=== PATIENT | male | born 1955 | race Caucasian/White ===

== ENCOUNTER → 2017-02-03 | Outpatient (CLI) | payer OTHER | END | disposition home or self-care (01) | LOC: C.LABBFT 10:06 | PROVIDERS: ATTEND Urology | DX: Z00.00 Encounter for general adult medical examination without abnormal findings (principal); N40.0 Benign prostatic hyperplasia without lower urinary tract symptoms; R97.20 Elevated prostate specific antigen [PSA] ==

== ENCOUNTER 2017-04-06 18:57 | Emergency (ER) | payer OTHER ==
[~2017-04-06] VITALS: Ht 175.3 cm; Wt 71.6 kg
[2017-04-06 19:05] VITALS: TEMP 36.6; Ht 175.3 cm; Wt 71.6 kg
--- NOTE | 2017-04-06 19:24 | EMERGENCY ROOM VISIT NOTE ---
History Report prepared by Lucho: Eddie Quan Under the Supervision of: Dr. Nessa Moss D.O. First contact with patient: 19:10 Chief Complaint: MENTAL HEALTH EVALUATION Stated Complaint: MENTAL HEALTH EVAL History of Present Illness The patient is a 61 year old male who presents to the Emergency Room with worsening mental health issues today. Per police, the patient pulled a gun to his own head, but decided not to pull the trigger. The patient then proceeded to go to work, as he is a dance coach at [employer]. The patient went to a bank to get money, and the police were then called by the bank, and the patient was then brought here. Per police, the patient has no known mental health diagnoses, but has seen a psychiatrist in the past. The patient states that he has no thoughts of hurting himself anymore, and denies any current homicidal ideations, but he admits that sometimes he has thoughts to hurt other people. He says that he is not on any medications, and does not use any recreational drugs. He adds that he does not smoke cigarettes or drink alcohol. He denies any pain, and notes no recent illnesses, injuries, or falls. The patient notes that he has had ringing in his ears for a while, and sometimes thinks that someone is coming to get him, but denies any thoughts like that currently. Source of History: patient, police Onset: Today Position: other (global - mental health issues) Quality: other (pulled gun to his head but did not pull trigger) Timing: worsening Note: Associated symptoms: Denies any pain, recent illnesses, falls. Notes ringing in ears for a while. Denies current suicidal ideations, homicidal ideation. Review of Systems See HPI for pertinent positives & negatives. A total of 10 systems reviewed and were otherwise negative. Past Medical & Surgical Medical Problems: (1) No chronic diseases present Surgical Problems: (1) Hernia Family History No pertinent family history Social History Smoking Status: Never Smoker Alcohol Use: none Drug Use: none Marital Status: single Occupation Status: employed Current/Historical Medications No Active Prescriptions or Reported Meds Allergies Uncoded Allergies: PEN (Allergy, Mild, RASH, 09/10/12) Physical Exam Vital Signs Date Time Temp Pulse Resp B/P (MAP) Pulse Ox O2 Delivery O2 Flow Rate FiO2 04/07/17 01:03 74 20 126/81 97 Room Air 04/06/17 21:07 66 18 115/76 98 Room Air 04/06/17 19:05 36.6 73 18 138/78 98 Room Air Physical Exam GENERAL: alert, well appearing, well nourished, no distress, non-toxic EYE EXAM: normal conjunctiva, PERRL and EOM's grossly intact OROPHARYNX: no exudate, no erythema, lips, buccal mucosa, and tongue normal and mucous membranes are moist NECK: supple, no nuchal rigidity, no adenopathy, non-tender LUNGS: Clear to auscultation. Normal chest wall mechanics HEART: no murmurs, S1 normal and S2 normal ABDOMEN: abdomen soft, non-tender, normo-active bowel sounds, no masses, no rebound or guarding. BACK: Back is symmetrical on inspection and there is no deformity, no midline tenderness, no CVA tenderness. SKIN: no rashes and no bruising UPPER EXTREMITIES: upper extremities are grossly normal. LOWER EXTREMITIES: No pitting edema. NEURO EXAM: Normal sensorium, cranial nerves II-XII grossly intact, normal speech, no gross weakness of arms, no gross weakness of legs. Medical Decision & Procedures Laboratory Results 04/06/17 19:32 Red Blood Count 4.62, Mean Corpuscular Volume 95.2, Mean Corpuscular Hemoglobin 33.8, Mean Corpuscular Hemoglobin Concent 35.5, Mean Platelet Volume 10.4, Neutrophils (%) (Auto) 65.5, Lymphocytes (%) (Auto) 25.1, Monocytes (%) (Auto) 8.1, Eosinophils (%) (Auto) 0.8, Basophils (%) (Auto) 0.3, Neutrophils # (Auto) 4.23, Lymphocytes # (Auto) 1.62, Monocytes # (Auto) 0.52, Eosinophils # (Auto) 0.05, Basophils # (Auto) 0.02 04/06/17 19:32 Test 04/06/17 19:15 04/06/17 19:32 Urine Color YELLOW Urine Appearance CLOUDY (CLEAR) Urine pH 5.0 (4.5-7.5) Urine Specific [place] 1.026 (1.000-1.030) Urine Protein NEG (NEG) Urine Glucose (UA) NEG (NEG) Urine Ketones NEG (NEG) Urine Occult Blood NEG (NEG) Urine Nitrite NEG (NEG) Urine Bilirubin NEG (NEG) Urine Urobilinogen NEG (NEG) Urine Leukocyte Esterase SMALL (NEG) Urine WBC (Auto) 1-5 /hpf (0-5) Urine RBC (Auto) 0-4 /hpf (0-4) Urine Hyaline Casts (Auto) 1-5 /lpf (0-5) Urine Epithelial Cells (Auto) 5-10 /lpf (0-5) Urine Bacteria (Auto) 1+ (NEG) Urine Crystals CALCIUM OXALATE (NONE Urine Opiates Screen NEG (NEG) Urine Methadone, Qualitative NEG (NEG) Urine Barbiturates NEG (NEG) Urine Phencyclidine (PCP) Level NEG (NEG) Ur Amphetamine/Methamphetamine NEG (NEG) MDMA (Ecstasy) Screen NEG (NEG) Urine Benzodiazepines Screen NEG (NEG) Urine Cocaine Metabolite NEG (NEG) Urine Marijuana (THC) NEG (NEG) White Blood Count 6.45 K/uL (4.8-10.8) Red Blood Count 4.62 M/uL (4.7-6.1) Hemoglobin 15.6 g/dL (14.0-18.0) Hematocrit 44.0 % (42-52) Mean Corpuscular Volume 95.2 fL (80-100) Mean Corpuscular Hemoglobin 33.8 pg (25-34) Mean Corpuscular Hemoglobin Concent 35.5 g/dl (32-36) Platelet Count 180 K/uL (130-400) Mean Platelet Volume 10.4 fL (7.4-10.4) Neutrophils (%) (Auto) 65.5 % Lymphocytes (%) (Auto) 25.1 % Monocytes (%) (Auto) 8.1 % Eosinophils (%) (Auto) 0.8 % Basophils (%) (Auto) 0.3 % Neutrophils # (Auto) 4.23 K/uL (1.4-6.5) Lymphocytes # (Auto) 1.62 K/uL (1.2-3.4) Monocytes # (Auto) 0.52 K/uL (0.11-0.59) Eosinophils # (Auto) 0.05 K/uL (0-0.5) Basophils # (Auto) 0.02 K/uL (0-0.2) RDW Standard Deviation 43.4 fL (36.4-46.3) RDW Coefficient of Variation 12.6 % (11.5-14.5) Immature Granulocyte % (Auto) 0.2 % Immature Granulocyte # (Auto) 0.01 K/uL (0.00-0.02) Anion Gap 8.0 mmol/L (3-11) Est Creatinine Clear Calc Drug Dose 97.0 ml/min Estimated GFR () 112.0 Estimated GFR (Non- 96.6 BUN/Creatinine Ratio 28.0 (10-20) Calcium Level 8.3 mg/dl (8.5-10.1) Total Bilirubin 0.4 mg/dl (0.2-1) Direct Bilirubin < 0.1 mg/dl (0-0.2) Aspartate Amino Transf (AST/SGOT) 22 U/L (15-37) Alanine Aminotransferase (ALT/SGPT) 32 U/L (12-78) Alkaline Phosphatase 84 U/L (45-117) Total Protein 7.1 gm/dl (6.4-8.2) Albumin 3.9 gm/dl (3.4-5.0) Thyroid Stimulating Hormone (TSH) 2.270 uIu/ml (0.300-4.500) Ethyl Alcohol mg/dL < 3.0 mg/dl (0-3) Laboratory results per my review. ED Course 1910: The patient was evaluated in room A7. A complete history and physical exam was performed. 2050: The psych case manger is going to see the patient. 2113: pt now refusing to sign voluntary as he had originally been agreeable to. Will start 302 process. 2142: Delegate here now to proceed with 302 process. Patient signed out to Dr. Sesay to follow-up patient's final placement and disposition. Medical Decision Differential diagnosis: Etiologies such as mood disorder, infection, hypoglycemia, electrolyte abnormalities, cardiac sources, intracerebral event, toxicologic, neurologic, as well as others were entertained. Patient with suicidal ideation and plan today. Now denying suicidal intent. Patient seems have a difficult time understanding the serious nature of the events of today. Originally was willing to sign a voluntary, however then refused. 302 process started. I feel patient is unsafe to be discharged at this time and if he is not willing to sign a voluntary, that a 302 should be pursued. Medication Reconcilliation Current Medication List: was personally reviewed by me Blood Pressure Screening Patient's blood pressure: Elevated blood pressure Blood pressure disposition: Elevated BP felt to be situational Impression Primary Impression: Suicidal ideation Additional Impressions: Paranoia Hallucination Depressed Scribe Attestation The scribe's documentation has been prepared under my direction and personally reviewed by me in its entirety. I confirm that the note above accurately reflects all work, treatment, procedures, and medical decision making performed by me. Departure Information Prescriptions No Active Prescriptions or Reported Meds Referrals Preston Wilcox M.D. (PCP) Patient Instructions My [facility] Problem Qualifiers Additional Impressions: Depressed Depression Type: unspecified Qualified Codes: F32.9 - Major depressive disorder, single episode, unspecified
[2017-04-06 19:42] LABS: URINE APPEARANCE CLOUDY (CLEAR); URINE BILIRUBIN NEG (NEG); URINE COLOR YELLOW; URINE NITRITE NEG (NEG); URINE SPECIFIC GRAVITY 1.026 (1.000-1.030); UROBILINOGEN NEG (NEG)
[2017-04-06 19:43] LABS: BASO % 0.3 %; BASO ABS # 0.02 K/uL (0-0.2); COMPLETE YES; EOS % 0.8 %; IG% 0.2 %; LYMPH % 25.1 %; LYMPH ABS # 1.62 K/uL (1.2-3.4); MEAN CELL VOLUME 95.2 fL (80-100); MEAN CORPUSCULAR HEMOGLOBIN 33.8 pg (25-34); MEAN CORPUSCULAR HGB CONC 35.5 g/dl (32-36); MEAN PLATELET VOLUME 10.4 fL (7.4-10.4); MONO % 8.1 %; NEUT % 65.5 %; PLATELET COUNT 180 K/uL (130-400); RED BLOOD COUNT 4.62 M/uL (4.7-6.1); WHITE BLOOD COUNT 6.45 K/uL (4.8-10.8)
[2017-04-06 19:44] LABS: MANUAL MICROSCOPIC REQUIRED? NO; REVIEW REQ? YES
[2017-04-06 20:01] LABS: ALT/SGPT 32 U/L (12-78); AST/SGOT 22 U/L (15-37); BLOOD UREA NITROGEN 23 mg/dl (7-18); CALCIUM 8.3 mg/dl (8.5-10.1); CARBON DIOXIDE 23 mmol/L (21-32); CHLORIDE 108 mmol/L (98-107); CREATININE 0.81 mg/dl (0.60-1.40); GLUCOSE 107 mg/dl (70-99); POTASSIUM 3.8 mmol/L (3.5-5.1); SODIUM 139 mmol/L (136-145)
[2017-04-06 20:03] LABS: BENZODIAZEPINE, URINE NEG (NEG); COCAINE,URINE NEG (NEG); PHENCYCLIDINE, URINE NEG (NEG)
[2017-04-06 20:12] LABS: ALKALINE PHOSPHATASE 84 U/L (45-117)
[2017-04-06] MEDS ORDERED: LORAZEPAM 1 MG TAB SL STA (21:32)
--- NOTE | 2017-04-06 23:36 | EMERGENCY ROOM VISIT NOTE ---
ED Visit Note First contact with patient: 19:09 Received patient in signout. History and physical verified by me. I interviewed this patient at time of sign out and he does not seem to be able to grasp the concept of what he did today. When asked if he threatened to shoot himself with a gun the patient only responds that it is all hearsay. However when I entered the room he told me that his life was not worth living. Based on the fact that he cannot have them his statements and based on what he said earlier I felt that the 302 should be upheld. I did also discuss the case with can help as well as case management who also independently evaluated the patient and who also agree with this assessment. Patient was accepted at [facility]. Problem List Medical Problems: (1) No chronic diseases present Status: Chronic Surgical Problems: (1) Hernia Status: Resolved Current/Historical Medications No Active Prescriptions or Reported Meds Allergies Uncoded Allergies: PEN (Allergy, Mild, RASH, 09/10/12) Vital Signs Date Time Temp Pulse Resp B/P (MAP) Pulse Ox O2 Delivery O2 Flow Rate FiO2 04/06/17 21:07 66 18 115/76 98 Room Air 04/06/17 19:05 36.6 73 18 138/78 98 Room Air Laboratory Results 04/06/17 19:32 Red Blood Count 4.62, Mean Corpuscular Volume 95.2, Mean Corpuscular Hemoglobin 33.8, Mean Corpuscular Hemoglobin Concent 35.5, Mean Platelet Volume 10.4, Neutrophils (%) (Auto) 65.5, Lymphocytes (%) (Auto) 25.1, Monocytes (%) (Auto) 8.1, Eosinophils (%) (Auto) 0.8, Basophils (%) (Auto) 0.3, Neutrophils # (Auto) 4.23, Lymphocytes # (Auto) 1.62, Monocytes # (Auto) 0.52, Eosinophils # (Auto) 0.05, Basophils # (Auto) 0.02 04/06/17 19:32 Test 04/06/17 19:15 04/06/17 19:32 Urine Color YELLOW Urine Appearance CLOUDY (CLEAR) Urine pH 5.0 (4.5-7.5) Urine Specific [place] 1.026 (1.000-1.030) Urine Protein NEG (NEG) Urine Glucose (UA) NEG (NEG) Urine Ketones NEG (NEG) Urine Occult Blood NEG (NEG) Urine Nitrite NEG (NEG) Urine Bilirubin NEG (NEG) Urine Urobilinogen NEG (NEG) Urine Leukocyte Esterase SMALL (NEG) Urine WBC (Auto) 1-5 /hpf (0-5) Urine RBC (Auto) 0-4 /hpf (0-4) Urine Hyaline Casts (Auto) 1-5 /lpf (0-5) Urine Epithelial Cells (Auto) 5-10 /lpf (0-5) Urine Bacteria (Auto) 1+ (NEG) Urine Crystals CALCIUM OXALATE (NONE Urine Opiates Screen NEG (NEG) Urine Methadone, Qualitative NEG (NEG) Urine Barbiturates NEG (NEG) Urine Phencyclidine (PCP) Level NEG (NEG) Ur Amphetamine/Methamphetamine NEG (NEG) MDMA (Ecstasy) Screen NEG (NEG) Urine Benzodiazepines Screen NEG (NEG) Urine Cocaine Metabolite NEG (NEG) Urine Marijuana (THC) NEG (NEG) White Blood Count 6.45 K/uL (4.8-10.8) Red Blood Count 4.62 M/uL (4.7-6.1) Hemoglobin 15.6 g/dL (14.0-18.0) Hematocrit 44.0 % (42-52) Mean Corpuscular Volume 95.2 fL (80-100) Mean Corpuscular Hemoglobin 33.8 pg (25-34) Mean Corpuscular Hemoglobin Concent 35.5 g/dl (32-36) Platelet Count 180 K/uL (130-400) Mean Platelet Volume 10.4 fL (7.4-10.4) Neutrophils (%) (Auto) 65.5 % Lymphocytes (%) (Auto) 25.1 % Monocytes (%) (Auto) 8.1 % Eosinophils (%) (Auto) 0.8 % Basophils (%) (Auto) 0.3 % Neutrophils # (Auto) 4.23 K/uL (1.4-6.5) Lymphocytes # (Auto) 1.62 K/uL (1.2-3.4) Monocytes # (Auto) 0.52 K/uL (0.11-0.59) Eosinophils # (Auto) 0.05 K/uL (0-0.5) Basophils # (Auto) 0.02 K/uL (0-0.2) RDW Standard Deviation 43.4 fL (36.4-46.3) RDW Coefficient of Variation 12.6 % (11.5-14.5) Immature Granulocyte % (Auto) 0.2 % Immature Granulocyte # (Auto) 0.01 K/uL (0.00-0.02) Anion Gap 8.0 mmol/L (3-11) Est Creatinine Clear Calc Drug Dose 97.0 ml/min Estimated GFR () 112.0 Estimated GFR (Non- 96.6 BUN/Creatinine Ratio 28.0 (10-20) Calcium Level 8.3 mg/dl (8.5-10.1) Total Bilirubin 0.4 mg/dl (0.2-1) Direct Bilirubin < 0.1 mg/dl (0-0.2) Aspartate Amino Transf (AST/SGOT) 22 U/L (15-37) Alanine Aminotransferase (ALT/SGPT) 32 U/L (12-78) Alkaline Phosphatase 84 U/L (45-117) Total Protein 7.1 gm/dl (6.4-8.2) Albumin 3.9 gm/dl (3.4-5.0) Thyroid Stimulating Hormone (TSH) 2.270 uIu/ml (0.300-4.500) Ethyl Alcohol mg/dL < 3.0 mg/dl (0-3) Departure Information Impression Primary Impression: Suicidal ideation Additional Impressions: Depressed Hallucination Paranoia Prescriptions No Active Prescriptions or Reported Meds Referrals Preston Wilcox M.D. (PCP) Patient Instructions My [facility] Problem Qualifiers Additional Impressions: Depressed Depression Type: unspecified Qualified Codes: F32.9 - Major depressive disorder, single episode, unspecified
[2017-04-07 01:03] VITALS: BP 126/81; PULSE 74; O2SAT 97
== END 2017-04-07 01:45 ==
LOC: C.EDB 18:58 → C.EDA 04-07 01:45
DX: R45.851 Suicidal ideations (principal); F32.9 Major depressive disorder, single episode, unspecified; R44.3 Hallucinations, unspecified; F22 Delusional disorders

== ENCOUNTER 2017-09-02 18:36 | Emergency (ER) | payer OTHER ==
[~2017-09-02] VITALS: Ht 175.3 cm; Wt 66.7 kg
[2017-09-02 18:37] VITALS: TEMP 37.2; Ht 175.3 cm; Wt 66.7 kg
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
[2017-09-02 19:29] LABS: BASO % 0.1 %; BASO ABS # 0.02 K/uL (0-0.2); EOS % 0.1 %; EOS ABS # 0.02 K/uL (0-0.5); HEMATOCRIT 44.2 % (42-52); HEMOGLOBIN 15.6 g/dL (14.0-18.0); IG# 0.03 K/uL (0.00-0.02); LYMPH % 9.6 %; LYMPH ABS # 1.32 K/uL (1.2-3.4); MEAN CELL VOLUME 94.2 fL (80-100); MEAN CORPUSCULAR HEMOGLOBIN 33.3 pg (25-34); MEAN CORPUSCULAR HGB CONC 35.3 g/dl (32-36); MEAN PLATELET VOLUME 10.3 fL (7.4-10.4); MONO % 6.4 %; MONO ABS # 0.88 K/uL (0.11-0.59); NEUT % 83.6 %; NEUT ABS # 11.51 K/uL (1.4-6.5); PLATELET COUNT 221 K/uL (130-400); RED CELL DISTRIBUTION WIDTH CV 12.8 % (11.5-14.5); RED CELL DISTRIBUTION WIDTH SD 44.2 fL (36.4-46.3); WHITE BLOOD COUNT 13.78 K/uL (4.8-10.8)
--- NOTE | 2017-09-02 19:43 | DIAGNOSTIC IMAGING REPORT ---
CHEST ONE VIEW PORTABLE HISTORY: Mood Disorder COMPARISON: None. FINDINGS: The lungs are clear. Cardiac silhouette is normal in size. No pleural effusions. No pneumothorax. IMPRESSION: No acute process. Electronically signed by: Eduardo Rao M.D. 09/02/2017 7:41 PM Dictated Date/Time: 09/02/2017 7:40 PM
[2017-09-02 19:52] LABS: ALBUMIN 3.7 gm/dl (3.4-5.0); ALT/SGPT 32 U/L (12-78); AST/SGOT 18 U/L (15-37); BLOOD UREA NITROGEN 29 mg/dl (7-18); CALCIUM 8.5 mg/dl (8.5-10.1); CARBON DIOXIDE 26 mmol/L (21-32); CREATININE 1.07 mg/dl (0.60-1.40); GLUCOSE 121 mg/dl (70-99); POTASSIUM 3.5 mmol/L (3.5-5.1); SODIUM 138 mmol/L (136-145)
[2017-09-02 20:03] LABS: ALKALINE PHOSPHATASE 69 U/L (45-117)
--- NOTE | 2017-09-02 21:01 | DIAGNOSTIC IMAGING REPORT ---
HEAD CT NONCONTRAST CT DOSE: 712.55 mGy.cm HISTORY: Mood disorder. EVALUATE FOR PSYCH CLEARANCE TECHNIQUE: Multiaxial CT images of the head were performed without the use of intravenous contrast. Automated exposure control was utilized for this study. A dose lowering technique was utilized adhering to the principles of ALARA. Comparison: Temporal bone CT 03/16/2015. Findings: The paranasal sinuses and mastoid air cells are clear. The calvarium and skull base are intact. The ventricles and sulci are within normal limits. There is no mass, hematoma, midline shift, or acute infarct. Impression: No acute intracranial abnormality. Electronically signed by: Eduardo Rao M.D. 09/02/2017 8:59 PM Dictated Date/Time: 09/02/2017 8:55 PM
[2017-09-02 22:36] VITALS: BP 105/70; PULSE 80; O2SAT 95
== END 2017-09-02 22:58 | disposition home or self-care (01) ==
LOC: EDBD 18:36 → C.EDA 18:36
DX: R41.82 Altered mental status, unspecified (principal)

== ENCOUNTER 2017-09-07 00:02 | Inpatient (IN) | payer OTHER ==
[2017-09-07] VITALS (10 sets, daily range): BP systolic 92–125; BP diastolic 55–68; PULSE 70–93; TEMP 36.5–37.4; O2SAT 93–98; Ht 154.9 cm; Wt 63.7 kg
[~2017-09-07] VITALS: Ht 154.9 cm; Wt 63.7 kg
[2017-09-07 01:04] LABS: HEMATOCRIT 40.6 % (42-52); HEMOGLOBIN 14.5 g/dL (14.0-18.0); MEAN CELL VOLUME 93.5 fL (80-100); MEAN CORPUSCULAR HEMOGLOBIN 33.4 pg (25-34); MEAN CORPUSCULAR HGB CONC 35.7 g/dl (32-36); MEAN PLATELET VOLUME 10.3 fL (7.4-10.4); PLATELET COUNT 203 K/uL (130-400); RED CELL DISTRIBUTION WIDTH CV 12.6 % (11.5-14.5); RED CELL DISTRIBUTION WIDTH SD 43.7 fL (36.4-46.3); WHITE BLOOD COUNT 8.37 K/uL (4.8-10.8)
[2017-09-07 01:21] LABS: BLOOD UREA NITROGEN 26 mg/dl (7-18); CALCIUM 8.1 mg/dl (8.5-10.1); CARBON DIOXIDE 24 mmol/L (21-32); CREATININE 0.95 mg/dl (0.60-1.40); GLUCOSE 166 mg/dl (70-99)
[2017-09-07 01:25] LABS: POTASSIUM 3.8 mmol/L (3.5-5.1); SODIUM 138 mmol/L (136-145)
[2017-09-07] MEDS ORDERED: HYDROmorphone INJ 0.5 MG/0.5 ML SYR IV STA (02:10)
--- NOTE | 2017-09-07 02:19 | EMERGENCY ROOM VISIT NOTE ---
History Report prepared by Lucho: Rowena Sun Under the Supervision of: Dr. Nataly Coornado D.O. First contact with patient: 00:03 Chief Complaint: FALL Stated Complaint: FALL DOWN STAIRS History of Present Illness The patient is a 62 year old male who presents to the Emergency Room with complaints of an episode of a fall occurring prior to arrival. The patient states that he was walking out of the bathroom and down the [place] when he fell down the stairs. He reports that he slipped. He states that it was dark and he mistook the staircase for the bedroom door. He reports that he was able to crawl back up the steps to call an ambulance. The patient complains of left hip pain. The patient denies loss of consciousness, losing his balance, neck pain, drinking alcohol, taking blood thinners, and taking sleeping pills. He notes that he gets a shot once a month that he thinks is for his depression. Source of History: patient Onset: prior to arrival Position: other (global) Quality: other (fall) Timing: other (episode) Associated Symptoms: No LOC, No neck pain Note: The patient complains of left hip pain. The patient denies losing his balance. Review of Systems See HPI for pertinent positives & negatives. A total of 10 systems reviewed and were otherwise negative. Past Medical & Surgical Medical Problems: (1) Depression (2) No chronic diseases present Surgical Problems: (1) Hernia Family History No pertinent family history Social History Smoking Status: Never Smoker Alcohol Use: none Drug Use: none Marital Status: single Housing Status: lives alone Occupation Status: employed Current/Historical Medications No Active Prescriptions or Reported Meds Allergies Coded Allergies: Penicillins (Unverified Adverse Reaction, Intermediate, RASH, 09/02/17) Physical Exam Vital Signs Date Time Temp Pulse Resp B/P (MAP) Pulse Ox O2 Delivery O2 Flow Rate FiO2 09/07/17 02:18 74 18 104/59 94 Room Air 09/07/17 01:09 62 16 95/48 96 Room Air 09/07/17 00:06 36.7 77 18 109/64 92 Room Air Physical Exam HEENT: Head - normocephalic and atraumatic. Pupils are equal, round, and reactive to light. Extraocular eye muscles are intact and sclera are anicteric. Nose - moist nasal mucosa without evidence of trauma or discharge. Mouth - moist buccal mucosa with no trauma to the teeth or signs of malocclusion. Neck: The cervical collar was removed while in-line stabilization was maintained. The neck is supple and there is no pain to palpation over the posterior cervical spine and no obvious step-offs or deformities. There is no JVD or tracheal deviation. Chest: There are no signs of deformities, contusions or abrasions to the chest wall. There is no obvious crepitus or paradoxical chest rise. Heart: Regular, rate, and rhythm. There is a normal S1 and S2 with no murmurs, clicks, or gallops appreciated. Lungs: Clear to auscultation bilaterally with no wheezes, rales, or rhonchi. Abdomen: Soft, completely nontender, nondistended, with good bowel sounds. There is no sign of trauma such as contusions, abrasions or penetrations. There are no palpable pulsatile masses or hepatosplenomegaly. There is no guarding, rigidity, or rebound noted. Pelvis: Stable to rock and compression. Pain with palpation over the left lateral hip. Extremities: No obvious trauma, deformities, contusions, or edema. There are easily palpable peripheral pulses. Neuro: The patient is awake and alert and easily able to follow commands. Muscle strength is 5 out of 5 in all 4 extremities. Otherwise, neuro exam is unremarkable. Back: The entire thoracic, lumbar, and sacral spine were palpated. There are no obvious step-offs or deformities noted. There are no obvious signs of trauma such as contusions abrasions penetrations noted to the back. Medical Decision & Procedures ER Provider Diagnostic Interpretation: HIP X-RAY: The results were interpreted by me. Intertrochanteric hip fracture on the left. CHEST X-RAY: The results were interpreted by me. No acute pulmonary findings. No cardiomegaly. Laboratory Results 09/07/17 00:20 09/07/17 00:20 Test 09/07/17 00:20 Red Blood Count 4.34 M/uL (4.7-6.1) Mean Corpuscular Volume 93.5 fL (80-100) Mean Corpuscular Hemoglobin 33.4 pg (25-34) Mean Corpuscular Hemoglobin Concent 35.7 g/dl (32-36) RDW Standard Deviation 43.7 fL (36.4-46.3) RDW Coefficient of Variation 12.6 % (11.5-14.5) Mean Platelet Volume 10.3 fL (7.4-10.4) Prothrombin Time 10.1 SECONDS (9.0-12.0) Prothromb Time International Ratio 1.0 (0.9-1.1) Activated Partial Thromboplast Time 25.3 SECONDS (21.0-31.0) Partial Thromboplastin Ratio 1.0 Anion Gap 6.0 mmol/L (3-11) Estimated GFR () 99.7 Estimated GFR (Non- 86.1 BUN/Creatinine Ratio 26.8 (10-20) Calcium Level 8.1 mg/dl (8.5-10.1) Laboratory results per my review. Medications Administered Medications (Trade) Dose Ordered Sig/Madelyn Route Start Time Stop Time Status Last Admin Dose Admin Hydromorphone HCl (Dilaudid Inj) 0.5 mg NOW STAT IV 09/07/17 02:10 09/07/17 02:12 DC 09/07/17 02:16 0.5 MG Procedure IV Dilaudid ED Course 0009: Past medical records reviewed. The patient was evaluated in room A2. A complete history and physical exam was performed. The patient cervical collar was removed and his neck was cleared. He went for plain films of his left hip and pelvis as described above. 0107: I reevaluated the patient and informed him that his hip is broken. I informed him of his treatment plan and he verbalized agreement of the treatment plan. An IV lock was initiated and labs were drawn as above. 0210: Ordered Dilaudid Inj 0.5 mg IV. 0212: Discussed the patient's case with Dr. Souza - Orthopedics. The patient will be evaluated for further management. Medical Decision The patient is a 62 year old male who presents to the Emergency Room with complaints of an episode of a fall occurring prior to arrival. Differential diagnoses include left hip fracture, left hip contusion, head injury, c-spine injury. LABS: Stable H&H Normal white count BUN 26 Creatinine 0.9 This is a 62-year-old male patient who unfortunately suffered a fall down stairs at home this morning. He complained of left hip pain. X-ray reveals evidence of a left hip fracture. The patient denies injuring any other part of his body. He has no outward signs of trauma. I discussed the case with orthopedics and they will evaluate for further management. Medication Reconcilliation Current Medication List: was personally reviewed by me Blood Pressure Screening Patient's blood pressure: Normal blood pressure Will be further monitored by the surgeon. Consults Time Called: [phone] Consulting Physician: Dr. Harley Piedra [facility] Returned Call: [phone] Discussed the patient's case with Dr. Harley Machuca. The patient will be evaluated for further management. Impression Primary Impression: Hip fracture, left Additional Impression: Fall Scribe Attestation The scribe's documentation has been prepared under my direction and personally reviewed by me in its entirety. I confirm that the note above accurately reflects all work, treatment, procedures, and medical decision making performed by me. Departure Information Dispostion Being Evaluated By Surgeon Prescriptions No Active Prescriptions or Reported Meds Referrals Preston Wilcox M.D. (PCP) Patient Instructions My [facility] Problem Qualifiers Primary Impression: Hip fracture, left Encounter type: initial encounter Fracture type: closed Qualified Codes: S72.002A - Fracture of unspecified part of neck of left femur, initial encounter for closed fracture Additional Impression: Fall Encounter type: initial encounter Qualified Codes: W19.XXXA - Unspecified fall, initial encounter
[2017-09-07] MEDS ORDERED: NURSING VERBAL MED ORDER ONE (02:30)
[2017-09-07] MEDS ORDERED: ONDANSETRON INJ 2 MG/ML 2 ML VIAL IV PRN (03:15)
[2017-09-07 03:16] LABS: PTT PATIENT 25.3 SECONDS (21.0-31.0)
[2017-09-07] MEDS: SODIUM CHLORIDE 0.9% 1000ML 1,000 ML IV SCH ×2 (03:38→13:15)
[2017-09-07] MEDS: MoRPHine SULFATE 4 MG/ML 1 ML CARP\\VIAL IV PRN ×2 (03:38→07:44)
[2017-09-07] MEDS ORDERED: CEFAZOLIN SOD 2000MG/15 ML IV PUSH IV SCH (06:00)
--- NOTE | 2017-09-07 07:09 | DIAGNOSTIC IMAGING REPORT ---
PELVIS ONE VIEW, LEFT HIP 2 VIEWS HISTORY: fall - left hip pain COMPARISON: None. FINDINGS: There is a left femoral neck fracture demonstrating mild superior displacement. No dislocation. The visualized pelvic bones are intact. Soft tissues are unremarkable. No radiopaque foreign bodies. IMPRESSION: Mildly displaced left femoral neck fracture. Electronically signed by: Eduardo Rao M.D. 09/07/2017 7:08 AM Dictated Date/Time: 09/07/2017 7:07 AM
--- NOTE | 2017-09-07 07:28 | DIAGNOSTIC IMAGING REPORT ---
CHEST 1 VW FRONT-NOT PORTABLE HISTORY: Left hip fracture. COMPARISON: Chest 09/02/2017. FINDINGS: The lungs are clear. Cardiac silhouette is normal in size. No pleural effusions. No pneumothorax. Old, healed right-sided rib fractures. IMPRESSION: No acute process. Electronically signed by: Eduardo Rao M.D. 09/07/2017 7:27 AM Dictated Date/Time: 09/07/2017 7:26 AM
[2017-09-07] MEDS: DOCUSATE SODIUM 100 MG CAP PO SCH ×2 (09:00→20:35)
[2017-09-07] MEDS: MULTIVITAMIN TAB PO SCH (09:00)
--- NOTE | 2017-09-07 09:19 | Medical Consult ---
Consultation Date of Consultation: Sep 07, 2017. Attending Physician: Gamaliel Souza D.O. Reason for Consultation: Medical management, pre-op clearance History of Present Illness This is a 62 yo M with PMHx of GERD, BPH, diverticulosis with recent hx of diverticulitis treated with cipro/flagyl in May 2017 as outpatient, and HLD who presents s/p fall and subsequent fracture of the L femoral neck. Pt is being evaluated for medical management/preop clearance. Chart was reviewed and pt was stable for surgery this morning. The patient was examined in the PACU s/p L total hip arthroplasty. He is awake and able to answer all my questions. He reports having minimal to no pain at this time, and that his legs are still slightly numb. He is not able to wiggle his toes or move ankles. He reports that his fall was secondary to falling down the stairs in the dark, around 11 pm last evening. He denies hitting his head or LOC. When questioned about history of mood disorders, pt willingly expresses that he follows with Regina, provider at [facility] in [place]. He notes he was recently started on a new medication, not a tablet but injectable. As I list names of medications, he agrees that he is on Abilify JAFFE, however is not aware of the dosing. He thinks he started this 1 or 2 months ago. Pt seems to think he was on a tablet, however cannot fully tell me if he's currently on an oral medication. Pt reports trial of antidepressants in the past, but is unable to recall the medications. He feels his mood is better since starting the injection, and last received a dose about 1 week ago in outpt office. He denies that the medication has cause lightheadedness or dizziness, confusion or altered mental status or other adverse effects. He denies suicidal or homicidal ideations. Past Medical/Surgical History Medical Problems: (1) BPH (benign prostatic hyperplasia) (2) Depression (3) Diverticulosis (4) GERD (gastroesophageal reflux disease) (5) HLD (hyperlipidemia) Surgical Problems: (1) Hernia Family History Diabetes mellitus FH: cancer FH: heart disease FH: hypercholesterolemia FH: obesity Social History Smoking Status: Never Smoker Smokeless Tobacco Use: No Alcohol Use: socially Drug Use: none Marital Status: single Housing Status: lives alone Occupation Status: employed Allergies Coded Allergies: Penicillins (Unverified Adverse Reaction, Intermediate, RASH, 09/07/17) Current Inpatient Medications Current Inpatient Medications Medications (Trade) Dose Ordered Sig/Madelyn Route Start Time Stop Time Status Last Admin Dose Admin Sodium Chloride 1,000 ml @ 100 mls/hr Q10H IV 09/07/17 03:15 10/07/17 03:14 09/07/17 03:38 100 MLS/HR Morphine Sulfate (MoRPHine SULFATE INJ) 3 mg Q4H PRN IV 09/07/17 03:15 09/21/17 03:14 09/07/17 07:44 3 MG Ondansetron HCl (Zofran Inj) 4 mg Q6H PRN IV 09/07/17 03:15 10/07/17 03:14 Docusate Sodium (coLACE CAP) 100 mg BID PO 09/07/17 09:00 10/07/17 08:59 Multivitamins (Multivitamin Tab) 1 tab QAM PO 09/07/17 09:00 10/07/17 08:59 Cefazolin Sodium (Ancef 2000mg Iv Push) 2,000 mg PREOP IV 09/07/17 06:00 09/07/17 18:00 Review of Systems Constitutional: No fever, No chills, No sweats, No fatigue Eyes: No discharge, No diplopia ENT: No sore throat, No trouble swallowing Respiratory: No cough, No wheezing, No shortness of breath Cardiovascular: No chest pain, No edema, No palpitations Abdomen: No pain, No nausea, No vomiting, No diarrhea, No constipation Musculoskeletal: No joint pain, No muscle pain, No swelling Neurologic: + numbness/tingling, No weakness, No balance problems Psychiatric: + depression symptoms, + problem reported (hx of mood disorder), No anxiety Endocrine: No fatigue Integumentary: No rash, No itch Physical Exam Date Time Temp Pulse Resp B/P (MAP) Pulse Ox O2 Delivery O2 Flow Rate FiO2 09/07/17 07:39 37.2 71 16 125/56 (79) 94 Room Air 09/07/17 07:13 Room Air 09/07/17 03:50 Room Air 09/07/17 03:05 37.2 73 18 113/68 94 Room Air 09/07/17 02:43 74 18 104/59 94 09/07/17 02:18 74 18 104/59 94 Room Air 09/07/17 01:09 62 16 95/48 96 Room Air 09/07/17 00:06 36.7 77 18 109/64 92 Room Air General Appearance: WD/WN, no apparent distress, + pertinent finding (slightly flat affect) Head: normocephalic, atraumatic Eyes: PERRL, EOMI ENT: hearing grossly normal, pharynx normal Neck: supple, no JVD Respiratory/Chest: lungs clear, no respiratory distress, no accessory muscle use Cardiovascular: regular rate, rhythm, no murmur, normal peripheral pulses Abdomen/GI: normal bowel sounds, non tender, soft Genitourinary - Male: + pertinent finding (ca catheter in place draining clear yellow urine) Back: normal inspection Extremities/Musculoskelatal: no calf tenderness, + pertinent finding (L hip dressing c/d/i, hemovac drain in place, leg immobilizing wedge in place, + decreased sensation to light touch, unable to move ankles/wiggle toes at present.) Neurologic/Psych: no motor/sensory deficits, normal reflexes, oriented x 3 Skin: normal color, warm/dry Laboratory Results Last 24 Hours Test 09/07/17 00:00 09/07/17 00:20 09/07/17 09:03 Urine Color YELLOW Urine Appearance CLEAR Urine pH 5.0 Urine Specific [place] 1.023 Urine Protein NEG Urine Glucose (UA) NEG Urine Ketones NEG Urine Occult Blood NEG Urine Nitrite NEG Urine Bilirubin NEG Urine Urobilinogen NEG Urine Leukocyte Esterase SMALL Urine WBC (Auto) 10-30 /hpf Urine RBC (Auto) 0-4 /hpf Urine Hyaline Casts (Auto) 0 /lpf Urine Epithelial Cells (Auto) 10-20 /lpf Urine Bacteria (Auto) 1+ Urine Crystals CALCIUM OXALATE Urine Mucus PRESENT Urine Sperm (Auto) PRESENT White Blood Count 8.37 K/uL Red Blood Count 4.34 M/uL Hemoglobin 14.5 g/dL Hematocrit 40.6 % Mean Corpuscular Volume 93.5 fL Mean Corpuscular Hemoglobin 33.4 pg Mean Corpuscular Hemoglobin Concent 35.7 g/dl RDW Standard Deviation 43.7 fL RDW Coefficient of Variation 12.6 % Platelet Count 203 K/uL Mean Platelet Volume 10.3 fL Prothrombin Time 10.1 SECONDS Prothromb Time International Ratio 1.0 Activated Partial Thromboplast Time 25.3 SECONDS Partial Thromboplastin Ratio 1.0 Sodium Level 138 mmol/L Potassium Level 3.8 mmol/L Chloride Level 108 mmol/L Carbon Dioxide Level 24 mmol/L Anion Gap 6.0 mmol/L Blood Urea Nitrogen 26 mg/dl Creatinine 0.95 mg/dl Estimated GFR () 99.7 Estimated GFR (Non- 86.1 BUN/Creatinine Ratio 26.8 Random Glucose 166 mg/dl Calcium Level 8.1 mg/dl Assessment & Plan 62 yo M L femoral neck fracture - CXR clear, EKG reviewed and is NSR without signs of acute ST wave abnormalities or ischemic changes. - BP is stable, VSS. - Check cbc to assess for any acute blood loss this morning, was stable last evening - hgb = 13.9, follow cbc - Pain management per primary team. - PT/OT after surgical procedure Major Depressive Disorder - Pt recently started on Abilify JAFFE once monthly injection, likely the 400 mg dosing as this is the typical dosage with new initiation. Pt may or may not be on oral abilify (10 or 20 mg) if this was just started as there should be a 2 week overlap of therapy. Most recent injection administered last week. Pt follows with geneva Tapia at [facility]: will request release of information be signed for psych to fax most recent progress note/med list/ treatment plan by HIM - Pt reports hx of trial of antidepressants - unable to recall names at this time - Would encourage to participate in counseling as an outpt for coping mechanisms /support system BPH - Follows with Dr. Mg as an outpt - stable, currently not on any medications Hx diverticulosis - diverticulitis resolved at this time. GERD - Not on PPI as outpatient, start for GI ppx . DVT ppx: Teds, scds CODE STATUS: Full code PA Physician Supervision Note: I interviewed and examined the patient. Discussed with Kami MERIDA and agree with findings and plan as documented in the note. Any exceptions or clarifications are listed here: None this pt was late to return from OR is recovering well has some mild left hip pain no shortness of breath or nausea vitals are stable, car is regular lungs are clear recovering from repair of left hip fracture, pt is looking for rehab at discharge Documented By: Fazal Jaramillo Disposition: From home, dc per primary team
[2017-09-07 09:40] LABS: HEMATOCRIT 39.2 % (42-52); HEMOGLOBIN 13.8 g/dL (14.0-18.0); MEAN CELL VOLUME 93.6 fL (80-100); MEAN CORPUSCULAR HEMOGLOBIN 32.9 pg (25-34); MEAN CORPUSCULAR HGB CONC 35.2 g/dl (32-36); MEAN PLATELET VOLUME 9.6 fL (7.4-10.4); PLATELET COUNT 176 K/uL (130-400); RED CELL DISTRIBUTION WIDTH CV 12.9 % (11.5-14.5); RED CELL DISTRIBUTION WIDTH SD 44.3 fL (36.4-46.3); WHITE BLOOD COUNT 9.13 K/uL (4.8-10.8)
[2017-09-07] MEDS ORDERED: MIDAZOLAM HCL 1 MG/ML 2ML VIAL ONE (10:10)
[2017-09-07] MEDS ORDERED: FENTANYL CITRATE INJ 50 MCG/1 ML 2 ML VIAL ONE (10:10)
--- NOTE | 2017-09-07 10:35 | HISTORY & PHYSICAL EXAMINATION ---
DATE OF ADMISSION: 09/07/2017 REASON FOR ADMISSION: Left hip fracture. HISTORY OF PRESENT ILLNESS: The patient is a 62-year-old white male who states that he was coming down his stairs and lost his balance and fell onto his left side. He had immediate pain in the left hip and groin and was unable to ambulate well. He denies any shortness of breath, chest pain, or lightheadedness prior to or after the fall. He did not lose consciousness. He was brought to the Emergency Room and was seen by the staff. X-rays were taken, and it was found that he had a left femoral neck fracture. Dr. Souza was consulted and had the patient admitted for further orthopedic care. PAST MEDICAL HISTORY: The patient has a history of depression but is not currently on any medications for this. He denies diabetes mellitus, tuberculosis, hepatitis, COPD, rheumatic fever, hypertension. PAST SURGICAL HISTORY: None. FAMILY HISTORY: Noncontributory. SOCIAL HISTORY: The patient is nonsmoker, does not use alcohol, is single, and lives alone. MEDICATIONS: None. ALLERGIES: PENICILLIN. REVIEW OF SYSTEMS: The patient states that he does wear corrective lenses but has not had any major changes with his vision. No major changes with hearing loss, frequent ear infections. No history of frequent sinus infections. Denies any recent fevers, chills, night sweats, unexplained weight loss or weight gain. No flu or cold like symptoms. No increased cough or sputum production. No shortness of breath at rest or on exertion. No chest pain, chest pressure, irregular heartbeat. No abdominal pain. No unusual nausea, vomiting, diarrhea. No history of hematemesis, melena, hematochezia. No history of GERD. No history of hematuria, pyuria, dysuria, or renal calculi. Positive history of depression with no pharmacological treatment noted at this time. No history of seizures, epilepsy, CVA, or TIA. No history of migraine headache. PHYSICAL EXAMINATION: GENERAL: The patient is a well-developed and well-nourished white male, alert and oriented to person and place. VITAL SIGNS: Stable. He is afebrile. SKIN: Warm and dry. Turgor is good. HEENT: Head is normocephalic and atraumatic. There is no scleral icterus or injection seen at this time. Pupils are equal and reactive to light and accommodation. Nasal airway is patent. Oral mucosa is pink and moist. NECK: Supple. CARDIOVASCULAR: Heart has regular rate and rhythm, without murmurs. RESPIRATORY: Lungs are clear to auscultation. GASTROINTESTINAL: Abdomen is soft, round, and nontender. Bowel sounds are present x4. GENITALIA AND RECTAL: Not performed at this time. EXTREMITIES: On examination of the patient's left lower extremity, his left lower extremity is shortened and externally rotated compared to the right. He is in 5 pounds of Bray's traction which is left on during exam. He is nontender at the knee and at the ankle and has good range of motion of his left ankle and toes at this time without discomfort. No attempts were made to move the left knee due to left hip fracture. Sensation is intact. Right lower extremity is within normal limits and is nontender at the hip, knee, and ankle and has good range of motion at this time. Distal pulses of the lower extremities are 2/4 bilaterally. On examination of his upper extremities, he is nontender at the shoulders, elbows, and wrists and has good range of motion of both upper extremities. Strengths are equal bilaterally, and pulses are 2/4 bilaterally. MUSCULOSKELETAL: Neck is nontender on palpation posteriorly, and he has good range of motion at this time without pain. He denies any thoracic or low back pain at this time. There are no gross motor or sensory deficits seen at this time other than due to fracture at the left hip for decreased range of motion. ASSESSMENT: Left hip fracture. PLAN: In speaking to Dr. Boyd, he is thinking more along the lines of a total hip arthroplasty due to the displaced nature of the fracture and due to the patient's age, but he would not fare well down the road with a bipolar hemiarthroplasty. This will be discussed with the patient in detail, and plans will be for likely left total hip arthroplasty today by Dr. Boyd.
--- NOTE | 2017-09-07 11:08 | History & Physical Bridge Note ---
H&P Re-Evaluation Bridge Note: I have examined the patient, reviewed the History & Physical and in the interval since the performance of the History & Physical I have noted the following changes of clinical significance: No changes noted
[2017-09-07] MEDS ORDERED: BUPIVACAINE 0.5 % 5 MG/1 ML PF 10ML VIAL ONE ×2 (11:29→11:43)
[2017-09-07] MEDS ORDERED: LIDOCAINE HCL 2% 2 ML VIAL (20MG/ML) ONE (11:31)
[2017-09-07] MEDS ORDERED: PROPOFOL IV EMULSION 10 MG/ML 20 ML VIAL IV ONE (11:31)
[2017-09-07] MEDS ORDERED: KETAMINE HCL INJ 50 MG/ML 10 ML VIAL ONE (11:34)
[2017-09-07] MEDS ORDERED: POVIDONE-IODINE OP SOLN 30 ML BTL ONE (11:39)
[2017-09-07] MEDS ORDERED: BACITRACIN 50000 UNIT VIAL ONE (11:39)
[2017-09-07] MEDS ORDERED: ROPIVACAINE 5MG/ML 30 ML 150 MG, BUPIVACAINE 0.5% MPF INJ 30 ML, EpINEphrine HCL INJ 0.... INFIL STA ×8 (11:50)
[2017-09-07] MEDS ORDERED: SODIUM CHLORIDE 0.9% INJ 10 ML VIAL ONE (12:32)
[2017-09-07] MEDS ORDERED: EpHEDrine SULFATE INJ 50 MG/ML AMP ONE (12:32)
[2017-09-07] MEDS ORDERED: ONDANSETRON INJ 2 MG/ML 2 ML VIAL ONE (12:32)
[2017-09-07] MEDS ORDERED: PHENYLEPHRINE HCL INJ 10 MG/ML VIAL ONE (12:32)
--- NOTE | 2017-09-07 13:00 | [facility] Post Operative Brief Note ---
Immediate Operative Summary Operative Date Sep 07, 2017. Pre-Operative Diagnosis LEFT HIP FRACTURE Post-Operative Diagnosis same Procedure(s) Performed left charles Surgeon DR. Santhosh SCHMITT Rivet Machine Operator Surgeon(s) Petros FOREMAN PAC Estimated Blood Loss 100cc Findings Consistent with Post-Op Diagnosis Specimens femoral head Anesthesia Type MAC Spinal Regional Complication(s) none Disposition Accompanied Pt To Recover: no Disposition: Recovery Room / PACU
[2017-09-07] MEDS ORDERED: ATROPINE SULFATE 0.1 MG/ML 5ML SYR IV PRN (14:00)
[2017-09-07] MEDS ORDERED: EpHEDrine SULFATE INJ 50 MG/ML AMP IV PRN (14:00)
--- NOTE | 2017-09-07 14:08 | DIAGNOSTIC IMAGING REPORT ---
L PELVIS/UNILATERAL HIP 1 VIEW CLINICAL HISTORY: post-op DERRICK hip arthroplasty COMPARISON: None. DISCUSSION: Total left hip arthroplasty. Good contact between prosthetic and underlying bone. Expected soft tissue postoperative change IMPRESSION: Anatomic alignment post left hip total arthroplasty. The above report was generated using voice recognition software. It may contain grammatical, syntax or spelling errors. Electronically signed by: Lito Mendieta M.D. 09/07/2017 2:07 PM Dictated Date/Time: 09/07/2017 2:06 PM
--- NOTE | 2017-09-07 14:24 | OPERATIVE REPORT ---
DATE OF OPERATION: 09/07/2017 PREOPERATIVE DIAGNOSIS: Osteoarthritis, left hip. POSTOPERATIVE DIAGNOSIS: Osteoarthritis, left hip. PROCEDURE: Left total hip arthroplasty. SURGEON: Cornelio Boyd M.D. YOUTH MINISTRY DIRECTOR: Eliazar Garcia PA-C. ANESTHESIA: Spinal. COMPLICATIONS: None. IMPLANTS USED: Acetabular type of the reamer used 54, acetabular shell 54, femoral head 36, femoral stem 6. OPERATION AND FINDINGS: PROCEDURE: Following induction of adequate spinal anesthesia, the patient was placed in right lateral decubitus position and left Radha-Langenbeck incision was made. Subcutaneous tissue was sharply dissected. Electrocautery used for hemostasis. The fascia was incised throughout the length of the wound and a ac scissor placed beneath the short external rotators. The pyriformis was tagged with #1 Vicryl. The short external rotators were divided from the posterior aspect of the femur using electrocautery. These were swept posteriorly. A T-capsulotomy incision was made and the hip was dislocated using a combination of flexion, adduction, and internal rotation. Exposure of the femoral neck with old-style Hohmann and a blunt Hohmann was carried out and a femoral rasp was utilized as a guide for making the appropriate level femoral neck cut. This bone fragment was removed and reserved on the back table. Next, attention was turned to the acetabulum where bone hook was used to retract the femur while the offset retractors were placed anterior and posteriorly. A double-angled Hohmann was placed in superior and anterior position exposing the acetabulum nicely. Acetabular labrum as well as posterior capsule elements were removed using a long knife and a long pickup. Fovea centralis was cleared of all soft tissue. Sequential reamings were carried up to a size 54 and decision was made to proceed with impaction of a size 54 trabecular metal cup. This was impacted and held using a single 35 mm bone screw. The acetabular liner was placed with 15 of elevated posterior wall in the superior and posterior position. Next, attention was turned to the femoral portion of the case where a Bovie and pickup was used to further clear short external rotators from their insertion on the femur. Box osteotome was used to gain access to the femoral canal and the T-handled rasp and a rattail rasp were used to further open and lateral the canal. Sequentially raspings were carried up to a size 6 which gave good fit and fill of the proximal femur. A trial reduction was carried out and a 132 degree femoral neck component was chosen as the size to be used. A 36 mm femoral head was impacted into position, +0 head was utilized. The trial reduction was stable in all degrees of rotation with no [id number] impingement. The hip was dislocated. The trial components were removed and the final femoral stem, neck, and femoral head combination were assembled on the back table and impacted into position. Hip was relocated. Range of motion checked once again successful and the wound was irrigated. The pyriformis repaired to the greater trochanter using #1 Vicryl [id number] suture. A Hemovac drain was placed and the fascia was closed using #1 Vicryl, subcutaneous tissue was closed using 0 Dexon, and skin was closed with marcell. Sterile dressing of Adaptic, 4 x 4's, ABDs, and foam tape was applied. The patient tolerated the procedure well. Due to the complex nature of the procedure, the entire surgery was performed with the operational assistance of Eliazar Garcia PA-C. The call center assistant, under direct supervision, was involved in the actual performance of all aspects of the surgical procedure including hemostasis, tissue retraction and incision, instrument management, patient positioning, and wound closure. DISPOSITION: Recovery room, stable. I attest to the content of the Intraoperative Record and any orders documented therein. Any exception s are noted below.
--- NOTE | 2017-09-07 14:38 | Anesthesiology Progress Note ---
Anesthesia Post Op Note Date & Time Sep 07, 2017 at 14:38 Vital Signs Pain Intensity: 0 Vital Signs Past 12 Hours Date Time Temp Pulse Resp B/P (MAP) Pulse Ox O2 Delivery O2 Flow Rate FiO2 09/07/17 14:20 75 12 106/70 97 Nasal Cannula 2 09/07/17 14:10 77 16 108/67 97 Nasal Cannula 2 09/07/17 14:00 74 20 111/67 100 Oxymask 10 09/07/17 13:50 78 17 109/63 100 Oxymask 10 09/07/17 13:40 73 17 108/68 100 Oxymask 10 09/07/17 13:32 36.9 68 16 110/65 100 Oxymask 10 09/07/17 07:39 37.2 71 16 125/56 (79) 94 Room Air 09/07/17 07:13 Room Air 09/07/17 03:50 Room Air 09/07/17 03:05 37.2 73 18 113/68 94 Room Air 09/07/17 02:43 74 18 104/59 94 Notes Mental Status: alert / awake / arousable, participated in evaluation Pt Amnestic to Procedure: Yes Nausea / Vomiting: adequately controlled Pain: adequately controlled Airway Patency, RR, SpO2: stable & adequate BP & HR: stable & adequate Hydration State: stable & adequate Neuraxial Anesthesia: was administered, sensory block is resolving Anesthetic Complications: no major complications apparent
[2017-09-07] MEDS: CEFAZOLIN IV 1,000 MG in SYRINGE 0 ML IV SCH (17:40)
[2017-09-07] MEDS: ASPIRIN 81 MG ECTAB PO SCH (20:35)
[2017-09-08] VITALS (7 sets, daily range): BP systolic 92–138; BP diastolic 60–74; PULSE 72–110; TEMP 37.3–37.9; O2SAT 91–95
[2017-09-08] MEDS: SODIUM CHLORIDE 0.9% 1000ML 1,000 ML IV SCH ×3 (00:35→19:02)
[2017-09-08] MEDS: CEFAZOLIN IV 1,000 MG in SYRINGE 0 ML IV SCH (02:20)
[2017-09-08] MEDS ORDERED: COUGH DROP (SUGAR FREE) LOZ 24 LOZ/1 BOX LOZ ONE (02:35)
[2017-09-08] MEDS ORDERED: COUGH DROP (SUGAR FREE) LOZ 24 LOZ/1 BOX LOZ PRN (03:00)
[2017-09-08] MEDS: OXYCODONE HCL IR 5 MG TAB (IMMEDIATE RELEASE) PO PRN ×3 (03:15→19:12)
[2017-09-08 07:33] LABS: HEMATOCRIT 33.9 % (42-52); HEMOGLOBIN 11.7 g/dL (14.0-18.0); MEAN CORPUSCULAR HEMOGLOBIN 32.8 pg (25-34); MEAN CORPUSCULAR HGB CONC 34.5 g/dl (32-36); MEAN PLATELET VOLUME 9.5 fL (7.4-10.4); PLATELET COUNT 144 K/uL (130-400); RED CELL DISTRIBUTION WIDTH CV 12.9 % (11.5-14.5); RED CELL DISTRIBUTION WIDTH SD 45.2 fL (36.4-46.3); WHITE BLOOD COUNT 11.55 K/uL (4.8-10.8)
--- NOTE | 2017-09-08 07:56 | Orthopedic Progress Note ---
Orthopedic Progress Note Date of Service Sep 08, 2017. Subjective Post OP Day: 1 Reports: feeling well Objective calves soft nontender, N/V intact, dressing C/D/I (Hemovac d/c'd), toes mobile Date Time Temp Pulse Resp B/P (MAP) Pulse Ox O2 Delivery O2 Flow Rate FiO2 09/08/17 04:15 37.6 72 18 99/61 (74) 95 Room Air 09/07/17 23:17 Room Air 09/07/17 23:08 36.6 70 16 99/60 (73) 94 Room Air 09/07/17 21:30 36.8 78 16 92/55 (67) 93 Room Air 09/07/17 18:34 37.4 93 18 108/67 (81) 97 Nasal Cannula 2.5 09/07/17 17:32 36.6 84 18 105/65 (78) 97 Nasal Cannula 2.5 09/07/17 16:32 36.5 71 18 101/62 (75) 97 Nasal Cannula 2.5 09/07/17 16:15 98 Nasal Cannula 2.0 09/07/17 16:09 36.5 86 18 97/57 (70) 98 Nasal Cannula 2.5 09/07/17 15:37 98 Nasal Cannula 2.0 09/07/17 15:30 36.6 79 18 125/56 (79) 96 Nasal Cannula 2.0 09/07/17 15:15 82 20 98/59 96 Nasal Cannula 2 09/07/17 15:00 73 17 99/57 98 Nasal Cannula 2 09/07/17 14:40 74 20 100/59 96 Nasal Cannula 2 09/07/17 14:30 36.3 82 20 100/58 96 Nasal Cannula 2 09/07/17 14:20 75 12 106/70 97 Nasal Cannula 2 09/07/17 14:10 77 16 108/67 97 Nasal Cannula 2 09/07/17 14:00 74 20 111/67 100 Oxymask 10 09/07/17 13:50 78 17 109/63 100 Oxymask 10 09/07/17 13:40 73 17 108/68 100 Oxymask 10 09/07/17 13:32 36.9 68 16 110/65 100 Oxymask 10 Laboratory Results 24 Hours: Test 09/07/17 09:25 09/08/17 07:23 Hematocrit 39.2 % 33.9 % Hemoglobin 13.8 g/dL 11.7 g/dL Assessment & Plan Assessment: 62 yo male stable POD #1 s/p left DERRICK secondary to fracture Plan: 1. Med management 2. DVT prophylaxis- ASA, SCDs 3. PT/OT 4. D/C planning- pt interested in [facility]
[2017-09-08 08:03] LABS: CALCIUM 7.7 mg/dl (8.5-10.1); CREATININE 0.95 mg/dl (0.60-1.40); POTASSIUM 3.9 mmol/L (3.5-5.1)
--- NOTE | 2017-09-08 08:12 | Anesthesiology Progress Note ---
Anesthesia Post Op Note Date & Time Sep 08, 2017 at 08:12 Vital Signs Pain Intensity: 1.0 Vital Signs Past 12 Hours Date Time Temp Pulse Resp B/P (MAP) Pulse Ox O2 Delivery O2 Flow Rate FiO2 09/08/17 07:20 37.3 89 16 122/69 (86) 91 Room Air 09/08/17 07:10 Room Air 09/08/17 04:15 37.6 72 18 99/61 (74) 95 Room Air 09/07/17 23:17 Room Air 09/07/17 23:08 36.6 70 16 99/60 (73) 94 Room Air 09/07/17 21:30 36.8 78 16 92/55 (67) 93 Room Air Notes Mental Status: alert / awake / arousable, participated in evaluation Pt Amnestic to Procedure: Yes Nausea / Vomiting: adequately controlled Pain: adequately controlled Airway Patency, RR, SpO2: stable & adequate BP & HR: stable & adequate Hydration State: stable & adequate Anesthetic Complications: no major complications apparent
--- NOTE | 2017-09-08 09:08 | Progress Note ---
Subjective Date of Service: Sep 08, 2017. Subjective pt has no complaints or problems, did have some mild hematuria while having ca in place, did have low grade temp also, but currently no dysuria Problem List Medical Problems: (1) Alteration consciousness Status: Acute (2) Depressed Status: Acute (3) Fall Status: Acute (4) Hallucination Status: Acute (5) Hip fracture, left Status: Acute (6) Paranoia Status: Acute (7) Suicidal ideation Status: Acute Review of Systems Constitutional: No fever, No chills Respiratory: No shortness of breath, No dyspnea on exertion Cardiac: No chest pain, No edema Musculoskeletal: + joint pain, + muscle pain Objective Vital Signs Date Time Temp Pulse Resp B/P (MAP) Pulse Ox O2 Delivery O2 Flow Rate FiO2 09/08/17 07:20 37.3 89 16 122/69 (86) 91 Room Air 09/08/17 07:10 Room Air 09/08/17 04:15 37.6 72 18 99/61 (74) 95 Room Air 09/07/17 23:17 Room Air 09/07/17 23:08 36.6 70 16 99/60 (73) 94 Room Air 09/07/17 21:30 36.8 78 16 92/55 (67) 93 Room Air 09/07/17 18:34 37.4 93 18 108/67 (81) 97 Nasal Cannula 2.5 09/07/17 17:32 36.6 84 18 105/65 (78) 97 Nasal Cannula 2.5 09/07/17 16:32 36.5 71 18 101/62 (75) 97 Nasal Cannula 2.5 09/07/17 16:15 98 Nasal Cannula 2.0 09/07/17 16:09 36.5 86 18 97/57 (70) 98 Nasal Cannula 2.5 09/07/17 15:37 98 Nasal Cannula 2.0 09/07/17 15:30 36.6 79 18 125/56 (79) 96 Nasal Cannula 2.0 09/07/17 15:15 82 20 98/59 96 Nasal Cannula 2 09/07/17 15:00 73 17 99/57 98 Nasal Cannula 2 09/07/17 14:40 74 20 100/59 96 Nasal Cannula 2 09/07/17 14:30 36.3 82 20 100/58 96 Nasal Cannula 2 09/07/17 14:20 75 12 106/70 97 Nasal Cannula 2 09/07/17 14:10 77 16 108/67 97 Nasal Cannula 2 09/07/17 14:00 74 20 111/67 100 Oxymask 10 09/07/17 13:50 78 17 109/63 100 Oxymask 10 09/07/17 13:40 73 17 108/68 100 Oxymask 10 09/07/17 13:32 36.9 68 16 110/65 100 Oxymask 10 Physical Exam General Appearance: WD/WN, + mild distress Respiratory/Chest: chest non-tender, lungs clear, normal breath sounds Cardiovascular: regular rate, rhythm, no murmur Abdomen: normal bowel sounds, non tender, soft Extremities: no pedal edema, no calf tenderness Neurologic/Psychiatric: alert, oriented x 3 Laboratory Results Last 24 Hours Test 09/07/17 09:25 09/08/17 07:23 White Blood Count 9.13 K/uL 11.55 K/uL Red Blood Count 4.19 M/uL 3.57 M/uL Hemoglobin 13.8 g/dL 11.7 g/dL Hematocrit 39.2 % 33.9 % Mean Corpuscular Volume 93.6 fL 95.0 fL Mean Corpuscular Hemoglobin 32.9 pg 32.8 pg Mean Corpuscular Hemoglobin Concent 35.2 g/dl 34.5 g/dl RDW Standard Deviation 44.3 fL 45.2 fL RDW Coefficient of Variation 12.9 % 12.9 % Platelet Count 176 K/uL 144 K/uL Mean Platelet Volume 9.6 fL 9.5 fL Sodium Level 137 mmol/L Potassium Level 3.9 mmol/L Chloride Level 104 mmol/L Carbon Dioxide Level 25 mmol/L Anion Gap 7.0 mmol/L Blood Urea Nitrogen 18 mg/dl Creatinine 0.95 mg/dl Est Creatinine Clear Calc Drug Dose 65.6 ml/min Estimated GFR () 99.7 Estimated GFR (Non- 86.1 BUN/Creatinine Ratio 18.7 Random Glucose 125 mg/dl Calcium Level 7.7 mg/dl Assessment and Plan 62 yo M L femoral neck fracture - has acute blood loss anemia after procedure - Pain management per primary team. - PT/OT after surgical procedure Major Depressive Disorder on Abilify JAFFE once monthly injection, likely the 400 mg dosing Most recent injection administered last week. Pt follows with Regina provider at [facility]: BPH stable, currently not on any medications, did have some traumatic hematuria with ca, will send urine culture due to low grade temp DVT ppx: agnes Mackenzie CODE STATUS: Full code
[2017-09-08] MEDS: ASPIRIN 81 MG ECTAB PO SCH ×2 (09:40→20:50)
[2017-09-08] MEDS: DOCUSATE SODIUM 100 MG CAP PO SCH ×2 (09:41→20:50)
[2017-09-08] MEDS: MULTIVITAMIN TAB PO SCH (09:41)
[2017-09-09] MEDS: SODIUM CHLORIDE 0.9% 1000ML 1,000 ML IV SCH (04:34)
[2017-09-09 07:46] VITALS: BP 118/70; PULSE 81; TEMP 37.6; O2SAT 92
[2017-09-09] MEDS: DOCUSATE SODIUM 100 MG CAP PO SCH ×2 (09:00→20:05)
[2017-09-09] MEDS: MULTIVITAMIN TAB PO SCH (09:21)
[2017-09-09] MEDS: ASPIRIN 81 MG ECTAB PO SCH ×2 (09:22→20:48)
[2017-09-09] MEDS: ACETAMINOPHEN 500 MG TAB PO PRN (09:24)
--- NOTE | 2017-09-09 09:33 | Orthopedic Progress Note ---
Orthopedic Progress Note Date of Service Sep 09, 2017. Subjective Post OP Day: 2 Reports: feeling well, Denies: complaints Objective calves soft nontender, N/V intact, hip located, dressing C/D/I, A&O x3, toes mobile Date Time Temp Pulse Resp B/P (MAP) Pulse Ox O2 Delivery O2 Flow Rate FiO2 09/09/17 07:46 37.6 81 16 118/70 (86) 92 Room Air 09/09/17 07:35 Room Air 09/08/17 23:15 Room Air 09/08/17 23:09 37.7 87 16 99/62 (74) 91 Room Air 09/08/17 19:11 100 09/08/17 19:00 Room Air 09/08/17 15:10 Room Air 09/08/17 14:45 37.3 110 18 138/70 (92) 92 Room Air 09/08/17 11:53 37.9 99 16 133/74 (93) 93 Room Air Assessment & Plan Assessment: 62 yo male stable POD #2 s/p left DERRICK secondary to fracture Plan: 1. Med management 2. DVT prophylaxis- ASA, SCDs 3. PT/OT 4. D/C planning- trying to get authorizations for [facility] vs SNF at this time. Inhouse Planning Pain Management: Morphine, PO Tylenol, Oxy IR DVT Prophylaxis: TEDs, SCDs, ASA
[2017-09-09] MEDS ORDERED: NURSING VERBAL MED ORDER ONE (12:45)
[2017-09-09 15:17] VITALS: BP 96/53; PULSE 85; TEMP 36.8; O2SAT 93
[2017-09-09] MEDS: OXYCODONE HCL IR 5 MG TAB (IMMEDIATE RELEASE) PO PRN (20:07)
[2017-09-09 23:08] VITALS: BP 105/63; PULSE 80; TEMP 37.5; O2SAT 90
[2017-09-10 06:59] VITALS: BP 127/71; PULSE 84; TEMP 36.9; O2SAT 91
[2017-09-10] MEDS: DOCUSATE SODIUM 100 MG CAP PO SCH ×2 (08:05→20:47)
[2017-09-10] MEDS: ACETAMINOPHEN 500 MG TAB PO PRN (08:05)
[2017-09-10] MEDS ORDERED: NURSING VERBAL MED ORDER ONE ×2 (08:15)
[2017-09-10] MEDS ORDERED: SODIUM CHLORIDE 0.9% 1000ML 1,000 ML IV SCH (08:15)
--- NOTE | 2017-09-10 08:52 | Orthopedic Progress Note ---
Orthopedic Progress Note Date of Service Sep 10, 2017. Subjective Post OP Day: 3 Reports: feeling well, Denies: complaints Objective calves soft nontender, N/V intact, incision C/D/I, toes mobile Date Time Temp Pulse Resp B/P (MAP) Pulse Ox O2 Delivery O2 Flow Rate FiO2 09/10/17 08:00 Room Air 09/10/17 06:59 36.9 84 18 127/71 (89) 91 Room Air 09/10/17 00:00 Room Air 09/09/17 23:08 37.5 80 17 105/63 (77) 90 Room Air 09/09/17 15:28 Room Air 09/09/17 15:17 36.8 85 18 96/53 (67) 93 Room Air Assessment & Plan Assessment: 62 yo male stable POD #3 s/p left DERRICK secondary to fracture Plan: 1. Med management 2. DVT prophylaxis- ASA, SCDs 3. PT/OT 4. D/C planning- trying to get authorizations for [facility] vs SNF at this time. Inhouse Planning Pain Management: Morphine, PO Tylenol, Oxy IR DVT Prophylaxis: TEDs, SCDs, ASA Discharge Planning Discharge Planning: uncertain
[2017-09-10] MEDS: ASPIRIN 81 MG ECTAB PO SCH ×2 (08:53→20:47)
[2017-09-10] MEDS: MULTIVITAMIN TAB PO SCH (08:54)
[2017-09-10] MEDS: OXYCODONE HCL IR 5 MG TAB (IMMEDIATE RELEASE) PO PRN (13:21)
[2017-09-10 14:47] VITALS: BP 114/68; PULSE 88; TEMP 37.1; O2SAT 94
[2017-09-10 22:51] VITALS: BP 110/70; PULSE 75; TEMP 36.9; O2SAT 94
[2017-09-11 08:20] VITALS: BP 112/66; PULSE 74; TEMP 36.7; O2SAT 94
[2017-09-11] MEDS: MULTIVITAMIN TAB PO SCH (08:30)
[2017-09-11] MEDS: DOCUSATE SODIUM 100 MG CAP PO SCH ×2 (08:30→21:25)
[2017-09-11] MEDS: ASPIRIN 81 MG ECTAB PO SCH ×2 (08:30→21:25)
--- NOTE | 2017-09-11 12:35 | Orthopedic Progress Note ---
Orthopedic Progress Note Date of Service Sep 11, 2017. Subjective Post OP Day: 4 Reports: feeling well, Denies: complaints Additional Notes: Pt sitting up in bed eating lunch. No new complaints. Objective calves soft nontender, N/V intact, hip located, incision C/D/I, toes mobile Date Time Temp Pulse Resp B/P (MAP) Pulse Ox O2 Delivery O2 Flow Rate FiO2 09/11/17 08:20 36.7 74 18 112/66 (81) 94 Room Air 09/11/17 07:22 Room Air 09/10/17 23:30 Room Air 09/10/17 22:51 36.9 75 16 110/70 (83) 94 Room Air 09/10/17 20:00 Room Air 09/10/17 15:20 Room Air 09/10/17 14:47 37.1 88 16 114/68 (83) 94 Room Air Assessment & Plan Assessment: 62 yo male stable POD #4 s/p left DERRICK secondary to fracture Plan: 1. Med management 2. DVT prophylaxis- ASA, SCDs 3. PT/OT 4. D/C planning- trying to get authorizations for [facility] vs SNF at this time. OT ordered / needed for authorization. Hopefully he will be able to go today or tomorrow. Inhouse Planning Pain Management: Morphine, PO Tylenol, Oxy IR DVT Prophylaxis: TEDs, SCDs, ASA Discharge Planning Discharge Planning: uncertain
[2017-09-11 14:53] VITALS: BP 108/63; PULSE 84; TEMP 36.5; O2SAT 95
[2017-09-11 22:55] VITALS: BP 112/66; PULSE 73; TEMP 36.8; O2SAT 92
[2017-09-12] MEDS: OXYCODONE HCL IR 5 MG TAB (IMMEDIATE RELEASE) PO PRN (00:21)
[2017-09-12 08:16] VITALS: BP 104/66; PULSE 70; TEMP 36.7; O2SAT 93
[2017-09-12] MEDS: MULTIVITAMIN TAB PO SCH (08:38)
[2017-09-12] MEDS: DOCUSATE SODIUM 100 MG CAP PO SCH ×2 (08:38→20:26)
[2017-09-12] MEDS: ASPIRIN 81 MG ECTAB PO SCH ×2 (08:39→20:26)
--- NOTE | 2017-09-12 11:31 | Orthopedic Progress Note ---
Orthopedic Progress Note Date of Service Sep 12, 2017. Subjective Reports: feeling well, Denies: chest pain, SOB, nausea / vomiting, light headedness, calf pain Objective calves soft nontender, N/V intact, hip located, dressing C/D/I, A&O x3, toes mobile Date Time Temp Pulse Resp B/P (MAP) Pulse Ox O2 Delivery O2 Flow Rate FiO2 09/12/17 08:16 36.7 70 16 104/66 (79) 93 Room Air 09/12/17 07:30 Room Air 09/12/17 00:15 Room Air 09/11/17 22:55 36.8 73 16 112/66 (81) 92 Room Air 09/11/17 15:23 Room Air 09/11/17 14:53 36.5 84 20 108/63 (78) 95 Room Air Assessment & Plan Assessment: 62 yo male stable POD #5 s/p left DERRICK secondary to fracture Plan: 1. Med management 2. DVT prophylaxis- ASA, SCDs 3. PT/OT 4. D/C planning- trying to get authorizations for [facility] vs SNF at this time. OT ordered / needed for authorization. Hopefully he will be able to go today or tomorrow. Inhouse Planning Pain Management: Morphine, PO Tylenol, Oxy IR DVT Prophylaxis: TEDs, SCDs, ASA Discharge Planning Discharge Planning: uncertain
[2017-09-12 12:00] VITALS: BP 100/64; PULSE 73; TEMP 36.6; O2SAT 92
[2017-09-12 15:00] VITALS: BP 115/67; PULSE 79; TEMP 36.5; O2SAT 94
[2017-09-12 22:46] VITALS: BP 106/64; PULSE 71; TEMP 36.7; O2SAT 92
[2017-09-12 22:47] VITALS: BP 106/70; PULSE 63; TEMP 36.6; O2SAT 97
[2017-09-13 08:06] VITALS: BP 98/68; PULSE 75; TEMP 37.1; O2SAT 92
--- NOTE | 2017-09-13 08:28 | Orthopedic Progress Note ---
Orthopedic Progress Note Date of Service Sep 13, 2017. Subjective Post OP Day: 6 Reports: feeling well, Denies: complaints Objective calves soft nontender, N/V intact, incision C/D/I, toes mobile Date Time Temp Pulse Resp B/P (MAP) Pulse Ox O2 Delivery O2 Flow Rate FiO2 09/13/17 08:06 37.1 75 18 98/68 (78) 92 Room Air 09/12/17 23:10 Room Air 09/12/17 22:46 36.7 71 16 106/64 (78) 92 Room Air 09/12/17 16:00 Room Air 09/12/17 15:00 36.5 79 18 115/67 (83) 94 Room Air 09/12/17 12:00 36.6 73 22 100/64 (76) 92 Room Air Assessment & Plan Assessment: 62 yo male stable POD #5 s/p left DERRICK secondary to fracture Urine Culture drawn showing low counts of 2 organisms Plan: 1. Med management - discussed urine cx with Dr Ornelas. He will see pt today to decide course of treatment 2. DVT prophylaxis- ASA, SCDs 3. PT/OT 4. D/C planning- trying to get authorizations for [facility] vs SNF at this time. [facility] Will await decision on [facility]. Inhouse Planning Pain Management: Morphine, PO Tylenol, Oxy IR DVT Prophylaxis: TEDs, SCDs, ASA Discharge Planning Discharge Planning: uncertain
[2017-09-13] MEDS ORDERED: CLC100 PO (08:33)
[2017-09-13] MEDS ORDERED: MULT-890 PO (08:33)
[2017-09-13] MEDS ORDERED: ASPI-320 PO (08:33)
[2017-09-13] MEDS ORDERED: ACET-24 PO (08:33)
[2017-09-13] MEDS ORDERED: RXC5 PO (08:33)
[2017-09-13] MEDS: MULTIVITAMIN TAB PO SCH (08:43)
[2017-09-13] MEDS: DOCUSATE SODIUM 100 MG CAP PO SCH ×2 (08:43→20:52)
[2017-09-13] MEDS: ASPIRIN 81 MG ECTAB PO SCH ×2 (08:43→20:50)
--- NOTE | 2017-09-13 08:45 | Discharge Instructions ---
Discharge Instructions Date of Service Sep 13, 2017. Admission Reason for Admission: Left Hip Fx Discharge Discharge Diagnosis / Problem: Left Displaced Femoral Neck Fx Discharge Goals Goal(s): Decrease discomfort, Improve function, Increase independence Activity Recommendations Activity Level: Assistance Required Therapies: Physical Therapy (DERRICK Protocol/Precautions), Occupational Therapy ( ADL's and transfers) Weightbearing Status: Left weightbearing (as tolerated) . Additional Information Patient informed of condition: Yes Advance Directives: No DNR: No Level of Care: Skilled Communicable Disease: No Prognosis: Stable Peng Catheter: No Instructions / Follow-Up Instructions / Follow-Up ACTIVITY RECOMMENDATIONS: SELF CARE INSTRUCTIONS AFTER TOTAL HIP REPLACEMENT Until the incision and soft tissues around your hip have healed, there is a possibility that the hip prosthesis could dislocate. A. Observe the following precautions to prevent dislocation: 1. Don't bend your hip greater than 90 degrees. 2. Avoid crossing your legs or ankles while standing or lying. 3. Sit with your feet placed 6 inches apart. 4. When sitting, keep your knees below your hips. Sit on a firm surface, avoid deep, soft chairs and couches. Use an elevated toilet seat in the bathroom. 5. Don't bend over at the waist. Use a long handled shoehorn and a sock aid to help you put on your shoes and socks. A data communications technician can help you picker tender objects that are too high or too low to reach. 6. Keep car riding to a minimum for at least one month after surgery. B. Your balance may be shaky for a while. Use crutches or a walker until directed by your doctor. C. Use hand rails when walking on stairs. D. Wear low heeled shoes with non-slip soles. E. Be sure that your floors are free of things that could trip you - throw rugs , electrical cords, small objects. Avoid wet and waxed floors, especially with crutches and canes. F. Try to walk several times a day with rest periods between. G. Continue with all the exercises taught to you in the hospital. Again, make walking a part of your daily routine. SPECIAL CARE INSTRUCTIONS: VERY IMPORTANT TO READ AND REVIEW A. You may still be at risk for phlebitis and blood clots. 1. Wear surgical stockings (LENY hose) for 2 weeks after surgery to improve circulation and reduce swelling. 2. Take Aspirin 81mg twice daily for 4 weeks or as directed by your doctor. This is your blood thinner. 3. High risk patients may be prescribed a stronger blood thinner if necessary. 4. If you are on Coumadin normally, your family doctor/coal shoveler should monitor your blood work. Expect a phone call the day of or the day after bloodwork is drawn to adjust your dosage. B. You must take antibiotics before having dental work, bladder, bowel and other surgery. Your doctor will provide you with a permanent card to carry describing precautions. C. Call [facility] if you have a fever, redness or swelling around the incision, cloudy drainage from incision, or sudden increase in pain in your hip, not relieved by your regular pain medication. D. Please call the office at if you have any concerns or questions about your operation or recovery. * YOU MAY SHOWER, NO TUB BATHS UNTIL CLEARED BY YOUR DOCTOR. * WEAR LENY HOSE 20 HOURS PER DAY FOR 2 WEEKS. * YOU SHOULD USE A WALKER OR CRUTCHES FOR 2-4 WEEKS. THIS WILL HELP PREVENT STRAIN ON YOUR HIP MUSCLE AND ALLOW IT TO HEAL PROPERLY. YOU MAY WEAN TO A CANE TOLERATED. * MOST PATIENTS WILL HAVE HOME NURSING FOR THERAPY. IF YOU DECIDE TO DO OUTPATIENT PHYSICAL THERAPY, PLEASE SCHEDULE THIS 3 TIMES PER WEEK. * You have a Zipline Closure System. As noted below, this keeps your incision closed. Change the dressing daily. Keep the wound covered with a dressing as it has the potential to snag on your clothing. The Zipline will remain on for a total of 2 weeks. Do not remove it! You may shower with this on. Do not soak it; no tub baths. You will be given instructions by nursing staff at the time of discharge to care for your Zip Closure System. This devices uses plastic straps to keep your incision closed and protected throughout your recovery. If you have any questions please refer to these instructions first. [phone]. FOLLOW UP VISIT: If appointment is not already scheduled: Please call [facility] to make a follow-up appointment for 2 weeks after your surgery at . Current Hospital Diet Patient's current hospital diet: Regular Diet Discharge Diet Recommended Diet: Regular Diet Procedures Procedures Performed: left derrick Pending Studies Studies pending at discharge: yes List of pending studies: Final urine cx pending Physician Orders On Transfer Dressing Changes: Daily or qod if dry. See zipline instructions above. Zipline must stay on for 2 weeks Vital Signs: routine Medical Emergencies . Who to Call and When: Medical Emergencies: If at any time you feel your situation is an emergency, please call 911 immediately. . Non-Emergent Contact Non-Emergency issues call your: Surgeon Call Non-Emergent contact if: temperature is above 101.5, your pain is not controlled, your pain is worsening, wound has increased drainage, wound has increased redness . . "Provider Documentation" section prepared by Joel Cotto. . Core Measure Problem Core Measures: None [place] Drug Monitoring Program Search Results: patient reviewed within database, no issues identified
[2017-09-13] MEDS ORDERED: CPR500 PO (11:21)
--- NOTE | 2017-09-13 11:29 | Progress Note ---
Subjective Date of Service: Sep 13, 2017. Subjective Pt evaluation today including: conversation w/ patient 62 yo male who does not complain of any symptoms today. Patient denies any dysuria, nausea, vomiting, diarrhea. Problem List Medical Problems: (1) Alteration consciousness Status: Acute (2) Depressed Status: Acute (3) Fall Status: Acute (4) Hallucination Status: Acute (5) Hip fracture, left Status: Acute (6) Paranoia Status: Acute (7) Suicidal ideation Status: Acute Review of Systems Eyes: No worsening of vision Respiratory: No cough Abdomen: No pain Musculoskeletal: + joint pain Neurologic: No memory loss Psychiatric: No depression symptoms Skin: No itch All Other Systems: Reviewed and Negative Medications Current Inpatient Medications Medications (Trade) Dose Ordered Sig/Madelyn Route Start Time Stop Time Status Last Admin Dose Admin Morphine Sulfate (MoRPHine SULFATE INJ) 3 mg Q4H PRN IV 09/07/17 03:15 09/21/17 03:14 09/07/17 07:44 3 MG Ondansetron HCl (Zofran Inj) 4 mg Q6H PRN IV 09/07/17 03:15 10/07/17 03:14 Docusate Sodium (coLACE CAP) 100 mg BID PO 09/07/17 09:00 10/07/17 08:59 09/13/17 08:43 100 MG Multivitamins (Multivitamin Tab) 1 tab QAM PO 09/07/17 09:00 10/07/17 08:59 09/13/17 08:43 1 TAB Oxycodone HCl (Roxicodone Immediate Rel Tab) `1-2 tabs for pain 1 tab ... Q4HWA PRN PO 09/07/17 13:45 09/21/17 13:44 09/12/17 00:21 5 MG Acetaminophen (Tylenol Tab) 1,000 mg Q8 PRN PO 09/07/17 13:45 10/07/17 13:44 09/10/17 08:05 1,000 MG Aspirin (Ecotrin Tab) 81 mg BID PO 09/07/17 21:00 10/07/17 20:59 09/13/17 08:43 81 MG Menthol (Nice Armida) 1 armida PRN PRN ARMIDA 09/08/17 03:00 10/08/17 02:59 Ciprofloxacin (Cipro Tab) 500 mg BID PO 09/13/17 21:00 09/23/17 20:59 UNV Ciprofloxacin (Cipro Tab) 500 mg 1117 ONCE PO 09/13/17 11:17 09/13/17 11:18 UNV Lactobacillus Acidophilus (Floranex Tab) 4 tab QIDM PO 09/13/17 12:30 10/13/17 12:29 UNV Objective Vital Signs Date Time Temp Pulse Resp B/P (MAP) Pulse Ox O2 Delivery O2 Flow Rate FiO2 09/13/17 08:06 37.1 75 18 98/68 (78) 92 Room Air 09/13/17 08:00 Room Air 09/12/17 23:10 Room Air 09/12/17 22:46 36.7 71 16 106/64 (78) 92 Room Air 09/12/17 16:00 Room Air 09/12/17 15:00 36.5 79 18 115/67 (83) 94 Room Air 09/12/17 12:00 36.6 73 22 100/64 (76) 92 Room Air Physical Exam General Appearance: WD/WN Eyes: normal inspection Neck: supple Respiratory/Chest: chest non-tender, lungs clear Cardiovascular: regular rate, rhythm, no edema Abdomen: normal bowel sounds, non tender, soft Extremities: normal range of motion Neurologic/Psychiatric: alert, oriented x 3 Skin: normal color Lymphatic: no adenopathy Assessment and Plan 62 yo M Asymptomatic bacteruria in the setting of tramtic hematuria. will place patient on oral cipro for 5 days BID. Mainly due to better prostae coverage given the traumtic ca. At this time though, do not belive patient requires retirement antibiotics for possible prostatitis given the lack of symptoms. Will also give him lactobacillus to prevent c. diff L femoral neck fracture -Patient is planning to be discharged soon. - Pain management per primary team. - PT/OT after surgical procedure Major Depressive Disorder on Abilify JAFFE once monthly injection, likely the 400 mg dosing Most recent injection administered last week. Pt follows with Regina provider at [facility]: BPH stable, currently not on any medications, did have some traumatic hematuria with ca, will place patient on cipro as noted above DVT ppx: Teds, scds CODE STATUS: Full code will sign off case. Spent 35 minutes on this case, reviewing labs discussing with patient.
[2017-09-13] MEDS ORDERED: CIPROFLOXACIN 500 MG TAB PO ONE (11:45)
[2017-09-13 11:49] VITALS: BP 102/62; PULSE 76; TEMP 37.1; O2SAT 95
[2017-09-13] MEDS: LACTOBACILLUS ACIDOPHILUS (FLORANEX) TAB PO SCH ×3 (13:03→20:01)
[2017-09-13 15:17] VITALS: BP 101/62; PULSE 79; TEMP 37.5; O2SAT 98
[2017-09-13] MEDS: CIPROFLOXACIN 500 MG TAB PO SCH (20:50)
[2017-09-13 22:47] VITALS: BP 106/70; PULSE 63; TEMP 36.6; O2SAT 97
[2017-09-14 07:59] VITALS: BP 108/62; PULSE 80; TEMP 36.8; O2SAT 93
--- NOTE | 2017-09-14 08:09 | Orthopedic Progress Note ---
Orthopedic Progress Note Date of Service Sep 14, 2017. Subjective Post OP Day: 7 Reports: feeling well, Denies: complaints Objective calves soft nontender, N/V intact, hip located, incision C/D/I, toes mobile Date Time Temp Pulse Resp B/P (MAP) Pulse Ox O2 Delivery O2 Flow Rate FiO2 09/14/17 07:59 36.8 80 20 108/62 (77) 93 Room Air 09/13/17 23:05 Room Air 09/13/17 22:47 36.6 63 16 106/70 (82) 97 Room Air 09/13/17 16:00 Room Air 09/13/17 15:17 37.5 79 18 101/62 (75) 98 Room Air 09/13/17 11:49 37.1 76 18 102/62 (75) 95 Room Air Assessment & Plan Assessment: 62 yo male stable POD #7 s/p left DERRICK secondary to fracture Urine Culture drawn showing low counts of 2 organisms Plan: 1. Med management - discussed urine cx with Dr Ornelas. Started on Cipro for 5 days. 2. DVT prophylaxis- ASA, SCDs 3. PT/OT 4. D/C planning- planning for [facility] today Inhouse Planning Pain Management: Morphine, PO Tylenol, Oxy IR DVT Prophylaxis: TEDs, SCDs, ASA Discharge Planning Discharge Planning: uncertain
[2017-09-14] MEDS ORDERED: LCTX PO (08:10)
[2017-09-14] MEDS: DOCUSATE SODIUM 100 MG CAP PO SCH (08:13)
[2017-09-14] MEDS: LACTOBACILLUS ACIDOPHILUS (FLORANEX) TAB PO SCH (08:56)
[2017-09-14] MEDS: MULTIVITAMIN TAB PO SCH (08:56)
[2017-09-14] MEDS: ASPIRIN 81 MG ECTAB PO SCH (08:56)
[2017-09-14] MEDS: CIPROFLOXACIN 500 MG TAB PO SCH (08:57)
[2017-09-14 10:20] VITALS: BP 108/62; PULSE 80; TEMP 36.8; O2SAT 93
== END 2017-09-14 12:45 | DRG 470 ==
LOC: EDBD 00:02 → C.EDA 00:03 → C.MSN 02:29 → ENRESERV 02:36
PROVIDERS: ADMIT Orthopaedic Surgery Sports Medicine; ATTEND Orthopaedic Surgery Sports Medicine
PROC: 0SRB03A Replacement of Left Hip Joint with Ceramic Synthetic Substitute, Uncemented, Open Approach (ICD-10-PCS; principal; 2017-09-07 12:00)
DX: S72.002A Fracture of unspecified part of neck of left femur, initial encounter for closed fracture (principal); D62 Acute posthemorrhagic anemia; R31.9 Hematuria, unspecified; R82.71 Bacteriuria; F32.9 Major depressive disorder, single episode, unspecified; K21.9 Gastro-esophageal reflux disease without esophagitis; N40.0 Benign prostatic hyperplasia without lower urinary tract symptoms; E78.5 Hyperlipidemia, unspecified; W10.9XXA Fall (on) (from) unspecified stairs and steps, initial encounter; Y92.009 Unspecified place in unspecified non-institutional (private) residence as the place of occurrence of the external cause; Z88.0 Allergy status to penicillin; Y84.6 Urinary catheterization as the cause of abnormal reaction of the patient, or of later complication, without mention of misadventure at the time of the procedure

== ENCOUNTER 2019-06-22 18:04 | Observation (INO) ==
[2019-06-22] MEDS ORDERED: SODIUM CHLORIDE 0.9% 1000ML 1,000 ML IV ONE ×2 (18:37→19:38)
--- NOTE | 2019-06-22 19:10 | XRay Report ---
SINGLE VIEW CHEST CLINICAL HISTORY: Sepsis. FINDINGS: An AP, portable, upright chest radiograph is compared to study dated 03/18/2019. The examin ation is degraded by portable technique and patient rotation. The heart is enlarged. There is mild p ulmonary vascular congestion. Increasing airspace opacities are present at both lung bases. No large pleural effusion or pneumothorax is seen. The skeletal structures are osteopenic. There are healed ri ght-sided rib fractures. IMPRESSION: 1. Mild cardiac enlargement with pulmonary vascular congestion. 2. There are increasing bibasilar airspace opacities. This could represent atelectasis versus an infe ctious/inflammatory pneumonitis. Clinical correlation will be required. ACT 112: Negative or not required by law. Electronically signed by: Victoriano Sims M.D. 06/22/2019 7:09 PM
[2019-06-22 19:12] LABS: Hematocrit (blood only) 45.1 % (42-52); Immature Granulocytes # (auto) 0.05 K/uL (0.00-0.02); Immature Granulocytes % (auto) 0.3 %; Lymphocytes # (auto) 0.61 K/uL (1.2-3.4); Lymphocytes % (auto) 3.3 %; Mean Corpuscular Hgb Conc 35.5 g/dL (32-36); Mean Corpuscular Volume 95.8 fL (80-100); Monocytes # (auto) 0.53 K/uL (0.11-0.59); Monocytes % (auto) 2.8 %; Neutrophils # (auto) 17.51 K/uL (1.4-6.5); Neutrophils % (auto) 93.6 %; Platelet Count 159 K/uL (130-400); RDW Coefficient of Variation 12.9 % (11.5-14.5); RDW Standard Deviation 44.7 fL (36.4-46.3); Red Blood Count 4.71 M/uL (4.7-6.1)
[2019-06-22 19:22] LABS: INR 1.1 (0.9-1.1); Partial Thromboplastin Time 27.9 Seconds (21.0-31.0); Prothrombin Time 11.2 Seconds (9.0-12.0)
[2019-06-22 19:30] LABS: Alanine Aminotransferase 48 U/L (12-78); Albumin Level 3.8 gm/dl (3.4-5.0); Aspartate Aminotransferase 36 U/L (15-37); BUN Creatinine Ratio 20.5 (10-20); Blood Urea Nitrogen 22 mg/dl (7-18); Calcium 8.9 mg/dl (8.5-10.1); Carbon Dioxide 28 mmol/L (21-32); Chloride 110 mmol/L (98-107); Est GFR (African American) 84.2; Est GFR (Non-African American) 72.7; Glucose 148 mg/dl (70-99); Magnesium 1.9 mg/dl (1.8-2.4); Potassium 3.8 mmol/L (3.5-5.1); Sodium 143 mmol/L (136-145)
[2019-06-22 19:35] LABS: Albumin Globulin Ratio 1.2 (0.9-2); Alkaline Phosphatase 102 U/L (45-117); Bilirubin,Total 0.8 mg/dl (0.2-1); Globulin 3.3 gm/dl (2.5-4.0); Total Protein 7.1 gm/dl (6.4-8.2); Troponin I < 0.015 ng/ml (0-0.045)
[2019-06-22 19:37] LABS: Appearance Urine Cloudy (Clear); Bacteria Urine Automated 4+ (Negative); Bilirubin Urine Negative (Negative); Blood Urine 2+ (Negative); Color Urine Yellow; Epithelial Cell Urine Auto 0-5 /lpf (0-5); Glucose Urine UA Negative (Negative); Ketones Urine 1+ (Negative); Leukocyte Esterase Urine 3+ (Negative); Nitrite Urine Positive (Negative); Specific Gravity Urine 1.019 (1.000-1.030); Urobilinogen Urine Negative (Negative); WBC Urine Automated >30 /hpf (0-5); pH Urine 8.5 (4.5-7.5)
[2019-06-22] MEDS ORDERED: VANCOMYCIN HCL 1,500 MG in SODIUM CHLORIDE 0.9% 500 ML IV ONE (19:38)
[2019-06-22] MEDS ORDERED: AZTREONAM 1,000 MG in DEXTROSE 5% 100 ML IV STA (19:38)
[2019-06-22] MEDS ORDERED: VANCOMYCIN CONSULT ACTIVE PRN (19:38)
[2019-06-22 19:46] LABS: Protein Urine Negative (Negative); Sulfosalicylic Acid Urine Negative (Negative)
[2019-06-22] MEDS ORDERED: ACETAMINOPHEN 500 MG TAB PO STA (22:08)
--- NOTE | 2019-06-22 22:14 | History & Physical Report ---
Date of Service June 22, 2019 Assessment & Plan (1) UTI (urinary tract infection): Admit tele Given IV Vanco and IV Aztreonam I will continue with IV Rocephin IVF Await urine cult results. Uses Toviaz for overactive bladder, which is continued. (2) Pneumonia, organism unspecified: May just be atelectasis on CXR Will add azithromycin to Rocephin to cover atypicals. DUO nebs Q6 hr WA (3) Bipolar disorder: Continue aripiprazole and buspirone (4) Hypercholesterolemia: Continue atorvastatin. (5) GERD (gastroesophageal reflux disease): Continue pantoprazole (6) Atypical Parkinsonism: Continue Sinemet (7) Intellectual disability: History of Present Illness 64 y/o male presented [place] the [place] [facility] [place] staff reports of patient having increased lethargy, confusion, and urinary frequency. The patient has intellectual disability and is not able to give medical history. Patient had fever to 38.5 in ED. [facility]: [facility] Allergies Allergy/AdvReac Type Severity Reaction Status Date / Time Penicillins AdvReac Intermediate RASH Verified 06/22/19 19:16 Home Medications Home Medications Medication Instructions Recorded Confirmed Type Toviaz 8 mg PO DAILY 10/11/18 06/22/19 History atorvastatin 10 mg PO HS 10/11/18 06/22/19 History celecoxib 200 mg PO BID 10/11/18 06/22/19 History loperamide [Anti-Diarrheal 2 mg PO QID PRN 10/11/18 06/22/19 History (loperamide)] magnesium hydroxide [Milk of 30 ml PO DAILY PRN 10/11/18 06/22/19 History Magnesia] aripiprazole 10 mg tablet 10 mg PO QPM tab 11/01/18 06/22/19 History aspirin 81 mg tablet,delayed 81 mg PO DAILY tab 11/01/18 06/22/19 History release buspirone 10 mg tablet 10 mg PO BID 11/01/18 06/22/19 History pantoprazole 40 mg tablet,delayed 40 mg PO DAILY tab 11/01/18 06/22/19 History release acetaminophen 325 mg tablet 650 mg PO Q6H PRN tab 02/27/19 06/22/19 History cholecalciferol (vitamin D3) 50 2,000 units PO DAILY #30 cap 03/08/19 06/22/19 Rx mcg (2,000 unit) capsule colestipol 1 gram tablet 1 gm PO BID #60 tab 04/04/19 06/22/19 Rx carbidopa 25 mg-levodopa 100 mg 1 tab PO BID #60 tab 05/09/19 06/22/19 Rx tablet Past Med/Surg History Medical History Alteration consciousness (Resolved) Aspiration precautions Benign prostatic hyperplasia with urinary obstruction (Chronic) Bipolar disorder BPH (benign prostatic hyperplasia) Chronic shoulder pain Closed left hip fracture (Resolved) Cognitive disorder Conductive hearing loss of both ears (Chronic) Diarrhea (Chronic) Diverticular disease Diverticulitis (Resolved) Dysphagia (Chronic) Gait apraxia Generalized muscle weakness Generalized weakness (Resolved) GERD (gastroesophageal reflux disease) Hypercholesterolemia (Chronic) Hyperlipemia Incontinence Incontinence of bowel (Chronic) Leukopenia (Chronic) Major depressive disorder Tinnitus of both ears Unsteady gait Surgical History H/O inguinal hernia repair H/O wisdom tooth extraction History of left hip replacement Hx of tonsillectomy S/P hip replacement Status post left hip replacement (Resolved) Family History Unknown Obesity Hypercholesterolemia Father Diabetes Ischemic heart disease Sister Cancer Other Family history unknown Social History Preferred Language: French Communication Ability: Effective Bridge Painter Required: No Beliefs That Will Affect Care: [facility] Beliefs: Jainism Current Living Situation: Personal Care Facility Current Living Situation Comment: Lives at [facility] Feels Safe at Home: Yes Smoking Status: Never smoker Hx Alcohol Use: No Hx Substance Use: No Review of Systems Review of Systems: Unobtainable due to cognitive status Physical Exam Physical Exam: General- adult male NAD. Head- atraumatic Eyes- PERRL, EOMI, anicteric ENT- oropharynx clear Neck- supple, no JVD, no adenopathy, no thyromegaly. Lungs- CTA b/l no R/R/W. Heart- regular rhythm; no murmur, no gallop, no rub appreciated Abdomen- normal bowel sounds, soft, nontender. Extremities- no pretibial edema, no calf tenderness; peripheral pulses intact Neuro- awake and alert but rarely answers questions. , PERRL, EOMI; non destructive testing technician II-XII grossly intact, non-focal. Skin- warm & dry Results & Data Vital Signs (Past 12 Hours) Vital Signs Temp Pulse Resp BP Pulse Ox 06/22/19 22:06 38.5 C H 06/22/19 21:30 110 H 26 H 134/73 92 06/22/19 21:00 113 H 26 H 128/70 92 06/22/19 20:30 111 H 24 119/70 92 06/22/19 20:00 105 H 28 H 111/68 96 06/22/19 19:30 113 H 24 147/86 H 99 06/22/19 18:04 37.1 C 112 H 21 132/77 96 Laboratory Results Laboratory Results WBC 18.70 K/uL (4.8-10.8) H 06/22/19 18:58 RBC 4.71 M/uL (4.7-6.1) 06/22/19 18:58 Hgb 16.0 g/dL (14.0-18.0) 06/22/19 18:58 Hct 45.1 % (42-52) 06/22/19 18:58 MCV 95.8 fL (80-100) 06/22/19 18:58 MCH 34.0 pg (25-34) 06/22/19 18:58 MCHC 35.5 g/dL (32-36) 06/22/19 18:58 RDW Std Deviation 44.7 fL (36.4-46.3) 06/22/19 18:58 RDW Coeff of Osbaldo 12.9 % (11.5-14.5) 06/22/19 18:58 Plt Count 159 K/uL (130-400) 06/22/19 18:58 MPV 11.0 fL (7.4-10.4) H 06/22/19 18:58 Immature Gran % (Auto) 0.3 % 06/22/19 18:58 Neut % (Auto) 93.6 % 06/22/19 18:58 Lymph % (Auto) 3.3 % 06/22/19 18:58 Dundy % (Auto) 2.8 % 02/01/20 18:58 Eos % (Auto) 0.0 % 06/22/19 18:58 Baso % (Auto) 0.0 % 06/22/19 18:58 Immature Gran # (Auto) 0.05 K/uL (0.00-0.02) H 06/22/19 18:58 Neut # (Auto) 17.51 K/uL (1.4-6.5) H 06/22/19 18:58 Lymph # (Auto) 0.61 K/uL (1.2-3.4) L 06/22/19 18:58 Dundy # (Auto) 0.53 K/uL (0.11-0.59) 06/22/19 18:58 Eos # (Auto) 0.00 K/uL (0-0.5) 06/22/19 18:58 Baso # (Auto) 0.00 K/uL (0-0.2) 06/22/19 18:58 PT 11.2 Seconds (9.0-12.0) 06/22/19 18:58 INR 1.1 (0.9-1.1) 06/22/19 18:58 APTT 27.9 Seconds (21.0-31.0) 06/22/19 18:58 PTT Ratio 1.0 06/22/19 18:58 Sodium 143 mmol/L (136-145) 06/22/19 18:58 Potassium 3.8 mmol/L (3.5-5.1) 06/22/19 18:58 Chloride 110 mmol/L (98-107) H 06/22/19 18:58 Carbon Dioxide 28 mmol/L (21-32) 06/22/19 18:58 Anion Gap 5.0 (3-11) 06/22/19 18:58 BUN 22 mg/dl (7-18) H 06/22/19 18:58 Creatinine 1.08 mg/dl (0.6-1.4) 06/22/19 18:58 Est Cr Clr Drug Dosing Not Reportable 06/22/19 18:58 Est GFR ( Amer) 84.2 06/22/19 18:58 Est GFR (Non-Af Amer) 72.7 06/22/19 18:58 BUN/Creatinine Ratio 20.5 (10-20) H 06/22/19 18:58 Glucose 148 mg/dl (70-99) H 06/22/19 18:58 Lactate 2.0 mmol/L (0.4-2.0) 06/22/19 18:58 Calcium 8.9 mg/dl (8.5-10.1) 06/22/19 18:58 Magnesium 1.9 mg/dl (1.8-2.4) 06/22/19 18:58 Total Bilirubin 0.8 mg/dl (0.2-1) 06/22/19 18:58 AST 36 U/L (15-37) 06/22/19 18:58 ALT 48 U/L (12-78) 06/22/19 18:58 Alkaline Phosphatase 102 U/L (45-117) 06/22/19 18:58 Troponin I < 0.015 ng/ml (0-0.045) 06/22/19 18:58 Total Protein 7.1 gm/dl (6.4-8.2) 06/22/19 18:58 Albumin 3.8 gm/dl (3.4-5.0) 06/22/19 18:58 Globulin 3.3 gm/dl (2.5-4.0) 06/22/19 18:58 Albumin/Globulin Ratio 1.2 (0.9-2) 06/22/19 18:58 Urine Color Yellow 06/22/19 19:25 Urine Appearance Cloudy (Clear) A 06/22/19 19:25 Urine pH 8.5 (4.5-7.5) H 06/22/19 19:25 Ur Specific [place] 1.019 (1.000-1.030) 06/22/19 19:25 Urine Protein Negative (Negative) 06/22/19 19:25 Urine Glucose (UA) Negative (Negative) 06/22/19 19:25 Urine Ketones 1+ (Negative) H 06/22/19 19:25 Urine Blood 2+ (Negative) H 06/22/19 19:25 Urine Nitrite Positive (Negative) A 06/22/19 19:25 Urine Bilirubin Negative (Negative) 06/22/19 19:25 Urine Urobilinogen Negative (Negative) 06/22/19 19:25 Ur Leukocyte Esterase 3+ (Negative) H 06/22/19 19:25 Urine WBC (Auto) >30 /hpf (0-5) H 06/22/19 19:25 Urine RBC (Auto) 10-30 /hpf (0-4) H 06/22/19 19:25 U Hyaline Cast (Auto) 1-5 /lpf (0-5) 06/22/19 19:25 U Epithel Cells (Auto) 0-5 /lpf (0-5) 06/22/19 19:25 Urine Bacteria (Auto) 4+ (Negative) H 06/22/19 19:25 Diagnostic Findings [place], [place] [phone] XRay Report Patient: ENRIQUE GARZA AAdmit Date: 06/22/19 MR#: [id number] Acct ID:[id number]: Date: 6City Zip: [place] [address] Age: 64Location: ED Sex: M Room/Bed: Att Phy:Diagnosis: MENTAL STATUS CHANGE, DIARRHEA, UNSTEADY GAIT Xiomara Phy: Yunior Watkins,Personal Care,IncService Date: 06/22/19 Fam Phy: Preston Wilcox MDInterpreting Phy: Victoriano Sims MD Admit Phy: Ordering Phy: Estevan Brand MD cc: ~ SINGLE VIEW CHEST CLINICAL HISTORY: Sepsis. FINDINGS: An AP, portable, upright chest radiograph is compared to study dated 03/18/2019. The examination is degraded by portable technique and patient rotation. The heart is enlarged. There is mild pulmonary vascular congestion. Increasing airspace opacities are present at both lung bases. No large pleural effusion or pneumothorax is seen. The skeletal structures are osteopenic. There are healed right-sided rib fractures. IMPRESSION: 1. Mild cardiac enlargement with pulmonary vascular congestion. 2. There are increasing bibasilar airspace opacities. This could represent atelectasis versus an infectious/inflammatory pneumonitis. Clinical correlation will be required. ACT 112: Negative or not required by law. Electronically signed by: Victoriano Sims M.D. 06/22/2019 7:09 PM Dictated: 06/22/191906 Transcribed: 06/22/191906 Code Status & VTE Plan VTE Prophylaxis Plan VTE Prophylaxis will be ordered: Yes PG Care Time/CCT Total # of Minutes Spent Total Time Spent: 55 Total Time Spent with Patient: Total time spent is greater than 50% in coordination of care (as documented) at patient's floor/unit and/or counseling patient: Coding Level of Care Code 20071 Initial Inpt Care Lvl 3 Diagnoses UTI (urinary tract infection) N39.0 Hematuria presence: without hematuria Urinary tract infection type: site unspecified Pneumonia, organism unspecified J18.9 Bipolar disorder F31.9 Hypercholesterolemia E78.00 GERD (gastroesophageal reflux disease) K21.9 Atypical Parkinsonism G20 Intellectual disability F79 (1) UTI (urinary tract infection) Hematuria presence: without hematuria Urinary tract infection type: site unspecified Qualified Code(s): N39.0 - Urinary tract infection, site not specified
[2019-06-22] MEDS ORDERED: ALBUTEROL 0.083% NEBU SOLN 3 ML VIAL NEB PRN (23:30)
[2019-06-22] MEDS ORDERED: ONDANSETRON INJ 2 MG/ML 2 ML VIAL IV PRN (23:30)
[2019-06-22] MEDS ORDERED: ACETAMINOPHEN 325 MG TAB PO PRN (23:30)
[2019-06-23] MEDS: LACTATED RINGER'S 1,000 ML IV SCH ×3 (00:19→17:28)
--- NOTE | 2019-06-23 00:26 | Emergency Department Note ---
Entered by bS Aquino acting as a scribe for Estevan Brand MD ED Provider Note CHIEF COMPLAINT: urinary symptoms HISTORY OF PRESENT ILLNESS: The patient is a 64 year old M who presents to the Emergency Room with complaints of worsening urinary symptoms that started this morning. The majority of the HPI was provided by the ED nurse. She states that the patient was sent into the ED from personal home care. She adds that the patient has a history of being mentally challenged. She notes that the patient is currently experiencing urinary frequency, foul-smelling urine, diarrhea and a fever. The patient states that he is not experiencing any pain. A review of the patients old records show that the patient has a history of Parkinsons disease and diverticulitis. The HPI is limited due to the patients current condition. Pt denies LOC, headache, chills, diaphoresis, visual changes, neck pain, sore throat, chest pain, leg pain, arm pain, breathing difficulties, nausea, vomiting, abdominal pain, back pain, melena, hematochezia, numbness, weakness, lymphadenopathy, rash, or other complaints. REVIEW OF SYSTEMS: See HPI for pertinent positives and negatives. A total of ten systems were reviewed and were otherwise negative. PMHx/PSHx: BPH, GERD, HLD, Parkinsons Disease, diverticulitis, mentally challenged SOCIAL HISTORY: Patient lives at home. Patient is not a smoker. PHYSICAL EXAM: GENERAL: Awake, alert, tired-appearing HENT: Normocephalic, atraumatic. Oropharynx unremarkable. EYES: PERRL. Normal conjunctiva. Sclera non-icteric. NECK: Inspection normal. Non-tender. Supple. No nuchal rigidity. FROM. No masses. RESPIRATORY: Clear to auscultation. No wheezes. No rales. Normal respiratory effort. CARDIAC: Tachycardic rate. Normal rhythm. No murmurs. No rubs. Extremities warm and well perfused. Pulses equal. No JVD. GI: Soft, non-distended. No tenderness to palpation. No rebound or guarding. No masses. RECTAL: Deferred. MUSCULOSKELETAL: Atraumatic. Chest examination reveals no tenderness. The back is symmetrical on inspection without obvious abnormality. There is no CVA tenderness to palpation. No joint edema. LOWER EXTREMITIES: Calves are equal size bilaterally and non-tender. No edema. No discoloration. NEURO: Altered sensorium. No sensory or motor deficits noted. SKIN: No rash or jaundice noted. EMERGENCY DEPARTMENT COURSE: 1821: The patient was evaluated in room B7, and a complete history and physical examination were performed. 2106: I re-checked the patient and updated her on her test results. 2129: I reviewed the patient's case with Dr. May, [facility] Hospitalist. He will evaluate the patient for further management. MEDICAL DECISION MAKING: Nursing notes reviewed and agree them. The patient's history was concerning for altered mental status. Differential diagnosis: Etiologies such as infection, hypoglycemia, electrolyte abnormalities, cardiac sources, intracerebral event, toxicologic, neurologic, as well as others were entertained. Physical examination: As above. ER treatment provided: IV Lock Normal saline hydration Oral Tylenol IV vancomycin IV aztreonam On reassessment the patient felt better. Diagnostics interpretation by me: ECG: No ischemia The labs revealed a moderate leukocytosis on CBC. Chemistry panel was unremarkable. Blood and urine cultures pending. Urinalysis concerning for infection. Imaging studies: X-ray imaging concerning for pneumonia. Consultation: A consultation was placed with the hospitalist. The case was discussed and diagnostics were reviewed. The patient was evaluated in the ER for further treatment. IMPRESSION: Sepsis, UTI, PNA PLAN: Admitted and inpatient. The scribe's documentation has been prepared under my direction and personally reviewed by me in its entirety. I confirm that the note above accurately reflects all work, treatment, procedures, and medical decision making performed by me. Impression & Plan Sepsis, UTI (urinary tract infection), Pneumonia, organism unspecified Past Med/Surg History Medical History (Updated 06/22/19 @ 22:30 by Efraín May DO) Alteration consciousness (Resolved) Aspiration precautions Benign prostatic hyperplasia with urinary obstruction (Chronic) Bipolar disorder BPH (benign prostatic hyperplasia) Chronic shoulder pain Closed left hip fracture (Resolved) Cognitive disorder Conductive hearing loss of both ears (Chronic) Diarrhea (Chronic) Diverticular disease Diverticulitis (Resolved) Dysphagia (Chronic) Gait apraxia Generalized muscle weakness Generalized weakness (Resolved) GERD (gastroesophageal reflux disease) Hypercholesterolemia (Chronic) Hyperlipemia Incontinence Incontinence of bowel (Chronic) Intellectual disability Leukopenia (Chronic) Major depressive disorder Tinnitus of both ears Unsteady gait Surgical History H/O inguinal hernia repair H/O wisdom tooth extraction History of left hip replacement Hx of tonsillectomy S/P hip replacement Status post left hip replacement (Resolved) Family History Unknown Obesity Hypercholesterolemia Father Diabetes Ischemic heart disease Sister Cancer Other Family history unknown Social History Preferred Language: Yemeni Communication Ability: Effective Expanded Duty Dental Assistant Required: No Beliefs That Will Affect Care: Judaism Judaism Beliefs: Gnosticist Current Living Situation: Personal Care Facility Current Living Situation Comment: Lives at [facility] Feels Safe at Home: Yes Smoking Status: Unknown if ever smoked Hx Alcohol Use: No Hx Substance Use: No Results & Data Vital Signs Vital Signs - 24 hr 06/22/19 18:04 06/22/19 19:03 06/22/19 19:30 Temperature 37.1 C Temperature Source Oral Pulse Rate 112 H 113 H Pulse Rate from SpO2 Sensor 113 H Respiratory Rate 21 24 Respiratory Effort / Characteristics Non-Labored Respiratory Depth Normal Blood Pressure 132/77 147/86 H Blood Pressure Mean 95 117 Pulse Oximetry 96 99 Oxygen Delivery Method Room Air Room Air Sepsis Recent Fever Within 48 Hours No Sepsis Action Taken by Nursing No Action Required 06/22/19 20:00 06/22/19 20:30 06/22/19 21:00 Temperature Temperature Source Pulse Rate 105 H 111 H 113 H Pulse Rate from SpO2 Sensor 106 H 111 H 113 H Respiratory Rate 28 H 24 26 H Respiratory Effort / Characteristics Respiratory Depth Blood Pressure 111/68 119/70 128/70 Blood Pressure Mean 75 79 92 Pulse Oximetry 96 92 92 Oxygen Delivery Method Sepsis Recent Fever Within 48 Hours Sepsis Action Taken by Nursing 06/22/19 21:30 06/22/19 22:05 06/22/19 22:06 Temperature 38.5 C H Temperature Source Rectal Pulse Rate 110 H 107 H Pulse Rate from SpO2 Sensor 110 H 108 H Respiratory Rate 26 H 26 H Respiratory Effort / Characteristics Respiratory Depth Blood Pressure 134/73 126/67 Blood Pressure Mean 89 80 Pulse Oximetry 92 91 Oxygen Delivery Method Sepsis Recent Fever Within 48 Hours Sepsis Action Taken by Jail Medications Current Medication List: was personally reviewed by me Laboratory Data Attestation: I reviewed the patient's lab results. Result diagrams: 06/22/19 18:58 06/22/19 18:58 Lab Results 06/22/19 06/22/19 06/22/19 Range/Units 18:58 18:58 18:58 WBC 18.70 H (4.8-10.8) K/uL RBC 4.71 (4.7-6.1) M/uL Hgb 16.0 (14.0-18.0) g/dL Hct 45.1 (42-52) % MCV 95.8 (80-100) fL MCH 34.0 (25-34) pg MCHC 35.5 (32-36) g/dL RDW Std Deviation 44.7 (36.4-46.3) fL RDW Coeff of Osbaldo 12.9 (11.5-14.5) % Plt Count 159 (130-400) K/uL MPV 11.0 H (7.4-10.4) fL Immature Gran % (Auto) 0.3 % Neut % (Auto) 93.6 % Lymph % (Auto) 3.3 % [place] % (Auto) 2.8 % Eos % (Auto) 0.0 % Baso % (Auto) 0.0 % Immature Gran # (Auto) 0.05 H (0.00-0.02) K/uL Neut # (Auto) 17.51 H (1.4-6.5) K/uL Lymph # (Auto) 0.61 L (1.2-3.4) K/uL [place] # (Auto) 0.53 (0.11-0.59) K/uL Eos # (Auto) 0.00 (0-0.5) K/uL Baso # (Auto) 0.00 (0-0.2) K/uL PT 11.2 (9.0-12.0) Seconds INR 1.1 (0.9-1.1) APTT 27.9 (21.0-31.0) Seconds PTT Ratio 1.0 Sodium 143 (136-145) mmol/L Potassium 3.8 (3.5-5.1) mmol/L Chloride 110 H (98-107) mmol/L Carbon Dioxide 28 (21-32) mmol/L Anion Gap 5.0 (3-11) BUN 22 H (7-18) mg/dl Creatinine 1.08 (0.6-1.4) mg/dl Est Cr Clr Drug Dosing Not Reportable Est GFR ( Amer) 84.2 Est GFR (Non-Af Amer) 72.7 BUN/Creatinine Ratio 20.5 H (10-20) Glucose 148 H (70-99) mg/dl Lactate (0.4-2.0) mmol/L Calcium 8.9 (8.5-10.1) mg/dl Magnesium 1.9 (1.8-2.4) mg/dl Total Bilirubin 0.8 (0.2-1) mg/dl AST 36 (15-37) U/L ALT 48 (12-78) U/L Alkaline Phosphatase 102 (45-117) U/L Troponin I < 0.015 (0-0.045) ng/ml Total Protein 7.1 (6.4-8.2) gm/dl Albumin 3.8 (3.4-5.0) gm/dl Globulin 3.3 (2.5-4.0) gm/dl Albumin/Globulin Ratio 1.2 (0.9-2) Urine Color Urine Appearance (Clear) Urine pH (4.5-7.5) Ur Specific [place] (1.000-1.030) Urine Protein (Negative) Urine Glucose (UA) (Negative) Urine Ketones (Negative) Urine Blood (Negative) Urine Nitrite (Negative) Urine Bilirubin (Negative) Urine Urobilinogen (Negative) Ur Leukocyte Esterase (Negative) Urine WBC (Auto) (0-5) /hpf Urine RBC (Auto) (0-4) /hpf U Hyaline Cast (Auto) (0-5) /lpf U Epithel Cells (Auto) (0-5) /lpf Urine Bacteria (Auto) (Negative) 06/22/19 06/22/19 Range/Units 18:58 19:25 WBC (4.8-10.8) K/uL RBC (4.7-6.1) M/uL Hgb (14.0-18.0) g/dL Hct (42-52) % MCV (80-100) fL MCH (25-34) pg MCHC (32-36) g/dL RDW Std Deviation (36.4-46.3) fL RDW Coeff of Osbaldo (11.5-14.5) % Plt Count (130-400) K/uL MPV (7.4-10.4) fL Immature Gran % (Auto) % Neut % (Auto) % Lymph % (Auto) % [place] % (Auto) % Eos % (Auto) % Baso % (Auto) % Immature Gran # (Auto) (0.00-0.02) K/uL Neut # (Auto) (1.4-6.5) K/uL Lymph # (Auto) (1.2-3.4) K/uL [place] # (Auto) (0.11-0.59) K/uL Eos # (Auto) (0-0.5) K/uL Baso # (Auto) (0-0.2) K/uL PT (9.0-12.0) Seconds INR (0.9-1.1) APTT (21.0-31.0) Seconds PTT Ratio Sodium (136-145) mmol/L Potassium (3.5-5.1) mmol/L Chloride (98-107) mmol/L Carbon Dioxide (21-32) mmol/L Anion Gap (3-11) BUN (7-18) mg/dl Creatinine (0.6-1.4) mg/dl Est Cr Clr Drug Dosing Est GFR ( Amer) Est GFR (Non-Af Amer) BUN/Creatinine Ratio (10-20) Glucose (70-99) mg/dl Lactate 2.0 (0.4-2.0) mmol/L Calcium (8.5-10.1) mg/dl Magnesium (1.8-2.4) mg/dl Total Bilirubin (0.2-1) mg/dl AST (15-37) U/L ALT (12-78) U/L Alkaline Phosphatase (45-117) U/L Troponin I (0-0.045) ng/ml Total Protein (6.4-8.2) gm/dl Albumin (3.4-5.0) gm/dl Globulin (2.5-4.0) gm/dl Albumin/Globulin Ratio (0.9-2) Urine Color Yellow Urine Appearance Cloudy A (Clear) Urine pH 8.5 H (4.5-7.5) Ur Specific [place] 1.019 (1.000-1.030) Urine Protein Negative (Negative) Urine Glucose (UA) Negative (Negative) Urine Ketones 1+ H (Negative) Urine Blood 2+ H (Negative) Urine Nitrite Positive A (Negative) Urine Bilirubin Negative (Negative) Urine Urobilinogen Negative (Negative) Ur Leukocyte Esterase 3+ H (Negative) Urine WBC (Auto) >30 H (0-5) /hpf Urine RBC (Auto) 10-30 H (0-4) /hpf U Hyaline Cast (Auto) 1-5 (0-5) /lpf U Epithel Cells (Auto) 0-5 (0-5) /lpf Urine Bacteria (Auto) 4+ H (Negative) Administered Medications Lactated Ringer's (Lr) 1,000 mls @ 125 mls/hr IV .Q8H LLOYD Stop: 07/22/19 23:29 Last Admin: 06/23/19 00:19 Dose: 125 mls/hr Documented by: [id number] Discontinued Medications Acetaminophen (Tylenol) 1,000 mg PO NOW STA Stop: 06/22/19 22:09 Last Admin: 06/22/19 22:19 Dose: 1,000 mg Documented by: [id number] Sodium Chloride (Nss 1000ml) 1,000 mls @ 999 mls/hr IV .Q1H1M ONE Stop: 06/22/19 19:37 Last Infusion: 06/22/19 20:09 Dose: 0 mls/hr Documented by: [id number] Admin: 06/22/19 19:07 Dose: 999 mls/hr Documented by: [id number] Sodium Chloride (Nss 1000ml) 1,000 mls @ 999 mls/hr IV .Q1H1M ONE Stop: 06/22/19 20:38 Last Infusion: 06/22/19 21:18 Dose: 0 mls/hr Documented by: [id number] Admin: 06/22/19 20:08 Dose: 999 mls/hr Documented by: [id number] Vancomycin HCl 1,500 mg/ (Sodium Chloride) 530 mls @ 200 mls/hr IV NOW ONE Stop: 06/22/19 22:16 Last Infusion: 06/22/19 22:57 Dose: 0 mls/hr Documented by: [id number] Admin: 06/22/19 20:08 Dose: 200 mls/hr Documented by: [id number] Aztreonam 1,000 mg/ Dextrose 110 mls @ 100 mls/hr IV NOW STA; Protocol Stop: 06/22/19 20:43 Last Infusion: 06/22/19 21:18 Dose: 0 mls/hr Documented by: [id number] Admin: 06/22/19 20:08 Dose: 100 mls/hr Documented by: [id number] Imaging Data Radiologist's Impression: Radiology results as stated below per my review and the radiologist's interpretation: SINGLE VIEW CHEST CLINICAL HISTORY: Sepsis. FINDINGS: An AP, portable, upright chest radiograph is compared to study dated 03/18/2019. The examination is degraded by portable technique and patient rotation. The heart is enlarged. There is mild pulmonary vascular congestion. Increasing airspace opacities are present at both lung bases. No large pleural effusion or pneumothorax is seen. The skeletal structures are osteopenic. There are healed right-sided rib fractures. IMPRESSION: 1. Mild cardiac enlargement with pulmonary vascular congestion. 2. There are increasing bibasilar airspace opacities. This could represent atelectasis versus an infectious/inflammatory pneumonitis. Clinical correlation will be required. ACT 112: Negative or not required by law. Electronically signed by: Victoriano Sims M.D. 06/22/2019 7:09 PM ECG Data Attestation: I personally reviewed and interpreted this ECG as follows: Indication: + altered mental status Rate (beats per minute): 109 Rhythm: sinus tachycardia ECG Intervals/blocks: + Normal QRS ECG [place]: + Normal ECG ST segments: no ST depression and no ST elevation ECG Findings: no PACs and no PVCs Blood Pressure Blood Pressure Findings: Elevated blood pressure Blood Pressure Disposition: elevated BP felt to be situational Discharge Plan Visit Data *Final* Discharge Date/Time: 06/22/19 23:02 Chief Complaint: Urinary Symptoms Stated Complaint: MENTAL STATUS CHANGE, DIARRHEA, UNSTEADY GAIT ED Provider: Estevan Brand Discharge Problem: Sepsis, UTI (urinary tract infection), Pneumonia, organism unspecified Patient Disposition: Admitted As Inpatient Discharge Instructions Interventions: ED Discharge Assessment Last Done: 06/22/19 23:02 Discharge Problem: Sepsis Qualifiers: Sepsis type: sepsis due to unspecified organism Sepsis acute organ dysfunction status: unspecified Qualified Code(s): A41.9 - Sepsis, unspecified organism UTI (urinary tract infection) Qualifiers: Urinary tract infection type: site unspecified Hematuria presence: without hematuria Qualified Code(s): N39.0 - Urinary tract infection, site not specified The scribe's documentation has been prepared under my direction and personally reviewed by me in its entirety. I confirm that the note above accurately reflects all work, treatment, procedures, and medical decision making performed by me.
[2019-06-23] MEDS: ALBUT/IPRATROP 3MG/0.5MG NEB 3 ML VIAL NEB SCH ×4 (00:38→19:21)
[2019-06-23] MEDS: AZITHROMYCIN 500 MG in DEXTROSE 5% 250 ML IV SCH (00:44)
[2019-06-23] MEDS: cefTRIAXone SODIUM 1,000 MG in DEXTROSE 5% 50 ML IV SCH (05:05)
[2019-06-23 06:52] LABS: Hemoglobin 13.9 g/dL (14.0-18.0); Mean Corpuscular Hemoglobin 32.8 pg (25-34); Mean Corpuscular Hgb Conc 34.8 g/dL (32-36); Mean Corpuscular Volume 94.3 fL (80-100); Platelet Count 131 K/uL (130-400); RDW Coefficient of Variation 13.1 % (11.5-14.5); RDW Standard Deviation 45.4 fL (36.4-46.3); Red Blood Count 4.24 M/uL (4.7-6.1)
[2019-06-23 07:19] LABS: BUN Creatinine Ratio 20.1 (10-20); Calcium 8.3 mg/dl (8.5-10.1); Creatinine Clr Calc Pharmacy 72.9 ml/min; Est GFR (African American) 95.9; Est GFR (Non-African American) 82.7; Potassium 3.7 mmol/L (3.5-5.1)
[2019-06-23] MEDS: ENOXAPARIN INJ 40 MG/0.4 ML SYR SQ SCH (09:13)
[2019-06-23] MEDS: CHOLECALCIFEROL 1,000 UNITS 25 MCG TAB PO SCH (12:39)
[2019-06-23] MEDS: PANTOprazole 40 MG TAB PO SCH (12:39)
[2019-06-23] MEDS: ASPIRIN 81 MG ECTAB PO SCH (12:39)
[2019-06-23] MEDS: CARBIDOPA/LEVODOPA 25/100MG TAB PO SCH ×2 (12:40→20:56)
[2019-06-23] MEDS: CeleBREX 200 MG CAP PO SCH ×2 (12:40→20:56)
--- NOTE | 2019-06-23 14:25 | Hospitalist Progress Note ---
Date of Service June 23, 2019 Assessment & Plan (1) UTI (urinary tract infection): 64-year-old male with a history of intellectual disability, bipolar, atypical Parkinson's, GERD, HLD presents from [facility] personal home with reports from staff of lethargy, confusion and urinary frequency. On arrival to the hospital, the patient was tachycardic, tachypneic and had a fever of 38.5. He also had a WBC of 19.2, but his lactate was within normal limits. Patient denies symptoms, but his urine was positive for infection and his chest x-ray showed bibasilar opacities. UTI/pneumoniainitially presenting with sepsis per SIRS No meaningful history or review of system from patient Treating empirically with Rocephin/azithromycin for UTI/pneumonia Pneumonia, community-acquired Continue Rocephin/azithromycin Noted by nurse to be choking on his food this morning Chest x-ray and clinical picture not concerning for aspiration pneumonia, but consider adding anaerobic coverage if patient is not improving. Obtain speech eval DuoNeb every 6 hours, Ventolin every 2 hours as needed Bipolar Continue Abilify, BuSpar HLD Continue atorvastatin GERD Continue pantoprazole Atypical parkinsonism Continue Sinemet CODE STATUSfull Nany.p.o. for the time being, follow speech recommendations DVT prophylaxiscontinue Lovenox Dispositioncontinue on med telemetry (2) Intellectual disability: (3) GERD (gastroesophageal reflux disease): (4) Pneumonia, organism unspecified: (5) Atypical Parkinsonism: (6) Bipolar disorder: Supervising Physician Co-Signing Physician Notes Patient seen and examined with PGY-3 Dr. Kyler Robledo. Agree with history, exam findings, assessment and plan of care as outlined with the following updates: In brief, Mr. Ewing is a 64 year old male with history of ID, atypical Parkinson's, BPH, GERD, oropharyngeal dysphagia, depression and bipolar disorder admitted with confusion, lethargy and foul smelling urine found to have a urinary tract infection and pneumonia. He lives in a personal retirement ([facility]). He has no complaints, although is not able to give much history. VSS and labs reviewed. Lungs with diminished breath sounds. Abdomen is soft, nontender. 1. Sepsis secondary to urinary tract infection and pneumonia. Received vanc and azetreonam in the ED--switched to ceftriaxone and azithromycin on the floor. Continue with ctx and azithro. Blood cultures pending. Urine culture growing E. Coli. Await sensitivities. If not starting to improve clinically, may consider broadening antibiotics for better anaerobic coverage for possible aspiration (see below). 2. Dysphagia. Slippery diet, thickened liquids. Aspiration precautions. Other chronic issues are stable. Home medications continued. Dispo: Pending clinical improvement. Subjective Patient is alert, but is unable to give a meaningful history secondary to baseline mental status. Review of Systems Review of Systems: Unobtainable due to cognitive status Physical Exam Constitutional: WD/WN, vitals as above Eyes: PERRL, conjunctivae normal, anicteric sclerae ENMT: external ear and nose normal, oropharynx normal Neck: trachea midline, no thyromegaly Respiratory: normal respiratory effort, lungs clear to auscultation Upper airway sounds transmitted throughout Cardiovascular: RRR, no murmur, no edema Gastrointestinal (Abdomen): normal bowel sounds, soft, nontender, no hepatosplenomegaly Musculoskeletal: no cyanosis or clubbing, extremities motor strength 5/5 Skin: no rashes, warm and dry Results & Data ([facility]) Vital Signs (Past 12 Hours) Vital Signs Temp Pulse Pulse Resp BP Pulse Ox Pulse Ox 06/23/19 13:33 82 100 06/23/19 10:56 36.9 C 86 18 99/57 L 90 06/23/19 07:57 36.8 C 79 18 100/59 L 96 06/23/19 07:54 97 06/23/19 07:33 80 06/23/19 07:04 80 17 96 06/23/19 04:18 37.2 C 74 20 94/58 L 94 Resident Activity Tracking Resident Involvement: Resident Care Provided Care Provided: Adult Hospital Medicine (1) UTI (urinary tract infection) Hematuria presence: without hematuria Urinary tract infection type: site unspecified Qualified Code(s): N39.0 - Urinary tract infection, site not specified
[2019-06-23] MEDS: ARIPiprazole 10 MG TAB PO SCH (20:55)
[2019-06-23] MEDS: ATORVASTATIN 10 MG TAB PO SCH (20:57)
--- NOTE | 2019-06-23 21:50 | Electrocardiogram Report ---
Test Reason : Blood Pressure : / mmHG Vent. Rate : 109 BPM Atrial Rate : 109 BPM P-R Int : 174 ms QRS Dur : 096 ms QT Int : 320 ms P-R-T Axes : 029 -04 074 degrees QTc Int : 430 ms Poor data quality, interpretation may be adversely affected Sinus tachycardia Otherwise normal ECG When compared with ECG of 18-MAR-2019 01:59, Vent. rate has increased BY 43 BPM Confirmed by Nabeel Linton ([id number]) on 06/23/2019 9:49:56 PM Referred By: Ilana Mojica Snyder Confirmed By:Nabeel Linton
[2019-06-24] MEDS: AZITHROMYCIN 500 MG in DEXTROSE 5% 250 ML IV SCH ×2 (00:27→22:39)
[2019-06-24] MEDS: LACTATED RINGER'S 1,000 ML IV SCH (00:30)
[2019-06-24] MEDS ORDERED: PIPERACILL/TAZOBAC CONSULT ACTIVE PRN (02:17)
[2019-06-24] MEDS ORDERED: PIPERACILLIN/TAZOBACTAM 3.375 GM in DEXTROSE 5% 100 ML IV SCH (02:30)
[2019-06-24] MEDS ORDERED: ACETAMINOPHEN 1,000 MG/100 ML VIAL IV STA (02:33)
--- NOTE | 2019-06-24 02:39 | Communication Note ---
Date of Service: June 24, 2019 Notified of increasing oxygen requirement from RA with pulse ox at 87%, and was concerned possibly this was because he wasn't getting anaerobic coverage as noted concern for aspiration. Repeat CXR didn't show any worsening status, then cancelled his anaerobic coverage and reordered his Azithromycin and Rocephin to continue. Will discontinue fluids since getting 125ml/hr since admission in setting of fluid from other IV medications; also noted pulmonary congestion on prior CXR. Will defer to day team to restart IVF if needed. IV Tylenol ordere d, patient diaphoretic and only takes PO when crushed up.
[2019-06-24] MEDS ORDERED: AZITHROMYCIN 500 MG in DEXTROSE 5% 250 ML IV SCH (02:45)
[2019-06-24] MEDS ORDERED: cefTRIAXone SODIUM 1,000 MG in DEXTROSE 5% 50 ML IV SCH (04:00)
[2019-06-24] MEDS: cefTRIAXone SODIUM 1,000 MG in DEXTROSE 5% 50 ML IV SCH (04:04)
--- NOTE | 2019-06-24 07:10 | XRay Report ---
SINGLE VIEW CHEST CLINICAL HISTORY: Hypoxia. FINDINGS: An AP, portable, upright chest radiograph is compared to study dated 06/22/2019. The examinat ion is degraded by portable technique and patient rotation. The heart is enlarged. Mild pulmonary va scular congestion persists. Bibasilar airspace opacities are again noted. No large pleural effusion o r pneumothorax is seen. The skeletal structures are osteopenic. There are healed right-sided rib frac tures. IMPRESSION: 1. Mild cardiac enlargement with pulmonary vascular congestion. 2. Bibasilar airspace opacities are unchanged. ACT 112: Negative or not required by law. Electronically signed by: Victoriano Sims M.D. 06/24/2019 7:09 AM
[2019-06-24] MEDS: ALBUT/IPRATROP 3MG/0.5MG NEB 3 ML VIAL NEB SCH ×3 (07:22→19:10)
[2019-06-24 07:25] LABS: Hematocrit (blood only) 37.2 % (42-52); Hemoglobin 12.7 g/dL (14.0-18.0); Mean Corpuscular Hemoglobin 32.6 pg (25-34); Mean Corpuscular Hgb Conc 34.1 g/dL (32-36); Mean Corpuscular Volume 95.6 fL (80-100); Mean Platelet Volume 10.6 fL (7.4-10.4); Platelet Count 106 K/uL (130-400); RDW Coefficient of Variation 13.3 % (11.5-14.5); RDW Standard Deviation 46.1 fL (36.4-46.3); Red Blood Count 3.89 M/uL (4.7-6.1); White Blood Count 11.57 K/uL (4.8-10.8)
[2019-06-24 07:59] LABS: BUN Creatinine Ratio 26.4 (10-20); Calcium 8.4 mg/dl (8.5-10.1); Creatinine Clr Calc Pharmacy 73.6 ml/min; Est GFR (African American) 97.1; Est GFR (Non-African American) 83.8; Potassium 3.5 mmol/L (3.5-5.1)
[2019-06-24] MEDS: CARBIDOPA/LEVODOPA 25/100MG TAB PO SCH ×2 (08:16→21:15)
[2019-06-24] MEDS: PANTOprazole 40 MG TAB PO SCH (08:16)
[2019-06-24] MEDS: CeleBREX 200 MG CAP PO SCH ×2 (08:16→21:15)
[2019-06-24] MEDS: ASPIRIN 81 MG ECTAB PO SCH (08:17)
[2019-06-24] MEDS: ENOXAPARIN INJ 40 MG/0.4 ML SYR SQ SCH (08:17)
[2019-06-24] MEDS: CHOLECALCIFEROL 1,000 UNITS 25 MCG TAB PO SCH (08:17)
--- NOTE | 2019-06-24 14:30 | Hospitalist Progress Note ---
Date of Service June 24, 2019 Assessment & Plan (1) UTI (urinary tract infection): 64-year-old male with a history of intellectual disability, bipolar, atypical Parkinson's, GERD, HLD presents from [facility] with reports from staff of lethargy, confusion and urinary frequency. On arrival to the hospital, the patient was tachycardic, tachypneic and had a fever of 38.5. He also had a WBC of 19.2, but his lactate was within normal limits. Patient denies symptoms, but his urine was positive for infection and his chest x-ray showed bibasilar opacities. UTI/pneumoniainitially presenting with sepsis per SIRS History limited by baseline intellectual disability Treating empirically with Rocephin/azithromycin for UTI/pneumonia Acute hypoxic respiratory failure 2/2 pneumonia, community-acquired Continues to have an increased oxygen requirement, currently on 2 L. Wean to SPO2 greater than 90%. Continue Rocephin/azithromycin Seen by BUILDING SUPERINTENDENT, recommend slippery diet. Some concern from nursing staff on previous days for aspiration events. Chest x-ray and clinical picture consistent with aspiration pneumonia, may add anaerobic coverage if suspicion arises DuoNeb every 6 hours, Ventolin every 2 hours as needed CXR shows mild cardiac enlargement with pulmonary vascular congestion. There are increasing bibasilar airspace opacities, atelectasis versus vs infectious/inflammatory pneumonitis. Pt cumulatively +6 L, no history of heart failure. Low suspicion for fluid overload contributing to oxygen requirement but will continue to follow. Bipolar Continue aripiprazole 10 mg every afternoon Continue buspirone 10 mg p.o. twice daily HLD Continue atorvastatin milligrams p.o. nightly GERD Continue pantoprazole 40 mg daily Atypical parkinsonism Continue Sinemet twice daily CODE STATUSfull FENslippery diet per speech DVT prophylaxiscontinue Lovenox Dispositioncontinue on med telemetry Supervising Physician Co-Signing Physician Notes I personally examined the patient and verified all riley points of history and exam, discussed case, and agree with decision making with Dr Hill. Patient notes that he is feeling okay. Very limited historian, but denies any chest pain, shortness of breath generally feels okay. Vitals noted, in general he is awake laying in bed fairly slow to respond but appears in no distress. HEENT normocephalic atraumatic mucous membranes moist. Lungs are clear to auscultation bilaterally no rales rhonchi or wheeze with good effort. Cardio is regular. Skin shows no rashes, no pallor, no icterus. Sepsisfrom UTI versus pneumonia versus bothimproving. Continue current care. DispositionPT/OT eval and treat, hopefully he will be able to return to his personal retirement. Bubba Urena is seen at the bedside this morning. History is limited by baseline intellectual disability. He denies pain. Denies shortness of breath, chest pain. Denies fever, chills, sweats. Denies cough, denies pain with urination. Reports that he would like to walk around. No other questions or concerns. Review of Systems Review of Systems: Unobtainable due to mental health condition and Unobtainable due to cognitive status Limited by cognitive status. Grossly denies fever, chills, sweats, pain, nausea, vomiting, cough, shortness of br eath, lightheadedness, dizziness. Physical Exam Physical Exam: General: A&Ox3. NAD. Cooperative. HEENT: Atraumatic, normocephalic. Pulm: Trace bilateral dependent crackles. Symmetrical chest rise. No increase work of breathing. No respiratory distress. Cardiac: RRR, -mrg. Radial pulses intact and symmetrical. Abdominal: Nontender, nondistended, soft. BS present. Results & Data ([facility]) Vital Signs (Past 12 Hours) Vital Signs Temp Pulse Resp BP Pulse Ox Pulse Ox 06/24/19 13:24 63 16 94 06/24/19 11:15 36.5 C 65 18 97/61 L 93 06/24/19 10:47 93 06/24/19 07:46 36.9 C 72 18 96/60 L 95 06/24/19 07:25 66 20 95 06/24/19 03:25 36.8 C 67 22 93/56 L 95 06/24/19 02:31 37.6 C H 95 Resident Activity Tracking Resident Involvement: Resident Care Provided Care Provided: Adult Hospital Medicine (1) UTI (urinary tract infection) Hematuria presence: without hematuria Urinary tract infection type: site unspecified Qualified Code(s): N39.0 - Urinary tract infection, site not specified
--- NOTE | 2019-06-24 17:05 | Billing Data ---
Date of Service June 24, 2019 Coding Level of Care Code 18268 Subseq Hosp Care Lvl 2
[2019-06-24] MEDS: ARIPiprazole 10 MG TAB PO SCH (21:15)
[2019-06-24] MEDS: ATORVASTATIN 10 MG TAB PO SCH (21:15)
[2019-06-25] MEDS: cefTRIAXone SODIUM 1,000 MG in DEXTROSE 5% 50 ML IV SCH (04:36)
[2019-06-25 06:42] LABS: Basophils # (auto) 0.01 K/uL (0-0.2); Basophils % (auto) 0.2 %; Eosinophils # (auto) 0.17 K/uL (0-0.5); Eosinophils % (auto) 2.7 %; Hematocrit (blood only) 39.7 % (42-52); Hemoglobin 13.6 g/dL (14.0-18.0); Immature Granulocytes # (auto) 0.02 K/uL (0.00-0.02); Immature Granulocytes % (auto) 0.3 %; Lymphocytes # (auto) 0.95 K/uL (1.2-3.4); Lymphocytes % (auto) 15.1 %; Mean Corpuscular Hgb Conc 34.3 g/dL (32-36); Mean Corpuscular Volume 96.4 fL (80-100); Mean Platelet Volume 11.5 fL (7.4-10.4); Monocytes # (auto) 0.45 K/uL (0.11-0.59); Monocytes % (auto) 7.1 %; Neutrophils # (auto) 4.71 K/uL (1.4-6.5); Neutrophils % (auto) 74.6 %; Platelet Count 124 K/uL (130-400); RDW Coefficient of Variation 13.2 % (11.5-14.5); Red Blood Count 4.12 M/uL (4.7-6.1); White Blood Count 6.31 K/uL (4.8-10.8)
[2019-06-25] MEDS: ALBUT/IPRATROP 3MG/0.5MG NEB 3 ML VIAL NEB SCH ×2 (07:02→13:11)
[2019-06-25 07:05] LABS: BUN Creatinine Ratio 23.7 (10-20); Calcium 8.3 mg/dl (8.5-10.1); Creatinine Clr Calc Pharmacy 88.8 ml/min; Est GFR (Non-African American) 92.3; Potassium 3.5 mmol/L (3.5-5.1)
[2019-06-25] MEDS: CeleBREX 200 MG CAP PO SCH (08:13)
[2019-06-25] MEDS: ASPIRIN 81 MG ECTAB PO SCH (08:14)
[2019-06-25] MEDS: PANTOprazole 40 MG TAB PO SCH (08:14)
[2019-06-25] MEDS: CARBIDOPA/LEVODOPA 25/100MG TAB PO SCH (08:14)
[2019-06-25] MEDS: CHOLECALCIFEROL 1,000 UNITS 25 MCG TAB PO SCH (08:15)
[2019-06-25] MEDS: ENOXAPARIN INJ 40 MG/0.4 ML SYR SQ SCH (08:21)
--- NOTE | 2019-06-25 17:07 | Billing Data ---
Date of Service June 25, 2019 Coding Level of Care Code D/C Day Management <30 mins
--- NOTE | 2019-06-25 17:34 | Discharge Summary ---
Date of Service June 25, 2019 Admission Exam Per Admitting Provider General- adult male NAD. Head- atraumatic Eyes- PERRL, EOMI, anicteric ENT- oropharynx clear Neck- supple, no JVD, no adenopathy, no thyromegaly. Lungs- CTA b/l no R/R/W. Heart- regular rhythm; no murmur, no gallop, no rub appreciated Abdomen- normal bowel sounds, soft, nontender. Extremities- no pretibial edema, no calf tenderness; peripheral pulses intact Neuro- awake and alert but rarely answers questions. , PERRL, EOMI; awnings mechanic II-XII grossly intact, non-focal. Skin- warm & dry Principal Diagnosis UTI Discharge Exam General: A&Ox3. NAD. Cooperative. HEENT: Atraumatic, normocephalic. Pulm: CTAB. Symmetrical chest rise. No increase work of breathing. No respiratory distress. Cardiac: RRR, -mrg. Radial pulses intact and symmetrical. Abdominal: Nontender, nondistended, soft. BS present. Discharge Data Allergies Allergy/AdvReac Type Severity Reaction Status Date / Time Penicillins AdvReac Intermediate RASH Verified 06/22/19 19:16 Consultations 06/22/19 21:01 ED Decision to Admit Stat Hospital Course (1) UTI (urinary tract infection): 64-year-old male with a history of intellectual disability, bipolar, atypical Parkinson's, GERD, HLD presented from [facility] personal home with reports from staff of lethargy, confusion and urinary frequency. UTI/pneumoniainitially presenting with sepsis per SIRS On arrival to the hospital, the patient was tachycardic, tachypneic and had a fever of 38.5. He also had a WBC of 19.2, but his lactate was within normal limits. Patient denied symptoms, but his urine was positive for infection and his chest x-ray showed bibasilar opacities. History was limited by baseline intellectual disability was treated empirically with Rocephin and azithromycin for UTI versus pneumonia. He clinically improved and not have any urinary symptoms following admission. He was discharged to complete a 10-day course of cefdinir with follow-up to [facility]. Acute hypoxic respiratory failure 2/2 pneumonia, community-acquired Romel presented tachypneic, tachycardic, and febrile as above. His chest x-ray showed bibasilar opacities. He had a new increased oxygen requirement of 2 L of nasal cannula. He was continued on Rocephin and azithromycin, and clinically improved. Some concern was expressed regarding his risk of aspiration. He was seen by PHLEBOTOMY SERVICES REPRESENTATIVE who recommended a slippery diet. Chest x-ray and clinical course was not consistent with anaerobic pneumonia. He was weaned off of oxygen, and did clinically well with no shortness of breath. His antibiotics were converted to Ceftin ear and he was discharged to complete 10 total days of antibiotics. He is ambulating well independently without shortness of breath or hypoxia at time of discharge. Bipolar Patient has a history of bipolar disorder, he was continued on his prior to admission doses of aripiprazole and buspirone without acute exacerbation. HLD He was continued on his prior to admission atorvastatin 10 mg. GERD He was continued on pantoprazole 40 mg daily. Atypical parkinsonism He was continued on Sinemet twice daily without exacerbation of parkinsonian symptoms. DVT prophylaxis He received Lovenox DVT prophylaxis during admission without signs of DVT. Total Time Total Time Spent Total Time Spent (In Minutes): <30 Discharge Plan Discharge Items Patient Disposition: Personal [facility] Reason For Visit: UTI, PNEUMONIA Discharge Diagnosis: UTI Activity: Resume your previous activity Non-emergency contact: Primary Care Provider Call non-emergency contact if: you have any medication questions, your symptoms worsen, your pain is not controlled, your pain is worsening, your pain is unusual for you, your pain is concerning for you and you have a fever [facility] - Diet: Regular Addtl Attending Provider Instructions: Romel was seen in the hospital for lethargy, confusion, and urinary frequency. He was found to have a E. coli urinary tract infection requiring antibiotic treatment. He developed an increased oxygen requirement with signs of pneumonia during admission, for which she was also treated. He will need additional antibiotics as noted below. Romel has been prescribed an antibiotic,cefdinir. Please take cefdinir 300mg twice daily for 8 days to complete a total 10 day course of antibiotics including those received in the hospital. He will have a follow-up appointment with the [facility] physician. He should be seen within 1 week of discharge. If he develops any worsening fever, chills, sweats, difficulty breathing, shortness of breath, passing out or nearly passing out, confusion, lethargy, inability to tolerate food/drink, pain with urination, or other new or concerning symptoms please having seen by the [facility] physician, or contact 911 for transportation for reevaluation in the emergency department. Pending Studies at Discharge: No Stand-Alone Forms: My [employer], Smoking Cessation Skilled Items Patient informed of condition?: Yes DNR: No Discharge Level of Care: Other Communicable Disease: No Discharge Prognosis: Stable Lines: None Urinary Catheter: No Medications and DC Order Prescriptions: New cefdinir 300 mg Capsule 300 mg PO BID 8 Days Qty: 16 RF: 0 Continued cholecalciferol (vitamin D3) 2,000 unit capsule 2,000 units PO DAILY Qty: 30 RF: 5 colestipol 1 gram tablet 1 gm PO BID Qty: 60 RF: 2 buspirone 10 mg tablet 10 mg PO BID RF: 0 carbidopa-levodopa [Sinemet] 25-100 mg tablet 1 tab PO BID Qty: 60 RF: 5 celecoxib 200 mg Capsule 200 mg PO BID RF: 0 loperamide [Anti-Diarrheal (loperamide)] 2 mg Capsule 2 mg PO QID PRN (Reason: Diarrhea) RF: 0 atorvastatin 10 mg Tablet 10 mg PO HS RF: 0 magnesium hydroxide [Milk of Magnesia] 400 mg/5 mL Suspension 30 ml PO DAILY PRN (Reason: Constipation) RF: 0 Toviaz 8 mg Tablet Extended Release 24 Hr 8 mg PO DAILY RF: 0 aripiprazole 10 mg tablet 10 mg PO QPM RF: 0 aspirin 81 mg tablet,delayed release (DR/EC) 81 mg PO DAILY RF: 0 pantoprazole 40 mg tablet,delayed release (DR/EC) 40 mg PO DAILY RF: 0 acetaminophen 325 mg tablet 650 mg PO Q6H PRN (Reason: pain/fever) RF: 0 Discharge Orders: Discharge Order (Routine); Ordered 06/25/19 Ordered By: Thony Figueroa Admission Data Admit Date/Time: 06/22/19 22:11 Attending Provider: Raymon Chávez Admit Provider: Efraín May Primary Care Provider: Yunior Watkins,[place], [employer] Other Providers: Efraín May ; Yanely Baca Other Interventions: Discharge Summary Assessment (RN) Last Done: 06/25/19 16:08 DC Date/Time DO NOT enter until pt leaves facility: 06/25/19 16:15 Supervising Physician Co-Signing Physician Notes I personally examined the patient and verified all riley points of history and exam, discussed case, and agree with decision making with Dr Hill. Feels okay and would like to leave hospital. Very limited historian, but denies any chest pain, shortness of breath generally feels okay. Vitals noted, in general he is awake laying in bed fairly slow to respond but appears in no distress. HEENT normocephalic atraumatic mucous membranes moist. Breathing unlabored no accessory muscle use good effort.. Skin shows no rashes, no pallor, no icterus. Sepsisfrom UTI versus pneumonia versus bothimproving. Finish out course of antibiotics with cefdinir to cover for both urine and pneumonia (could do something as simple as cephalexin for urine, but given the possibility of something like H. influenzae, as well as the fact that he improved on ceftriaxone, will send home on an oral surgeon cephalosporin. Disposition: return to his personal alf. Resident Activity Tracking Resident Involvement: Resident Care Provided Care Provided: Adult Hospital Medicine
[2019-06-25] MEDS ORDERED: CEFDINIR 300 MG CAP PO SCH (21:00)
== END 2019-06-25 16:15 | disposition home or self-care (01) | DRG 871 ==
LOC: ED 18:04 → INTOOBSV 22:11 → 2N 22:11 → SUATTDRO 22:11 → 2N 23:02

== ENCOUNTER 2020-08-15 04:10 | Observation (INO) ==
[2020-08-15 04:39] LABS: Basophils # (auto) 0.01 K/uL (0-0.2); Basophils % (auto) 0.1 %; Eosinophils # (auto) 0.02 K/uL (0-0.5); Eosinophils % (auto) 0.2 %; Hematocrit (blood only) 46.6 % (42-52); Hemoglobin 16.5 g/dL (14.0-18.0); Immature Granulocytes # (auto) 0.03 K/uL (0.00-0.02); Immature Granulocytes % (auto) 0.3 %; Lymphocytes # (auto) 0.56 K/uL (1.2-3.4); Lymphocytes % (auto) 4.9 %; Mean Corpuscular Hemoglobin 33.2 pg (25-34); Mean Corpuscular Hgb Conc 35.4 g/dL (32-36); Mean Corpuscular Volume 93.8 fL (80-100); Mean Platelet Volume 10.6 fL (7.4-10.4); Monocytes # (auto) 0.59 K/uL (0.11-0.59); Monocytes % (auto) 5.1 %; Neutrophils # (auto) 10.28 K/uL (1.4-6.5); Neutrophils % (auto) 89.4 %; Platelet Count 196 K/uL (130-400); RDW Coefficient of Variation 12.8 % (11.5-14.5); RDW Standard Deviation 43.6 fL (36.4-46.3); Red Blood Count 4.97 M/uL (4.7-6.1); White Blood Count 11.49 K/uL (4.8-10.8)
[2020-08-15 04:52] LABS: Partial Thromboplastin Ratio 0.9; Partial Thromboplastin Time 24.4 Seconds (21.0-31.0); Prothrombin Time 10.5 Seconds (9.0-12.0)
--- NOTE | 2020-08-15 04:57 | Emergency Department Note ---
Impression & Plan Bilateral pneumonia, Hypoxia ED Provider Note NAME: ENRIQUE GARZA AGE: 65 SEX: M ARRIVES VIA: Ambulance INFORMANT: Patient ED PROVIDER(S): Nataly Coronado DO CHIEF COMPLAINT: Shortness of breath PLAN: [facility] [place] Condition: Stable MEDICAL DECISION MAKING: This is a 65-year-old male patient with Parkinson's disease from [facility] who presents to the emergency department with respiratory distress and hypoxia. The patient was placed on BiPAP to maintain O2 saturations. Chest x-ray showed questionable evidence of left lower lobe infiltrate. D-dimer was elevated and there was concern for PE. CT was negative for pulmonary emboli but showed bilateral lower lobe infiltrates. Patient was treated with IV Levaquin and he was able to be weaned from the BiPAP to nasal cannula and maintain his O2 saturations. I discussed the case with the [facility] hospitalist and he will be evaluated for further care. Triage Nursing notes reviewed and agree them. Additional history obtained from EMS Prior medical records reviewed and I have seen this patient in the past Vital Signs: reviewed and remarkable for hypoxia and tachypnea Differential diagnosis: PE, CHF, COVID-19, pneumonia, hypoxic respiratory failure ER treatment provided: BiPAP respiratory support, IV fluids, IV Levaquin Diagnostics interpreted by me: ECG: Normal sinus rhythm at a rate of 84 with poor baseline secondary to artifact. There is some ST segment depression and T wave inversion in leads I and aVL which seems more pronounced compared to an EKG from June 2019. Otherwise there is no significant signs of ischemia. Cardiac Monitoring: Sinus tachycardia at 102 Laboratory studies: See below Imaging studies: As per stat rad CT chest with contrast: Bilateral lower lobe infiltrates mixed with areas of subsegmental atelectasis. No evidence of pulmonary emboli. Portable chest x-ray: As interpreted by me Questionable left lower lobe infiltrate HPI: 65/M arrives for evaluation of hypoxia. The patient was found to be in respiratory distress tonight by staff at [facility]. The patient has no history of respiratory issues or cardiac issues according to EMS. He does have a history of Parkinson's. The patient had COVID-19 in March and was vaccinated in May. According to prehospital report, the patient was doing well throughout the day today but was found in respiratory distress by staff at the home. O2 saturations were in the 80s on room air for EMS on their arrival. ROS: Review of systems cannot be completed with the patient as he is nonverbal. PAST MEDICAL HISTORY:See Below PAST SURGICAL HISTORY:See Below FAMILY HISTORY:See Below SOCIAL HISTORY:See Below HOME MEDICATIONS:See list ALLERGIES:See list VITALS:See Below PHYSICAL EXAMINATION: HEENT: Head - normocephalic and atraumatic Pupils are equal, round, and reactive to light. Extraocular eye muscles are intact, and sclera are anicteric. Nose -dry nasal mucosa without discharge. Mouth -dry buccal mucosa. Oropharynx is nonerythematous and there is no tonsillar exudate or edema noted. Neck: Supple; no JVD, nuchal rigidity, cervical lymphadenopathy, or auscultated bruits. Heart: Tachycardic rate and rhythm. There is a normal S1 and S2 with no murmurs, clicks, or gallops appreciated. Lungs: Diminished breath sounds at both lung bases. There is no wheezing or rales appreciated Abdomen: Soft, slightly distended but nontender with good bowel sounds. There are no palpable pulsatile masses or hepatosplenomegaly. There is no guarding, rigidity, or rebound noted. Extremities: No evidence of cyanosis, clubbing, or edema. There are easily palpable peripheral pulses. Skin: warm and dry with good turgor and no rashes. ED COURSE: Times/Reassessments: 0420: The patient was evaluated in room C10. A complete history and physical was performed. An order was placed for continuous cardiac monitoring. The patient was in a sinus tachycardia at 102. Patient was significantly tachypneic and hypoxic without oxygen. He was placed on BiPAP. Initially, the patient was not tolerating the BiPAP very well and having difficulty accepting it. Nursing staff and myself coached him through the breathing process and was more easily able to tolerate it. A twelve-lead EKG was obtained. A septic protocol was performed. The patient was bolused with IV normal saline solution. A portable chest x-ray was performed. O2 saturations seem to more normalize. Respiratory was able to wean the patient off BiPAP onto a nasal cannula and saturations remained stable. The patient was certainly resting more comfortably at this time and respiratory rate had come down. D-dimer came back elevated and patient went for CT scan of the chest which revealed bilateral lower lobe infiltrates. Patient was started on IV Levaquin. Covid testing was performed in preparation for admission to the hospital. I have personally spent greater than 30 minutes of critical care time in the direct management of this patient. This includes bedside care, interpretation of diagnostic studies, and testing, discussion with consultants, patient, and family members, and other required patient management activities. This 30 minutes is in excess of all separately billable procedures. Nataly Coronado, Past Med/Surg History Medical History (Updated 08/15/20 @ 10:09 by Joselin Hubbard MD) Alteration consciousness Aspiration precautions Benign prostatic hyperplasia with urinary obstruction Bipolar disorder BPH (benign prostatic hyperplasia) Chronic shoulder pain Closed left hip fracture Cognitive disorder Conductive hearing loss of both ears Diarrhea Diverticular disease Diverticulitis Dysphagia Gait apraxia Generalized muscle weakness Generalized weakness GERD (gastroesophageal reflux disease) Hypercholesterolemia Hyperlipemia Incontinence Incontinence of bowel Intellectual disability Leukopenia Major depressive disorder Tinnitus of both ears Unsteady gait Surgical History H/O inguinal hernia repair H/O wisdom tooth extraction History of left hip replacement Hx of tonsillectomy S/P hip replacement Status post left hip replacement Family History Unknown Obesity Hypercholesterolemia Father Diabetes Ischemic heart disease Sister Cancer Other Family history unknown Social History (Updated 08/15/20 @ 09:48 by Joselin Hubbard MD) Smoking Status: Unknown if ever smoked Second Hand Exposure: No; Do You Dip or Chew Tobacco: No; Tobacco Cessation Education Requested by Patient: No Hx Alcohol Use: No Hx Substance Use: No Preferred Language: Estonian Communication Ability: Impaired Communication Ability Comment: able to make needs known with short answer questions Food As[employer] Kitchen Required: No Beliefs That Will Affect Care: None Current Living Situation: Care Home Current Living Situation Comment: Lives at [facility] Other Information That Helps Us Care for You: No Feels Safe at Home: Yes Safety Concerns: Feels Safe At This Time Assistive Devices: Walker Allergies Allergies Allergy/AdvReac Type Severity Reaction Status Date / Time Penicillins AdvReac Intermediate RASH Verified 08/15/20 05:12 Home Meds Home Medications Medication Instructions Recorded Confirmed atorvastatin 10 mg PO HS 10/11/18 08/15/20 loperamide [Anti-Diarrheal 2 mg PO Q6 PRN 10/11/18 08/15/20 (loperamide)] aripiprazole 10 mg tablet 10 mg PO QPM tab 11/01/18 08/15/20 aspirin 81 mg tablet,delayed 81 mg PO DAILY tab 11/01/18 08/15/20 release pantoprazole 40 mg tablet,delayed 40 mg PO DAILY tab 11/01/18 08/15/20 release acetaminophen 325 mg tablet 650 mg PO Q6H PRN tab MDD 3g 02/27/19 08/15/20 meloxicam 15 mg tablet 15 mg PO DAILY 06/09/20 08/15/20 oxybutynin chloride 10 mg 10 mg PO DAILY 06/09/20 08/15/20 tablet,extended release 24 hr buspirone 10 mg PO Q12 08/15/20 08/15/20 colestipol 1 gm PO Q12 08/15/20 08/15/20 Previous Rx's Medication Instructions Recorded cholecalciferol (vitamin D3) 50 2,000 units PO DAILY #30 cap 03/08/19 mcg (2,000 unit) capsule ketoconazole 2 % shampoo 1 appln TOP .COMPLEX #120 ml 09/10/19 melatonin 5 mg tablet 5 mg PO HS #90 tab 09/18/19 carbidopa 25 mg-levodopa 100 mg 1 tab PO TID #90 tab 11/07/19 tablet Results & Data (ED) Vital Signs Vital Signs - 24 hr 08/15/20 04:17 08/15/20 04:19 08/15/20 04:27 Temperature Temperature Source Pulse Rate 101 H 83 Pulse Rate from SpO2 Sensor Pulse Rhythm Respiratory Rate 20 36 H Respiratory Effort / Characteristics Non-Labored Spontaneous Respiratory Depth Normal Respiratory Pattern Regular Blood Pressure 181/83 H Blood Pressure Mean 115 Pulse Oximetry 93 96 Oxygen Delivery Method CPAP Oxygen Flow Rate Fraction of Inspired Oxygen 40 Sepsis Recent Fever Within 48 Hours No Sepsis New/Unexplained Change in Mental Status N/A Sepsis Action Taken by Nursing No Action Required 08/15/20 04:43 08/15/20 05:01 08/15/20 05:08 Temperature Temperature Source Pulse Rate 94 H 96 H Pulse Rate from SpO2 Sensor Pulse Rhythm Regular Respiratory Rate 28 H Respiratory Effort / Characteristics Respiratory Depth Respiratory Pattern Blood Pressure 185/94 H Blood Pressure Mean 124 Pulse Oximetry 94 93 Oxygen Delivery Method CPAP BiPAP Oxygen Flow Rate Fraction of Inspired Oxygen Sepsis Recent Fever Within 48 Hours Sepsis New/Unexplained Change in Mental Status Sepsis Action Taken by Nursing 08/15/20 06:00 08/15/20 06:14 08/15/20 06:30 Temperature 36.8 C Temperature Source Oral Pulse Rate 70 64 Pulse Rate from SpO2 Sensor 71 64 Pulse Rhythm Respiratory Rate 23 18 Respiratory Effort / Characteristics Respiratory Depth Respiratory Pattern Blood Pressure 119/71 99/61 L Blood Pressure Mean 87 73 Pulse Oximetry 96 95 Oxygen Delivery Method Oxygen Flow Rate Fraction of Inspired Oxygen Sepsis Recent Fever Within 48 Hours Sepsis New/Unexplained Change in Mental Status Sepsis Action Taken by Nursing 08/15/20 07:00 08/15/20 07:30 08/15/20 07:34 Temperature Temperature Source Pulse Rate 59 L 57 L Pulse Rate from SpO2 Sensor 60 57 L Pulse Rhythm Respiratory Rate 24 22 Respiratory Effort / Characteristics Non-Labored Spontaneous Respiratory Depth Respiratory Pattern Blood Pressure 103/60 98/61 L Blood Pressure Mean 74 73 Pulse Oximetry 94 97 100 Oxygen Delivery Method Nasal Cannula Oxygen Flow Rate 4 Fraction of Inspired Oxygen Sepsis Recent Fever Within 48 Hours Sepsis New/Unexplained Change in Mental Status Sepsis Action Taken by Nursing 08/15/20 08:00 08/15/20 08:30 Temperature Temperature Source Pulse Rate 64 59 L Pulse Rate from SpO2 Sensor 64 59 L Pulse Rhythm Respiratory Rate 16 15 Respiratory Effort / Characteristics Non-Labored Spontaneous Respiratory Depth Respiratory Pattern Blood Pressure 113/66 114/74 Blood Pressure Mean 81 87 Pulse Oximetry 100 100 Oxygen Delivery Method Nasal Cannula Oxygen Flow Rate 4 Fraction of Inspired Oxygen Sepsis Recent Fever Within 48 Hours Sepsis New/Unexplained Change in Mental Status Sepsis Action Taken by Nursing Laboratory Data Result diagrams: 08/15/20 04:21 08/15/20 04:21 Lab Results 08/15/20 08/15/20 08/15/20 Range/Units 04:21 04:21 04:21 WBC 11.49 H (4.8-10.8) K/uL RBC 4.97 (4.7-6.1) M/uL Hgb 16.5 (14.0-18.0) g/dL Hct 46.6 (42-52) % MCV 93.8 (80-100) fL MCH 33.2 (25-34) pg MCHC 35.4 (32-36) g/dL RDW Std Deviation 43.6 (36.4-46.3) fL RDW Coeff of Osbaldo 12.8 (11.5-14.5) % Plt Count 196 (130-400) K/uL MPV 10.6 H (7.4-10.4) fL Immature Gran % (Auto) 0.3 % Neut % (Auto) 89.4 % Lymph % (Auto) 4.9 % [place] % (Auto) 5.1 % Eos % (Auto) 0.2 % Baso % (Auto) 0.1 % Neut # (Auto) 10.28 H (1.4-6.5) K/uL Lymph # (Auto) 0.56 L (1.2-3.4) K/uL [place] # (Auto) 0.59 (0.11-0.59) K/uL Eos # (Auto) 0.02 (0-0.5) K/uL Baso # (Auto) 0.01 (0-0.2) K/uL Immature Gran # (Auto) 0.03 H (0.00-0.02) K/uL PT 10.5 (9.0-12.0) Seconds INR 1.0 (0.9-1.1) APTT 24.4 (21.0-31.0) Seconds PTT Ratio 0.9 D-Dimer 700 H* (0-500) ug/L FEU Sodium 144 (136-145) mmol/L Potassium 3.7 (3.5-5.1) mmol/L Chloride 112 H (98-107) mmol/L Carbon Dioxide 26 (21-32) mmol/L Anion Gap 6.0 (3-11) BUN 28 H (7-18) mg/dl Creatinine 1.11 (0.6-1.4) mg/dl Est Cr Clr Drug Dosing Not Reportable Est GFR ( Amer) 80.9 Est GFR (Non-Af Amer) 69.8 BUN/Creatinine Ratio 24.8 H (10-20) Glucose 183 H (70-99) mg/dl Lactate (0.4-2.0) mmol/L Calcium 8.5 (8.5-10.1) mg/dl Total Bilirubin 0.6 (0.2-1) mg/dl AST 9 L (15-37) U/L ALT 13 (12-78) U/L Alkaline Phosphatase 97 (45-117) U/L Troponin I < 0.015 (0-0.045) ng/ml NT-Pro-B Natriuret Pep (0-900) pg/ml Total Protein 7.6 (6.4-8.2) gm/dl Albumin 4.2 (3.4-5.0) gm/dl Globulin 3.4 (2.5-4.0) gm/dl Albumin/Globulin Ratio 1.2 (0.9-2) Procalcitonin (0-0.5) ng/ml COVID-19 Eval Order SARS-CoV-2 (PCR) (Negative) Hepatitis C Ab Screen (Neg) Influenza Type A (PCR) (Neg) Influenza Type B (PCR) (Neg) RSV (RT-PCR) (Neg) 08/15/20 08/15/20 08/15/20 Range/Units 04:21 04:21 04:21 WBC (4.8-10.8) K/uL RBC (4.7-6.1) M/uL Hgb (14.0-18.0) g/dL Hct (42-52) % MCV (80-100) fL MCH (25-34) pg MCHC (32-36) g/dL RDW Std Deviation (36.4-46.3) fL RDW Coeff of Osbaldo (11.5-14.5) % Plt Count (130-400) K/uL MPV (7.4-10.4) fL Immature Gran % (Auto) % Neut % (Auto) % Lymph % (Auto) % [place] % (Auto) % Eos % (Auto) % Baso % (Auto) % Neut # (Auto) (1.4-6.5) K/uL Lymph # (Auto) (1.2-3.4) K/uL [place] # (Auto) (0.11-0.59) K/uL Eos # (Auto) (0-0.5) K/uL Baso # (Auto) (0-0.2) K/uL Immature Gran # (Auto) (0.00-0.02) K/uL PT (9.0-12.0) Seconds INR (0.9-1.1) APTT (21.0-31.0) Seconds PTT Ratio D-Dimer (0-500) ug/L FEU Sodium (136-145) mmol/L Potassium (3.5-5.1) mmol/L Chloride (98-107) mmol/L Carbon Dioxide (21-32) mmol/L Anion Gap (3-11) BUN (7-18) mg/dl Creatinine (0.6-1.4) mg/dl Est Cr Clr Drug Dosing Est GFR ( Amer) Est GFR (Non-Af Amer) BUN/Creatinine Ratio (10-20) Glucose (70-99) mg/dl Lactate (0.4-2.0) mmol/L Calcium (8.5-10.1) mg/dl Total Bilirubin (0.2-1) mg/dl AST (15-37) U/L ALT (12-78) U/L Alkaline Phosphatase (45-117) U/L Troponin I (0-0.045) ng/ml NT-Pro-B Natriuret Pep 321 (0-900) pg/ml Total Protein (6.4-8.2) gm/dl Albumin (3.4-5.0) gm/dl Globulin (2.5-4.0) gm/dl Albumin/Globulin Ratio (0.9-2) Procalcitonin 0.06 (0-0.5) ng/ml COVID-19 Eval Order SARS-CoV-2 (PCR) (Negative) Hepatitis C Ab Screen Neg (Neg) Influenza Type A (PCR) (Neg) Influenza Type B (PCR) (Neg) RSV (RT-PCR) (Neg) 08/15/20 08/15/20 08/15/20 Range/Units 06:21 06:30 06:30 WBC (4.8-10.8) K/uL RBC (4.7-6.1) M/uL Hgb (14.0-18.0) g/dL Hct (42-52) % MCV (80-100) fL MCH (25-34) pg MCHC (32-36) g/dL RDW Std Deviation (36.4-46.3) fL RDW Coeff of [place]badlo (11.5-14.5) % Plt Count (130-400) K/uL MPV (7.4-10.4) fL Immature Gran % (Auto) % Neut % (Auto) % Lymph % (Auto) % [place] % (Auto) % Eos % (Auto) % Baso % (Auto) % Neut # (Auto) (1.4-6.5) K/uL Lymph # (Auto) (1.2-3.4) K/uL [place] # (Auto) (0.11-0.59) K/uL Eos # (Auto) (0-0.5) K/uL Baso # (Auto) (0-0.2) K/uL Immature Gran # (Auto) (0.00-0.02) K/uL PT (9.0-12.0) Seconds INR (0.9-1.1) APTT (21.0-31.0) Seconds PTT Ratio D-Dimer (0-500) ug/L FEU Sodium (136-145) mmol/L Potassium (3.5-5.1) mmol/L Chloride (98-107) mmol/L Carbon Dioxide (21-32) mmol/L Anion Gap (3-11) BUN (7-18) mg/dl Creatinine (0.6-1.4) mg/dl Est Cr Clr Drug Dosing Est GFR ( Amer) Est GFR (Non-Af Amer) BUN/Creatinine Ratio (10-20) Glucose (70-99) mg/dl Lactate 1.2 (0.4-2.0) mmol/L Calcium (8.5-10.1) mg/dl Total Bilirubin (0.2-1) mg/dl AST (15-37) U/L ALT (12-78) U/L Alkaline Phosphatase (45-117) U/L Troponin I (0-0.045) ng/ml NT-Pro-B Natriuret Pep (0-900) pg/ml Total Protein (6.4-8.2) gm/dl Albumin (3.4-5.0) gm/dl Globulin (2.5-4.0) gm/dl Albumin/Globulin Ratio (0.9-2) Procalcitonin (0-0.5) ng/ml COVID-19 Eval Order [facility]Rsv at [facility] SARS-CoV-2 (PCR) NEGATIVE (Negative) Hepatitis C Ab Screen (Neg) Influenza Type A (PCR) Negative (Neg) Influenza Type B (PCR) Negative (Neg) RSV (RT-PCR) Negative (Neg) Administered Medications Aripiprazole (Aripiprazole 10 Mg Tab) 10 mg PO QPM [facility] Stop: 09/14/20 20:59 Last Admin: 08/15/20 20:39 Dose: 10 mg Documented by: [id number] Aspirin (Aspirin 81 Mg Ectab) 81 mg PO DAILY [facility] Stop: 09/14/20 10:44 Last Admin: 08/15/20 12:02 Dose: 81 mg Documented by: [id number] Atorvastatin Calcium (Atorvastatin 10 Mg Tab) 10 mg PO [facility] Stop: 09/14/20 20:59 Last Admin: 08/15/20 20:39 Dose: 10 mg Documented by: [id number] Buspirone HCl (Buspirone 5 Mg Tab) 10 mg PO Q12 [facility] Stop: 09/14/20 20:59 Last Admin: 08/15/20 20:39 Dose: 10 mg Documented by: [id number] Carbidopa/Levodopa (Carbidopa/Levodopa 25/100mg Tab) 1 tab PO TID [facility] Stop: 09/14/20 13:59 Last Admin: 08/15/20 20:39 Dose: 1 tab Documented by: [id number] Admin: 08/15/20 13:39 Dose: 1 tab Documented by: [id number] Colestipol HCl (Colestipol Hcl 1 Gm Tab) 1 gm PO Q12H [facility] Stop: 09/14/20 21:59 Last Admin: 08/15/20 20:40 Dose: 1 gm Documented by: [id number] Enoxaparin Sodium (Enoxaparin Inj 40 Mg/0.4 Ml Syr) 40 mg SQ QAM [facility] Stop: 09/14/20 10:44 Last Admin: 08/15/20 12:03 Dose: 40 mg Documented by: [id number] Lactated Ringer's (Lr) 1,000 mls @ 80 mls/hr IV .[id number] [facility] Stop: 09/14/20 09:44 Last Admin: 08/15/20 11:28 Dose: 80 mls/hr Documented by: [id number] Melatonin (Melatonin 3 Mg Tab) 3 mg PO HS [facility]; Protocol Stop: 09/14/20 20:59 Last Admin: 08/15/20 20:39 Dose: 3 mg Documented by: [id number] Meloxicam (Meloxicam 7.5 Mg Tab) 15 mg PO DAILY [facility] Stop: 09/14/20 10:44 Last Admin: 08/15/20 12:02 Dose: 15 mg Documented by: [id number] Miscellaneous (Ketoconazole Shampoo: Order Awaiting Action) 1 ea N/A QS [facility] Stop: 09/14/20 15:59 Last Admin: 08/15/20 15:10 Dose: Not Given Documented by: [id number] Pantoprazole Sodium (Pantoprazole 40 Mg Tab) 40 mg PO DAILY [facility] Stop: 09/14/20 10:44 Last Admin: 08/15/20 12:02 Dose: 40 mg Documented by: [id number] Vitamin D (Cholecalciferol 1,000 Units 25 Mcg Tab) 2,000 units PO DAILY [facility] Stop: 09/14/20 10:44 Last Admin: 08/15/20 12:02 Dose: 2,000 units Documented by: [id number] Discontinued Medications Sodium Chloride (Nss) 500 mls @ 999 mls/hr IV .Q31M [facility] Stop: 08/15/20 05:40 Last Infusion: 08/15/20 05:56 Dose: 0 mls/hr Documented by: [id number] Admin: 08/15/20 05:23 Dose: 999 mls/hr Documented by: [id number] Levofloxacin/Dextrose (Levaquin/D5w) 750 mg in 150 mls @ 100 mls/hr IV NOW STA Stop: 08/15/20 07:33 Last Infusion: 08/15/20 11:23 Dose: 0 mls/hr Documented by: [id number] Admin: 08/15/20 06:45 Dose: 100 mls/hr Documented by: [id number] Piperacillin Sod/Tazobactam (Sod 3.375 gm/ Dextrose) 115 mls @ 28.75 mls/hr IV Q8H [facility]; Protocol Stop: 08/22/20 09:44 Last Admin: 08/15/20 11:23 Dose: Not Given Documented by: [id number] Ioversol (Optiray 320 125ml) 120 ml IV ONCE [facility] Stop: 08/15/20 05:27 Last Admin: 08/15/20 05:27 Dose: 120 ml Documented by: [id number] Discharge Plan Visit Data Chief Complaint: Shortness of Breath/Dyspnea Stated Complaint: Sudden onset SOB ED Provider: Nataly Coronado Discharge Problem: Bilateral pneumonia, Hypoxia Patient Disposition: Admitted As Inpatient Discharge Instructions Interventions: ED Discharge Assessment Last Done: 08/15/20 09:56 Discharge Problem: Bilateral pneumonia Qualifiers: Pneumonia type: due to unspecified organism Lung location: lower lobe of lung Qualified Code(s): J18.9 - Pneumonia, unspecified organism
[2020-08-15 04:59] LABS: D Dimer 700 ug/L FEU (0-500)
[2020-08-15 05:02] LABS: Alanine Aminotransferase 13 U/L (12-78); Albumin Level 4.2 gm/dl (3.4-5.0); Aspartate Aminotransferase 9 U/L (15-37); BUN Creatinine Ratio 24.8 (10-20); Blood Urea Nitrogen 28 mg/dl (7-18); Calcium 8.5 mg/dl (8.5-10.1); Carbon Dioxide 26 mmol/L (21-32); Chloride 112 mmol/L (98-107); Est GFR (African American) 80.9; Est GFR (Non-African American) 69.8; Glucose 183 mg/dl (70-99); Potassium 3.7 mmol/L (3.5-5.1); Sodium 144 mmol/L (136-145)
[2020-08-15 05:06] LABS: Albumin Globulin Ratio 1.2 (0.9-2); Alkaline Phosphatase 97 U/L (45-117); Bilirubin,Total 0.6 mg/dl (0.2-1); Globulin 3.4 gm/dl (2.5-4.0); Total Protein 7.6 gm/dl (6.4-8.2); Troponin I < 0.015 ng/ml (0-0.045)
[2020-08-15] MEDS ORDERED: SODIUM CHLORIDE 0.9% 500 ML IV ONE (05:10)
[2020-08-15] MEDS ORDERED: OPTIRAY 320 125ml IV ONE (05:26)
[2020-08-15] MEDS ORDERED: levoFLOXacin/D5W 750 MG/150 ML BAG IV STA (06:04)
[2020-08-15 07:27] LABS: Influenza A virus by PCR Negative (Neg); Influenza B virus by PCR Negative (Neg); RSV by PCR Negative (Neg); SARS CoV2 RNA(COVID-19) InHosp NEGATIVE (Negative)
--- NOTE | 2020-08-15 07:47 | CT Scan Report ---
CHEST CTA for PULMONARY ARTERIES CT DOSE: 295.69 mGy.cm HISTORY: Shortness of breath. Cough. TECHNIQUE: Multiaxial CT images of the chest were performed following the intravenous administration of contrast to evaluate the pulmonary arteries. Maximal intensity projection images were also obtaine d. A dose lowering technique was utilized adhering to the principles of ALARA. COMPARISON STUDY: None. FINDINGS: Limited views of the upper abdomen demonstrate a normal liver, spleen, and adrenal glands. Normal esophagus. No mediastinal or hilar lymphadenopathy. The heart is normal in size. No pleural or pericardial effusions. The ascending thoracic aorta measures up to 4 cm in diameter. No evidence for an aortic dissection. No filling defects within the pulmonary arteries to suggest pulmonary embolus. No suspicious lytic or blastic osseous lesions. No pneumothorax. Small amount of mucoid material wit hin the right mainstem bronchus. A 5 mm subpleural nodule along the right minor fissure on image 116. A 3 mm nodule within the right middle lobe on image 73. Patchy and linear densities within the bilat eral lower lobes. IMPRESSION: 1. No evidence for pulmonary embolus. 2. Patchy and linear bilateral lower lobe densities. This may represent atelectasis or a pneumonia. 3. Small amount of mucoid material within the right mainstem bronchus. 4. Mild aneurysmal dilatation of the ascending thoracic aorta measuring up to 4 cm in diameter. 5. There are 2 subcentimeter indeterminate pulmonary nodules within the right lung with the largest m easuring 5 mm. Please refer to the chart below for recommended follow-up. Please refer to below summary of Fleischner criteria recommendations for follow-up of incidental CT n odules ([place], Guidelines for management of small pulmonary nodules detected on CT scans: A sta tement from the Fleischner Society, Radiology 237: [phone].) SOLID NODULES Solitary nodule size: <6 mm * Low risk patients: no follow-up needed * high risk patients: optional CT at 12 months Solitary nodule size: 6-8 mm * Low risk patients: follow-up at 6-12 months, then consider further follow-up at 18-24 months * high risk patients: initial follow-up CT at 6-12 months and then at 18-24 months if no change Solitary nodule size: >8 mm * either low or high risk patients - consider follow-up CT at 3 months, and/or CT-PET, and/or biopsy Multiple nodules size: <6 mm * Low risk patients: no routine follow-up * high risk patients: optional CT at 12 months Multiple nodules size: 6-8 mm * Low risk patients: follow-up at 3-6 months, then consider further follow-up at 18-24 months * high risk patients: follow-up at 3-6 months, then at 18-24 months if no change Multiple nodules size: >8 mm * Low risk patients: follow-up at 3-6 months, then consider further follow-up at 18-24 months * high risk patients: follow-up at 3-6 months, then at 18-24 months if no change Note: newly detected indeterminate nodule in persons 35 years of age or older. * Low risk patients: minimal or absent history of smoking and/or other known risk factors * high risk patients: history of smoking or of other known risk factors (e.g. first degree relative with lung cancer, or exposure to asbestos, radon, uranium) * if a nodule up to 8 mm is partly solid or is ground glass further follow-up is required after 24 m onths to exclude possible slow growing adenocarcinoma (MYRA) SUBSOLID NODULES Solitary pure ground-glass nodule * nodule size <6 mm - no CT follow-up required * nodule size >=6 mm - follow-up CT at 6-12 months, then every 2 years until 5 years Solitary part-solid nodule * nodule size <6 mm - no CT follow-up required * nodule size >=6 mm - follow-up CT at 3-6 months. If unchanged, and solid component remains <6 mm, then annual follow-up for 5 years Multiple subsolid nodules * nodule size <6 mm - follow-up CT at 3-6 months, consider further follow-up at 2 and 4 years if sta ble * nodule size >=6 mm - follow-up CT at 3-6 months, subsequent management based on the most suspiciou s nodule(s) ACT 112: Positive. There are findings on this exam that require communication between the performing entity and the patient following Patient Test Result Information Act ([place] Act 112) guidelines. Electronically signed by: Eduardo Rao M.D. 08/15/2020 7:46 AM
--- NOTE | 2020-08-15 08:15 | XRay Report ---
XR chest 1V portable HISTORY: Dyspnea COMPARISON: None. FINDINGS: No pneumothorax. No pleural effusions. The heart is normal in size. There is a mildly tortu ous thoracic aorta, unchanged. Left basilar linear densities. Otherwise, lungs are clear. IMPRESSION: Left basilar linear densities. This favors atelectasis. A pneumonia could also have a similar appeara nce. ACT 112: Negative or not required by law. Electronically signed by: Eduardo Rao M.D. 08/15/2020 8:14 AM
--- NOTE | 2020-08-15 09:06 | History & Physical Report ---
Date of Service August 15, 2020 Assessment & Plan (1) Bilateral pneumonia: With bi basilar pneumonia, mucoid material in the right mainstem bronchus seen on CT angiogram chest With a history of dysphagia, Parkinson's disease, and aspiration-likely aspiration pneumonia Requiring BiPAP with significant hypoxia prior to arrival, now weaned down to 4 L nasal cannula With mild leukocytosis, tachycardia, tachypnea, but afebrile, lactate negative. Procalcitonin ordered and pending -Bring in for treatment of pneumonia and sepsis and hypoxia -Admit to PCU -Continue Levaquin -Had video swallow last year which only showed 1 episode of aspiration with thin liquids-no straws recommended at that time-we will reconsult speech therapy -Aspiration precautions -Continue supplemental O2 to keep pulse ox greater than 90% -Continue IV fluids at 80 mL an hour of LR -Follow CBC, BMP in the morning (2) Sepsis: As above Follow blood cultures, treating with antibiotics as above (3) Hypoxia: As above, pulse ox was 76% at the shelter required BiPAP prior to arrival with EMS Wean off oxygen as tolerated (4) Intellectual disability: Supportive care, resides is a long-term resident of shelter (5) GERD (gastroesophageal reflux disease): Continue pantoprazole (6) Atypical Parkinsonism: Continue Sinemet (7) Prediabetes: Hemoglobin A1c 6.2% recently Follow a.m. venous glucose and institute NovoLog if hyperglycemia (8) Bipolar disorder: Continue home buspirone, Abilify (9) Benign prostatic hyperplasia with urinary obstruction: Monitor for urinary retention (10) Conductive hearing loss of both ears: Noted (11) Dysphagia: With likely aspiration pneumonia as above Consult speech therapy Continue thin liquids, no straws for now Aspiration precautions (12) Hypercholesterolemia: Continue atorvastatin (13) Depression: Continue Abilify, buspirone as above (14) DVT prophylaxis: Lovenox SQ Disposition-admit to PCU DNR/DNI PT/OT consults will be ordered History of Present Illness Chief Complaint: Respiratory distress, hypoxia Primary Care Provider: [facility] This patient is a 65-year-old male with history of atypical Parkinson's disease, intellectual disability with cognitive impairment, bipolar disorder, BPH, impaired fasting glucose, GERD, recurrent UTIs, dysphagia with aspiration, hearing loss, hyperlipidemia, chronic shoulder pain, diverticulitis, leukopenia, and Covid-19 in 03/2020 which did not require hospitalization, who resides as a long-term resident of [facility] who presents to the ER with acute respiratory distress and hypoxia. He was noted to have significant shortness of breath and his pulse ox was 75-78% on room air at the shelter. Ambulance was called he was placed on BiPAP and brought to the ER. He was noted to have patchy and linear bilateral lower lobe densities on CT angiogram of the chest, and mucoid material in the right mainstem bronchus but was negative for PE. He was weaned off BiPAP in the ER to 4 L nasal cannula when I saw him and was much improved. He was able to tell me that he feels fine now. Was not able to give me any of his history. He does follow commands and was cooperative. History was obtained from the ER physician, and the shelter records. He was given 1 dose of IV levofloxacin as well as 1/2 L of normal saline bolus. His blood pressure was a bit soft when he arrived but improved with IV fluids, he was tachypneic, his heart rate was mildly tachycardic, but he was afebrile. He had a mild leukocytosis, D-dimer was elevated at 700, lactate was normal at 1.2, troponin was negative. ECG with some T wave inversions in the lateral leads and possibly ST depression but had a lot of artifact. His Covid-19 test was negative. He will be admitted for pneumonia, likely aspiration, acute respiratory failure with hypoxia, and sepsis. Allergies Allergy/AdvReac Type Severity Reaction Status Date / Time Penicillins AdvReac Intermediate RASH Verified 08/15/20 05:12 Home Medications Medication Instructions Recorded Confirmed Type atorvastatin 10 mg PO HS 10/11/18 08/15/20 History loperamide [Anti-Diarrheal 2 mg PO Q6 PRN 10/11/18 08/15/20 History (loperamide)] aripiprazole 10 mg tablet 10 mg PO QPM tab 11/01/18 08/15/20 History aspirin 81 mg tablet,delayed 81 mg PO DAILY tab 11/01/18 08/15/20 History release pantoprazole 40 mg tablet,delayed 40 mg PO DAILY tab 11/01/18 08/15/20 History release acetaminophen 325 mg tablet 650 mg PO Q6H PRN tab MDD 3g 02/27/19 08/15/20 History cholecalciferol (vitamin D3) 50 2,000 units PO DAILY #30 cap 03/08/19 08/15/20 Rx mcg (2,000 unit) capsule ketoconazole 2 % shampoo 1 appln TOP .COMPLEX #120 ml 09/10/19 08/15/20 Rx melatonin 5 mg tablet 5 mg PO HS #90 tab 09/18/19 08/15/20 Rx carbidopa 25 mg-levodopa 100 mg 1 tab PO TID #90 tab 11/07/19 08/15/20 Rx tablet meloxicam 15 mg tablet 15 mg PO DAILY 06/09/20 08/15/20 History oxybutynin chloride 10 mg 10 mg PO DAILY 06/09/20 08/15/20 History tablet,extended release 24 hr buspirone 10 mg PO Q12 08/15/20 08/15/20 History colestipol 1 gm PO Q12 08/15/20 08/15/20 History Past Med/Surg History Medical History (Updated 08/15/20 @ 10:09 by Joselin Hubbard MD) Alteration consciousness Aspiration precautions Benign prostatic hyperplasia with urinary obstruction Bipolar disorder BPH (benign prostatic hyperplasia) Chronic shoulder pain Closed left hip fracture Cognitive disorder Conductive hearing loss of both ears Diarrhea Diverticular disease Diverticulitis Dysphagia Gait apraxia Generalized muscle weakness Generalized weakness GERD (gastroesophageal reflux disease) Hypercholesterolemia Hyperlipemia Incontinence Incontinence of bowel Intellectual disability Leukopenia Major depressive disorder Tinnitus of both ears Unsteady gait Surgical History H/O inguinal hernia repair H/O wisdom tooth extraction History of left hip replacement Hx of tonsillectomy S/P hip replacement Status post left hip replacement Family History Unknown Obesity Hypercholesterolemia Father Diabetes Ischemic heart disease Sister Cancer Other Family history unknown Social History (Updated 08/15/20 @ 09:48 by Joselin Hubbard MD) Smoking Status: Never smoker Hx Alcohol Use: No Hx Substance Use: No Preferred Language: Armenian Communication Ability: Impaired Environmental Programs Specialist Required: No Beliefs That Will Affect Care: Congregation Congregation Beliefs: Yazidism Current Living Situation: Long-Term Current Living Situation Comment: Lives at [facility] Feels Safe at Home: Yes Assistive Devices: Walker Review of Systems Review of Systems: Unobtainable due to cognitive status Physical Exam Constitutional: WD/WN, vitals as above Eyes: PERRL, conjunctivae normal, anicteric sclerae ENMT: external ear and nose normal, oropharynx normal Neck: trachea midline, no thyromegaly Respiratory: normal respiratory effort (With nasal cannula in place); no cough Auscultation: + crackles (Bibasilar); no rhonchi and no wheezes Cardiovascular: RRR, no murmur, no edema Chest (Breasts): Chest: normal inspection of chest Gastrointestinal (Abdomen): normal bowel sounds, soft, nontender, no hepatosplenomegaly Musculoskeletal: Extremities: extremities normal to inspection; no cyanosis and no clubbing Skin: no rashes, warm and dry Neurologic: moves all extremities and awake; no focal motor deficits Masked facies, rigid extremities Psychiatric: Orientation: alert, oriented to person and cooperative Affect: + flat affect Lymphatic: no lymphedema Results & Data Results & Data ([facility]) Vital Signs (Past 12 Hours) Vital Signs Temp Pulse Resp BP Pulse Ox 08/15/20 08:30 59 L 15 114/74 100 08/15/20 08:00 64 16 113/66 100 08/15/20 07:34 100 08/15/20 07:30 57 L 22 98/61 L 97 08/15/20 07:00 59 L 24 103/60 94 08/15/20 06:30 64 18 99/61 L 95 08/15/20 06:14 36.8 C 08/15/20 06:00 70 23 119/71 96 08/15/20 05:01 96 H 28 H 185/94 H 93 08/15/20 04:43 94 H 94 08/15/20 04:27 83 36 H 181/83 H 96 08/15/20 04:19 101 H 20 93 Laboratory Results 08/15/20 08/15/20 08/15/20 Range/Units 06:30 06:30 06:21 WBC (4.8-10.8) K/uL RBC (4.7-6.1) M/uL Hgb (14.0-18.0) g/dL Hct (42-52) % MCV (80-100) fL MCH (25-34) pg MCHC (32-36) g/dL RDW Std Deviation (36.4-46.3) fL RDW Coeff of Osbaldo (11.5-14.5) % Plt Count (130-400) K/uL MPV (7.4-10.4) fL Immature Gran % (Auto) % Neut % (Auto) % Lymph % (Auto) % Sherman % (Auto) % Eos % (Auto) % Baso % (Auto) % Neut # (Auto) (1.4-6.5) K/uL Lymph # (Auto) (1.2-3.4) K/uL Sherman # (Auto) (0.11-0.59) K/uL Eos # (Auto) (0-0.5) K/uL Baso # (Auto) (0-0.2) K/uL Immature Gran # (Auto) (0.00-0.02) K/uL PT (9.0-12.0) Seconds INR (0.9-1.1) APTT (21.0-31.0) Seconds PTT Ratio D-Dimer (0-500) ug/L FEU Sodium (136-145) mmol/L Potassium (3.5-5.1) mmol/L Chloride (98-107) mmol/L Carbon Dioxide (21-32) mmol/L Anion Gap (3-11) BUN (7-18) mg/dl Creatinine (0.6-1.4) mg/dl Est Cr Clr Drug Dosing Est GFR ( Amer) Est GFR (Non-Af Amer) BUN/Creatinine Ratio (10-20) Glucose (70-99) mg/dl Lactate 1.2 (0.4-2.0) mmol/L Calcium (8.5-10.1) mg/dl Total Bilirubin (0.2-1) mg/dl AST (15-37) U/L ALT (12-78) U/L Alkaline Phosphatase (45-117) U/L Troponin I (0-0.045) ng/ml NT-Pro-B Natriuret Pep (0-900) pg/ml Total Protein (6.4-8.2) gm/dl Albumin (3.4-5.0) gm/dl Globulin (2.5-4.0) gm/dl Albumin/Globulin Ratio (0.9-2) Procalcitonin COVID-19 Eval Order CovFluRsv at [facility] SARS-CoV-2 (PCR) NEGATIVE (Negative) Influenza Type A (PCR) Negative (Neg) Influenza Type B (PCR) Negative (Neg) RSV (RT-PCR) Negative (Neg) 08/15/20 08/15/20 08/15/20 Range/Units 04:21 04:21 04:21 WBC (4.8-10.8) K/uL RBC (4.7-6.1) M/uL Hgb (14.0-18.0) g/dL Hct (42-52) % MCV (80-100) fL MCH (25-34) pg MCHC (32-36) g/dL RDW Std Deviation (36.4-46.3) fL RDW Coeff of Osbaldo (11.5-14.5) % Plt Count (130-400) K/uL MPV (7.4-10.4) fL Immature Gran % (Auto) % Neut % (Auto) % Lymph % (Auto) % Sherman % (Auto) % Eos % (Auto) % Baso % (Auto) % Neut # (Auto) (1.4-6.5) K/uL Lymph # (Auto) (1.2-3.4) K/uL Sherman # (Auto) (0.11-0.59) K/uL Eos # (Auto) (0-0.5) K/uL Baso # (Auto) (0-0.2) K/uL Immature Gran # (Auto) (0.00-0.02) K/uL PT (9.0-12.0) Seconds INR (0.9-1.1) APTT (21.0-31.0) Seconds PTT Ratio D-Dimer (0-500) ug/L FEU Sodium 144 (136-145) mmol/L Potassium 3.7 (3.5-5.1) mmol/L Chloride 112 H (98-107) mmol/L Carbon Dioxide 26 (21-32) mmol/L Anion Gap 6.0 (3-11) BUN 28 H (7-18) mg/dl Creatinine 1.11 (0.6-1.4) mg/dl Est Cr Clr Drug Dosing Not Reportable Est GFR ( Amer) 80.9 Est GFR (Non-Af Amer) 69.8 BUN/Creatinine Ratio 24.8 H (10-20) Glucose 183 H (70-99) mg/dl Lactate (0.4-2.0) mmol/L Calcium 8.5 (8.5-10.1) mg/dl Total Bilirubin 0.6 (0.2-1) mg/dl AST 9 L (15-37) U/L ALT 13 (12-78) U/L Alkaline Phosphatase 97 (45-117) U/L Troponin I < 0.015 (0-0.045) ng/ml NT-Pro-B Natriuret Pep 321 (0-900) pg/ml Total Protein 7.6 (6.4-8.2) gm/dl Albumin 4.2 (3.4-5.0) gm/dl Globulin 3.4 (2.5-4.0) gm/dl Albumin/Globulin Ratio 1.2 (0.9-2) Procalcitonin Pending COVID-19 Eval Order SARS-CoV-2 (PCR) (Negative) Influenza Type A (PCR) (Neg) Influenza Type B (PCR) (Neg) RSV (RT-PCR) (Neg) 08/15/20 08/15/20 Range/Units 04:21 04:21 WBC 11.49 H (4.8-10.8) K/uL RBC 4.97 (4.7-6.1) M/uL Hgb 16.5 (14.0-18.0) g/dL Hct 46.6 (42-52) % MCV 93.8 (80-100) fL MCH 33.2 (25-34) pg MCHC 35.4 (32-36) g/dL RDW Std Deviation 43.6 (36.4-46.3) fL RDW Coeff of Osbaldo 12.8 (11.5-14.5) % Plt Count 196 (130-400) K/uL MPV 10.6 H (7.4-10.4) fL Immature Gran % (Auto) 0.3 % Neut % (Auto) 89.4 % Lymph % (Auto) 4.9 % Sherman % (Auto) 5.1 % Eos % (Auto) 0.2 % Baso % (Auto) 0.1 % Neut # (Auto) 10.28 H (1.4-6.5) K/uL Lymph # (Auto) 0.56 L (1.2-3.4) K/uL Sherman # (Auto) 0.59 (0.11-0.59) K/uL Eos # (Auto) 0.02 (0-0.5) K/uL Baso # (Auto) 0.01 (0-0.2) K/uL Immature Gran # (Auto) 0.03 H (0.00-0.02) K/uL PT 10.5 (9.0-12.0) Seconds INR 1.0 (0.9-1.1) APTT 24.4 (21.0-31.0) Seconds PTT Ratio 0.9 D-Dimer 700 H* (0-500) ug/L FEU Sodium (136-145) mmol/L Potassium (3.5-5.1) mmol/L Chloride (98-107) mmol/L Carbon Dioxide (21-32) mmol/L Anion Gap (3-11) BUN (7-18) mg/dl Creatinine (0.6-1.4) mg/dl Est Cr Clr Drug Dosing Est GFR ( Amer) Est GFR (Non-Af Amer) BUN/Creatinine Ratio (10-20) Glucose (70-99) mg/dl Lactate (0.4-2.0) mmol/L Calcium (8.5-10.1) mg/dl Total Bilirubin (0.2-1) mg/dl AST (15-37) U/L ALT (12-78) U/L Alkaline Phosphatase (45-117) U/L Troponin I (0-0.045) ng/ml NT-Pro-B Natriuret Pep (0-900) pg/ml Total Protein (6.4-8.2) gm/dl Albumin (3.4-5.0) gm/dl Globulin (2.5-4.0) gm/dl Albumin/Globulin Ratio (0.9-2) Procalcitonin COVID-19 Eval Order SARS-CoV-2 (PCR) (Negative) Influenza Type A (PCR) (Neg) Influenza Type B (PCR) (Neg) RSV (RT-PCR) (Neg) Diagnostic Findings Chest x-ray image personally reviewed by me and agree with the following report: XR chest 1V portable HISTORY: Dyspnea COMPARISON: None. FINDINGS: No pneumothorax. No pleural effusions. The heart is normal in size. There is a mildly tortuous thoracic aorta, unchanged. Left basilar linear densities. Otherwise, lungs are clear. IMPRESSION: Left basilar linear densities. This favors atelectasis. A pneumonia could also have a similar appearance CT angiogram chest images personally reviewed by me and agree with the following report: CHEST CTA for PULMONARY ARTERIES CT DOSE: 295.69 mGy.cm HISTORY: Shortness of breath. Cough. TECHNIQUE: Multiaxial CT images of the chest were performed following the intravenous administration of contrast to evaluate the pulmonary arteries. Maximal intensity projection images were also obtained. A dose lowering technique was utilized adhering to the principles of ALARA. COMPARISON STUDY: None. FINDINGS: Limited views of the upper abdomen demonstrate a normal liver, spleen, and adrenal glands. Normal esophagus. No mediastinal or hilar lymphadenopathy. The heart is normal in size. No pleural or pericardial effusions. The ascending thoracic aorta measures up to 4 cm in diameter. No evidence for an aortic dissection. No filling defects within the pulmonary arteries to suggest pulmonary embolus. No suspicious lytic or blastic osseous lesions. No pneumothorax. Small amount of mucoid material within the right mainstem bronchus. A 5 mm subpleural nodule along the right minor fissure on image 116. A 3 mm nodule within the right middle lobe on image 73. Patchy and linear densities within the bilateral lower lobes. IMPRESSION: 1. No evidence for pulmonary embolus. 2. Patchy and linear bilateral lower lobe densities. This may represent atelectasis or a pneumonia. 3. Small amount of mucoid material within the right mainstem bronchus. 4. Mild aneurysmal dilatation of the ascending thoracic aorta measuring up to 4 cm in diameter. 5. There are 2 subcentimeter indeterminate pulmonary nodules within the right lung with the largest measuring 5 mm. Please refer to the chart below for recommended follow-up. Please refer to below summary of Fleischner criteria recommendations for follow- up of incidental CT nodules ([place], Guidelines for management of small pulmonary nodules detected on CT scans: A statement from the Fleischner Society, Radiology 237: [phone].) SOLID NODULES Solitary nodule size: <6 mm * Low risk patients: no follow-up needed * high risk patients: optional CT at 12 months Solitary nodule size: 6-8 mm * Low risk patients: follow-up at 6-12 months, then consider further follow-up at 18-24 months * high risk patients: initial follow-up CT at 6-12 months and then at 18-24 months if no change Solitary nodule size: >8 mm * either low or high risk patients - consider follow-up CT at 3 months, and/or CT-PET, and/or biopsy Multiple nodules size: <6 mm * Low risk patients: no routine follow-up * high risk patients: optional CT at 12 months Multiple nodules size: 6-8 mm * Low risk patients: follow-up at 3-6 months, then consider further follow-up at 18-24 months * high risk patients: follow-up at 3-6 months, then at 18-24 months if no change Multiple nodules size: >8 mm * Low risk patients: follow-up at 3-6 months, then consider further follow-up at 18-24 months * high risk patients: follow-up at 3-6 months, then at 18-24 months if no change Note: newly detected indeterminate nodule in persons 35 years of age or older. * Low risk patients: minimal or absent history of smoking and/or other known risk factors * high risk patients: history of smoking or of other known risk factors (e.g. first degree relative with lung cancer, or exposure to asbestos, radon, uranium) * if a nodule up to 8 mm is partly solid or is ground glass further follow-up is required after 24 months to exclude possible slow growing adenocarcinoma (MYRA) SUBSOLID NODULES Solitary pure ground-glass nodule * nodule size <6 mm - no CT follow-up required * nodule size >=6 mm - follow-up CT at 6-12 months, then every 2 years until 5 years Solitary part-solid nodule * nodule size <6 mm - no CT follow-up required * nodule size >=6 mm - follow-up CT at 3-6 months. If unchanged, and solid com ponent remains <6 mm, then annual follow-up for 5 years Multiple subsolid nodules * nodule size <6 mm - follow-up CT at 3-6 months, consider further follow-up at 2 and 4 years if stable * nodule size >=6 mm - follow-up CT at 3-6 months, subsequent management based on the most suspicious nodule(s) ECG Additional Comments: ECG on 08/15/2020 at 4:22 AM with normal sinus rhythm, rate 84, ST and T wave abnormality, consider lateral ischemia Code Status & VTE Plan Code Status DNR/DNI VTE Prophylaxis Plan VTE Prophylaxis will be ordered: Yes PG Care Time/CCT Total # of Minutes Spent Total Time Spent with Patient: Total time spent is greater than 50% in coordination of care (as documented) at patient's floor/unit and/or counseling patient: Coding Level of Care Code 50261 Initial Inpt Care Lvl 3 Diagnoses Bilateral pneumonia J18.9 Lung location: lower lobe of lung Pneumonia type: due to unspecified organism Sepsis A41.9 Hypoxia R09.02 Intellectual disability F79 GERD (gastroesophageal reflux disease) K21.9 Atypical Parkinsonism G20 Prediabetes R73.03 Bipolar disorder F31.9 Benign prostatic hyperplasia with urinary obstruction N40.1; N13.8 Conductive hearing loss of both ears H90.0 Dysphagia R13.10 Hypercholesterolemia E78.00 Depression F32.9 DVT prophylaxis Z29.9 (1) Bilateral pneumonia Lung location: lower lobe of lung Pneumonia type: due to unspecified organism Qualified Code(s): J18.9 - Pneumonia, unspecified organism
[2020-08-15] MEDS ORDERED: PIPERACILL/TAZOBAC CONSULT ACTIVE PRN (09:40)
[2020-08-15] MEDS ORDERED: PIPERACILLIN/TAZOBACTAM 3.375 GM in DEXTROSE 5% 100 ML IV SCH (09:45)
[2020-08-15] MEDS ORDERED: POLYETHYLENE (MIRALAX) 17 GM PACK PO PRN (10:06)
[2020-08-15] MEDS ORDERED: ALUMINUM/MAGNESIUM SUSP 30 ML UDC PO PRN (10:06)
[2020-08-15] MEDS ORDERED: LOPERAMIDE HCL 2 MG CAP PO PRN (10:06)
[2020-08-15] MEDS ORDERED: MAGNESIUM HYDROXIDE SUSP 30 ML UDC PO PRN (10:06)
[2020-08-15] MEDS ORDERED: ACETAMINOPHEN 325 MG TAB PO PRN ×2 (10:06)
[2020-08-15] MEDS ORDERED: ONDANSETRON INJ 2 MG/ML 2 ML VIAL IV PRN (10:06)
[2020-08-15] MEDS ORDERED: PATIENT'S HEIGHT AND/OR WEIGHT NEEDED SCH (10:15)
[2020-08-15] MEDS ORDERED: PNEUMOCOCCAL POLYSACCHARIDES 25 MCG/0.5 ML VIAL/SYR IM ONE (10:28)
[2020-08-15] MEDS ORDERED: INFLUENZA ADMINISTRATION CHARGE ONE (10:28)
[2020-08-15] MEDS ORDERED: INFLUENZA VIRUS QUAD VACCINE 0.5 ML SYR IM ONE (10:28)
[2020-08-15] MEDS ORDERED: PNEUMOCOCCAL ADMINISTRATION CHARGE ONE (10:28)
[2020-08-15] MEDS: LACTATED RINGER'S 1,000 ML IV SCH (11:28)
[2020-08-15] MEDS: CHOLECALCIFEROL 1,000 UNITS 25 MCG TAB PO SCH (12:02)
[2020-08-15] MEDS: MELOXICAM 7.5 MG TAB PO SCH (12:02)
[2020-08-15] MEDS: ASPIRIN 81 MG ECTAB PO SCH (12:02)
[2020-08-15] MEDS: PANTOprazole 40 MG TAB PO SCH (12:02)
[2020-08-15] MEDS: ENOXAPARIN INJ 40 MG/0.4 ML SYR SQ SCH (12:03)
--- NOTE | 2020-08-15 13:17 | Electrocardiogram Report ---
Test Reason : Blood Pressure : / mmHG Vent. Rate : 084 BPM Atrial Rate : 084 BPM P-R Int : 170 ms QRS Dur : 088 ms QT Int : 366 ms P-R-T Axes : 038 -14 108 degrees QTc Int : 432 ms Poor data quality, interpretation may be adversely affected Normal sinus rhythm Possible Left atrial enlargement Abnormal ECG When compared with ECG of 22-JUN-2019 19:03, ST now depressed in Inferior leads ST now depressed in Lateral leads Inverted T waves have replaced nonspecific T wave abnormality in Lateral leads Confirmed by Mark Carbone [id number]) on 08/15/2020 1:17:15 PM Referred By: [facility] Confirmed By:Mark Carbone
[2020-08-15] MEDS: CARBIDOPA/LEVODOPA 25/100MG TAB PO SCH ×2 (13:39→20:39)
[2020-08-15] MEDS: [UNRECOGNIZED DRUG - REMARK] SCH (15:10)
[2020-08-15] MEDS: busPIRone 5 MG TAB PO SCH (20:39)
[2020-08-15] MEDS: ARIPiprazole 10 MG TAB PO SCH (20:39)
[2020-08-15] MEDS: MELATONIN 3 MG TAB PO SCH (20:39)
[2020-08-15] MEDS: ATORVASTATIN 10 MG TAB PO SCH (20:39)
[2020-08-15] MEDS: COLESTIPOL HCL 1 GM TAB PO SCH (20:40)
[2020-08-16] MEDS: LACTATED RINGER'S 1,000 ML IV SCH ×2 (00:10→12:04)
[2020-08-16] MEDS: [UNRECOGNIZED DRUG - REMARK] SCH ×3 (01:13→23:04)
[2020-08-16 07:48] LABS: Basophils # (auto) 0.01 K/uL (0-0.2); Basophils % (auto) 0.2 %; Eosinophils # (auto) 0.07 K/uL (0-0.5); Eosinophils % (auto) 1.1 %; Hematocrit (blood only) 42.2 % (42-52); Hemoglobin 14.4 g/dL (14.0-18.0); Immature Granulocytes # (auto) 0.01 K/uL (0.00-0.02); Immature Granulocytes % (auto) 0.2 %; Lymphocytes # (auto) 1.15 K/uL (1.2-3.4); Lymphocytes % (auto) 17.3 %; Mean Corpuscular Hemoglobin 32.3 pg (25-34); Mean Corpuscular Hgb Conc 34.1 g/dL (32-36); Mean Corpuscular Volume 94.6 fL (80-100); Mean Platelet Volume 10.7 fL (7.4-10.4); Monocytes # (auto) 0.47 K/uL (0.11-0.59); Monocytes % (auto) 7.1 %; Neutrophils # (auto) 4.94 K/uL (1.4-6.5); Neutrophils % (auto) 74.1 %; Platelet Count 175 K/uL (130-400); RDW Coefficient of Variation 12.9 % (11.5-14.5); RDW Standard Deviation 44.9 fL (36.4-46.3); Red Blood Count 4.46 M/uL (4.7-6.1); White Blood Count 6.65 K/uL (4.8-10.8)
[2020-08-16] MEDS: CARBIDOPA/LEVODOPA 25/100MG TAB PO SCH ×3 (08:17→21:25)
[2020-08-16] MEDS: ASPIRIN 81 MG ECTAB PO SCH (08:17)
[2020-08-16] MEDS: OXYBUTYNIN CHLORIDE XL 5 MG TABCR PO SCH (08:17)
[2020-08-16] MEDS: PANTOprazole 40 MG TAB PO SCH (08:17)
[2020-08-16] MEDS: busPIRone 5 MG TAB PO SCH ×2 (08:17→21:26)
[2020-08-16] MEDS: CHOLECALCIFEROL 1,000 UNITS 25 MCG TAB PO SCH (08:17)
[2020-08-16] MEDS: MELOXICAM 7.5 MG TAB PO SCH (08:17)
[2020-08-16] MEDS: ENOXAPARIN INJ 40 MG/0.4 ML SYR SQ SCH (08:18)
[2020-08-16 08:21] LABS: BUN Creatinine Ratio 28.5 (10-20); Calcium 8.6 mg/dl (8.5-10.1); Creatinine Clr Calc Pharmacy 80.9 ml/min; Est GFR (African American) 104.7; Est GFR (Non-African American) 90.4; Potassium 3.9 mmol/L (3.5-5.1)
[2020-08-16] MEDS: levoFLOXacin/D5W 750 MG/150 ML BAG IV SCH (08:58)
--- NOTE | 2020-08-16 10:33 | Hospitalist Progress Note ---
Date of Service August 16, 2020 Assessment & Plan (1) Bilateral pneumonia: With bi basilar pneumonia, mucoid material in the right mainstem bronchus seen on CT angiogram chest With a history of dysphagia, Parkinson's disease, and aspiration-likely aspiration pneumonia Requiring BiPAP on admission with significant hypoxia prior to arrival, now weaned completely off O2 within 24 hours of admission, doing very well With mild leukocytosis, tachycardia, tachypnea, but afebrile, lactate negative. Procalcitonin negative -admitted treatment of pneumonia and sepsis and hypoxia -Continue Levaquin x 5 day course as has had rapid improvement-last day of tx will be 08/19 -Had video swallow last year which only showed 1 episode of aspiration with thin liquids-no straws recommended at that time- reconsult speech therapy--> still aspirating, plan for video swallow on Monday -Aspiration precautions -dc IVFs -stable for downgrade to medical -follow BCxs-NGTD (2) Sepsis: As above, resolved Follow blood cultures, treating with antibiotics as above (3) Hypoxia: As above, pulse ox was 76% at the snf required BiPAP prior to arrival with EMS Secondary to aspiration PNA CTA chest neg for PE BNP neg, trop neg x 3 with nonspecific changes on ECG now resolved (4) Intellectual disability: Supportive care, resides is a long-term resident of snf (5) GERD (gastroesophageal reflux disease): Continue pantoprazole (6) Atypical Parkinsonism: Continue Sinemet (7) Prediabetes: Hemoglobin A1c 6.2% recently Follow a.m. venous glucose and institute NovoLog if hyperglycemia-none so far (8) Bipolar disorder: Continue home buspirone, Abilify (9) Benign prostatic hyperplasia with urinary obstruction: Monitor for urinary retention has incontinence and has [place] catheter in place (10) Conductive hearing loss of both ears: Noted (11) Dysphagia: With likely aspiration pneumonia as above Consult speech therapy-video swallow Monday Aspiration precautions (12) Hypercholesterolemia: Continue atorvastatin (13) Depression: Continue Abilify, buspirone as above (14) DVT prophylaxis: Lovenox SQ Disposition-downgrade to medical/surgical floor DNR/DNI PT/OT consults appreciated--> [facility] Monday after Video swallow Admission and Anticipated Discharge Date Admission Date: August 15, 2020 Subjective Pt feels well, no cough, no SOB, remains weaned off O2. Is eating well, walked with PT in halls. Tele with SB 50-60s. Review of Systems Review of Systems: All systems reviewed & are unremarkable except as noted in HPI & below Physical Exam Constitutional: WD/WN, vitals as above Eyes: + anicteric sclerae Neck: trachea midline, no thyromegaly Respiratory: normal respiratory effort; no cough Auscultation: + crackles (Bibasilar); no rhonchi and no wheezes Cardiovascular: RRR, no murmur, no edema Chest (Breasts): Chest: normal inspection of chest Gastrointestinal (Abdomen): normal bowel sounds, soft, nontender, no hepatosplenomegaly Musculoskeletal: Extremities: extremities normal to inspection; no cyanosis and no clubbing Skin: no rashes, warm and dry Neurologic: moves all extremities and awake; no focal motor deficits and not confused masked facies Psychiatric: Orientation: alert, oriented to person and cooperative Affect: + flat affect Lymphatic: no lymphedema Results & Data Results & Data ([facility]) Vital Signs (Past 12 Hours) Vital Signs Temp Pulse Pulse Resp BP BP Pulse Ox 08/16/20 07:49 36.9 C 70 17 110/63 94 08/16/20 07:45 56 L 08/16/20 03:15 36.5 C 56 L 16 103/66 95 08/16/20 00:00 60 08/15/20 23:00 36.7 C 58 L 18 92/56 L 96 Laboratory Results 08/16/20 08/16/20 08/15/20 Range/Units 06:43 06:43 20:09 WBC 6.65 (4.8-10.8) K/uL RBC 4.46 L (4.7-6.1) M/uL Hgb 14.4 (14.0-18.0) g/dL Hct 42.2 (42-52) % MCV 94.6 (80-100) fL MCH 32.3 (25-34) pg MCHC 34.1 (32-36) g/dL RDW Std Deviation 44.9 (36.4-46.3) fL RDW Coeff of [place] 12.9 (11.5-14.5) % Plt Count 175 (130-400) K/uL MPV 10.7 H (7.4-10.4) fL Immature Gran % (Auto) 0.2 % Neut % (Auto) 74.1 % Lymph % (Auto) 17.3 % [place] % (Auto) 7.1 % Eos % (Auto) 1.1 % Baso % (Auto) 0.2 % Neut # (Auto) 4.94 (1.4-6.5) K/uL Lymph # (Auto) 1.15 L (1.2-3.4) K/uL [place] # (Auto) 0.47 (0.11-0.59) K/uL Eos # (Auto) 0.07 (0-0.5) K/uL Baso # (Auto) 0.01 (0-0.2) K/uL Immature Gran # (Auto) 0.01 (0.00-0.02) K/uL Sodium 140 (136-145) mmol/L Potassium 3.9 (3.5-5.1) mmol/L Chloride 110 H (98-107) mmol/L Carbon Dioxide 26 (21-32) mmol/L Anion Gap 4.0 (3-11) BUN 25 H (7-18) mg/dl Creatinine 0.89 (0.6-1.4) mg/dl Est Cr Clr Drug Dosing 80.9 ml/min Est GFR ( Amer) 104.7 Est GFR (Non-Af Amer) 90.4 BUN/Creatinine Ratio 28.5 H (10-20) Glucose 102 H (70-99) mg/dl POC Glucose (70-99) mg/dl Calcium 8.6 (8.5-10.1) mg/dl Troponin I < 0.015 (0-0.045) ng/ml Nasal Screen MRSA (PCR) (Negative) Hepatitis C Ab Screen (Neg) 08/15/20 08/15/20 08/15/20 Range/Units 16:36 11:49 10:30 WBC (4.8-10.8) K/uL RBC (4.7-6.1) M/uL Hgb (14.0-18.0) g/dL Hct (42-52) % MCV (80-100) fL MCH (25-34) pg MCHC (32-36) g/dL RDW Std Deviation (36.4-46.3) fL RDW Coeff of Osbaldo (11.5-14.5) % Plt Count (130-400) K/uL MPV (7.4-10.4) fL Immature Gran % (Auto) % Neut % (Auto) % Lymph % (Auto) % [place] % (Auto) % Eos % (Auto) % Baso % (Auto) % Neut # (Auto) (1.4-6.5) K/uL Lymph # (Auto) (1.2-3.4) K/uL [place] # (Auto) (0.11-0.59) K/uL Eos # (Auto) (0-0.5) K/uL Baso # (Auto) (0-0.2) K/uL Immature Gran # (Auto) (0.00-0.02) K/uL Sodium (136-145) mmol/L Potassium (3.5-5.1) mmol/L Chloride (98-107) mmol/L Carbon Dioxide (21-32) mmol/L Anion Gap (3-11) BUN (7-18) mg/dl Creatinine (0.6-1.4) mg/dl Est Cr Clr Drug Dosing ml/min Est GFR ( Amer) Est GFR (Non-Af Amer) BUN/Creatinine Ratio (10-20) Glucose (70-99) mg/dl POC Glucose 98 (70-99) mg/dl Calcium (8.5-10.1) mg/dl Troponin I 0.026 (0-0.045) ng/ml Nasal Screen MRSA (PCR) Negative (Negative) Hepatitis C Ab Screen (Neg) 08/15/20 Range/Units 04:21 WBC (4.8-10.8) K/uL RBC (4.7-6.1) M/uL Hgb (14.0-18.0) g/dL Hct (42-52) % MCV (80-100) fL MCH (25-34) pg MCHC (32-36) g/dL RDW Std Deviation (36.4-46.3) fL RDW Coeff of Osbaldo (11.5-14.5) % Plt Count (130-400) K/uL MPV (7.4-10.4) fL Immature Gran % (Auto) % Neut % (Auto) % Lymph % (Auto) % [place] % (Auto) % Eos % (Auto) % Baso % (Auto) % Neut # (Auto) (1.4-6.5) K/uL Lymph # (Auto) (1.2-3.4) K/uL [place] # (Auto) (0.11-0.59) K/uL Eos # (Auto) (0-0.5) K/uL Baso # (Auto) (0-0.2) K/uL Immature Gran # (Auto) (0.00-0.02) K/uL Sodium (136-145) mmol/L Potassium (3.5-5.1) mmol/L Chloride (98-107) mmol/L Carbon Dioxide (21-32) mmol/L Anion Gap (3-11) BUN (7-18) mg/dl Creatinine (0.6-1.4) mg/dl Est Cr Clr Drug Dosing ml/min Est GFR ( Amer) Est GFR (Non-Af Amer) BUN/Creatinine Ratio (10-20) Glucose (70-99) mg/dl POC Glucose (70-99) mg/dl Calcium (8.5-10.1) mg/dl Troponin I (0-0.045) ng/ml Nasal Screen MRSA (PCR) (Negative) Hepatitis C Ab Screen Neg (Neg) PG Care Time/CCT Total # of Minutes Spent Total Time Spent with Patient: Total time spent is greater than 50% in coordination of care (as documented) at patient's floor/unit and/or counseling patient: Coding Level of Care Code 94676 Subseq Hosp Care Lvl 2 Diagnoses Bilateral pneumonia J18.9 Lung location: lower lobe of lung Pneumonia type: due to unspecified organism Sepsis A41.9 Hypoxia R09.02 Intellectual disability F79 GERD (gastroesophageal reflux disease) K21.9 Atypical Parkinsonism G20 Prediabetes R73.03 Bipolar disorder F31.9 Benign prostatic hyperplasia with urinary obstruction N40.1; N13.8 Conductive hearing loss of both ears H90.0 Dysphagia R13.10 Hypercholesterolemia E78.00 Depression F32.9 DVT prophylaxis Z29.9 (1) Bilateral pneumonia Lung location: lower lobe of lung Pneumonia type: due to unspecified organism Qualified Code(s): J18.9 - Pneumonia, unspecified organism
[2020-08-16] MEDS: COLESTIPOL HCL 1 GM TAB PO SCH ×2 (10:58→22:37)
--- NOTE | 2020-08-16 15:04 | Electrocardiogram Report ---
Test Reason : Blood Pressure : / mmHG Vent. Rate : 057 BPM Atrial Rate : 057 BPM P-R Int : 172 ms QRS Dur : 108 ms QT Int : 406 ms P-R-T Axes : 037 009 088 degrees QTc Int : 395 ms Sinus bradycardia with sinus arrhythmia Nonspecific T wave abnormality Abnormal ECG When compared with ECG of 15-AUG-2020 04:22, Questionable change in QRS duration Confirmed by Mark Carbone ([id number]) on 08/16/2020 3:04:12 PM Referred By: [facility] Confirmed By:Mark Carbone
[2020-08-16] MEDS: ATORVASTATIN 10 MG TAB PO SCH (21:25)
[2020-08-16] MEDS: ARIPiprazole 10 MG TAB PO SCH (21:25)
[2020-08-16] MEDS: MELATONIN 3 MG TAB PO SCH (21:25)
[2020-08-17] MEDS: levoFLOXacin/D5W 750 MG/150 ML BAG IV SCH (06:00)
[2020-08-17] MEDS: [UNRECOGNIZED DRUG - REMARK] SCH ×3 (08:13→23:26)
[2020-08-17] MEDS: busPIRone 5 MG TAB PO SCH ×2 (08:14→20:54)
[2020-08-17] MEDS: OXYBUTYNIN CHLORIDE XL 5 MG TABCR PO SCH (08:14)
[2020-08-17] MEDS: ASPIRIN 81 MG ECTAB PO SCH (08:14)
[2020-08-17] MEDS: CARBIDOPA/LEVODOPA 25/100MG TAB PO SCH ×3 (08:14→20:54)
[2020-08-17] MEDS: PANTOprazole 40 MG TAB PO SCH (08:15)
[2020-08-17] MEDS: MELOXICAM 7.5 MG TAB PO SCH (08:15)
[2020-08-17] MEDS: CHOLECALCIFEROL 1,000 UNITS 25 MCG TAB PO SCH (08:15)
[2020-08-17] MEDS: ENOXAPARIN INJ 40 MG/0.4 ML SYR SQ SCH (08:16)
[2020-08-17] MEDS: COLESTIPOL HCL 1 GM TAB PO SCH ×2 (09:23→22:21)
--- NOTE | 2020-08-17 14:14 | Fluoroscopy Report ---
MODIFIED BARIUM SWALLOW CLINICAL HISTORY: r/o aspiration COMPARISON STUDY: Modified barium swallow December 27, 2019. FLUOROSCOPY TIME: 2.4 minutes. TECHNIQUE: A modified barium swallow was performed in conjunction with Speech Pathology. The patient ingested varying consistencies of barium containing material. Video fluoroscopy was performed. FINDINGS: No aspiration was identified with thin liquids by spoon. There was silent tracheal aspirati on with serial swallows of thin liquids with straw. There is no aspiration with pudding consistencies or crackers with paste. Mild esophageal dysmotility was noted. Laryngeal elevation was unremarkable. Epiglottic inversion was normal. IMPRESSION: 1. Silent tracheal aspiration with serial swallows of thin liquids by straw. Otherwise, no aspiration as described above. 2. Full recommendations by speech pathology to follow. ACT 112: Negative or not required by law. Electronically signed by: Garret Lees M.D. 08/17/2020 2:13 PM
[2020-08-17] MEDS: ARIPiprazole 10 MG TAB PO SCH (20:54)
[2020-08-17] MEDS: ATORVASTATIN 10 MG TAB PO SCH (20:54)
[2020-08-17] MEDS: MELATONIN 3 MG TAB PO SCH (20:57)
--- NOTE | 2020-08-17 23:35 | Hospitalist Progress Note ---
Date of Service August 17, 2020 Assessment & Plan (1) Bilateral pneumonia: With bi basilar pneumonia, mucoid material in the right mainstem bronchus seen on CT angiogram chest With a history of dysphagia, Parkinson's disease, and aspiration-likely aspiration pneumonia Requiring BiPAP on admission with significant hypoxia prior to arrival, now weaned completely off O2 within 24 hours of admission, doing very well remains stable on room air Procalcitonin negative -admitted treatment of pneumonia and sepsis and hypoxia -Continue Levaquin x 5 day course as has had rapid improvement-last day of tx will be 08/19 - video swallow, aspirated thin liquids from straw, gave him a diet, NO STRAWS, aspiration precautions -follow BCxs-NGTD (2) Sepsis: As above, resolved Follow blood cultures, no growth (3) Hypoxia: As above, pulse ox was 76% at the assisted required BiPAP prior to arrival with EMS Secondary to aspiration PNA CTA chest neg for PE BNP neg, trop neg x 3 with nonspecific changes on ECG now resolved, breathing room air comfortably plan for discharge tomorrow (4) Intellectual disability: Supportive care, resides is a long-term resident of assisted (5) GERD (gastroesophageal reflux disease): Continue pantoprazole (6) Atypical Parkinsonism: Continue Sinemet (7) Prediabetes: Hemoglobin A1c 6.2% recently Follow a.m. venous glucose and institute NovoLog if hyperglycemia-none so far (8) Bipolar disorder: Continue home buspirone, Abilify (9) Benign prostatic hyperplasia with urinary obstruction: Monitor for urinary retention has incontinence and has [place] catheter in place (10) Conductive hearing loss of both ears: Noted (11) Dysphagia: With likely aspiration pneumonia as above Consult speech therapy-video swallow Monday Aspiration precautions (12) Hypercholesterolemia: Continue atorvastatin (13) Depression: Continue Abilify, buspirone as above (14) DVT prophylaxis: Lovenox SQ Disposition-downgrade to medical/surgical floor DNR/DNI PT/OT consults appreciated--> director long term care resident of [place] d/w [place], applied for insurance auth for SNF tomorrow Admission and Anticipated Discharge Date Admission Date: August 15, 2020 Subjective patient is stable, breathing well on room air video swallow showed aspiration of thin liquids from straw after repeated drinking d/w speech therapy, no straws allowed, can have diet reviewed labs and chart d/w [place], will apply for insurance auth for patient to go to [facility] Review of Systems Review of Systems: All systems reviewed & are unremarkable except as noted in Subjective Physical Exam Constitutional: WD/WN, vitals as above no acute distress Neck: trachea midline, no thyromegaly Respiratory: normal respiratory effort, lungs clear to auscultation Cardiovascular: RRR, no murmur, no edema Gastrointestinal (Abdomen): normal bowel sounds, soft, nontender, no hepatosplenomegaly Musculoskeletal: no cyanosis or clubbing, extremities motor strength 5/5 Skin: no rashes, warm and dry Neurologic: moves all extremities and awake; no focal motor deficits Motor/Sensory: + tremor Psychiatric: A+Ox3, euthymic affect Lymphatic: no cervical or axillary lymphadenopathy Results & Data Results & Data ([facility]) Medications Administered Current Inpatient Medications Acetaminophen (Acetaminophen 325 Mg Tab) 650 mg PO Q4H PRN PRN Reason: Pain or Fever Stop: 09/14/20 10:05 Al Hydrox/Mg Hydrox/Simethicone (Aluminum/Magnesium Susp 30 Ml Udc) 15 ml PO Q4H PRN PRN Reason: Dyspepsia Stop: 09/14/20 10:05 Aripiprazole (Aripiprazole 10 Mg Tab) 10 mg PO QPM [place] Stop: 09/14/20 20:59 Last Admin: 08/17/20 20:54 Dose: 10 mg Documented by: Aspirin (Aspirin 81 Mg Ectab) 81 mg PO DAILY [place] Stop: 09/14/20 10:44 Last Admin: 08/17/20 08:14 Dose: 81 mg Documented by: Atorvastatin Calcium (Atorvastatin 10 Mg Tab) 10 mg PO HS [place] Stop: 09/14/20 20:59 Last Admin: 08/17/20 20:54 Dose: 10 mg Documented by: Buspirone HCl (Buspirone 5 Mg Tab) 10 mg PO Q12 [facility] Stop: 09/14/20 20:59 Last Admin: 08/17/20 20:54 Dose: 10 mg Documented by: Carbidopa/Levodopa (Carbidopa/Levodopa 25/100mg Tab) 1 tab PO TID [facility] Stop: 09/14/20 13:59 Last Admin: 08/17/20 20:54 Dose: 1 tab Documented by: Colestipol HCl (Colestipol Hcl 1 Gm Tab) 1 gm PO Q12H [facility] Stop: 09/14/20 21:59 Last Admin: 08/17/20 22:21 Dose: 1 gm Documented by: Enoxaparin Sodium (Enoxaparin Inj 40 Mg/0.4 Ml Syr) 40 mg SQ QAM [facility] Stop: 09/14/20 10:44 Last Admin: 08/17/20 08:16 Dose: 40 mg Documented by: Levofloxacin/Dextrose (Levaquin/D5w) 750 mg in 150 mls @ 100 mls/hr IV Q24H [facility]; Protocol Stop: 08/23/20 06:59 Last Infusion: 08/17/20 07:43 Dose: Infused Documented by: Loperamide HCl (Loperamide Hcl 2 Mg Cap) 2 mg PO Q6H PRN PRN Reason: Diarrhea Stop: 09/14/20 10:05 Magnesium Hydroxide (Magnesium Hydroxide Susp 30 Ml Udc) 30 ml PO Q12H PRN PRN Reason: Constipation Stop: 09/14/20 10:05 Melatonin (Melatonin 3 Mg Tab) 3 mg PO HS [facility]; Protocol Stop: 09/14/20 20:59 Last Admin: 08/17/20 20:57 Dose: 3 mg Documented by: Meloxicam (Meloxicam 7.5 Mg Tab) 15 mg PO DAILY [facility] Stop: 09/14/20 10:44 Last Admin: 08/17/20 08:15 Dose: 15 mg Documented by: Miscellaneous (Ketoconazole Shampoo: Order Awaiting Action) 1 ea N/A QS [facility] Stop: 09/14/20 15:59 Last Admin: 08/17/20 23:26 Dose: Not Given Documented by: Ondansetron HCl (Ondansetron Inj 2 Mg/Ml 2 Ml Vial) 4 mg IV Q6H PRN PRN Reason: Nausea Stop: 09/14/20 10:05 Oxybutynin Chloride (Oxybutynin Chloride Xl 5 Mg Tabcr) 10 mg PO DAILY [facility] Stop: 09/15/20 08:59 Last Admin: 08/17/20 08:14 Dose: 10 mg Documented by: Pantoprazole Sodium (Pantoprazole 40 Mg Tab) 40 mg PO DAILY [facility] Stop: 09/14/20 10:44 Last Admin: 08/17/20 08:15 Dose: 40 mg Documented by: Polyethylene Glycol (Polyethylene (Miralax) 17 Gm Pack) 17 gm PO DAILY PRN PRN Reason: Constipation Stop: 09/14/20 10:05 Vitamin D (Cholecalciferol 1,000 Units 25 Mcg Tab) 2,000 units PO DAILY [place] Stop: 09/14/20 10:44 Last Admin: 08/17/20 08:15 Dose: 2,000 units Documented by: PG Care Time/CCT Total # of Minutes Spent Total Time Spent with Patient: Total time spent is greater than 50% in coordination of care (as documented) at patient's floor/unit and/or counseling patient: Coding Level of Care Code 67318 Subseq Hosp Care Lvl 2 Diagnoses Bilateral pneumonia J18.9 Lung location: lower lobe of lung Pneumonia type: due to unspecified organism Sepsis A41.9 Hypoxia R09.02 Intellectual disability F79 GERD (gastroesophageal reflux disease) K21.9 Atypical Parkinsonism G20 Prediabetes R73.03 Bipolar disorder F31.9 Benign prostatic hyperplasia with urinary obstruction N40.1; N13.8 Conductive hearing loss of both ears H90.0 Dysphagia R13.10 Hypercholesterolemia E78.00 Depression F32.9 DVT prophylaxis Z29.9 (1) Bilateral pneumonia Lung location: lower lobe of lung Pneumonia type: due to unspecified organism Qualified Code(s): J18.9 - Pneumonia, unspecified organism
[2020-08-18] MEDS: levoFLOXacin/D5W 750 MG/150 ML BAG IV SCH (06:20)
[2020-08-18] MEDS: [UNRECOGNIZED DRUG - REMARK] SCH (09:41)
[2020-08-18] MEDS: ENOXAPARIN INJ 40 MG/0.4 ML SYR SQ SCH (09:42)
[2020-08-18] MEDS: CARBIDOPA/LEVODOPA 25/100MG TAB PO SCH ×2 (09:43→14:16)
[2020-08-18] MEDS: CHOLECALCIFEROL 1,000 UNITS 25 MCG TAB PO SCH (09:43)
[2020-08-18] MEDS: PANTOprazole 40 MG TAB PO SCH (09:43)
[2020-08-18] MEDS: OXYBUTYNIN CHLORIDE XL 5 MG TABCR PO SCH (09:43)
[2020-08-18] MEDS: MELOXICAM 7.5 MG TAB PO SCH (09:44)
[2020-08-18] MEDS: busPIRone 5 MG TAB PO SCH (09:44)
[2020-08-18] MEDS: ASPIRIN 81 MG ECTAB PO SCH (09:44)
[2020-08-18] MEDS: COLESTIPOL HCL 1 GM TAB PO SCH (10:58)
--- NOTE | 2020-08-18 13:57 | Discharge Summary ---
Date of Service August 18, 2020 Admission HPI Per Admitting Provider This patient is a 65-year-old male with history of atypical Parkinson's disease, intellectual disability with cognitive impairment, bipolar disorder, BPH, impaired fasting glucose, GERD, recurrent UTIs, dysphagia with aspiration, hearing loss, hyperlipidemia, chronic shoulder pain, diverticulitis, leukopenia, and Covid-19 in 03/2020 which did not require hospitalization, who resides as a long-term resident of [facility] who presents to the ER with acute respiratory distress and hypoxia. He was noted to have significant shortness of breath and his pulse ox was 75-78% on room air at the custodial. Ambulance was called he was placed on BiPAP and brought to the ER. He was noted to have patchy and linear bilateral lower lobe densities on CT angiogram of the chest, and mucoid material in the right mainstem bronchus but was negative for PE. He was weaned off BiPAP in the ER to 4 L nasal cannula when I saw him and was much improved. He was able to tell me that he feels fine now. Was not able to give me any of his history. He does follow commands and was cooperative. History was obtained from the ER physician, and the custodial records. He was given 1 dose of IV levofloxacin as well as 1/2 L of normal saline bolus. His blood pressure was a bit soft when he arrived but improved with IV fluids, he was tachypneic, his heart rate was mildly tachycardic, but he was afebrile. He had a mild leukocytosis, D-dimer was elevated at 700, lactate was normal at 1.2, troponin was negative. ECG with some T wave inversions in the lateral leads and possibly ST depression but had a lot of artifact. His Covid-19 test was negative. He will be admitted for pneumonia, likely aspiration, acute respiratory failure with hypoxia, and sepsis. Principal Diagnosis Bilateral pneumonia, likely aspiration pneumonia Discharge Exam Constitutional WD/WN, vitals as above no acute distress Neck trachea midline, no thyromegaly Respiratory normal respiratory effort, lungs clear to auscultation Cardiovascular RRR, no murmur, no edema Gastrointestinal (Abdomen) normal bowel sounds, soft, nontender, no hepatosplenomegaly Musculoskeletal no cyanosis or clubbing, extremities motor strength 5/5 Skin no rashes, warm and dry Neurologic moves all extremities and awake; no focal motor deficits Motor/Sensory: + tremor Psychiatric A+Ox3, euthymic affect Lymphatic no cervical or axillary lymphadenopathy Discharge Data Allergies Allergy/AdvReac Type Severity Reaction Status Date / Time Penicillins AdvReac Intermediate RASH Verified 08/15/20 05:12 Consultations 08/15/20 06:14 ED Decision to Admit Stat Ordered Studies 08/15/20 05:10 CT angio chest PE protocol Urgent 08/17/20 00:01 FL video swallow Routine Hospital Course (1) Bilateral pneumonia: With bi basilar pneumonia, mucoid material in the right mainstem bronchus seen on CT angiogram chest With a history of dysphagia, Parkinson's disease, and aspiration-likely aspiration pneumonia Requiring BiPAP on admission with significant hypoxia prior to arrival, now weaned completely off O2 within 24 hours of admission, doing very well remains stable on room air Procalcitonin negative -admitted for treatment of pneumonia and sepsis and hypoxia -Continue Levaquin x 7 days total, complete 3 more days after discharge to [facility] - video swallow, aspirated thin liquids from straw, gave him a diet, NO STRAWS, aspiration precautions -follow BCxs-NGTD (2) Sepsis: As above, resolved Follow blood cultures, no growth (3) Hypoxia: As above, pulse ox was 76% at the custodial required BiPAP prior to arrival with EMS Secondary to aspiration PNA CTA chest neg for PE BNP neg, trop neg x 3 with nonspecific changes on ECG now resolved, breathing room air comfortably plan for discharge to [facility] (4) Intellectual disability: Supportive care, resides is a long-term resident of custodial (5) GERD (gastroesophageal reflux disease): Continue pantoprazole (6) Atypical Parkinsonism: Continue Sinemet (7) Prediabetes: Hemoglobin A1c 6.2% recently Follow a.m. venous glucose and institute NovoLog if hyperglycemia-none so far (8) Bipolar disorder: Continue home buspirone, Abilify (9) Benign prostatic hyperplasia with urinary obstruction: Monitor for urinary retention has incontinence and has [place] catheter in place (10) Conductive hearing loss of both ears: Noted (11) Dysphagia: With likely aspiration pneumonia as above Consult speech therapy-video swallow Monday, aspirated thin liquids from straw, NO STRAWS Aspiration precautions (12) Hypercholesterolemia: Continue atorvastatin (13) Depression: Continue Abilify, buspirone as above (14) DVT prophylaxis: Lovenox SQ Total Time Total Time Spent Total Time Spent (In Minutes): 31 minutes Total Time Includes: Examination of the Patient, Discharge Planning and Medication Reconciliation Discharge Plan Discharge Items Patient Disposition: Transfer [facility] Reason For Visit: PNEUMONIA, HYPOXIA Discharge Diagnosis: Aspiration pneumonia Acute hypoxia Condition on Discharge: Good Goals: finish course of Levaquin aspiration precautions, see below Activity: Resume your previous activity Non-emergency contact: Primary Care Provider Call non-emergency contact if: you have any medication questions Follow-up/Referrals: [facility] [Primary Care Provider] - (within one week) Diet: Regular Addtl Attending Provider Instructions: Medications: - LEVOFLOXACIN: complete 3 more days of 750mg daily, next dose due tomorrow Need to follow aspiration precautions, see the following instructions: Easy to chew "Slippery" diet (avoid foods that are thick and pasty, consume foods that are thin and slippery in nature, add extra condiments, gravies, butters when appropriate) Aspiration precautions: NO STRAWS: use of sippy cup would be ideal to control rate and amount of liquid intake. Unable to follow or maintain compensatory strategies secondary to cognitive capacity Alternate solids and liquids, crush medications, supervise meals, fully alert and upright, give meds in a carrier, oral hygiene, single bites, small sips, slow rate, NO STRAWS Pending Studies at Discharge: No Stand-Alone Forms: My [facility] Skilled Items Patient informed of condition?: Yes DNR: Yes Discharge Level of Care: Skilled Communicable Disease: No Discharge Prognosis: Stable Lines: None Urinary Catheter: No Medications and DC Order Prescriptions: Continued cholecalciferol (vitamin D3) 2,000 unit capsule 2,000 units PO DAILY Qty: 30 RF: 5 ketoconazole 2 % shampoo 1 appln TOP .COMPLEX Qty: 120 RF: 5 melatonin 5 mg tablet 5 mg PO HS Qty: 90 RF: 3 meloxicam 15 mg tablet 15 mg PO DAILY RF: 0 oxybutynin chloride 10 mg tablet extended release 24hr 10 mg PO DAILY RF: 0 carbidopa-levodopa [Sinemet] 25-100 mg tablet 1 tab PO TID Qty: 90 RF: 5 loperamide [Anti-Diarrheal (loperamide)] 2 mg Capsule 2 mg PO Q6 PRN (Reason: Diarrhea) RF: 0 atorvastatin 10 mg Tablet 10 mg PO HS RF: 0 aripiprazole 10 mg tablet 10 mg PO QPM RF: 0 aspirin 81 mg tablet,delayed release (DR/EC) 81 mg PO DAILY RF: 0 pantoprazole 40 mg tablet,delayed release (DR/EC) 40 mg PO DAILY RF: 0 acetaminophen 325 mg tablet 650 mg PO Q6H MDD 3g PRN (Reason: pain/fever) RF: 0 colestipol 1 gram tablet 1 gm PO Q12 RF: 0 buspirone 10 mg tablet 10 mg PO Q12 RF: 0 Discharge Orders: Discharge Order (Routine); Ordered 08/18/20 Ordered By: Denys Diehl Admission Data Admit Date/Time: 08/15/20 09:09 Attending Provider: Denys Diehl Admit Provider: Joselin Hubbard Primary Care Provider: [facility] Other Interventions: Discharge Summary Assessment (RN) Last Done: 08/18/20 14:22 Coding Level of Care Code D/C Day Management >30 mins Diagnoses Bilateral pneumonia J18.9 Lung location: lower lobe of lung Pneumonia type: due to unspecified organism Sepsis A41.9 Hypoxia R09.02 Intellectual disability F79 GERD (gastroesophageal reflux disease) K21.9 Atypical Parkinsonism G20 Prediabetes R73.03 Bipolar disorder F31.9 Benign prostatic hyperplasia with urinary obstruction N40.1; N13.8 Conductive hearing loss of both ears H90.0 Dysphagia R13.10 Hypercholesterolemia E78.00 Depression F32.9 DVT prophylaxis Z29.9
--- NOTE | 2020-08-31 12:25 | Coding Query ---
A supporting diagnosis is required for the test/procedure performed on this patient in order for us to be reimbursed by the patient's insurance. Please provide a supporting diagnosis for the following test/procedure listed below next to the test name along with your signature. *If there is no additional diagnosis for this patient that would support the following test/procedure please document that below next to the test/procedure. Test(s)/Procedure(s) that require a supporting diagnosis: VIDEO SWALLOW DIAGNOSIS:____Aspiration pneumonia,Dysphagia .Proviider Signature: ___Joselin Hubbard M.D. Date: _09/06/20 Thank you Fidelia Ramirez Health Information Management Once completed, please kindly fax back to [phone] For questions please call [phone] NIRAJ
== END 2020-08-18 14:43 | DRG 871 ==
LOC: ED 04:10 → 2S 09:09 → SUATTDRO 09:09 → INTOOBSV 09:09 → 2S 09:56 → 3N 08-16 11:06

== ENCOUNTER 2024-06-06 22:26 | Inpatient (IN) ==
[2024-06-06] MEDS ORDERED: VANCOMYCIN HCL 1,800 MG in SODIUM CHLORIDE 0.9% 500 ML IV ONE (22:42)
[2024-06-06] MEDS ORDERED: VANCOMYCIN CONSULT ACTIVE PRN (22:42)
[2024-06-06] MEDS: SODIUM CHLORIDE 0.9% 1,000 ML IV SCH (22:47)
--- NOTE | 2024-06-06 22:52 | Emergency Department Note ---
History of Present Illness General Chief complaint: Hypotension Stated complaint: FEVER, HYPOTENSION, RESTLESS Time Seen by Provider: 06/06/24 22:36 History of Present Illness This patient is a 69-year-old male with history of atypical Parkinson's disease, intellectual disability with cognitive impairment, bipolar disorder, BPH, impaired fasting glucose, GERD, recurrent UTIs, dysphagia with aspiration, hearing loss, hyperlipidemia, chronic shoulder pain, diverticulitis, leukopenia, who resides as a long-term resident of [facility] who presents to the ER complaining of cough, congestion fever and chills for the past day. Per review of the fdc notes patient was given Ativan and Tylenol earlier today. Tmax is 101. Patient denies chest pain, abdominal pain, vomiting, diarrhea. He is able to follow commands. Home Medications Medication Instructions Recorded Confirmed Type atorvastatin 10 mg tablet 10 mg PO DAILY 10/11/18 06/07/24 History loperamide 2 mg capsule 2 mg PO Q6 PRN Diarrhea 10/11/18 06/07/24 History (Anti-Diarrheal (loperamide)) pantoprazole 40 mg tablet,delayed 40 mg PO QAM 11/01/18 06/07/24 History release acetaminophen 325 mg tablet 650 mg PO Q6H PRN pain/fever 02/27/19 06/07/24 History cholecalciferol (vitamin D3) 50 2,000 units PO DAILY #30 caps 03/08/19 06/07/24 Rx mcg (2,000 unit) capsule melatonin 5 mg tablet 5 mg PO HS sleep #90 tabs 09/18/19 06/07/24 Rx meloxicam 15 mg tablet 15 mg PO DAILY 06/09/20 06/07/24 History cholestyramine (with sugar) 4 gram 1 ea PO BID 12/15/20 06/07/24 History oral powder oxybutynin chloride 10 mg 10 mg PO DAILY 12/15/20 06/07/24 History tablet,extended release 24 hr cyanocobalamin (vitamin B-12) 2,500 mcg PO DAILY #30 tabs 07/13/21 06/07/24 Rx 2,500 mcg tablet carbidopa 25 mg-levodopa 100 mg 1 tab PO QID 11/26/21 06/07/24 History tablet (Sinemet) levothyroxine 50 mcg tablet 50 mcg PO DAILY 11/26/21 06/07/24 History ciprofloxacin HCl 500 mg tablet 500 mg PO BID 3 days #6 tabs 05/10/24 06/07/24 Rx insulin glargine 100 unit/mL 20 unit subcut HS 05/10/24 06/07/24 History subcutaneous solution metformin 500 mg tablet 1,000 mg PO AMHS 05/10/24 06/07/24 History azithromycin 250 mg tablet 250 mg PO UD 06/07/24 06/07/24 History azithromycin 250 mg tablet 500 mg PO ONCE 06/07/24 06/07/24 History buspirone 7.5 mg tablet 7.5 mg PO Q12 06/07/24 06/07/24 History carboxymethylcellulose sodium 1 % 1 drp OPB DAILY 06/07/24 06/07/24 History eye liquid gel drops (Refresh Liquigel) ketoconazole 1 % shampoo 1 applic topical [id number] 06/07/24 06/07/24 History lorazepam 0.5 mg tablet 0.5 mg PO Q6 PRN 06/07/24 06/07/24 History anxiety/restlessness morphine concentrate 20 mg/mL oral 10 mg PO Q4 PRN Shortness Of Breath 06/07/24 06/07/24 History syringe (FOR ORAL USE ONLY) paroxetine HCl 40 mg tablet 40 mg PO QAM 06/07/24 06/07/24 History Allergies Allergy/AdvReac Type Severity Reaction Status Date / Time Penicillins AdvReac Intermediate RASH Verified 05/10/24 08:33 Past Med/Surg History Problem List (Updated 06/07/24 @ 01:42 by LORENZO Capone) Metabolic acidosis ARF (acute renal failure) Severe sepsis Hydronephrosis, left (Acute) Acute UTI (urinary tract infection) (Acute) Non-ST elevation ND (NSTEMI) (Acute) Elevated procalcitonin (Acute) RUBIA (acute kidney injury) (Acute) Elevated lactic acid level (Acute) Leukocytosis (Acute) Septic shock (Acute) Small vessel disease, cerebrovascular Neurologic gait disorder B12 deficiency Elevated PSA Ataxic gait Cognitive change Urinary symptom or sign Intellectual disability GERD (gastroesophageal reflux disease) UTI (urinary tract infection) (Acute) Atypical Parkinsonism (Chronic) Prediabetes (Chronic) Bipolar disorder (Chronic) Benign prostatic hyperplasia with urinary obstruction (Chronic) Conductive hearing loss of both ears (Chronic) Dysphagia (Chronic) Hypercholesterolemia (Chronic) Incontinence of bowel (Chronic) Leukopenia (Chronic) Depression (Chronic) GERD (gastroesophageal reflux disease) (Chronic) Diverticulosis (Chronic) Medical History (Updated 06/07/24 @ 01:42 by LORENZO Capone) Sepsis Hypoxia Bilateral pneumonia Alteration consciousness Closed left hip fracture Diarrhea Generalized weakness Major depressive disorder Diverticular disease Tinnitus of both ears BPH (benign prostatic hyperplasia) Generalized muscle weakness Gait apraxia Chronic shoulder pain Cognitive disorder Unsteady gait Aspiration precautions Incontinence Hyperlipemia Bipolar disorder Surgical History Hx of tonsillectomy H/O wisdom tooth extraction S/P hip replacement H/O inguinal hernia repair Status post left hip replacement History of left hip replacement Family History Unknown Obesity Hypercholesterolemia Father Diabetes Ischemic heart disease Sister Cancer Other Family history unknown Social History Smoking Status: Unknown if ever smoked Second Hand Exposure: No; Do You Dip or Chew Tobacco: No; Hx Alcohol Use: No Hx Substance Use: No Preferred Language: Cuban Communication Ability: Effective Communication Ability Comment: able to make needs known with short answer questions Transportation Security Officer Required: No Beliefs That Will Affect Care: None Current Living Situation: Senior Living Current Living Situation Comment: [place] [facility] Feels Safe at Home: Yes Assistive Devices: Walker Review of Systems A total of 10 systems reviewed and were otherwise negative Physical Exam Vital Signs Vital Signs - 24 hr 06/06/24 22:38 06/06/24 22:39 06/06/24 22:39 Temperature 36.8 C Temperature Source Oral Pulse Rate 114 H 115 H 114 H Pulse Rate from SpO2 Sensor 114 H Respiratory Rate 36 H 22 Respiratory Effort / Characteristics Respiratory Depth Blood Pressure 81/45 L 81/45 L Blood Pressure Mean 57 57 Pulse Oximetry 93 93 Oxygen Delivery Method Room Air Room Air Oxygen Flow Rate Sepsis Recent Fever Within 48 Hours Yes Sepsis New/Unexplained Change in Mental Status No Sepsis Action Taken by Nursing Adv Provider Prev Notifie 06/06/24 22:48 06/06/24 23:03 06/06/24 23:12 Temperature Temperature Source Pulse Rate 108 H 106 H 108 H Pulse Rate from SpO2 Sensor 108 H 104 H 108 H Respiratory Rate 41 H 22 38 H Respiratory Effort / Characteristics Respiratory Depth Blood Pressure 63/35 L 75/44 L Blood Pressure Mean 44 54 Pulse Oximetry 91 94 93 Oxygen Delivery Method Room Air Oxygen Flow Rate Sepsis Recent Fever Within 48 Hours Sepsis New/Unexplained Change in Mental Status Sepsis Action Taken by Nursing 06/06/24 23:18 06/06/24 23:32 06/06/24 23:57 Temperature Temperature Source Pulse Rate 105 H 104 H Pulse Rate from SpO2 Sensor 105 H Respiratory Rate 18 22 Respiratory Effort / Characteristics Respiratory Depth Blood Pressure 60/51 L 92/38 L 104/58 L Blood Pressure Mean 54 64 73 Pulse Oximetry 93 90 Oxygen Delivery Method Nasal Cannula Oxygen Flow Rate 2 Sepsis Recent Fever Within 48 Hours Sepsis New/Unexplained Change in Mental Status Sepsis Action Taken by Nursing 06/07/24 00:17 06/07/24 00:18 06/07/24 00:20 Temperature Temperature Source Pulse Rate 101 H Pulse Rate from SpO2 Sensor 100 H Respiratory Rate 34 H Respiratory Effort / Characteristics Respiratory Depth Blood Pressure 77/61 L 78/55 L Blood Pressure Mean 67 61 Pulse Oximetry 90 Oxygen Delivery Method Oxygen Flow Rate Sepsis Recent Fever Within 48 Hours Sepsis New/Unexplained Change in Mental Status Sepsis Action Taken by Nursing 06/07/24 00:20 06/07/24 00:20 06/07/24 00:20 Temperature Temperature Source Pulse Rate Pulse Rate from SpO2 Sensor Respiratory Rate Respiratory Effort / Characteristics Respiratory Depth Blood Pressure 78/55 L 78/55 L 78/55 L Blood Pressure Mean 61 61 61 Pulse Oximetry Oxygen Delivery Method Oxygen Flow Rate Sepsis Recent Fever Within 48 Hours Sepsis New/Unexplained Change in Mental Status Sepsis Action Taken by Nursing 06/07/24 00:20 06/07/24 00:21 06/07/24 00:21 Temperature 37.4 C Temperature Source Rectal Pulse Rate 95 H Pulse Rate from SpO2 Sensor Respiratory Rate 27 H Respiratory Effort / Characteristics Respiratory Depth Blood Pressure 78/55 L Blood Pressure Mean 61 Pulse Oximetry Oxygen Delivery Method Oxygen Flow Rate Sepsis Recent Fever Within 48 Hours Sepsis New/Unexplained Change in Mental Status Sepsis Action Taken by Nursing 06/07/24 00:24 06/07/24 00:25 06/07/24 00:29 Temperature Temperature Source Pulse Rate 101 H Pulse Rate from SpO2 Sensor 97 H Respiratory Rate 36 H Respiratory Effort / Characteristics Respiratory Depth Deep Blood Pressure 94/56 L Blood Pressure Mean 63 Pulse Oximetry 90 Oxygen Delivery Method Free Flow/Blow- by Oxygen Flow Rate Sepsis Recent Fever Within 48 Hours Sepsis New/Unexplained Change in Mental Status Sepsis Action Taken by Nursing 06/07/24 00:30 06/07/24 00:30 06/07/24 00:30 Temperature Temperature Source Pulse Rate 102 H Pulse Rate from SpO2 Sensor Respiratory Rate 30 H Respiratory Effort / Characteristics Respiratory Depth Deep Blood Pressure 94/57 L 94/57 L Blood Pressure Mean 69 69 Pulse Oximetry 90 Oxygen Delivery Method Free Flow/Blow- by Oxygen Flow Rate 10 Sepsis Recent Fever Within 48 Hours Sepsis New/Unexplained Change in Mental Status Sepsis Action Taken by Nursing 06/07/24 00:30 06/07/24 00:36 06/07/24 00:36 Temperature Temperature Source Pulse Rate 104 H Pulse Rate from SpO2 Sensor Respiratory Rate 32 H Respiratory Effort / Characteristics Respiratory Depth Blood Pressure 94/57 L 81/57 L 81/57 L Blood Pressure Mean 69 60 60 Pulse Oximetry 90 Oxygen Delivery Method Free Flow/Blow- by Oxygen Flow Rate 10 Sepsis Recent Fever Within 48 Hours Sepsis New/Unexplained Change in Mental Status Sepsis Action Taken by Nursing 06/07/24 00:45 06/07/24 00:50 06/07/24 01:04 Temperature Temperature Source Pulse Rate Pulse Rate from SpO2 Sensor Respiratory Rate Respiratory Effort / Characteristics Non-Labored Respiratory Depth Normal Blood Pressure 98/63 L 108/68 Blood Pressure Mean 85 80 Pulse Oximetry Oxygen Delivery Method Oxygen Flow Rate Sepsis Recent Fever Within 48 Hours Sepsis New/Unexplained Change in Mental Status Sepsis Action Taken by Nursing 06/07/24 01:04 06/07/24 01:06 06/07/24 01:11 Temperature Temperature Source Pulse Rate 104 H Pulse Rate from SpO2 Sensor Respiratory Rate 37 H Respiratory Effort / Characteristics Respiratory Depth Blood Pressure 108/68 83/42 L Blood Pressure Mean 80 60 Pulse Oximetry Oxygen Delivery Method Oxygen Flow Rate Sepsis Recent Fever Within 48 Hours Sepsis New/Unexplained Change in Mental Status Sepsis Action Taken by Nursing 06/07/24 01:11 06/07/24 01:12 Temperature Temperature Source Pulse Rate 99 H Pulse Rate from SpO2 Sensor Respiratory Rate 27 H Respiratory Effort / Characteristics Respiratory Depth Blood Pressure 83/42 L Blood Pressure Mean 60 Pulse Oximetry Oxygen Delivery Method Oxygen Flow Rate Sepsis Recent Fever Within 48 Hours Sepsis New/Unexplained Change in Mental Status Sepsis Action Taken by Nursing VITALS: Vitals are noted on the nurse's note and reviewed by myself. Vital signs hypotensive and tachycardic. GENERAL: White male speaking in full sentences following commands moving all extremities, in no acute distress SKIN: The skin was without rashes, erythema, edema, or bruising. There is no tenting of the skin. Capillary reflex less than 2 seconds. HEAD: Normocephalic atraumatic. EARS: External auditory canals clear EYES: Pupils equal round and reactive to light and accommodation. Conjunctivae without injection, sclerae without icterus. Extraocular movements intact. NOSE: Patent, no discharge. MOUTH: Mucous membranes moist. Pharynx without erythema or exudate. Uvula midline. Airway patent. Tongue does not deviate. NECK: Supple without nuchal rigidity. No lymphadenopathy. No thyromegaly. Cervical spine is nontender. No JVD. HEART: Regular rate and rhythm LUNGS: Mild diffuse end expiratory wheeze. No retractions or accessory muscle use. ABDOMEN: Positive bowel sounds x 4. Normal tympanic percussion. Soft, nontender, without masses or organomegaly. Wilkerson sign negative. No guarding or rebound tenderness. No CVA tenderness MUSCULOSKELETAL: No muscle atrophy, erythema, or edema noted. NEURO: Patient was alert and oriented to person place and time. Normal sensation to light and sharp touch. No focal neurological deficits. Course Administered Medications Norepinephrine Bitartrate (Levophed/D5w) 4 mg in 250 mls @ 94.185 mls/hr IV .Q2H40M [facility]; Protocol Stop: 07/06/24 23:44 Last Titration: 06/07/24 02:24 Dose: 0.28 mcg/kg/min, 94.2 mls/hr Documented By: KERI Co-signed By: MPC Titration: 06/07/24 01:27 Dose: 0.3 mcg/kg/min, 100.9 mls/hr Documented By: ANJANA Co-signed By: MED Titration: 06/07/24 01:20 Dose: 0.25 mcg/kg/min, 84.1 mls/hr Documented By: MED Co-signed By: ANJANA Titration: 06/07/24 00:39 Dose: 0.2 mcg/kg/min, 67.3 mls/hr Documented By: ANJANA Co-signed By: BRYANT Titration: 06/07/24 00:18 Dose: 0.15 mcg/kg/min, 50.5 mls/hr Documented By: Co-signed By: ANJANA Titration: 06/06/24 23:25 Dose: 0.1 mcg/kg/min, 33.5 mls/hr Documented By: Co-signed By: ANJANA Admin: 06/06/24 23:20 Dose: 0.05 mcg/kg/min, 16.8 mls/hr Documented By: Co-signed By: ANJANA Sodium Bicarbonate 150 meq/ (Sterile Water) 1,150 mls @ 150 mls/hr IV .Q7H40M [facility] Stop: 07/07/24 00:59 Last Admin: 06/07/24 02:23 Dose: 150 mls/hr Documented By: KERI Magnesium Sulfate/Dextrose (Magnesium Sulfate / D5w) 1 gm in 100 mls @ 50 mls/hr IV Q2H [place] Stop: 06/07/24 05:14 Last Admin: 06/07/24 02:23 Dose: 50 mls/hr Documented By: KERI Discontinued Medications Acetaminophen (Acetaminophen 1000 Mg/100 Ml Iv) Confirm Administered Dose 1,000 mg IV .STK-MED ONE Stop: 06/06/24 23:16 Last Admin: 06/06/24 23:23 Dose: 1,000 mg Documented By: Cefepime HCl (Maxipime 2000mg) 2,000 mg in 20 mls @ 5 mls/min IV NOW STA; Protocol Stop: 06/06/24 22:44 Last Admin: 06/06/24 23:13 Dose: 5 mls/min Documented By: MED Sodium Chloride (Nss) 1,000 mls @ 999 mls/hr IV .Q1H1M [place] Stop: 06/07/24 00:45 Last Infusion: 06/07/24 00:13 Dose: Infused Documented By: Admin: 06/07/24 00:12 Dose: 999 mls/hr Documented By: Infusion: 06/07/24 00:12 Dose: Infused Documented By: Admin: 06/06/24 22:47 Dose: 999 mls/hr Documented By: LAF Sodium Chloride (Nss) 500 mls @ 999 mls/hr IV .Q31M ONE Stop: 06/06/24 23:12 Last Admin: 06/07/24 00:13 Dose: Not Given Documented By: Vancomycin HCl 1,750 mg/ (Sodium Chloride) 535 mls @ 200 mls/hr IV NOW ONE Stop: 06/07/24 01:40 Last Infusion: 06/07/24 00:52 Dose: Infused Documented By: Admin: 06/07/24 00:01 Dose: 200 mls/hr Documented By: Acetaminophen (Ofirmev) 1,000 mg in 100 mls @ 400 mls/hr IV NOW STA Stop: 06/07/24 00:06 Last Admin: 06/07/24 00:10 Dose: Not Given Documented By: Albumin Human (Albumin 25%) 25 gm in 100 mls @ 50 mls/hr IV ONE ONE Stop: 06/07/24 02:06 Last Admin: 06/07/24 00:18 Dose: 50 mls/hr Documented By: Sodium Bicarbonate 150 meq/ (Dextrose) 1,150 mls @ 25 mls/hr IV .Q24H [place] Stop: 07/07/24 00:59 Last Admin: 06/07/24 01:12 Dose: Not Given Documented By: ANJANA Sodium Chloride (Nss) 500 mls @ 999 mls/hr IV .Q31M ONE Stop: 06/07/24 02:36 Last Admin: 06/07/24 02:24 Dose: 999 mls/hr Documented By: KERI Emanuel (Stat Iv Infusion Titration Per Protocol) 1 each N/A NOW STA Stop: 06/06/24 23:53 Last Admin: 06/07/24 01:09 Dose: Not Given Documented By: ANJANA Valenzuelaaneous (Stat Iv/Im) 1 each N/A NOW STA Stop: 06/07/24 00:55 Last Admin: 06/07/24 01:11 Dose: Not Given Documented By: ANJANA Norepinephrine Bitartrate (Norepinephrine/D5w 4 Mg/250 Ml) Confirm Administered Dose 4 mg IV .STK-MED ONE Stop: 06/06/24 23:17 Last Admin: 06/07/24 00:07 Dose: Not Given Documented By: Sodium Bicarbonate (Sodium Bicarb 8.4% Inj 50 Meq/50 Ml Syr) 100 meq IV NOW STA Stop: 06/07/24 01:17 Last Admin: 06/07/24 02:23 Dose: 100 meq Documented By: KERI Critical Care Time Critical Care Time: Yes Total Critical Care Time: 90 I have personally spent 90 minutes of critical care time in the direct management of this patient. This includes bedside care, interpretation of diagnostic studies, and testing, discussion with consultants, patient, and family members, and other required patient management activities. This 90 minutes is in excess of all separately billable procedures. Medical Decision Making Medical Records Attestation: I reviewed the patient's medical records. Home Medications Current Medication List: was personally reviewed by me Laboratory Data Attestation: I reviewed the patient's lab results. 06/06/24 22:42 06/06/24 23:08 Lab Results 06/06/24 06/06/24 06/06/24 Range/Units 22:42 23:01 23:08 WBC 23.86 H (4.8-10.8) K/ul RBC 4.17 L (4.70-6.10) M/uL Hgb 13.3 L (14.0-18.0) g/dl POC Hgb (14.0-18.0) g/dl Hct 39.2 L (42.0-52.0) % POC Hct (42-52) % MCV 94.0 (80.0-100.0) fL MCH 31.9 (25.0-34.0) pg MCHC 33.9 (32.0-36.0) g/dL RDW Std Deviation 46.3 (36.4-46.3) fL RDW Coeff of [place] 13.6 (11.5-14.5) % Plt Count 169 (130-400) K/uL MPV 10.8 (9.4-12.4) fL Immature Gran % (Auto) 3.2 % Neut % (Auto) 88.4 % Lymph % (Auto) 2.4 % [place] % (Auto) 4.7 % Eos % (Auto) 1.0 % Baso % (Auto) 0.3 % Neut # (Auto) 21.06 H (1.40-6.50) K/uL Lymph # (Auto) 0.58 L (1.20-3.40) K/uL [place] # (Auto) 1.12 H (0.11-0.59) K/uL Eos # (Auto) 0.25 (0.00-0.50) K/uL Baso # (Auto) 0.08 (0.00-0.20) K/uL Immature Gran # (Auto) 0.77 H (0.01-0.20) K/uL Echinocytes 1+ PT 11.8 (9.0-12.0) Seconds INR 1.1 (0.9-1.1) APTT 26 (21-31) Seconds PTT Ratio 1.0 POC Sodium (135-144) mmol/L Sodium 139 (136-145) mmol/L POC Potassium (3.3-5.0) mmol/L Potassium TNP 3.7 POC Chloride (101-112) mmol/L Chloride 108 H (98-107) mmol/L Carbon Dioxide 14 L (21-32) mmol/L POC Total CO2 (24-31) mmol/L Anion Gap 17 H (3-11) POC Anion Gap (16-25) mmol/L POC BUN (7-18) mg/dl BUN 94 H (6-23) mg/dl Creatinine 3.93 H (0.6-1.4) mg/dl POC Creatinine (0.6-1.3) mg/dl Est Cr Clr Drug Dosing 19.9 ml/min eGFR 15.87 BUN/Creatinine Ratio 23.9 H (10-20) Glucose 224 H (70-99(Fasting)) mg/dl POC Glucose (other) (70-99) mg/dl Lactate 6.4 H* (0.4-2.0) mmol/L Calcium 9.1 (8.6-10.3) mg/dl POC Ioniz Calcium Gm (1.12-1.32) mmol/l Magnesium 1.6 L (1.7-2.4) mg/dl Total Bilirubin 0.5 (0.2-1.0) mg/dl Direct Bilirubin TNP 0.1 AST TNP 16 ALT 9 (7-52) U/L Alkaline Phosphatase 434 H (34-104) U/L Troponin I High Sens 114.7 H* (0-20) pg/ml Total Protein 6.2 (6.0-8.3) gm/dl Albumin 3.2 L (3.4-5.0) gm/dl Procalcitonin > 100.00 H (0-0.5) ng/ml Urine Color Yellow Urine Appearance Cloudy A (Clear) Urine pH 5.0 (4.5-7.5) Ur Specific [place] 1.014 (1.000-1.030) Urine Protein 1+ H (Negative) Urine Glucose (UA) Negative (Negative) Urine Ketones Negative (Negative) Urine Blood 3+ H (Negative) Urine Nitrite Negative (Negative) Urine Bilirubin Negative (Negative) Urine Urobilinogen Negative (Negative) Ur Leukocyte Esterase 3+ H (Negative) Urine WBC (Auto) >50 H (0-5) /hpf Urine RBC (Auto) 11-20 H (0-2) /hpf U Hyaline Cast (Auto) 0-2 (0-2) /lpf U Epithel Cells (Auto) 0-2 (0-2) /hpf Urine Bacteria (Auto) 4+ H (None Seen) Adenovirus (PCR) Not Detected (NotDetected) B. pertussis DNA (PCR) Not Detected (NotDetected) B.parapertussis DNA PCR Not Detected (NotDetected) C. pneumoniae DNA (PCR) Not Detected (NotDetected) Coronavirus OC43 (PCR) Not Detected (NotDetected) Coronavirus HKU1 (PCR) Not Detected (NotDetected) Coronavirus 229E (PCR) Not Detected (NotDetected) SARS-CoV-2 (PCR) Not Detected (NotDetected) Coronavirus NL63 (PCR) Not Detected (NotDetected) Human Metapneumovir PCR Not Detected (NotDetected) Influenza Type A (PCR) Not Detected (NotDetected) Influenza Type B (PCR) Not Detected (NotDetected) M. pneumoniae (PCR) Not Detected (NotDetected) Parainfluenza 1 (PCR) Not Detected (NotDetected) Parainfluenza 2 (PCR) Not Detected (NotDetected) Parainfluenza 3 (PCR) Not Detected (NotDetected) Parainfluenza 4 (PCR) Not Detected (NotDetected) RSV (PCR) Not Detected (NotDetected) Entero/Rhino (PCR) Not Detected (NotDetected) 06/06/24 06/07/24 Range/Units 23:17 00:49 WBC (4.8-10.8) K/ul RBC (4.70-6.10) M/uL Hgb (14.0-18.0) g/dl POC Hgb 10.9 L (14.0-18.0) g/dl Hct (42.0-52.0) % POC Hct 32 L (42-52) % MCV (80.0-100.0) fL MCH (25.0-34.0) pg MCHC (32.0-36.0) g/dL RDW Std Deviation (36.4-46.3) fL RDW Coeff of [place] (11.5-14.5) % Plt Count (130-400) K/uL MPV (9.4-12.4) fL Immature Gran % (Auto) % Neut % (Auto) % Lymph % (Auto) % [place] % (Auto) % Eos % (Auto) % Baso % (Auto) % Neut # (Auto) (1.40-6.50) K/uL Lymph # (Auto) (1.20-3.40) K/uL [place] # (Auto) (0.11-0.59) K/uL Eos # (Auto) (0.00-0.50) K/uL Baso # (Auto) (0.00-0.20) K/uL Immature Gran # (Auto) (0.01-0.20) K/uL Echinocytes PT (9.0-12.0) Seconds INR (0.9-1.1) APTT (21-31) Seconds PTT Ratio POC Sodium 140 (135-144) mmol/L Sodium (136-145) mmol/L POC Potassium 3.6 (3.3-5.0) mmol/L Potassium POC Chloride 113 H (101-112) mmol/L Chloride (98-107) mmol/L Carbon Dioxide (21-32) mmol/L POC Total CO2 13 L (24-31) mmol/L Anion Gap (3-11) POC Anion Gap 19.0 (16-25) mmol/L POC BUN 94 H (7-18) mg/dl BUN (6-23) mg/dl Creatinine (0.6-1.4) mg/dl POC Creatinine 4.4 H (0.6-1.3) mg/dl Est Cr Clr Drug Dosing ml/min eGFR BUN/Creatinine Ratio (10-20) Glucose (70-99(Fasting)) mg/dl POC Glucose (other) 202 H (70-99) mg/dl Lactate 6.0 H* (0.4-2.0) mmol/L Calcium (8.6-10.3) mg/dl POC Ioniz Calcium Gm 1.13 (1.12-1.32) mmol/l Magnesium (1.7-2.4) mg/dl Total Bilirubin (0.2-1.0) mg/dl Direct Bilirubin AST ALT (7-52) U/L Alkaline Phosphatase (34-104) U/L Troponin I High Sens 115.8 H* (0-20) pg/ml Total Protein (6.0-8.3) gm/dl Albumin (3.4-5.0) gm/dl Procalcitonin (0-0.5) ng/ml Urine Color Urine Appearance (Clear) Urine pH (4.5-7.5) Ur Specific [place] (1.000-1.030) Urine Protein (Negative) Urine Glucose (UA) (Negative) Urine Ketones (Negative) Urine Blood (Negative) Urine Nitrite (Negative) Urine Bilirubin (Negative) Urine Urobilinogen (Negative) Ur Leukocyte Esterase (Negative) Urine WBC (Auto) (0-5) /hpf Urine RBC (Auto) (0-2) /hpf U Hyaline Cast (Auto) (0-2) /lpf U Epithel Cells (Auto) (0-2) /hpf Urine Bacteria (Auto) (None Seen) Adenovirus (PCR) (NotDetected) B. pertussis DNA (PCR) (NotDetected) B.parapertussis DNA PCR (NotDetected) C. pneumoniae DNA (PCR) (NotDetected) Coronavirus OC43 (PCR) (NotDetected) Coronavirus HKU1 (PCR) (NotDetected) Coronavirus 229E (PCR) (NotDetected) SARS-CoV-2 (PCR) (NotDetected) Coronavirus NL63 (PCR) (NotDetected) Human Metapneumovir PCR (NotDetected) Influenza Type A (PCR) (NotDetected) Influenza Type B (PCR) (NotDetected) M. pneumoniae (PCR) (NotDetected) Parainfluenza 1 (PCR) (NotDetected) Parainfluenza 2 (PCR) (NotDetected) Parainfluenza 3 (PCR) (NotDetected) Parainfluenza 4 (PCR) (NotDetected) RSV (PCR) (NotDetected) Entero/Rhino (PCR) (NotDetected) Imaging Data Attestation: I personally reviewed and interpreted this imaging study as follows: Radiologist's Impression: Chest X-Ray 06/06/24 22:40 EXAM: XR chest 1V portable CLINICAL HISTORY: SEPSIS SDM TECHNIQUE: An X-ray image of the chest is obtained in AP projection. COMPARISON: 08/15/2020 FINDINGS: Pulmonary Parenchyma: Suboptimal inspiration. Bilateral diffuse pulmonary interstitial thickening. Bilateral hilar prominence and prominent bronchovascular markings. Mild cardiomegaly. Left costophrenic angle is not included in the view. Opacity is noted in the right lower zone. No evidence of consolidation, or collapse. No evidence of pleural effusion on the right side. Heart and Mediastinum: Mild cardiomegaly. No mediastinal masses. No hilar or mediastinal lymphadenopathy. Bony Thorax: Bony thorax appears intact without fractures or deformities. Mild degenerative changes are noted in the left shoulder joint. Soft Tissues: Soft tissues overlying the chest wall are unremarkable. Tubing is noted on the right side of the chest. Could be an extrathoracic correlate with the examination. IMPRESSION: 1. Suboptimal inspiration. 2. Bilateral diffuse pulmonary interstitial thickening. could be interstitial edema. Interval new 3. Bilateral hilar prominence and prominent bronchovascular markings. could be vascular congestion or infection. 4. Mild cardiomegaly.Stable 5. The left costophrenic angle is not included in the view. 6. Opacity in the right lower zone. could be atelectasis or infiltrate. Interval new. 7. Clinical correlation and CT chest are recommended if clinically indicated. Electronically signed by Nika Borrero 06-07-2024 01:26 AM Abdomen/Pelvis CT 06/06/24 23:32 CR Exam(s): CT ABDOMEN + PELVIS Without Contrast EXAM: CT Abdomen and Pelvis Without Intravenous Contrast CLINICAL HISTORY: Reason for exam: sepsis, AMS. TECHNIQUE: Axial computed tomography images of the abdomen and pelvis without intravenous contrast. CTDI is 37 mGy and DLP is 1400 mGy-cm. Automated exposure control was utilized for the study. A dose lowering technique was utilized adhering to the principles of ALARA. COMPARISON: September 29, 2014 FINDINGS: Lung bases: Mild bibasilar atelectasis or infiltrate. 3 cm of fluid in the lower esophagus. ABDOMEN: Liver: The liver is enlarged measuring 23 cm craniocaudad. No focal liver lesion is seen. Gallbladder and bile ducts: Unremarkable. No calcified stones. No ductal dilation. Pancreas: Unremarkable. No ductal dilation. Spleen: Unremarkable. No splenomegaly. Adrenals: Unremarkable. No mass. Kidneys and ureters: Mild left hydronephrosis and left perinephric stranding. No ureterolithiasis is seen. Consider ascending urinary tract infection and/or pyelonephritis. Stomach and bowel: 7.7 cm of stool in the rectum consistent with constipation. No obstruction. No mucosal thickening. PELVIS: Appendix: No findings to suggest acute appendicitis. Bladder: The prostate gland is enlarged measuring approximately 8.5 x 8.3 x 6.8 cm. There is a Peng catheter extending through the prostate gland. The urinary bladder is completely decompressed. There is an unusual 5 cm cluster of gas bubbles which appear to be extraluminal intimately superior to the urinary bladder. The adjacent small bowel loops are nondilated and did not appear to be inflamed. Reproductive: Unremarkable as visualized. ABDOMEN and PELVIS: Intraperitoneal space: Unremarkable. No free air. No significant fluid collection. Bones/joints: Mild degenerative changes in the spine. No acute fracture or subluxation. Soft tissues: Unremarkable. Vasculature: Unremarkable. No abdominal aortic aneurysm. Lymph nodes: Unremarkable. No enlarged lymph nodes. IMPRESSION: 1. Mild left hydronephrosis and left perinephric stranding. No ureterolithiasis is seen. Consider ascending urinary tract infection and/or pyelonephritis. 2. The prostate gland is enlarged measuring approximately 8.5 x 8.3 x 6. 8 cm. There is a Peng catheter extending through the prostate gland. The urinary bladder is completely decompressed. There is an unusual 5 cm cluster of gas bubbles which appear to be extraluminal intimately superior to the urinary bladder. The adjacent small bowel loops are nondilated and did not appear to be inflamed. Consider localized bladder perforation from recent Peng catheter placement versus subsegmental cystitis. 3. 7.7 cm of stool in the rectum consistent with constipation. Communications: Call Doctor Above results Electronically signed by: Rubio Dean MD 06/07/24 00:[address] 06/06/24 23:32 Exam(s): CT CHEST Without Contrast EXAM: CT Chest Without Intravenous Contrast CLINICAL HISTORY: Reason for exam: sepsis, ARF. TECHNIQUE: Axial computed tomography images of the chest without intravenous contrast. CTDI is 37 mGy and DLP is 1400 mGy-cm. Automated exposure control was utilized for the study. A dose lowering technique was utilized adhering to the principles of ALARA. COMPARISON: August 15, 2020 FINDINGS: Lungs: Vascular congestion without overt pulmonary edema. There are streaky densities in the right lower lobe just above the 4 cm elevated right diaphragm. Consider atelectasis versus pneumonia. No mass. Pleural space: Unremarkable. No pneumothorax. No significant effusion. Heart: The heart is not enlarged. Mild coronary calcification is present. No pericardial effusion is seen. Mediastinum: 3.4 cm fluid distention of the esophagus suggests reflux. No visible wall thickening or surrounding inflammation is seen. Bones/joints: Mild degenerative changes in the lower thoracic spine. No fracture or bone lesion identified. No dislocation. Soft tissues: Unremarkable. Vasculature: Slight ectasia of the ascending aortic arch measuring 4 cm in diameter. There is mild atherosclerotic calcification. No aneurysm. The descending aorta is nondilated. This is a noncontrast study. Lymph nodes: Unremarkable. No enlarged lymph nodes. IMPRESSION: 1. Slight ectasia of the ascending aortic arch measuring 4 cm in diameter. There is mild atherosclerotic calcification. No aneurysm. The descending aorta is nondilated. This is a noncontrast study. 2. Vascular congestion without overt pulmonary edema. There are streaky densities in the right lower lobe just above the 4 cm elevated right diaphragm. Consider atelectasis versus pneumonia. 3. 3.4 cm fluid distention of the esophagus suggests reflux. No visible wall thickening or surrounding inflammation is seen. Electronically signed by: Rubio Dean MD 06/07/24 00:[address] 06/06/24 23:32 Exam(s): CT HEAD Without Contrast EXAM: CT Head Without Intravenous Contrast CLINICAL HISTORY: Reason for exam: ams. TECHNIQUE: Axial computed tomography images of the head/brain without intravenous contrast. CTDI is 37 mGy and DLP is 1400 mGy-cm. Automated exposure control was utilized for the study. A dose lowering technique was utilized adhering to the principles of ALARA. COMPARISON: September 02, 2017 FINDINGS: Brain: Mild central atrophy and periventricular white matter low density consistent with chronic small vessel disease and/or senescent changes, similar to previous. There is mild motion artifact. No acute large vessel infarct or intracranial hemorrhage is seen. Ventricles: Mildly dilated. No mass or hemorrhage. Bones/joints: Unremarkable. No acute fracture. Soft tissues: Unremarkable. Sinuses: Unremarkable as visualized. No acute sinusitis. Mastoid air cells: Unremarkable as visualized. No mastoid effusion. IMPRESSION: Mild central atrophy and periventricular white matter low density consistent with chronic small vessel disease and/or senescent changes, similar to previous. There is mild motion artifact. No acute large vessel infarct or intracranial hemorrhage is seen. Electronically signed by: Rubio Dean MD 06/07/24 00:26 AM MDM Narrative Prior records/ancillary studies reviewed. Triage Nursing notes reviewed. Additional history obtained from nursing. The patient's history was concerning for fever, cough and hypotension. Differential diagnosis: Etiologies such as sepsis, UTI, pneumonia, metabolic, electrolyte abnormalities, cardiac sources, intracerebral event, toxicologic, neurologic, as well as others were entertained. Physical examination: As above. Pertinent findings were cough. Vital signs reviewed and revealed hypotensive. ER treatment provided: Septic workup was immediately initiated IV fluid resuscitation with Normal saline solution, 2500 mL bolus. Maintenance fluids of 125 an hour. Blood and urine cultures Antibiotics: Cefepime and vancomycin An order was placed for continuous cardiac monitoring. The monitor shows a rate of 60-1 50 with a sinus rhythm per my interpretation. 3 lines were placed. Peng was placed. Albumin was ordered, bicarb drip was started Limited Point of Care FAST Ultrasound performed by me: Indication: Septic shock Findings: Limited cardiac ultrasonography via subxiphoid and parasternal long view showed cardiac wall motion activity, no pericardial fluid, no tamponade. Limited chest ultrasound revealed bilateral lung sliding. Limited abdominal ultrasound revealed no free fluid within Cortés's pouch, splenorenal space, or the pouch of Cornelio. Impression: Negative FAST exam. On reassessment the patient vital signs improved. Diagnostics interpretation by me: ECG: Ordered for tachycardia EKG: Normal sinus, normal intervals, no acute ST-T wave changes, rate of 112. Impression sinus tachycardia independently interpreted by myself The labs Independently Interpreted by myself revealed severe leukocytosis on CBC. Chemistry panel revealed acute renal failure. LFTs revealed. Cardiac enzymes were elevated. Serum Lactate measurement was 6.4 and repeat was 6. Too high to read procalcitonin. Blood and urine cultures are pending. Imaging studies: Imaging was reviewed and read by radiology as above Consultation: I did speak to the radiologist and reviewed the CAT scans. He believes most likely that the area that he is seeing is in the bladder and less likely to be a bladder perforation. Consultation: A consultation was placed with the hospitalist. The case was discussed and diagnostics were reviewed. The patient was evaluated in the ER for further treatment. Consultation was placed with urology, Dr. Turcios. He did review the images independently. He believes most likely the bladder has folded over itself and this most likely is giving the appearance of the extraluminal gas. He states to confirm you could do a CT cystogram. He does recommend treating for the pyelonephritis and hydrating him with monitoring his I's and O's. Exam and history seem consistent with severe sepsis with septic shock from pyelonephritis. Patient was admitted started on IV fluids. 3 lines were placed. Antibiotics were written for. He was reassessed multiple times and his blood pressure was still low so Levophed was started after septic protocol fluids were given. Medicine, extracorporeal circulation specialist, urology and radiology were consulted and the case was discussed. He will be admitted to the medical service to the unit. Patient was also started on albumin and a bicarb drip. Peng was draining urine. Repeat abdominal exam is benign. Patient has been moving all extremities throughout the entire stay. Repeat lactic was slightly better. ABG was reviewed. He was started on a bicarb drip. My attending was made aware this patient after I initially saw the patient immediately. The chart was completed utilizing [employer] Speech voice recognition software. Grammatical errors, random word insertions, pronoun errors, and incomplete sentences are an occassional consequence of this system due to software limitations, ambient noise, and hardware issues. Any formal questions or concerns about the content, text, or information contained within the body of this dictation should be directly addressed to the physician gynecological assistant for clarification. Impression & Plan Septic shock, Leukocytosis, Elevated lactic acid level, RUBIA (acute kidney injury), Elevated procalcitonin, Non-ST elevation ND (NSTEMI), Acute UTI (urinary tract infection), Hydronephrosis, left Discharge Plan Visit Data Chief Complaint: Hypotension Stated Complaint: FEVER, HYPOTENSION, RESTLESS ED Provider: Joanne Hilton ED Midlevel Provider: Tara Jung Discharge Problem: Septic shock, Leukocytosis, Elevated lactic acid level, RUBIA (acute kidney injury), Elevated procalcitonin, Non-ST elevation ND (NSTEMI), Acute UTI (urinary tract infection), Hydronephrosis, left Patient Disposition: Admitted As Inpatient Condition: Critical Discharge Instructions Interventions: ED Discharge Assessment Last Done: 06/07/24 01:35
[2024-06-06] MEDS: CEFEPIME 2000MG 2,000 MG/20 ML SYR IV STA (23:13)
[2024-06-06] MEDS: NOREPINEPHRINE/D5W 4 MG/250 ML PLCT IV SCH (23:20)
[2024-06-06] MEDS: ACETAMINOPHEN 1000 MG/100 ML IV IV ONE (23:23)
[2024-06-06 23:29] LABS: iSTAT Creatinine 4.4 mg/dl (0.6-1.3); iSTAT Hemoglobin 10.9 g/dl (14.0-18.0); iSTAT Ionized Calcium 1.13 mmol/l (1.12-1.32); iSTAT Potassium 3.6 mmol/L (3.3-5.0)
--- NOTE | 2024-06-06 23:29 | Emergency Department Note ---
ED Visit Note I was consulted by the Advanced Practice Provider, Tara Jung PA-C. I performed a substantive portion of the visit. This includes aspects of: History: Patient is a 69-year-old male presenting for fever and increased restlessness at his facility. Patient has a history of intellectual disability and no staff from the facility present to give history. History is obtained via EMS. He reportedly was given a small dose of Ativan at the facility but he had continued restlessness and developed a fever, so they called 911. MDM: - Patient meets sepsis protocols and sepsis orders were obtained, including blood cultures, lactate and procalcitonin. - Laboratory workup interpreted by myself showed leukocytosis (WBC 23.86) with neutrophil predominance; normal PT/INR; elevated anion gap (17); acute kidney injury (Cr 3.93); elevated lactic acid (6.4); elevated procalcitonin (>100); hyp omagnesemia (Mg 1.6); elevated troponin (114.7); hypoalbuminemia (albumin 3.2) - Patient was given 2.5L NS in ER. His sepsis fluid volume calculation based on ideal body weight is 2181.60 mL - Blood cultures obtained - Empirically started on IV cefepime and vancomycin for antibiotic coverage. - Patient had persistent hypotension and was started on levophed drip with goal MAP >65. - Peng catheter inserted and strict I's and O's were monitored, given the patient's elevated creatinine. - Patietn also given a bolus of albumin for further volume resuscitation. - CXR negative for pneumonia, per my interpretation - Patient's NSTEMI likely type II in nature give his septic shock. EKG interpreted by myself showed normal sinus rhythm. Rate tachycardic at 112 bpm. QT 334. No acute ischemic changes. - CT head wo contrast negative - CT abdomen/pelvis wo contrast showed left hydronephrosis and left perinephric stranding but no obvious urolithiasis. Also noted to have 5 cm cluster of gas bubbles which radiology notes to be potentially extraluminal just superior to the bladder. They report that this could be from a potential localized bladder perforation versus subsegmental cystitis. Patient has no reproducible abdominal pain on examination. His Peng catheter went in easily and I think that a perforated bladder is less likely. - Patient to be admitted to hospitalist service and will be admitted to ICU. Hospitalist Dr. Meyer requested that the patient be started on bicarb drip. I have personally spent 63 minutes of critical care time in the direct management of this patient. This includes bedside care, interpretation of diagnostic studies, and testing, discussion with consultants, patient, and family members, and other required patient management activities. This 63 minutes is in excess of all separately billable procedures. ASSESSMENT & PLAN: Diagnosis: Septic shock; acute UTI; leukocytosis; elevated lactic acid; elevated procalcitonin; RUBIA; hypomagnesemia; NSTEMI; hydronephrosis on left Plan: Admit .
[2024-06-06 23:48] LABS: Alanine Aminotransferase 9 U/L (7-52); Albumin Level 3.2 gm/dl (3.4-5.0); Alkaline Phosphatase 434 U/L (34-104); Anion Gap 17 (3-11); BUN Creatinine Ratio 23.9 (10-20); Bilirubin,Total 0.5 mg/dl (0.2-1.0); Blood Urea Nitrogen 94 mg/dl (6-23); Calcium 9.1 mg/dl (8.6-10.3); Carbon Dioxide 14 mmol/L (21-32); Chloride 108 mmol/L (98-107); Creatinine Clr Calc Pharmacy 19.9 ml/min; Glucose 224 mg/dl (70-99(Fasting)); Magnesium 1.6 mg/dl (1.7-2.4); Sodium 139 mmol/L (136-145); Total Protein 6.2 gm/dl (6.0-8.3); Troponin I High Sensitivity 114.7 pg/ml (0-20)
[2024-06-06 23:54] LABS: Basophils # (auto) 0.08 K/uL (0.00-0.20); Basophils % (auto) 0.3 %; Echinocytes 1+; Eosinophils # (auto) 0.25 K/uL (0.00-0.50); Hematocrit (blood only) 39.2 % (42.0-52.0); Hemoglobin 13.3 g/dl (14.0-18.0); Immature Granulocytes # (auto) 0.77 K/uL (0.01-0.20); Immature Granulocytes % (auto) 3.2 %; Lymphocytes # (auto) 0.58 K/uL (1.20-3.40); Lymphocytes % (auto) 2.4 %; Mean Corpuscular Hemoglobin 31.9 pg (25.0-34.0); Mean Corpuscular Hgb Conc 33.9 g/dL (32.0-36.0); Mean Platelet Volume 10.8 fL (9.4-12.4); Monocytes # (auto) 1.12 K/uL (0.11-0.59); Monocytes % (auto) 4.7 %; Neutrophils # (auto) 21.06 K/uL (1.40-6.50); Neutrophils % (auto) 88.4 %; Platelet Count 169 K/uL (130-400); RDW Coefficient of Variation 13.6 % (11.5-14.5); RDW Standard Deviation 46.3 fL (36.4-46.3); Red Blood Count 4.17 M/uL (4.70-6.10); White Blood Count 23.86 K/ul (4.8-10.8)
[2024-06-06 23:55] LABS: Adenovirus PCR Not Detected (NotDetected); Bordetella parapertussis PCR Not Detected (NotDetected); Bordetella pertussis PCR Not Detected (NotDetected); Chlamydia pneumoniae PCR Not Detected (NotDetected); Coronavirus 229E PCR Not Detected (NotDetected); Coronavirus CoV-2 (COVID19)PCR Not Detected (NotDetected); Coronavirus HKU1 PCR Not Detected (NotDetected); Coronavirus NL63 PCR Not Detected (NotDetected); Coronavirus OC43PCR Not Detected (NotDetected); Human Metapneumovirus PCR Not Detected (NotDetected); Influenza A PCR Not Detected (NotDetected); Influenza B PCR Not Detected (NotDetected); Mycoplasma pneumoniae PCR Not Detected (NotDetected); Parainfluenza Virus 1 PCR Not Detected (NotDetected); Parainfluenza Virus 2 PCR Not Detected (NotDetected); Parainfluenza Virus 3 PCR Not Detected (NotDetected); Parainfluenza Virus 4 PCR Not Detected (NotDetected); Respiratory Syncytial VirusPCR Not Detected (NotDetected); Rhinovirus/Enterovirus PCR Not Detected (NotDetected)
[2024-06-06 23:57] LABS: Bilirubin Direct 0.1 mg/dl (0-0.2); Potassium 3.7 mmol/L (3.5-5.1)
[2024-06-06 23:59] LABS: INR 1.1 (0.9-1.1); Partial Thromboplastin Time 26 Seconds (21-31); Prothrombin Time 11.8 Seconds (9.0-12.0)
[2024-06-07] MEDS: VANCOMYCIN HCL 1,750 MG in SODIUM CHLORIDE 0.9% 500 ML IV ONE (00:01)
[2024-06-07] MEDS: NOREPINEPHRINE/D5W 4 MG/250 ML IV ONE (00:07)
[2024-06-07] MEDS: ACETAMINOPHEN 1,000 MG/100 ML VIAL IV STA (00:10)
[2024-06-07] MEDS: SODIUM CHLORIDE 0.9% 500 ML IV ONE ×2 (00:13→02:24)
[2024-06-07] MEDS: ALBUMIN 25% 25 GM/100 ML VIAL IV ONE (00:18)
[2024-06-07 00:22] LABS: Appearance Urine Cloudy (Clear); Bacteria Urine Automated 4+ (None Seen); Bilirubin Urine Negative (Negative); Blood Urine 3+ (Negative); Cast Urine Automated 0-2 /lpf (0-2); Color Urine Yellow; Epithelial Cell Urine Auto 0-2 /hpf (0-2); Glucose Urine UA Negative (Negative); Ketones Urine Negative (Negative); Leukocyte Esterase Urine 3+ (Negative); Nitrite Urine Negative (Negative); Protein Urine 1+ (Negative); Specific Gravity Urine 1.014 (1.000-1.030); Urobilinogen Urine Negative (Negative); WBC Urine Automated >50 /hpf (0-5)
--- NOTE | 2024-06-07 00:27 | CT Scan Report ---
Exam(s): CT HEAD Without Contrast EXAM: CT Head Without Intravenous Contrast CLINICAL HISTORY: Reason for exam: ams. TECHNIQUE: Axial computed tomography images of the head/brain without intravenous contrast. CTDI is 37 mGy and DLP is 1400 mGy-cm. Automated exposure control was utilized for the study. A dose lowering technique was utilized adhering to the principles of ALARA. COMPARISON: September 02, 2017 FINDINGS: Brain: Mild central atrophy and periventricular white matter low density consistent with chronic small vessel disease and/or senescent changes, similar to previous. There is mild motion artifact. No acute large vessel infarct or intracranial hemorrhage is seen. Ventricles: Mildly dilated. No mass or hemorrhage. Bones/joints: Unremarkable. No acute fracture. Soft tissues: Unremarkable. Sinuses: Unremarkable as visualized. No acute sinusitis. Mastoid air cells: Unremarkable as visualized. No mastoid effusion. IMPRESSION: Mild central atrophy and periventricular white matter low density consistent with chronic small vessel disease and/or senescent changes, similar to previous. There is mild motion artifact. No acute large vessel infarct or intracranial hemorrhage is seen. Electronically signed by: Rubio Dean MD 06/07/24 00:26 AM
--- NOTE | 2024-06-07 00:30 | CT Scan Report ---
Exam(s): CT CHEST Without Contrast EXAM: CT Chest Without Intravenous Contrast CLINICAL HISTORY: Reason for exam: sepsis, ARF. TECHNIQUE: Axial computed tomography images of the chest without intravenous contrast. CTDI is 37 mGy and DLP is 1400 mGy-cm. Automated exposure control was utilized for the study. A dose lowering technique was utilized adhering to the principles of ALARA. COMPARISON: August 15, 2020 FINDINGS: Lungs: Vascular congestion without overt pulmonary edema. There are streaky densities in the right lower lobe just above the 4 cm elevated right diaphragm. Consider atelectasis versus pneumonia. No mass. Pleural space: Unremarkable. No pneumothorax. No significant effusion. Heart: The heart is not enlarged. Mild coronary calcification is present. No pericardial effusion is seen. Mediastinum: 3.4 cm fluid distention of the esophagus suggests reflux. No visible wall thickening or surrounding inflammation is seen. Bones/joints: Mild degenerative changes in the lower thoracic spine. No fracture or bone lesion identified. No dislocation. Soft tissues: Unremarkable. Vasculature: Slight ectasia of the ascending aortic arch measuring 4 cm in diameter. There is mild atherosclerotic calcification. No aneurysm. The descending aorta is nondilated. This is a noncontrast study. Lymph nodes: Unremarkable. No enlarged lymph nodes. IMPRESSION: 1. Slight ectasia of the ascending aortic arch measuring 4 cm in diameter. There is mild atherosclerotic calcification. No aneurysm. The descending aorta is nondilated. This is a noncontrast study. 2. Vascular congestion without overt pulmonary edema. There are streaky densities in the right lower lobe just above the 4 cm elevated right diaphragm. Consider atelectasis versus pneumonia. 3. 3.4 cm fluid distention of the esophagus suggests reflux. No visible wall thickening or surrounding inflammation is seen. Electronically signed by: Rubio Dean MD 06/07/24 00:30 AM
--- NOTE | 2024-06-07 00:38 | CT Scan Report ---
Exam(s): CT ABDOMEN + PELVIS Without Contrast EXAM: CT Abdomen and Pelvis Without Intravenous Contrast CLINICAL HISTORY: Reason for exam: sepsis, AMS. TECHNIQUE: Axial computed tomography images of the abdomen and pelvis without intravenous contrast. CTDI is 37 mGy and DLP is 1400 mGy-cm. Automated exposure control was utilized for the study. A dose lowering technique was utilized adhering to the principles of ALARA. COMPARISON: September 29, 2014 FINDINGS: Lung bases: Mild bibasilar atelectasis or infiltrate. 3 cm of fluid in the lower esophagus. ABDOMEN: Liver: The liver is enlarged measuring 23 cm craniocaudad. No focal liver lesion is seen. Gallbladder and bile ducts: Unremarkable. No calcified stones. No ductal dilation. Pancreas: Unremarkable. No ductal dilation. Spleen: Unremarkable. No splenomegaly. Adrenals: Unremarkable. No mass. Kidneys and ureters: Mild left hydronephrosis and left perinephric stranding. No ureterolithiasis is seen. Consider ascending urinary tract infection and/or pyelonephritis. Stomach and bowel: 7.7 cm of stool in the rectum consistent with constipation. No obstruction. No mucosal thickening. PELVIS: Appendix: No findings to suggest acute appendicitis. Bladder: The prostate gland is enlarged measuring approximately 8.5 x 8.3 x 6.8 cm. There is a Peng catheter extending through the prostate gland. The urinary bladder is completely decompressed. There is an unusual 5 cm cluster of gas bubbles which appear to be extraluminal intimately superior to the urinary bladder. The adjacent small bowel loops are nondilated and did not appear to be inflamed. Reproductive: Unremarkable as visualized. ABDOMEN and PELVIS: Intraperitoneal space: Unremarkable. No free air. No significant fluid collection. Bones/joints: Mild degenerative changes in the spine. No acute fracture or subluxation. Soft tissues: Unremarkable. Vasculature: Unremarkable. No abdominal aortic aneurysm. Lymph nodes: Unremarkable. No enlarged lymph nodes. IMPRESSION: 1. Mild left hydronephrosis and left perinephric stranding. No ureterolithiasis is seen. Consider ascending urinary tract infection and/or pyelonephritis. 2. The prostate gland is enlarged measuring approximately 8.5 x 8.3 x 6. 8 cm. There is a Peng catheter extending through the prostate gland. The urinary bladder is completely decompressed. There is an unusual 5 cm cluster of gas bubbles which appear to be extraluminal intimately superior to the urinary bladder. The adjacent small bowel loops are nondilated and did not appear to be inflamed. Consider localized bladder perforation from recent Peng catheter placement versus subsegmental cystitis. 3. 7.7 cm of stool in the rectum consistent with constipation. Communications: Call Doctor Above results Electronically signed by: Rubio Dean MD 06/07/24 00:37 AM
[2024-06-07] MEDS ORDERED: STAT IV/IM STA (00:55)
[2024-06-07] MEDS ORDERED: SODIUM BICARBONATE 8.4% 150 MEQ in DEXTROSE 5% 1,000 ML IV SCH (01:00)
[2024-06-07] MEDS ORDERED: ACETAMINOPHEN 1,000 MG/100 ML VIAL IV PRN (01:02)
[2024-06-07] MEDS: STAT IV Infusion **Titration per Protocol STA (01:09)
[2024-06-07] MEDS: STAT IV/IM STA (01:11)
[2024-06-07] MEDS: SODIUM BICARBONATE 8.4% 150 MEQ in DEXTROSE 5% 1,000 ML IV SCH (01:12)
--- NOTE | 2024-06-07 01:21 | History & Physical Report ---
Date of Service June 07, 2024 Assessment & Plan (1) Septic shock: (2) ARF (acute renal failure): (3) Sepsis due to urinary tract infection: (4) Metabolic acidosis: (5) Admitted to intensive care unit: Plan The patient is a 69-year-old male with past medical history including small vessel cerebrovascular disease, neurologic gait disorder, B12 deficiency, BPH with LUTS, intellectual disability, GERD, bipolar disorder, conductive hearing loss bilaterally, hypercholesterolemia, bowel incontinence, GERD, depression, and history of diverticulosis. The patient presented to the emergency department with fever, restlessness, confusion and disorientation, with noted low blood pre ssure at his long-term care residence at this [facility], and was noted to have cough, congestion, fever and chills for most of the day. His maximum temperature today was noted to be 101 F. The patient does have intellectual disability with cognitive impairment, and due to persistence of his symptoms, was brought to the ED for assessment this evening #Septic shock- Thought secondary to urinary tract infection Admission to intensive care unit While in the ED received the followin L normal saline fluid bolus Started on bicarbonate drip Placed on linezolid 6 and milligrams IV every 12 hours Cefepime 2 g IV every 12 hours Protonix 40 mg IV daily Sepsis due to urinary tract infection- Peng catheter was placed in the ED Follow urine culture and sensitivity Empiric IV antibiotics as above Hypotension- Despite aggressive fluid rehydration and bicarbonate drip, patient did require Levophed for head infusion, which we titrated per ICU protocol Acute renal failure- Creatinine 3.93 on admission, with baseline 0.98 Aggressive fluid rehydration, bicarbonate drip, Levophed infusion as noted Follow laboratory serially in the a.m. Diabetes mellitus- Glucose 224 on admission Hold metformin Continue glargine 10 units subcu and even Placed on ICU hyperglycemic protocol Metabolic acidosis- Lactate 6.4 on admission Follow-up pending, follow-up per protocol Hypomagnesemia- Magnesium 1.6 on admission Give 2 g magnesium sulfate IV, and recheck laboratories in the a.m. Chronic medical issues: Hypothyroidism-resume levothyroxine Hyperlipidemia-resume atorvastatin Parkinsonism/anxiety with depression-resume carbidopa/levodopa, lorazepam, paroxetine when able History of Present Illness Chief Complaint: The patient presented to the emergency department with fever, restlessness, confusion and disorientation, with noted low blood pressure at his long-term care residence at this [facility], and was noted to have cough, congestion, fever and chills for most of the day. His maximum temperature today was noted to be 101 F. The patient does have intellectual disability with cognitive impairment, and due to persistence of his symptoms, was brought to the ED for assessment this evening Primary Care Provider: [facility] The patient is a 69-year-old male with past medical history including small vessel cerebrovascular disease, neurologic gait disorder, B12 deficiency, BPH with LUTS, intellectual disability, GERD, bipolar disorder, conductive hearing loss bilaterally, hypercholesterolemia, bowel incontinence, GERD, depression, and history of diverticulosis. The patient presented to the emergency department with fever, restlessness, confusion and disorientation, with noted low blood pressure at his long-term care residence at this [facility], and was noted to have cough, congestion, fever and chills for most of the day. His maximum temperature today was noted to be 101 F. The patient does have intellectual disability with cognitive impairment, and due to persistence of his symptoms, was brought to the ED for assessment this evening Allergies Allergy/AdvReac Type Severity Reaction Status Date / Time Penicillins AdvReac Intermediate RASH Verified 05/10/24 08:33 Home Medications Medication Instructions Recorded Confirmed Type atorvastatin 10 mg tablet 10 mg PO DAILY 10/11/18 06/07/24 History loperamide 2 mg capsule 2 mg PO Q6 PRN Diarrhea 10/11/18 06/07/24 History (Anti-Diarrheal (loperamide)) pantoprazole 40 mg tablet,delayed 40 mg PO QAM 11/01/18 06/07/24 History release acetaminophen 325 mg tablet 650 mg PO Q6H PRN pain/fever 02/27/19 06/07/24 History cholecalciferol (vitamin D3) 50 2,000 units PO DAILY #30 caps 03/08/19 06/07/24 Rx mcg (2,000 unit) capsule melatonin 5 mg tablet 5 mg PO HS sleep #90 tabs 09/18/19 06/07/24 Rx meloxicam 15 mg tablet 15 mg PO DAILY 06/09/20 06/07/24 History cholestyramine (with sugar) 4 gram 1 ea PO BID 12/15/20 06/07/24 History oral powder oxybutynin chloride 10 mg 10 mg PO DAILY 12/15/20 06/07/24 History tablet,extended release 24 hr cyanocobalamin (vitamin B-12) 2,500 mcg PO DAILY #30 tabs 07/13/21 06/07/24 Rx 2,500 mcg tablet carbidopa 25 mg-levodopa 100 mg 1 tab PO QID 11/26/21 06/07/24 History tablet (Sinemet) levothyroxine 50 mcg tablet 50 mcg PO DAILY 11/26/21 06/07/24 History ciprofloxacin HCl 500 mg tablet 500 mg PO BID 3 days #6 tabs 05/10/24 06/07/24 Rx insulin glargine 100 unit/mL 20 unit subcut HS 05/10/24 06/07/24 History subcutaneous solution metformin 500 mg tablet 1,000 mg PO AMHS 05/10/24 06/07/24 History azithromycin 250 mg tablet 250 mg PO UD 06/07/24 06/07/24 History azithromycin 250 mg tablet 500 mg PO ONCE 06/07/24 06/07/24 History buspirone 7.5 mg tablet 7.5 mg PO Q12 06/07/24 06/07/24 History carboxymethylcellulose sodium 1 % 1 drp OPB DAILY 06/07/24 06/07/24 History eye liquid gel drops (Refresh Liquigel) ketoconazole 1 % shampoo 1 applic topical 2XWK 06/07/24 06/07/24 History lorazepam 0.5 mg tablet 0.5 mg PO Q6 PRN 06/07/24 06/07/24 History anxiety/restlessness morphine concentrate 20 mg/mL oral 10 mg PO Q4 PRN Shortness Of Breath 06/07/24 06/07/24 History syringe (FOR ORAL USE ONLY) paroxetine HCl 40 mg tablet 40 mg PO QAM 06/07/24 06/07/24 History Past Med/Surg History Problem List (Updated 06/07/24 @ 04:22 by Iron Meyer MD) Admitted to intensive care unit Sepsis due to urinary tract infection Metabolic acidosis ARF (acute renal failure) Severe sepsis Hydronephrosis, left (Acute) Acute UTI (urinary tract infection) (Acute) Non-ST elevation [place] (NSTEMI) (Acute) Elevated procalcitonin (Acute) RUBIA (acute kidney injury) (Acute) Elevated lactic acid level (Acute) Leukocytosis (Acute) Septic shock (Acute) Small vessel disease, cerebrovascular Neurologic gait disorder B12 deficiency Elevated PSA Ataxic gait Cognitive change Urinary symptom or sign Intellectual disability GERD (gastroesophageal reflux disease) UTI (urinary tract infection) (Acute) Atypical Parkinsonism (Chronic) Prediabetes (Chronic) Bipolar disorder (Chronic) Benign prostatic hyperplasia with urinary obstruction (Chronic) Conductive hearing loss of both ears (Chronic) Dysphagia (Chronic) Hypercholesterolemia (Chronic) Incontinence of bowel (Chronic) Leukopenia (Chronic) Depression (Chronic) GERD (gastroesophageal reflux disease) (Chronic) Diverticulosis (Chronic) Medical History (Updated 06/07/24 @ 04:22 by Iron Meyer MD) Sepsis Hypoxia Bilateral pneumonia Alteration consciousness Closed left hip fracture Diarrhea Generalized weakness Major depressive disorder Diverticular disease Tinnitus of both ears BPH (benign prostatic hyperplasia) Generalized muscle weakness Gait apraxia Chronic shoulder pain Cognitive disorder Unsteady gait Aspiration precautions Incontinence Hyperlipemia Bipolar disorder Surgical History Hx of tonsillectomy H/O wisdom tooth extraction S/P hip replacement H/O inguinal hernia repair Status post left hip replacement History of left hip replacement Family History Unknown Obesity Hypercholesterolemia Father Diabetes Ischemic heart disease Sister Cancer Other Family history unknown Social History Smoking Status: Unknown if ever smoked Second Hand Exposure: No; Do You Dip or Chew Tobacco: No; Hx Alcohol Use: No Hx Substance Use: No Preferred Language: Divehi Communication Ability: Effective Communication Ability Comment: able to make needs known with short answer questions Computerized [employer] Required: No Beliefs That Will Affect Care: None Current Living Situation: Residential Current Living Situation Comment: [facility] Feels Safe at Home: Yes Assistive Devices: Walker Review of Systems Review of Systems: HPI and review of systems are somewhat limited due to patient's underlying intellectual disability and cognitive impairment, and are obtained from [facility] and the ED Physical Exam Physical Exam: The patient is confused, but able to respond to some questions. normocephalic and atraumatic, lying in bed and in no acute distress. HEENT--PERRL, EOMI, mucous membranes and oropharynx moderately dry., With poor oral care Neck--supple. No JVD. No bruits. Thyroid normal, trachea midline, no adenopathy. Heart--normal S1 and S2. No murmurs, rubs or gallops. Lungs--clear bilaterally, no respiratory distress, no accessory muscle use. Abdomen--normal bowel sounds and soft. Nontender. Nondistended. Peng catheter draining dark cloudy urine Extremities--no cyanosis or clubbing. No edema. Dermatologic--normal skin turgor, normal color, no abnormal lymph nodes, no rash. Neurologic--cranial nerves II through XII grossly intact. Rheumatologic--normal range of motion. Psychiatric--mildly confused, with baseline intellectual disability Results & Data Results & Data Vital Signs (Past 12 Hours) Vital Signs Temp Pulse Resp BP Pulse Ox O2 Del Method O2 Flow Rate 06/07/24 00:36 104 H 32 H 81/57 L 90 Free Flow/Blow-by 06/07/24 00:36 81/57 L 06/07/24 00:30 94/57 L 06/07/24 00:30 94/57 L 06/07/24 00:30 102 H 30 H 94/57 L 90 Free Flow/Blow-by 06/07/24 00:29 Free Flow/Blow-by 06/07/24 00:25 94/56 L 06/07/24 00:24 101 H 36 H 90 06/07/24 00:21 95 H 27 H 06/07/24 00:21 37.4 C 06/07/24 00:20 78/55 L 06/07/24 00:20 78/55 L 06/07/24 00:20 78/55 L 06/07/24 00:20 78/55 L 06/07/24 00:20 78/55 L 06/07/24 00:18 101 H 34 H 90 06/07/24 00:17 77/61 L 06/06/24 23:57 104 H 22 104/58 L 90 Nasal Cannula 2 06/06/24 23:32 92/38 L 06/06/24 23:18 105 H 18 60/51 L 93 06/06/24 23:12 108 H 38 H 75/44 L 93 06/06/24 23:03 106 H 22 94 06/06/24 22:48 108 H 41 H 63/35 L 91 Room Air 06/06/24 22:39 114 H 22 81/45 L 93 Room Air 06/06/24 22:39 115 H 06/06/24 22:38 36.8 C 114 H 36 H 81/45 L 93 Room Air Laboratory Results Laboratory Results WBC 38.17 K/ul (4.8-10.8) H* D 06/07/24 03:02 RBC 3.65 M/uL (4.70-6.10) L 06/07/24 03:02 Hgb 11.4 g/dl (14.0-18.0) L 06/07/24 03:02 POC Hgb 10.9 g/dl (14.0-18.0) L 06/06/24 23:17 Hct 34.7 % (42.0-52.0) L 06/07/24 03:02 POC Hct 32 % (42-52) L 06/06/24 23:17 MCV 95.1 fL (80.0-100.0) 06/07/24 03:02 MCH 31.2 pg (25.0-34.0) 06/07/24 03:02 MCHC 32.9 g/dL (32.0-36.0) 06/07/24 03:02 RDW Std Deviation 47.4 fL (36.4-46.3) H 06/07/24 03:02 RDW Coeff of Osbaldo 13.6 % (11.5-14.5) 06/07/24 03:02 Plt Count 165 K/uL (130-400) 06/07/24 03:02 MPV 10.3 fL (9.4-12.4) 06/07/24 03:02 Immature Gran % (Auto) 4.8 % 06/07/24 03:02 Neut % (Auto) 87.2 % 06/07/24 03:02 Lymph % (Auto) 2.1 % 06/07/24 03:02 Isabella % (Auto) 5.1 % 06/07/24 03:02 Eos % (Auto) 0.4 % 06/07/24 03:02 Baso % (Auto) 0.4 % 06/07/24 03:02 Neut # (Auto) 33.27 K/uL (1.40-6.50) H 06/07/24 03:02 Lymph # (Auto) 0.80 K/uL (1.20-3.40) L 06/07/24 03:02 Isabella # (Auto) 1.96 K/uL (0.11-0.59) H 06/07/24 03:02 Eos # (Auto) 0.17 K/uL (0.00-0.50) 06/07/24 03:02 Baso # (Auto) 0.14 K/uL (0.00-0.20) 06/07/24 03:02 Immature Gran # (Auto) 1.83 K/uL (0.01-0.20) H 06/07/24 03:02 Dohle Bodies 1+ 06/07/24 03:02 Polychromasia 1+ 06/07/24 03:02 Echinocytes 1+ 06/07/24 03:02 PT 11.9 Seconds (9.0-12.0) 06/07/24 03:02 INR 1.1 (0.9-1.1) 06/07/24 03:02 APTT 26 Seconds (21-31) 06/06/24 22:42 PTT Ratio 1.0 06/06/24 22:42 VBG pH 7.33 (7.36-7.41) L 06/07/24 03:02 VBG pCO2 30 mmHg (38-50) L 06/07/24 03:02 VBG pO2 47 mmHg 06/07/24 03:02 VBG HCO3 16 mmol/L 06/07/24 03:02 VBG O2 Saturation 73.4 % 06/07/24 03:02 VBG Base Excess -8.8 mEq/L 06/07/24 03:02 POC Sodium 140 mmol/L (135-144) 06/06/24 23:17 Sodium 141 mmol/L (136-145) 06/07/24 03:02 POC Potassium 3.6 mmol/L (3.3-5.0) 06/06/24 23:17 Potassium 3.9 mmol/L (3.5-5.1) 06/07/24 03:02 POC Chloride 113 mmol/L (101-112) H 06/06/24 23:17 Chloride 108 mmol/L (98-107) H 06/07/24 03:02 Carbon Dioxide 16 mmol/L (21-32) L 06/07/24 03:02 POC Total CO2 13 mmol/L (24-31) L 06/06/24 23:17 Anion Gap 17 (3-11) H 06/07/24 03:02 POC Anion Gap 19.0 mmol/L (16-25) 06/06/24 23:17 POC BUN 94 mg/dl (7-18) H 06/06/24 23:17 BUN 91 mg/dl (6-23) H 06/07/24 03:02 Creatinine 3.69 mg/dl (0.6-1.4) H 06/07/24 03:02 POC Creatinine 4.4 mg/dl (0.6-1.3) H 06/06/24 23:17 Est Cr Clr Drug Dosing 19.2 ml/min 06/07/24 03:02 eGFR 17.11 06/07/24 03:02 BUN/Creatinine Ratio 24.7 (10-20) H 06/07/24 03:02 Glucose 233 mg/dl (70-99(Fasting)) H 06/07/24 03:02 POC Glucose (other) 202 mg/dl (70-99) H 06/06/24 23:17 Lactate 7.9 mmol/L (0.4-2.0) H* 06/07/24 03:02 Calcium 8.4 mg/dl (8.6-10.3) L 06/07/24 03:02 POC Ioniz Calcium Gm 1.13 mmol/l (1.12-1.32) 06/06/24 23:17 Magnesium 1.6 mg/dl (1.7-2.4) L 06/06/24 22:42 Total Bilirubin 0.7 mg/dl (0.2-1.0) 06/07/24 03:02 Direct Bilirubin 0.1 mg/dl (0-0.2) 06/06/24 23:08 AST 19 U/L (13-39) 06/07/24 03:02 ALT 12 U/L (7-52) 06/07/24 03:02 Alkaline Phosphatase 242 U/L (34-104) H 06/07/24 03:02 Troponin I High Sens 115.8 pg/ml (0-20) H* 06/07/24 00:49 Total Protein 5.6 gm/dl (6.0-8.3) L 06/07/24 03:02 Albumin 3.2 gm/dl (3.4-5.0) L 06/07/24 03:02 Globulin 2.4 gm/dl (2.5-4.0) L 06/07/24 03:02 Albumin/Globulin Ratio 1.3 (0.9-2) 06/07/24 03:02 Procalcitonin > 100.00 ng/ml (0-0.5) H 06/06/24 22:42 Urine Color Yellow 06/06/24 23:01 Urine Appearance Cloudy (Clear) A 06/06/24 23:01 Urine pH 5.0 (4.5-7.5) 06/06/24 23:01 Ur Specific [place] 1.014 (1.000-1.030) 06/06/24 23:01 Urine Protein 1+ (Negative) H 06/06/24 23:01 Urine Glucose (UA) Negative (Negative) 06/06/24 23:01 Urine Ketones Negative (Negative) 06/06/24 23:01 Urine Blood 3+ (Negative) H 06/06/24 23:01 Urine Nitrite Negative (Negative) 06/06/24 23:01 Urine Bilirubin Negative (Negative) 06/06/24 23:01 Urine Urobilinogen Negative (Negative) 06/06/24 23:01 Ur Leukocyte Esterase 3+ (Negative) H 06/06/24 23:01 Urine WBC (Auto) >50 /hpf (0-5) H 06/06/24 23:01 Urine RBC (Auto) 11-20 /hpf (0-2) H 06/06/24 23:01 U Hyaline Cast (Auto) 0-2 /lpf (0-2) 06/06/24 23:01 U Epithel Cells (Auto) 0-2 /hpf (0-2) 06/06/24 23:01 Urine Bacteria (Auto) 4+ (None Seen) H 06/06/24 23:01 Nasal Screen MRSA (PCR) Positive (Negative) A 06/07/24 01:50 Adenovirus (PCR) Not Detected (NotDetected) 06/06/24 22:42 B. pertussis DNA (PCR) Not Detected (NotDetected) 06/06/24 22:42 B.parapertussis DNA PCR Not Detected (NotDetected) 06/06/24 22:42 C. pneumoniae DNA (PCR) Not Detected (NotDetected) 06/06/24 22:42 Coronavirus OC43 (PCR) Not Detected (NotDetected) 06/06/24 22:42 Coronavirus HKU1 (PCR) Not Detected (NotDetected) 06/06/24 22:42 Coronavirus 229E (PCR) Not Detected (NotDetected) 06/06/24 22:42 SARS-CoV-2 (PCR) Not Detected (NotDetected) 06/06/24 22:42 Coronavirus NL63 (PCR) Not Detected (NotDetected) 06/06/24 22:42 Human Metapneumovir PCR Not Detected (NotDetected) 06/06/24 22:42 Influenza Type A (PCR) Not Detected (NotDetected) 06/06/24 22:42 Influenza Type B (PCR) Not Detected (NotDetected) 06/06/24 22:42 M. pneumoniae (PCR) Not Detected (NotDetected) 06/06/24 22:42 Parainfluenza 1 (PCR) Not Detected (NotDetected) 06/06/24 22:42 Parainfluenza 2 (PCR) Not Detected (NotDetected) 06/06/24 22:42 Parainfluenza 3 (PCR) Not Detected (NotDetected) 06/06/24 22:42 Parainfluenza 4 (PCR) Not Detected (NotDetected) 06/06/24 22:42 RSV (PCR) Not Detected (NotDetected) 06/06/24 22:42 Entero/Rhino (PCR) Not Detected (NotDetected) 06/06/24 22:42 Impressions Chest X-Ray 06/06/24 22:40 EXAM: XR chest 1V portable CLINICAL HISTORY: SEPSIS SDM TECHNIQUE: An X-ray image of the chest is obtained in AP projection. COMPARISON: 08/15/2020 FINDINGS: Pulmonary Parenchyma: Suboptimal inspiration. Bilateral diffuse pulmonary interstitial thickening. Bilateral hilar prominence and prominent bronchovascular markings. Mild cardiomegaly. Left costophrenic angle is not included in the view. Opacity is noted in the right lower zone. No evidence of consolidation, or collapse. No evidence of pleural effusion on the right side. Heart and Mediastinum: Mild cardiomegaly. No mediastinal masses. No hilar or mediastinal lymphadenopathy. Bony Thorax: Bony thorax appears intact without fractures or deformities. Mild degenerative changes are noted in the left shoulder joint. Soft Tissues: Soft tissues overlying the chest wall are unremarkable. Tubing is noted on the right side of the chest. Could be an extrathoracic correlate with the examination. IMPRESSION: 1. Suboptimal inspiration. 2. Bilateral diffuse pulmonary interstitial thickening. could be interstitial edema. Interval new 3. Bilateral hilar prominence and prominent bronchovascular markings. could be vascular congestion or infection. 4. Mild cardiomegaly.Stable 5. The left costophrenic angle is not included in the view. 6. Opacity in the right lower zone. could be atelectasis or infiltrate. Interval new. 7. Clinical correlation and CT chest are recommended if clinically indicated. Electronically signed by Nika Borrero 06-07-2024 01:26 AM Abdomen/Pelvis CT 06/06/24 23:32 CR Exam(s): CT ABDOMEN + PELVIS Without Contrast EXAM: CT Abdomen and Pelvis Without Intravenous Contrast CLINICAL HISTORY: Reason for exam: sepsis, AMS. TECHNIQUE: Axial computed tomography images of the abdomen and pelvis without intravenous contrast. CTDI is 37 mGy and DLP is 1400 mGy-cm. Automated exposure control was utilized for the study. A dose lowering technique was utilized adhering to the principles of ALARA. COMPARISON: September 29, 2014 FINDINGS: Lung bases: Mild bibasilar atelectasis or infiltrate. 3 cm of fluid in the lower esophagus. ABDOMEN: Liver: The liver is enlarged measuring 23 cm craniocaudad. No focal liver lesion is seen. Gallbladder and bile ducts: Unremarkable. No calcified stones. No ductal dilation. Pancreas: Unremarkable. No ductal dilation. Spleen: Unremarkable. No splenomegaly. Adrenals: Unremarkable. No mass. Kidneys and ureters: Mild left hydronephrosis and left perinephric stranding. No ureterolithiasis is seen. Consider ascending urinary tract infection and/or pyelonephritis. Stomach and bowel: 7.7 cm of stool in the rectum consistent with constipation. No obstruction. No mucosal thickening. PELVIS: Appendix: No findings to suggest acute appendicitis. Bladder: The prostate gland is enlarged measuring approximately 8.5 x 8.3 x 6.8 cm. There is a Peng catheter extending through the prostate gland. The urinary bladder is completely decompressed. There is an unusual 5 cm cluster of gas bubbles which appear to be extraluminal intimately superior to the urinary bladder. The adjacent small bowel loops are nondilated and did not appear to be inflamed. Reproductive: Unremarkable as visualized. ABDOMEN and PELVIS: Intraperitoneal space: Unremarkable. No free air. No significant fluid collection. Bones/joints: Mild degenerative changes in the spine. No acute fracture or subluxation. Soft tissues: Unremarkable. Vasculature: Unremarkable. No abdominal aortic aneurysm. Lymph nodes: Unremarkable. No enlarged lymph nodes. IMPRESSION: 1. Mild left hydronephrosis and left perinephric stranding. No ureterolithiasis is seen. Consider ascending urinary tract infection and/or pyelonephritis. 2. The prostate gland is enlarged measuring approximately 8.5 x 8.3 x 6. 8 cm. There is a Peng catheter extending through the prostate gland. The urinary bladder is completely decompressed. There is an unusual 5 cm cluster of gas bubbles which appear to be extraluminal intimately superior to the urinary bladder. The adjacent small bowel loops are nondilated and did not appear to be inflamed. Consider localized bladder perforation from recent Peng catheter placement versus subsegmental cystitis. 3. 7.7 cm of stool in the rectum consistent with constipation. Communications: Call Doctor Above results Electronically signed by: Rubio Dean MD 06/07/24 00:[address] 06/06/24 23:32 Exam(s): CT CHEST Without Contrast EXAM: CT Chest Without Intravenous Contrast CLINICAL HISTORY: Reason for exam: sepsis, ARF. TECHNIQUE: Axial computed tomography images of the chest without intravenous contrast. CTDI is 37 mGy and DLP is 1400 mGy-cm. Automated exposure control was utilized for the study. A dose lowering technique was utilized adhering to the principles of ALARA. COMPARISON: August 15, 2020 FINDINGS: Lungs: Vascular congestion without overt pulmonary edema. There are streaky densities in the right lower lobe just above the 4 cm elevated right diaphragm. Consider atelectasis versus pneumonia. No mass. Pleural space: Unremarkable. No pneumothorax. No significant effusion. Heart: The heart is not enlarged. Mild coronary calcification is present. No pericardial effusion is seen. Mediastinum: 3.4 cm fluid distention of the esophagus suggests reflux. No visible wall thickening or surrounding inflammation is seen. Bones/joints: Mild degenerative changes in the lower thoracic spine. No fracture or bone lesion identified. No dislocation. Soft tissues: Unremarkable. Vasculature: Slight ectasia of the ascending aortic arch measuring 4 cm in diameter. There is mild atherosclerotic calcification. No aneurysm. The descending aorta is nondilated. This is a noncontrast study. Lymph nodes: Unremarkable. No enlarged lymph nodes. IMPRESSION: 1. Slight ectasia of the ascending aortic arch measuring 4 cm in diameter. There is mild atherosclerotic calcification. No aneurysm. The descending aorta is nondilated. This is a noncontrast study. 2. Vascular congestion without overt pulmonary edema. There are streaky densities in the right lower lobe just above the 4 cm elevated right diaphragm. Consider atelectasis versus pneumonia. 3. 3.4 cm fluid distention of the esophagus suggests reflux. No visible wall thickening or surrounding inflammation is seen. Electronically signed by: Rubio Dean MD 06/07/24 00:[address] 06/06/24 23:32 Exam(s): CT HEAD Without Contrast EXAM: CT Head Without Intravenous Contrast CLINICAL HISTORY: Reason for exam: ams. TECHNIQUE: Axial computed tomography images of the head/brain without intravenous contrast. CTDI is 37 mGy and DLP is 1400 mGy-cm. Automated exposure control was utilized for the study. A dose lowering technique was utilized adhering to the principles of ALARA. COMPARISON: September 02, 2017 FINDINGS: Brain: Mild central atrophy and periventricular white matter low density consistent with chronic small vessel disease and/or senescent changes, similar to previous. There is mild motion artifact. No acute large vessel infarct or intracranial hemorrhage is seen. Ventricles: Mildly dilated. No mass or hemorrhage. Bones/joints: Unremarkable. No acute fracture. Soft tissues: Unremarkable. Sinuses: Unremarkable as visualized. No acute sinusitis. Mastoid air cells: Unremarkable as visualized. No mastoid effusion. IMPRESSION: Mild central atrophy and periventricular white matter low density consistent with chronic small vessel disease and/or senescent changes, similar to previous. There is mild motion artifact. No acute large vessel infarct or intracranial hemorrhage is seen. Electronically signed by: Rubio Dean MD 06/07/24 00:26 AM Code Status & VTE Plan Code Status DNR/DNI VTE Prophylaxis Plan VTE Prophylaxis will be ordered: Yes PG Care Time/CCT Total # of Minutes Spent Total Time Spent with Patient: Total time spent is greater than 50% in coordination of care (as documented) at patient's floor/unit and/or counseling patient: Coding Level of Care Code 00391 INT INP/OBS CARE 375MIN Diagnoses Septic shock A41.9; R65.21 ARF (acute renal failure) N17.9 Sepsis due to urinary tract infection A41.9; N39.0 Metabolic acidosis E87.20 Admitted to intensive care unit Z78.9
--- NOTE | 2024-06-07 01:27 | XRay Report ---
EXAM: XR chest 1V portable CLINICAL HISTORY: SEPSIS SDM TECHNIQUE: An X-ray image of the chest is obtained in AP projection. COMPARISON: 08/15/2020 FINDINGS: Pulmonary Parenchyma: Suboptimal inspiration. Bilateral diffuse pulmonary interstitial thickening. Bilateral hilar prominence and prominent bronchovascular markings. Mild cardiomegaly. Left costophrenic angle is not included in the view. Opacity is noted in the right lower zone. No evidence of consolidation, or collapse. No evidence of pleural effusion on the right side. Heart and Mediastinum: Mild cardiomegaly. No mediastinal masses. No hilar or mediastinal lymphadenopathy. Bony Thorax: Bony thorax appears intact without fractures or deformities. Mild degenerative changes are noted in the left shoulder joint. Soft Tissues: Soft tissues overlying the chest wall are unremarkable. Tubing is noted on the right side of the chest. Could be an extrathoracic correlate with the examination. IMPRESSION: 1. Suboptimal inspiration. 2. Bilateral diffuse pulmonary interstitial thickening. could be interstitial edema. Interval new 3. Bilateral hilar prominence and prominent bronchovascular markings. could be vascular congestion or infection. 4. Mild cardiomegaly.Stable 5. The left costophrenic angle is not included in the view. 6. Opacity in the right lower zone. could be atelectasis or infiltrate. Interval new. 7. Clinical correlation and CT chest are recommended if clinically indicated. Electronically signed by Nika Borrero 06-07-2024 01:26 AM
--- NOTE | 2024-06-07 01:57 | Critical Care Consultation ---
Date of Consultation June 07, 2024 Assessment & Plan (1) Severe sepsis: (2) Acute UTI (urinary tract infection): (3) Elevated procalcitonin: (4) ARF (acute renal failure): (5) Metabolic acidosis: (6) GERD (gastroesophageal reflux disease): (7) Atypical Parkinsonism: (8) Bipolar disorder: (9) Prediabetes: Plan Reason Critically Ill: 69 YOM [facility], found to be in septic shock with organ dysfunction and requiring vasopressors. Source at this time appears as urinary/pyelonephritis. Neuro - No acute needs, hx of intellectual disorder, and atypical parkionson's, and bipolar disorder CAM ICU: [facility] - Continue supportive care - Continue antipsychotics as able to tolerate PO - Continue carbidopa/levodopa as able to tolerate PO Cardiac - Severe septic shock, elevated HsCTNI - Severe septic shock- source urine- with organ dysfunction of - Lungs (oxygen requirement), elevated troponin, elevated renal function. - Received 2.5 liters crystalloid and 100ml of albumin- re-evaluate fluid volume status with bedside POCUS on arrival to ICU - Lactate slightly decreased on 2 hour re-check - Continue vasopressors to maintain MAPS >65- Wean as able - Levophed at this time if another pressor is needed will add vasopressin - See ID section below for abx and culture data - Elevated HsCTNI likely demand in the setting of septic shock- ECG is without STEMI- ECHO in am eval function Respiratory - possible small component of aspiration pneumonitis/pneumonia - Has oxygen requirement however hypoxia may also be related to hypoinflation from hypoventilatory state compensating for his metabolic acidosis - ABX will be provided as below which will also cover pulmonary sources - wean oxygen as able GI - GERD - Continue PPI - NPO except medications at this time RENAL/LYTES - complicated UTI/Pyelonephritis, Metabolic Acidosis, non-oliguric renal failure, electrolyte disturbances. - Continue supportive care with isotonic bicarb and maintain maps and preload - replete electrolytes - lactic acidosis may also be complicated by metformin use in setting of increased BUN and PIE CUTTER - BPH with LUTS, possible extraluminal bladder gas - Appreciate urology assistance- imaging reviewed by Dr. Turcios per ER provider- consider CT cystogram to further eval however at this time does not feel perforation was likely - stabilize patient from hemodynamic status prior to further imaging if warranted - Previously followed for elevated PSA- negative biopsy 2015- newest recs to follow up with possible prostate biopsy- not scheduled. ENDO - DMII - Hold Metformin - ICU hyperglycemic protocol HEME - No acute needs ID - Severe septic shock, UTI/Pyelonephritis - Continue linezolid and Cefepime - Blood cultures- NGTD - UA with + LE, Nit -, WBC >50 and 4+ bacteria- await culture - PCT >100 LINES/IV ACCESS - PIV x3, Peng to gravity Continue use of these lines DVT PROPHYLAXIS - SCDS, Heparin 5000 units subq q8h DISPO: ICU while on vasopressors I have personally spent 40 minutes of critical care time in the direct management of this patient. This is a life/limb threatening event. This includes time spent evaluating patient, direct bedside care, chart review, placing orders, interpretation of diagnostic studies, discussion with consultants, patient, and family members, as well as other required patient management activities. This time is exclusive of all separately billable procedures, and teaching time and separate from and in addition to any other critical care service time. Thank you for allowing us to participate in the care of this patient. Please refer to my attending physician's documentation for any further recommendations. History of Present Illness Reason for Consultation: septic shock Requesting Physician: Iron Meyer MD Attending Physician: Iron Meyer MD History of Present Illness 69 YOM that is long-term resident of [facility]. Patient with history of - learning disability, bipolar disorder, atypical parkinson's disease, enlarged prostate with LUTS, GERD. Patient was brought to the ER today for concerns of fever, cough, and congestion. In the ER he was found to by hyperthermic, tachycardic, hypotensive, and tachycardic. Patient had routine labs performed to include lactate, UA, and blood cultures. He was noted to have increased WBC, elevated lactate, elevation of his BUN and PIE CUTTER, as well as elevated lactate and troponin. He was given 2.5 Liters of crystalloid in the ER 100 ml of Albumin and was initiated on vasopressors for MAPS. Patient was started on Cefepime and Vancomycin for sepsis. UA was noted with WBC, LE + Nit - and bacteria reported as 4+. Patient also had CXR obtained, Head, chest, and abd/pelvis imaging completed. CT scan of abd/pelvis notable for mild left hydro with stranding, enlarged prostate gland with catheter reported as extending through the prostate gland and extraluminal air bubbles outside the bladder. Patient was evaluated while in the ER and he is pleasant however unable to provide much history or participate in much of a physical exam as everywhere palpated hurts "just a little". Patient was noted with metabolic acidosis on ABG that just resulted as well. Will have them administer 2 amps of HCO3 and follow with infusion. Also requested discussion with Urology for possible extraluminal air/bladder perforation prior to ICU. CODE: DNR/DNI by paperwork as well as historical. Allergies Allergy/AdvReac Type Severity Reaction Status Date / Time Penicillins AdvReac Intermediate RASH Verified 05/10/24 08:33 Home Medications Medication Instructions Recorded Confirmed Type atorvastatin 10 mg tablet 10 mg PO DAILY 10/11/18 06/07/24 History loperamide 2 mg capsule 2 mg PO Q6 PRN Diarrhea 10/11/18 06/07/24 History (Anti-Diarrheal (loperamide)) pantoprazole 40 mg tablet,delayed 40 mg PO QAM 11/01/18 06/07/24 History release acetaminophen 325 mg tablet 650 mg PO Q6H PRN pain/fever 02/27/19 06/07/24 History cholecalciferol (vitamin D3) 50 2,000 units PO DAILY #30 caps 03/08/19 06/07/24 Rx mcg (2,000 unit) capsule melatonin 5 mg tablet 5 mg PO HS sleep #90 tabs 09/18/19 06/07/24 Rx meloxicam 15 mg tablet 15 mg PO DAILY 06/09/20 06/07/24 History cholestyramine (with sugar) 4 gram 1 ea PO BID 12/15/20 06/07/24 History oral powder oxybutynin chloride 10 mg 10 mg PO DAILY 12/15/20 06/07/24 History tablet,extended release 24 hr cyanocobalamin (vitamin B-12) 2,500 mcg PO DAILY #30 tabs 07/13/21 06/07/24 Rx 2,500 mcg tablet carbidopa 25 mg-levodopa 100 mg 1 tab PO QID 11/26/21 06/07/24 History tablet (Sinemet) levothyroxine 50 mcg tablet 50 mcg PO DAILY 11/26/21 06/07/24 History ciprofloxacin HCl 500 mg tablet 500 mg PO BID 3 days #6 tabs 05/10/24 06/07/24 Rx insulin glargine 100 unit/mL 20 unit subcut HS 05/10/24 06/07/24 History subcutaneous solution metformin 500 mg tablet 1,000 mg PO AMHS 05/10/24 06/07/24 History azithromycin 250 mg tablet 250 mg PO UD 06/07/24 06/07/24 History azithromycin 250 mg tablet 500 mg PO ONCE 06/07/24 06/07/24 History buspirone 7.5 mg tablet 7.5 mg PO Q12 06/07/24 06/07/24 History carboxymethylcellulose sodium 1 % 1 drp OPB DAILY 06/07/24 06/07/24 History eye liquid gel drops (Refresh Liquigel) ketoconazole 1 % shampoo 1 applic topical 2XWK 06/07/24 06/07/24 History lorazepam 0.5 mg tablet 0.5 mg PO Q6 PRN 06/07/24 06/07/24 History anxiety/restlessness morphine concentrate 20 mg/mL oral 10 mg PO Q4 PRN Shortness Of Breath 06/07/24 06/07/24 History syringe (FOR ORAL USE ONLY) paroxetine HCl 40 mg tablet 40 mg PO QAM 06/07/24 06/07/24 History Patient History Medical History (Updated 06/07/24 @ 04:22 by Iron Meyer MD) Sepsis Hypoxia Bilateral pneumonia Alteration consciousness Closed left hip fracture Diarrhea Generalized weakness Major depressive disorder Diverticular disease Tinnitus of both ears BPH (benign prostatic hyperplasia) Generalized muscle weakness Gait apraxia Chronic shoulder pain Cognitive disorder Unsteady gait Aspiration precautions Incontinence Hyperlipemia Bipolar disorder Surgical History Hx of tonsillectomy H/O wisdom tooth extraction S/P hip replacement H/O inguinal hernia repair Status post left hip replacement History of left hip replacement Family History Unknown Obesity Hypercholesterolemia Father Diabetes Ischemic heart disease Sister Cancer Other Family history unknown Social History Smoking Status: Unknown if ever smoked Second Hand Exposure: No; Do You Dip or Chew Tobacco: No; Hx Alcohol Use: No Hx Substance Use: No Preferred Language: Mozamb[place] Communication Ability: Impaired Communication Ability Comment: able to make needs known with short answer questions 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 Beliefs That Will Affect Care: None Current Living Situation: [facility] Current Living Situation Comment: [facility] Feels Safe at Home: Yes Assistive Devices: Walker Review of Systems Review of Systems: unable to perform secondary to patient's intellectual dissablity Physical Exam Physical Exam: PHYSICAL EXAM: General: awake, alert, Head: Normocephalic, atraumatic ENT: PERRLA, EOMI, mucous membranes dry Neuro: AAO x 1, speech clear mostly appropriate, strength intact bilaterally 5/5, sensation intact and equal all extremities Chest: equal rise and fall of the chest, no accessory muscle use, no heaves or thrills, decreased in bases with fine inspiratory crackles. Cardiac: Regular rate and rhythm, telemetry reviewed- NSR no ectopy, skin warm dry, cap refill <3 seconds, peripheral pulses +2 no JVD, no murmur, GI: NABS x 4 quadrants, softly distended, nontender to palpation, no rebound, guarding or tenderness : Peng to gravity draining light yellow urine Psych: calm and cooperative Skin: no rash or erythema Results & Data Results & Data Vital Signs (Past 12 Hours) Vital Signs Temp Pulse Resp BP Pulse Ox O2 Del Method O2 Flow Rate 06/07/24 01:21 84/58 L 06/07/24 01:21 97 H 25 H 06/07/24 01:15 Nasal Cannula 06/07/24 01:12 99 H 27 H 06/07/24 01:11 83/42 L 06/07/24 01:11 83/42 L 06/07/24 01:06 104 H 37 H 06/07/24 01:04 108/68 06/07/24 01:04 108/68 06/07/24 00:50 98/63 L 06/07/24 00:36 104 H 32 H 81/57 L 90 Free Flow/Blow-by 06/07/24 00:36 81/57 L 06/07/24 00:30 94/57 L 06/07/24 00:30 94/57 L 06/07/24 00:30 102 H 30 H 94/57 L 90 Free Flow/Blow-by 06/07/24 00:29 Free Flow/Blow-by 06/07/24 00:25 94/56 L 06/07/24 00:24 101 H 36 H 90 06/07/24 00:21 95 H 27 H 06/07/24 00:21 37.4 C 06/07/24 00:20 78/55 L 06/07/24 00:20 78/55 L 06/07/24 00:20 78/55 L 06/07/24 00:20 78/55 L 06/07/24 00:20 78/55 L 06/07/24 00:18 101 H 34 H 90 06/07/24 00:17 77/61 L 06/06/24 23:57 104 H 22 104/58 L 90 Nasal Cannula 2 06/06/24 23:32 92/38 L 06/06/24 23:18 105 H 18 60/51 L 93 06/06/24 23:12 108 H 38 H 75/44 L 93 06/06/24 23:03 106 H 22 94 06/06/24 22:48 108 H 41 H 63/35 L 91 Room Air 06/06/24 22:39 114 H 22 81/45 L 93 Room Air 06/06/24 22:39 115 H 06/06/24 22:38 36.8 C 114 H 36 H 81/45 L 93 Room Air Laboratory Results Abnormal lab results 06/06/24 06/06/24 06/06/24 Range/Units 22:42 23:01 23:17 WBC 23.86 H (4.8-10.8) K/ul RBC 4.17 L (4.70-6.10) M/uL Hgb 13.3 L (14.0-18.0) g/dl POC Hgb 10.9 L (14.0-18.0) g/dl Hct 39.2 L (42.0-52.0) % POC Hct 32 L (42-52) % Neut # (Auto) 21.06 H (1.40-6.50) K/uL Lymph # (Auto) 0.58 L (1.20-3.40) K/uL Archer # (Auto) 1.12 H (0.11-0.59) K/uL Immature Gran # (Auto) 0.77 H (0.01-0.20) K/uL POC Chloride 113 H (101-112) mmol/L Chloride 108 H (98-107) mmol/L Carbon Dioxide 14 L (21-32) mmol/L POC Total CO2 13 L (24-31) mmol/L Anion Gap 17 H (3-11) POC BUN 94 H (7-18) mg/dl BUN 94 H (6-23) mg/dl Creatinine 3.93 H (0.6-1.4) mg/dl POC Creatinine 4.4 H (0.6-1.3) mg/dl BUN/Creatinine Ratio 23.9 H (10-20) Glucose 224 H (70-99(Fasting)) mg/dl POC Glucose (other) 202 H (70-99) mg/dl Lactate 6.4 H* (0.4-2.0) mmol/L Magnesium 1.6 L (1.7-2.4) mg/dl Alkaline Phosphatase 434 H (34-104) U/L Troponin I High Sens 114.7 H* (0-20) pg/ml Albumin 3.2 L (3.4-5.0) gm/dl Procalcitonin > 100.00 H (0-0.5) ng/ml Urine Appearance Cloudy A (Clear) Urine Protein 1+ H (Negative) Urine Blood 3+ H (Negative) Ur Leukocyte Esterase 3+ H (Negative) Urine WBC (Auto) >50 H (0-5) /hpf Urine RBC (Auto) 11-20 H (0-2) /hpf Urine Bacteria (Auto) 4+ H (None Seen) 06/07/24 Range/Units 00:49 WBC (4.8-10.8) K/ul RBC (4.70-6.10) M/uL Hgb (14.0-18.0) g/dl POC Hgb (14.0-18.0) g/dl Hct (42.0-52.0) % POC Hct (42-52) % Neut # (Auto) (1.40-6.50) K/uL Lymph # (Auto) (1.20-3.40) K/uL Archer # (Auto) (0.11-0.59) K/uL Immature Gran # (Auto) (0.01-0.20) K/uL POC Chloride (101-112) mmol/L Chloride (98-107) mmol/L Carbon Dioxide (21-32) mmol/L POC Total CO2 (24-31) mmol/L Anion Gap (3-11) POC BUN (7-18) mg/dl BUN (6-23) mg/dl Creatinine (0.6-1.4) mg/dl POC Creatinine (0.6-1.3) mg/dl BUN/Creatinine Ratio (10-20) Glucose (70-99(Fasting)) mg/dl POC Glucose (other) (70-99) mg/dl Lactate 6.0 H* (0.4-2.0) mmol/L Magnesium (1.7-2.4) mg/dl Alkaline Phosphatase (34-104) U/L Troponin I High Sens 115.8 H* (0-20) pg/ml Albumin (3.4-5.0) gm/dl Procalcitonin (0-0.5) ng/ml Urine Appearance (Clear) Urine Protein (Negative) Urine Blood (Negative) Ur Leukocyte Esterase (Negative) Urine WBC (Auto) (0-5) /hpf Urine RBC (Auto) (0-2) /hpf Urine Bacteria (Auto) (None Seen) Diagnostic Findings Chest X-Ray 06/06/24 22:40 EXAM: XR chest 1V portable CLINICAL HISTORY: SEPSIS SDM TECHNIQUE: An X-ray image of the chest is obtained in AP projection. COMPARISON: 08/15/2020 FINDINGS: Pulmonary Parenchyma: Suboptimal inspiration. Bilateral diffuse pulmonary interstitial thickening. Bilateral hilar prominence and prominent bronchovascular markings. Mild cardiomegaly. Left costophrenic angle is not included in the view. Opacity is noted in the right lower zone. No evidence of consolidation, or collapse. No evidence of pleural effusion on the right side. Heart and Mediastinum: Mild cardiomegaly. No mediastinal masses. No hilar or mediastinal lymphadenopathy. Bony Thorax: Bony thorax appears intact without fractures or deformities. Mild degenerative changes are noted in the left shoulder joint. Soft Tissues: Soft tissues overlying the chest wall are unremarkable. Tubing is noted on the right side of the chest. Could be an extrathoracic correlate with the examination. IMPRESSION: 1. Suboptimal inspiration. 2. Bilateral diffuse pulmonary interstitial thickening. could be interstitial edema. Interval new 3. Bilateral hilar prominence and prominent bronchovascular markings. could be vascular congestion or infection. 4. Mild cardiomegaly.Stable 5. The left costophrenic angle is not included in the view. 6. Opacity in the right lower zone. could be atelectasis or infiltrate. Interval new. 7. Clinical correlation and CT chest are recommended if clinically indicated. Electronically signed by Nika Borrero 06-07-2024 01:26 AM Abdomen/Pelvis CT 06/06/24 23:32 CR Exam(s): CT ABDOMEN + PELVIS Without Contrast EXAM: CT Abdomen and Pelvis Without Intravenous Contrast CLINICAL HISTORY: Reason for exam: sepsis, AMS. TECHNIQUE: Axial computed tomography images of the abdomen and pelvis without intravenous contrast. CTDI is 37 mGy and DLP is 1400 mGy-cm. Automated exposure control was utilized for the study. A dose lowering technique was utilized adhering to the principles of ALARA. COMPARISON: September 29, 2014 FINDINGS: Lung bases: Mild bibasilar atelectasis or infiltrate. 3 cm of fluid in the lower esophagus. ABDOMEN: Liver: The liver is enlarged measuring 23 cm craniocaudad. No focal liver lesion is seen. Gallbladder and bile ducts: Unremarkable. No calcified stones. No ductal dilation. Pancreas: Unremarkable. No ductal dilation. Spleen: Unremarkable. No splenomegaly. Adrenals: Unremarkable. No mass. Kidneys and ureters: Mild left hydronephrosis and left perinephric stranding. No ureterolithiasis is seen. Consider ascending urinary tract infection and/or pyelonephritis. Stomach and bowel: 7.7 cm of stool in the rectum consistent with constipation. No obstruction. No mucosal thickening. PELVIS: Appendix: No findings to suggest acute appendicitis. Bladder: The prostate gland is enlarged measuring approximately 8.5 x 8.3 x 6.8 cm. There is a Peng catheter extending through the prostate gland. The urinary bladder is completely decompressed. There is an unusual 5 cm cluster of gas bubbles which appear to be extraluminal intimately superior to the urinary bladder. The adjacent small bowel loops are nondilated and did not appear to be inflamed. Reproductive: Unremarkable as visualized. ABDOMEN and PELVIS: Intraperitoneal space: Unremarkable. No free air. No significant fluid collection. Bones/joints: Mild degenerative changes in the spine. No acute fracture or subluxation. Soft tissues: Unremarkable. Vasculature: Unremarkable. No abdominal aortic aneurysm. Lymph nodes: Unremarkable. No enlarged lymph nodes. IMPRESSION: 1. Mild left hydronephrosis and left perinephric stranding. No ureterolithiasis is seen. Consider ascending urinary tract infection and/or pyelonephritis. 2. The prostate gland is enlarged measuring approximately 8.5 x 8.3 x 6. 8 cm. There is a Peng catheter extending through the prostate gland. The urinary bladder is completely decompressed. There is an unusual 5 cm cluster of gas bubbles which appear to be extraluminal intimately superior to the urinary bladder. The adjacent small bowel loops are nondilated and did not appear to be inflamed. Consider localized bladder perforation from recent Peng catheter placement versus subsegmental cystitis. 3. 7.7 cm of stool in the rectum consistent with constipation. Communications: Call Doctor Above results Electronically signed by: Rubio Dean MD 06/07/24 00:[address] 06/06/24 23:32 Exam(s): CT CHEST Without Contrast EXAM: CT Chest Without Intravenous Contrast CLINICAL HISTORY: Reason for exam: sepsis, ARF. TECHNIQUE: Axial computed tomography images of the chest without intravenous contrast. CTDI is 37 mGy and DLP is 1400 mGy-cm. Automated exposure control was utilized for the study. A dose lowering technique was utilized adhering to the principles of ALARA. COMPARISON: August 15, 2020 FINDINGS: Lungs: Vascular congestion without overt pulmonary edema. There are streaky densities in the right lower lobe just above the 4 cm elevated right diaphragm. Consider atelectasis versus pneumonia. No mass. Pleural space: Unremarkable. No pneumothorax. No significant effusion. Heart: The heart is not enlarged. Mild coronary calcification is present. No pericardial effusion is seen. Mediastinum: 3.4 cm fluid distention of the esophagus suggests reflux. No visible wall thickening or surrounding inflammation is seen. Bones/joints: Mild degenerative changes in the lower thoracic spine. No fracture or bone lesion identified. No dislocation. Soft tissues: Unremarkable. Vasculature: Slight ectasia of the ascending aortic arch measuring 4 cm in diameter. There is mild atherosclerotic calcification. No aneurysm. The descending aorta is nondilated. This is a noncontrast study. Lymph nodes: Unremarkable. No enlarged lymph nodes. IMPRESSION: 1. Slight ectasia of the ascending aortic arch measuring 4 cm in diameter. There is mild atherosclerotic calcification. No aneurysm. The descending aorta is nondilated. This is a noncontrast study. 2. Vascular congestion without overt pulmonary edema. There are streaky densities in the right lower lobe just above the 4 cm elevated right diaphragm. Consider atelectasis versus pneumonia. 3. 3.4 cm fluid distention of the esophagus suggests reflux. No visible wall thickening or surrounding inflammation is seen. Electronically signed by: Rubio Dean MD 06/07/24 00:[address] 06/06/24 23:32 Exam(s): CT HEAD Without Contrast EXAM: CT Head Without Intravenous Contrast CLINICAL HISTORY: Reason for exam: ams. TECHNIQUE: Axial computed tomography images of the head/brain without intravenous contrast. CTDI is 37 mGy and DLP is 1400 mGy-cm. Automated exposure control was utilized for the study. A dose lowering technique was utilized adhering to the principles of ALARA. COMPARISON: September 02, 2017 FINDINGS: Brain: Mild central atrophy and periventricular white matter low density consistent with chronic small vessel disease and/or senescent changes, similar to previous. There is mild motion artifact. No acute large vessel infarct or intracranial hemorrhage is seen. Ventricles: Mildly dilated. No mass or hemorrhage. Bones/joints: Unremarkable. No acute fracture. Soft tissues: Unremarkable. Sinuses: Unremarkable as visualized. No acute sinusitis. Mastoid air cells: Unremarkable as visualized. No mastoid effusion. IMPRESSION: Mild central atrophy and periventricular white matter low density consistent with chronic small vessel disease and/or senescent changes, similar to previous. There is mild motion artifact. No acute large vessel infarct or intracranial hemorrhage is seen. Electronically signed by: Rubio Dean MD 06/07/24 00:26 AM Medications Administered Home Medications atorvastatin 10 mg tablet 10 mg PO HS 10/11/18 [History Confirmed 05/10/24] loperamide 2 mg capsule (Anti-Diarrheal (loperamide)) 2 mg PO Q6 PRN Diarrhea 10/11/18 [History Confirmed 06/07/24] aspirin 81 mg tablet,delayed release 81 mg PO DAILY 11/01/18 [History Confirmed 05/10/24] pantoprazole 40 mg tablet,delayed release 40 mg PO DAILY 11/01/18 [History Confirmed 05/10/24] acetaminophen 325 mg tablet 650 mg PO Q6H PRN pain/fever 02/27/19 [History Confirmed 06/07/24] cholecalciferol (vitamin D3) 50 mcg (2,000 unit) capsule 2,000 units PO DAILY #30 caps 03/08/19 [Rx Confirmed 05/10/24] melatonin 5 mg tablet 5 mg PO HS sleep #90 tabs 09/18/19 [Rx Confirmed 05/10/24] meloxicam 15 mg tablet 15 mg PO DAILY 06/09/20 [History Confirmed 05/10/24] cholestyramine (with sugar) 4 gram oral powder PO BID 12/15/20 [History Confirmed 05/10/24] oxybutynin chloride 10 mg tablet,extended release 24 hr 10 mg PO DAILY 12/15/20 [History Confirmed 05/10/24] cyanocobalamin (vitamin B-12) 2,500 mcg tablet 2,500 mcg PO DAILY #30 tabs 07/13/21 [Rx Confirmed 05/10/24] bisacodyl 10 mg rectal suppository 10 mg IN DAILY PRN 11/26/21 [History Confirmed 05/10/24] bisacodyl 10 mg/30 mL enema (Fleet Bisacodyl) 5 mg IN DAILY PRN 11/26/21 [History Confirmed 05/10/24] carbidopa 25 mg-levodopa 100 mg tablet (Sinemet) 1 tab PO QID 11/26/21 [History Confirmed 05/10/24] levothyroxine 50 mcg tablet 50 mcg PO DAILY 11/26/21 [History Confirmed 06/07/24] buspirone 10 mg tablet 7.5 mg PO Q12 05/23/23 [History Confirmed 05/10/24] ciprofloxacin HCl 500 mg tablet 500 mg PO BID 3 days #6 tabs 05/10/24 [Rx Confirmed 05/10/24] insulin glargine 100 unit/mL subcutaneous solution 20 unit subcut HS 05/10/24 [History Confirmed 06/07/24] metformin 500 mg tablet 500 mg PO DAILY 05/10/24 [History Confirmed 05/10/24] paroxetine HCl 10 mg tablet (Paxil) 10 mg PO DAILY 05/10/24 [History Confirmed 05/10/24] carboxymethylcellulose sodium 1 % eye liquid gel drops (Refresh Liquigel) 1 drp OPB DAILY 06/07/24 [History Confirmed 06/07/24] paroxetine HCl 40 mg tablet 40 mg PO QAM 06/07/24 [History Confirmed 06/07/24] Active Medications Norepinephrine Bitartrate (Levophed/D5w) 4 mg in 250 mls @ 16.819 mls/hr IV .[id number] [facility]; Protocol Stop: 07/06/24 23:44 Last Titration: 06/07/24 01:27 Dose: 0.3 mcg/kg/min, 100.9 mls/hr Albumin Human (Albumin 25%) 25 gm in 100 mls @ 50 mls/hr IV ONE ONE Stop: 06/07/24 02:06 Last Admin: 06/07/24 00:18 Dose: 50 mls/hr Linezolid (Zyvox) 600 mg in 300 mls @ 300 mls/hr IV Q12H [facility] Stop: 06/17/24 00:59 Pantoprazole Sodium (Protonix) 40 mg in 10 mls @ 5 mls/min IV DAILY [facility] Stop: 07/07/24 08:59 Acetaminophen (Ofirmev) 1,000 mg in 100 mls @ 400 mls/hr IV Q8H PRN PRN Reason: Pain or Fever Stop: 06/10/24 01:01 Sodium Bicarbonate 150 meq/ (Sterile Water) 1,150 mls @ 150 mls/hr IV .[id number] [facility] Stop: 07/07/24 00:59 Magnesium Sulfate/Dextrose (Magnesium Sulfate / D5w) 1 gm in 100 mls @ 50 mls/h r IV Q2H [facility] Stop: 06/07/24 05:14 ECG Additional Comments: Sinus tachycardia Otherwise normal ECG When compared with ECG [id number] 05:09, Vent. ratehas increasedby 55bpm Nonspecific T wave abnormality, improved inAnterolateral leads Coding Level of Care Code 01260 CRITICAL CARE 1ST 30-74M Diagnoses Severe sepsis A41.9; R65.20 Acute UTI (urinary tract infection) N39.0 Elevated procalcitonin R79.89 ARF (acute renal failure) N17.9 Metabolic acidosis E87.20 GERD (gastroesophageal reflux disease) K21.9 Atypical Parkinsonism G20 Bipolar disorder F31.9 Prediabetes R73.03
[2024-06-07] MEDS ORDERED: GLUCAGON FOR INJ 1 MG VIAL SQ PRN (01:58)
[2024-06-07] MEDS ORDERED: CARBOHYDRATES FOR HYPOGLYCEMIA PO PRN (01:58)
[2024-06-07] MEDS ORDERED: PHARMACY GLYCEMIC MGMT CONSULT PRN (01:58)
[2024-06-07] MEDS ORDERED: ALBUT/IPRATROP 3MG/0.5MG NEB 3 ML VIAL NEB PRN (01:58)
[2024-06-07] MEDS ORDERED: ONDANSETRON INJ 2 MG/ML 2 ML VIAL IV PRN (01:58)
[2024-06-07] MEDS ORDERED: GLUCOSE 40% GEL 15 GM TUBE PO PRN (01:58)
[2024-06-07] MEDS ORDERED: GLUCOSE 10 TAB/TUBE PO PRN (01:58)
[2024-06-07] MEDS: MAGNESIUM SULFATE / D5W 1 GM/100 ML BAG IV SCH (02:23)
[2024-06-07] MEDS: SODIUM BICARBONATE 8.4% 150 MEQ in WATER, STERILE 1,000 ML IV SCH (02:23)
[2024-06-07] MEDS: SODIUM BICARB 8.4% INJ 50 MEQ/50 ML SYR IV STA (02:23)
[2024-06-07] MEDS: LINEZOLID 600 MG/300 ML BAG IV SCH (02:42)
[2024-06-07 03:15] LABS: Base Excess VBG -8.8 mEq/L; HCO3 VBG 16 mmol/L; Oxygen Saturation VBG 73.4 %; PCO2 VBG 30 mmHg (38-50); PO2 VBG 47 mmHg; pH VBG 7.33 (7.36-7.41)
[2024-06-07 03:36] LABS: Albumin Globulin Ratio 1.3 (0.9-2); Albumin Level 3.2 gm/dl (3.4-5.0); BUN Creatinine Ratio 24.7 (10-20); Bilirubin,Total 0.7 mg/dl (0.2-1.0); Calcium 8.4 mg/dl (8.6-10.3); Creatinine Clr Calc Pharmacy 19.2 ml/min; Globulin 2.4 gm/dl (2.5-4.0); Potassium 3.9 mmol/L (3.5-5.1); Total Protein 5.6 gm/dl (6.0-8.3)
[2024-06-07 03:49] LABS: INR 1.1 (0.9-1.1); Prothrombin Time 11.9 Seconds (9.0-12.0)
[2024-06-07 04:07] LABS: Hematocrit (blood only) 34.7 % (42.0-52.0); Hemoglobin 11.4 g/dl (14.0-18.0); Mean Corpuscular Hemoglobin 31.2 pg (25.0-34.0); Mean Corpuscular Hgb Conc 32.9 g/dL (32.0-36.0); Mean Corpuscular Volume 95.1 fL (80.0-100.0); Mean Platelet Volume 10.3 fL (9.4-12.4); Platelet Count 165 K/uL (130-400); RDW Coefficient of Variation 13.6 % (11.5-14.5); RDW Standard Deviation 47.4 fL (36.4-46.3); Red Blood Count 3.65 M/uL (4.70-6.10); White Blood Count 38.17 K/ul (4.8-10.8)
[2024-06-07 04:08] LABS: Basophils # (auto) 0.14 K/uL (0.00-0.20); Basophils % (auto) 0.4 %; Dohle Bodies 1+; Echinocytes 1+; Eosinophils # (auto) 0.17 K/uL (0.00-0.50); Eosinophils % (auto) 0.4 %; Immature Granulocytes # (auto) 1.83 K/uL (0.01-0.20); Immature Granulocytes % (auto) 4.8 %; Lymphocytes % (auto) 2.1 %; Monocytes # (auto) 1.96 K/uL (0.11-0.59); Monocytes % (auto) 5.1 %; Neutrophils # (auto) 33.27 K/uL (1.40-6.50); Neutrophils % (auto) 87.2 %; Polychromasia 1+
--- NOTE | 2024-06-07 04:23 | Billing Data ---
Date of Service June 07, 2024 Coding Level of Care Code 17160 CRITICAL CARE
[2024-06-07] MEDS: LEVOTHYROXINE SODIUM 50 MCG TABLET PO SCH (05:19)
[2024-06-07] MEDS: INSULIN ASPART PER UNIT CHARGE SC SCH ×2 (05:20→08:48)
[2024-06-07] MEDS: HEPARIN SOD 5,000 UNIT/0.5 ML VIAL SQ SCH (05:21)
[2024-06-07 07:09] LABS: Estimated Average Glucose 183 mg/dl
[2024-06-07] MEDS ORDERED: ICU Protocol for HYPERglycemia SCH (07:30)
[2024-06-07] MEDS ORDERED: CEFEPIME 2000MG 2,000 MG/20 ML SYR IV SCH (08:00)
[2024-06-07] MEDS: CARBIDOPA/LEVODOPA 25/100MG TAB PO SCH (08:09)
[2024-06-07] MEDS: busPIRone 7.5 MG TAB PO SCH (08:09)
[2024-06-07] MEDS: PANTOprazole 40 MG/10 ML SYR IV SCH (08:12)
[2024-06-07 09:20] LABS: iSTAT Arterial Blood Gas HCO3 10 meg/L (19-24); iSTAT Arterial Blood Gas pCO2 21 mmHg (35-46); iSTAT Arterial Blood Gas pH 7.29 (7.35-7.45); iSTAT Arterial Blood Gas pO2 73 mmHg (80-95); iSTAT Carbon Dioxide 11 mmol/L (24-31); iSTAT Hematocrit 34 % (42-52); iSTAT Hemoglobin 11.6 g/dl (14.0-18.0); iSTAT Potassium 3.8 mmol/L (3.3-5.0); iSTAT Sodium 140 mmol/L (135-144)
[2024-06-07] MEDS ORDERED: ACETAMINOPHEN 500 MG TAB PO PRN (10:29)
[2024-06-07] MEDS ORDERED: VANCOMYCIN CONSULT ACTIVE PRN (10:32)
[2024-06-07] MEDS ORDERED: CEFEPIME 1000MG 1,000 MG/10 ML SYR IV SCH (11:00)
--- NOTE | 2024-06-07 11:07 | Pharmacy Report ---
Pharmacy PK ABX Note - Date of Service June 07, 2024 - Assessment and Plan Assessment 69 year old M receiving VANCOMYCIN + MEROPENEM for treatment of septic shock from complicated UTI +/- aspiration pneumonia. Patient presented from [facility] snf with fever, restlessness and hypotension. Urology consulted for extraluminal air bubbles outside bladder on imaging. Severe RUBIA and lactic acidosis present on admission. Pressors currently being weaned. Patient had been receiving LINEZOLID + CEFEPIME this morning, however abx changed due to patient's mental status and concern for possible medication ADR. Reported allergy to PCNs (rxn rash). Pertinent microbiologic data includes: Positive MRSA Nasal Swab, urine and blood cultures pending, UA did show pyuria, negative respiratory Biofire, procal >100 Day # 1 of antimicrobial therapy. Plan Vancomycin * Loading dose: 1750 mg IV x 1 overnight * Given RUBIA, will dose per random level * Although AUC/LENA targeted dosing methodology preferred, pt is not an ideal candidate due to changing renal fxn * Random level ordered for now to determine if repeat dosing needed prior to tomorrow AM. SCr has begun to trend down and making adequate urine. Pharmacy will continue to follow and will adjust dose/frequency as necessary. Thank you. Pharmacy has transitioned to AUC monitoring for vancomycin. AUC/LENA is the preferred PK/PD target and is associated with decreased risk of nephrotoxicity compared to traditional trough targets.
--- NOTE | 2024-06-07 11:25 | Pharmacy Report ---
Pharmacy Glycemic Short Note 2 - Date of Service June 07, 2024 - Glycemic Short BSG Results (Last 24 hours): 06/06/24 06/06/24 06/07/24 22:42 23:17 03:02 Glucose 224 H 233 H POC Glucose POC Glucose (other) 202 H 06/07/24 06/07/24 05:16 08:16 Glucose POC Glucose 255 H 160 H POC Glucose (other) OUTPATIENT ANTIDIABETIC REGIMEN: * Lantus 20 units * Metformin 1gm PO BID * A1c = 8% 06/07/24 ASSESSMENT: * Type 2 diabetic admitted for septic shock, complicated UTI, possible PNA, RUBIA, and severe metabolic acidosis. * BSGs have trended favorably with SQ rapid acting. Patient is currently NPO and remains on vasopressor support (although norepi is being weaned). * Will refrain from ordering basal insulin at this time given NPO status, fewer IVs containing dextrose, and downward trending BSG, Rather will use Q 4 hr Novolog SQ correction based upon "moderate" to "severe" stress and weight. PLAN FOR INPATIENT GLYCEMIC CONTROL: * Hold outpatient oral diabetes medications * Basal insulin * None at this time, will reeval daily * Bolus insulin * NovoLog per scale Q 4 hrs * Goal Range: Low 110 mg/dL - High 140 mg/dL * Correction Factor: 25 mg/dL/unit * Nutritional / Prandial insulin per carb ratio of 1 unit per 10 grams CHO consumed
[2024-06-07 11:28] LABS: BUN Creatinine Ratio 30.9 (10-20); Calcium 8.6 mg/dl (8.6-10.3); Creatinine Clr Calc Pharmacy 32.1 ml/min; Magnesium 2.2 mg/dl (1.7-2.4); Potassium 3.9 mmol/L (3.5-5.1)
[2024-06-07] MEDS: MEROPENEM 500 MG in SYRINGE 0 ML IV SCH (11:30)
[2024-06-07 11:55] LABS: A calco-baum cmplx NotReported Not Detected (NotDetected); Bact fragilis Not Reported Not Detected (NotDetected); Blood Culture Id Panel See PCR Comment (NotDetected); C auris Not Reported Not Detected (NotDetected); CTX-M Resistant Gene Not Detected (NotDetected); Calbicans Not Reported Not Detected (NotDetected); Candida glabrata Not Reported Not Detected (NotDetected); Candida krusei Not Reported Not Detected (NotDetected); Cneoformans/gatti Not Reported Not Detected (NotDetected); Cparapsilosis Not Reported Not Detected (NotDetected); E cloacae compx Not Reported Not Detected (NotDetected); Efaecalis Not Reported Not Detected (NotDetected); Efaecium Not Reported Not Detected (NotDetected); Enterobacterales DETECTED (NotDetected); Escherichia coli Not Reported DETECTED (NotDetected); H influenzae Not Reported Not Detected (NotDetected); IMP Resistant Gene Not Detected (NotDetected); K aerogenes Not Reported Not Detected (NotDetected); KPC Resistant Gene Not Detected (NotDetected); Koxytoca Not Reported Not Detected (NotDetected); Kpneumoniae grp Not Reported Not Detected (NotDetected); Lmonocyt Not Reported Not Detected (NotDetected); N meningitidis Not Reported Not Detected (NotDetected); NDM Resistant Gene Not Detected (NotDetected); OXA 48 Like Resistant Gene Not Detected (NotDetected); P aeruginosa Not Reported Not Detected (NotDetected); Proteus spp Not Reported Not Detected (NotDetected); Salmonella spp Not Reported Not Detected (NotDetected); Staph lugdunensis Not Reported Not Detected (NotDetected); Staph spp. Not Reported Not Detected (NotDetected); Staphaureus Not Reported Not Detected (NotDetected); Staphepi Not Reported Not Detected (NotDetected); Stenmaltophilia Not Reported Not Detected (NotDetected); Strep agal(GrpB) Not Reported Not Detected (NotDetected); Strep pneum Not Reported Not Detected (NotDetected); Strep pyog (GrpA) Not Reported Not Detected (NotDetected); Strep spp Not Reported Not Detected (NotDetected); VIM Resistant Gene Not Detected (NotDetected); mcr-1 Colistin Resistant Gene Not Detected (NotDetected)
[2024-06-07 11:58] LABS: Enterobacterales Not Reported DETECTED (NotDetected)
[2024-06-07] MEDS: DEXTROSE 50% 50 ML SYRINGE IV PRN (11:59)
[2024-06-07] MEDS: VANCOMYCIN HCL 1,500 MG in SODIUM CHLORIDE 0.9% 500 ML IV ONE (15:04)
--- NOTE | 2024-06-07 15:22 | Urology Consultation ---
<Statement entered by James Turcios MD - 06/07/24 15:39> Since he is improving clinically, would continue with supportive care, antibiotics. Would maintain Peng catheter for ongoing drainage of his bladder. I suspect that the gas on the CT scan is more of a fold of redundant bladder tissue rather than extraluminal gas. If he starts to decompensate could consider CT urogram, but would hold off for now. Date of Consultation June 07, 2024 Assessment & Plan (1) Sepsis due to urinary tract infection: (2) Hydronephrosis, left: (3) RUBIA (acute kidney injury): Plan 69-year-old male admitted to the ICU secondary to sepsis due to UTI/pyelonephr itis -Pt afebrile with stable vitals at present -Labs today show a WBC up to 38.17, Creatinine downtrending 3.69- 2.2 -Urine culture prelim E. coli, repeat pending -Blood cultures prelim 1/4 gram-negative bacilli -On ceftriaxone and vancomycin -Peng intact and draining clear yellow urine. Output appears adequate. -No acute intervention warranted. -Left hydronephrosis likely secondary to UTI/Pyelo. Bladder appears decompressed on imaging. Question of bladder perforation on imaging is unlikely. Can consider CT cystogram if not improving. -Recommend maintaining catheter and continue to monitor urine output. -Continue antibiotics and tailor as culture data becomes available. -Continue supportive care and management per ICU/primary team -Urology will follow along. Please call with any questions/concerns. History of Present Illness Attending Physician: Ean Gallegos MD History of Present Illness 69 year old male with a PMHx including learning disability, bipolar disorder, atypical parkinson's disease, enlarged prostate with LUTS, GERD who was brought to the ER for concerns of fever, cough, and congestion. In the ER he was found to by hyperthermic, tachycardic, hypotensive, and tachycardic. Labs showing white count of 23.86 and creatinine 3.93. He was given 2.5 Liters of crystalloid in the ER 100 ml of Albumin and was initiated on vasopressors for MAPS. UA with 3+ blood, 3+ LE, 4+ bacteria. Patient was started on Cefepime and Vancomycin. CT scan of abd/pelvis notable for mild left hydro and left perinephric stranding, no ureteral stone, enlarged prostate gland, urinary bladder decompressed, and cluster of gas bubbles which appear to be extraluminal superior to the urinary bladder. He is admitted to ICU. Urology was consulted for mild left hydro and question of extraluminal air outside bladder. Patient was seen at bedside today in the ICU. Awake and resting in bed on arrival. Appears restless. Peng draining clear yellow urine. Allergies Allergy/AdvReac Type Severity Reaction Status Date / Time Penicillins AdvReac Intermediate RASH Verified 05/10/24 08:33 Home Medications Medication Instructions Recorded Confirmed Type atorvastatin 10 mg tablet 10 mg PO DAILY 10/11/18 06/07/24 History loperamide 2 mg capsule 2 mg PO Q6 PRN Diarrhea 10/11/18 06/07/24 History (Anti-Diarrheal (loperamide)) pantoprazole 40 mg tablet,delayed 40 mg PO QAM 11/01/18 06/07/24 History release acetaminophen 325 mg tablet 650 mg PO Q6H PRN pain/fever 02/27/19 06/07/24 History cholecalciferol (vitamin D3) 50 2,000 units PO DAILY #30 caps 03/08/19 06/07/24 Rx mcg (2,000 unit) capsule melatonin 5 mg tablet 5 mg PO HS sleep #90 tabs 09/18/19 06/07/24 Rx meloxicam 15 mg tablet 15 mg PO DAILY 06/09/20 06/07/24 History cholestyramine (with sugar) 4 gram 1 ea PO BID 12/15/20 06/07/24 History oral powder oxybutynin chloride 10 mg 10 mg PO DAILY 12/15/20 06/07/24 History tablet,extended release 24 hr cyanocobalamin (vitamin B-12) 2,500 mcg PO DAILY #30 tabs 07/13/21 06/07/24 Rx 2,500 mcg tablet carbidopa 25 mg-levodopa 100 mg 1 tab PO QID 11/26/21 06/07/24 History tablet (Sinemet) levothyroxine 50 mcg tablet 50 mcg PO DAILY 11/26/21 06/07/24 History ciprofloxacin HCl 500 mg tablet 500 mg PO BID 3 days #6 tabs 05/10/24 06/07/24 Rx insulin glargine 100 unit/mL 20 unit subcut HS 05/10/24 06/07/24 History subcutaneous solution metformin 500 mg tablet 1,000 mg PO AMHS 05/10/24 06/07/24 History azithromycin 250 mg tablet 250 mg PO UD 06/07/24 06/07/24 History azithromycin 250 mg tablet 500 mg PO ONCE 06/07/24 06/07/24 History buspirone 7.5 mg tablet 7.5 mg PO Q12 06/07/24 06/07/24 History carboxymethylcellulose sodium 1 % 1 drp OPB DAILY 06/07/24 06/07/24 History eye liquid gel drops (Refresh Liquigel) ketoconazole 1 % shampoo 1 applic topical 2XWK 06/07/24 06/07/24 History lorazepam 0.5 mg tablet 0.5 mg PO Q6 PRN 06/07/24 06/07/24 History anxiety/restlessness morphine concentrate 20 mg/mL oral 10 mg PO Q4 PRN Shortness Of Breath 06/07/24 06/07/24 History syringe (FOR ORAL USE ONLY) paroxetine HCl 40 mg tablet 40 mg PO QAM 06/07/24 06/07/24 History Patient History Medical History (Updated 06/07/24 @ 04:22 by Iron Meyer MD) Sepsis Hypoxia Bilateral pneumonia Alteration consciousness Closed left hip fracture Diarrhea Generalized weakness Major depressive disorder Diverticular disease Tinnitus of both ears BPH (benign prostatic hyperplasia) Generalized muscle weakness Gait apraxia Chronic shoulder pain Cognitive disorder Unsteady gait Aspiration precautions Incontinence Hyperlipemia Bipolar disorder Surgical History Hx of tonsillectomy H/O wisdom tooth extraction S/P hip replacement H/O inguinal hernia repair Status post left hip replacement History of left hip replacement Family History Unknown Obesity Hypercholesterolemia Father Diabetes Ischemic heart disease Sister Cancer Other Family history unknown Social History Smoking Status: Unknown if ever smoked Second Hand Exposure: No; Do You Dip or Chew Tobacco: No; Hx Alcohol Use: No Hx Substance Use: No Preferred Language: Pashto Communication Ability: Impaired Communication Ability Comment: able to make needs known with short answer questions Design Studio Consultant Required: No Beliefs That Will Affect Care: None Current Living Situation: Snf Current Living Situation Comment: [facility] Feels Safe at Home: Yes Assistive Devices: Walker Review of Systems Review of Systems: All systems reviewed & are unremarkable except as noted in HPI & below Physical Exam Constitutional: no acute distress Restless Respiratory: no respiratory distress Musculoskeletal: Head/Neck/Chest: normocephalic Skin: No visible rashes or lesions to exposed skin areas Neurologic: moves all extremities and awake Psychiatric: Orientation: alert Genitourinary: Peng draining clear yellow urine Results & Data Vital Signs (Past 12 Hours) Vital Signs Temp Pulse Resp BP Pulse Ox Pulse Ox O2 Del Method 06/07/24 12:30 81 27 H 92 Oxymask 06/07/24 12:30 114/68 06/07/24 12:15 115/68 06/07/24 12:09 81 31 H 90 06/07/24 12:00 102/70 06/07/24 12:00 102/70 06/07/24 12:00 36.8 C 06/07/24 12:00 06/07/24 11:45 111/67 06/07/24 11:45 111/67 06/07/24 11:39 93 H 23 94 06/07/24 11:30 96 H 16 06/07/24 11:30 105/76 06/07/24 11:30 105/76 06/07/24 11:17 126/80 06/07/24 11:15 96 H 28 H 90 06/07/24 11:03 93 H 19 94 Oxymask 06/07/24 11:02 106/90 06/07/24 11:02 106/90 06/07/24 10:54 93 H 20 90 06/07/24 10:51 90 18 93 06/07/24 10:30 92 H 23 06/07/24 10:02 106/59 L 06/07/24 10:02 106/59 L 06/07/24 10:00 94 H 15 06/07/24 09:48 93 H 22 06/07/24 09:30 93 H 17 94 06/07/24 09:24 85 20 92 06/07/24 09:24 124/71 06/07/24 09:06 120 H 06/07/24 08:47 141/76 H 06/07/24 08:45 91 H 94 Oxymask 06/07/24 08:27 88 26 H 92 06/07/24 08:12 36.6 C 06/07/24 08:00 11406/07/24 08:00 114/06/07/24 08:00 114/06/07/24 08:00 114/06/07/24 08:00 90 18 06/07/24 08:00 Oxymask 06/07/24 08:00 06/07/24 07:57 89 15 06/07/24 07:45 100/71 06/07/24 07:30 85 28 H 93 06/07/24 07:30 109/62 06/07/24 07:30 109/62 06/07/24 07:21 96 H 34 H 06/07/24 07:05 88 34 H 97 Oxymask 06/07/24 07:00 110/68 06/07/24 06:45 109/67 06/07/24 06:45 109/67 06/07/24 06:32 88 33 H 96 06/07/24 06:30 102/72 06/07/24 06:29 85 32 H 95 06/07/24 06:15 105/69 06/07/24 06:02 85 30 H 95 06/07/24 06:00 10106/07/24 06:00 10106/07/24 06:00 10106/07/24 06:00 10106/07/24 06:00 101/06/07/24 05:45 116/68 06/07/24 05:41 87 37 H 93 06/07/24 05:32 95 H 26 H 92 06/07/24 05:30 122/55 L 06/07/24 05:30 122/55 L 06/07/24 05:30 122/55 L 06/07/24 05:29 93 H 13 94 06/07/24 05:17 89 24 94 06/07/24 05:15 117/53 L 06/07/24 05:15 117/53 L 06/07/24 05:15 117/53 L 06/07/24 05:14 96 H 14 93 06/07/24 05:08 97 H 14 82 L 06/07/24 05:00 113/96 06/07/24 04:53 94 H 19 93 06/07/24 04:47 97 H 21 92 06/07/24 04:46 115/71 06/07/24 04:46 115/71 06/07/24 04:30 119/74 06/07/24 04:30 119/74 06/07/24 04:30 119/74 06/07/24 04:20 94 H 06/07/24 04:17 89 94 06/07/24 04:15 113/67 06/07/24 04:15 113/67 06/07/24 04:15 113/67 06/07/24 04:12 89 95 06/07/24 04:05 91 H 95 06/07/24 04:00 107/70 06/07/24 04:00 107/70 06/07/24 03:52 94 06/07/24 03:52 36.5 C 06/07/24 03:35 101 H 21 92 06/07/24 03:31 101/86 06/07/24 03:30 106 H 68 H 06/07/24 03:26 Oxymask 06/07/24 03:21 104 H 17 91 06/07/24 03:15 115/48 L O2 Del Method O2 Flow Rate O2 Flow Rate 06/07/24 12:30 06/07/24 12:30 06/07/24 12:15 06/07/24 12:09 06/07/24 12:00 06/07/24 12:00 06/07/24 12:00 06/07/24 12:00 Oxymask 8 06/07/24 11:45 06/07/24 11:45 06/07/24 11:39 06/07/24 11:30 06/07/24 11:30 06/07/24 11:30 06/07/24 11:17 06/07/24 11:15 06/07/24 11:03 4 06/07/24 11:02 06/07/24 11:02 06/07/24 10:54 06/07/24 10:51 06/07/24 10:30 06/07/24 10:02 06/07/24 10:02 06/07/24 10:00 06/07/24 09:48 06/07/24 09:30 06/07/24 09:24 06/07/24 09:24 06/07/24 09:06 06/07/24 08:47 06/07/24 08:45 4 06/07/24 08:27 06/07/24 08:12 06/07/24 08:00 06/07/24 08:00 06/07/24 08:00 06/07/24 08:00 06/07/24 08:00 06/07/24 08:00 4 06/07/24 08:00 Oxymask 4 06/07/24 07:57 06/07/24 07:45 06/07/24 07:30 06/07/24 07:30 06/07/24 07:30 06/07/24 07:21 06/07/24 07:05 4 06/07/24 07:00 06/07/24 06:45 06/07/24 06:45 06/07/24 06:32 06/07/24 06:30 06/07/24 06:29 06/07/24 06:15 06/07/24 06:02 06/07/24 06:00 06/07/24 06:00 06/07/24 06:00 06/07/24 06:00 06/07/24 06:00 06/07/24 05:45 06/07/24 05:41 06/07/24 05:32 06/07/24 05:30 06/07/24 05:30 06/07/24 05:30 06/07/24 05:29 06/07/24 05:17 06/07/24 05:15 06/07/24 05:15 06/07/24 05:15 06/07/24 05:14 06/07/24 05:08 06/07/24 05:00 06/07/24 04:53 06/07/24 04:47 06/07/24 04:46 06/07/24 04:46 06/07/24 04:30 06/07/24 04:30 06/07/24 04:30 06/07/24 04:20 06/07/24 04:17 06/07/24 04:15 06/07/24 04:15 06/07/24 04:15 06/07/24 04:12 06/07/24 04:05 06/07/24 04:00 06/07/24 04:00 06/07/24 03:52 Oxymask 4 06/07/24 03:52 06/07/24 03:35 06/07/24 03:31 06/07/24 03:30 06/07/24 03:26 4 06/07/24 03:21 06/07/24 03:15 PG Care Time/CCT Total # of Minutes Spent Total Time Spent with Patient: Total time spent is greater than 50% in coordination of care (as documented) at patient's floor/unit and/or counseling patient: Coding Level of Care Code 22890 INT INP/OBS CARE 2MIN Diagnoses Sepsis due to urinary tract infection A41.9; N39.0 Hydronephrosis, left N13.30 RUBIA (acute kidney injury) N17.9
--- NOTE | 2024-06-07 16:28 | XCELERA ---
[id number] \\[email or web address]\[id number]
[2024-06-07] MEDS: D5W AND LACTATED RINGERS 1,000 ML IV SCH (19:15)
[2024-06-07] MEDS: cefTRIAXone SODIUM 2,000 MG/50 ML BAG IV SCH (19:27)
[2024-06-07] MEDS: ATORVASTATIN 10 MG TAB PO SCH (19:30)
[2024-06-07] MEDS ORDERED: NON-FORMULARY MEDICATION (Insulin Glargine [Lantus Solostar U-100 Insulin] 100 unit/mL (3 SQ SCH (21:00)
[2024-06-07] MEDS ORDERED: LANTUS PER UNIT CHARGE SQ SCH (21:00)
--- NOTE | 2024-06-07 22:51 | Electrocardiogram Report ---
Test Reason : Blood Pressure : */* mmHG Vent. Rate : 112 BPM Atrial Rate : 112 BPM P-R Int : 158 ms QRS Dur : 86 ms QT Int : 334 ms P-R-T Axes : 34 -5 69 degrees QTcB Int : 455 ms Sinus tachycardia Otherwise normal ECG When compared with ECG of 16-Aug-2020 05:09, Vent. rate has increased by 55 bpm Nonspecific T wave abnormality, improved in Anterolateral leads Confirmed by Nabeel Linton ([id number]) on 06/07/2024 10:50:41 PM Referred By: REFERRED SELF Confirmed By: Nabeel Linton
[2024-06-08 02:28] LABS: Hemoglobin 12.6 g/dl (14.0-18.0); Mean Corpuscular Hemoglobin 31.5 pg (25.0-34.0); Mean Corpuscular Hgb Conc 34.1 g/dL (32.0-36.0); Mean Corpuscular Volume 92.5 fL (80.0-100.0); Mean Platelet Volume 10.5 fL (9.4-12.4); Platelet Count 159 K/uL (130-400); RDW Coefficient of Variation 13.4 % (11.5-14.5); RDW Standard Deviation 46.4 fL (36.4-46.3); White Blood Count 24.16 K/ul (4.8-10.8)
[2024-06-08 02:58] LABS: INR 1.1 (0.9-1.1); Partial Thromboplastin Ratio 1.1; Partial Thromboplastin Time 29 Seconds (21-31); Prothrombin Time 11.9 Seconds (9.0-12.0)
[2024-06-08 03:04] LABS: Basophils # (auto) 0.08 K/uL (0.00-0.20); Basophils % (auto) 0.3 %; Dohle Bodies 1+; Eosinophils # (auto) 0.07 K/uL (0.00-0.50); Eosinophils % (auto) 0.3 %; Immature Granulocytes # (auto) 0.33 K/uL (0.01-0.20); Immature Granulocytes % (auto) 1.4 %; Lymphocytes # (auto) 0.86 K/uL (1.20-3.40); Lymphocytes % (auto) 3.6 %; Monocytes # (auto) 0.63 K/uL (0.11-0.59); Monocytes % (auto) 2.6 %; Neutrophils # (auto) 22.19 K/uL (1.40-6.50); Neutrophils % (auto) 91.8 %; Polychromasia 1+
[2024-06-08 03:18] LABS: Albumin Globulin Ratio 1.3 (0.9-2); BUN Creatinine Ratio 35.3 (10-20); Bilirubin,Total 0.4 mg/dl (0.2-1.0); Calcium 8.4 mg/dl (8.6-10.3); Creatinine Clr Calc Pharmacy 60.9 ml/min; Globulin 2.4 gm/dl (2.5-4.0); Magnesium 2.1 mg/dl (1.7-2.4); Potassium 3.2 mmol/L (3.5-5.1); Total Protein 5.4 gm/dl (6.0-8.3)
[2024-06-08] MEDS: POTASSIUM CHLORIDE CRTAB 20 MEQ TABCR PO STA (08:11)
[2024-06-08] MEDS: PANTOprazole 40 MG TAB PO SCH (08:12)
--- NOTE | 2024-06-08 09:40 | Hospitalist Progress Note ---
Date of Service June 08, 2024 Assessment & Plan (1) Septic shock: Plan: -2nd to UTI -Cefepime/linezolid -IVF -still requiring pressor report -CC following (2) ARF (acute renal failure): Plan: -Cr. 1.16 today -con't IVF -nephrology consult appreciated (3) Sepsis due to urinary tract infection: Plan: -Peng placed -f/u Urine C&S -con't IV abx -Urology consult appreciated, no evidence of bladder tear (4) Metabolic acidosis: Plan: -lactic acid improving -con't IVF (5) Admitted to intensive care unit: Plan: -CC following Plan The patient is a 69-year-old male with past medical history including small vessel cerebrovascular disease, neurologic gait disorder, B12 deficiency, BPH with LUTS, intellectual disability, GERD, bipolar disorder, conductive hearing loss bilaterally, hypercholesterolemia, bowel incontinence, GERD, depression, and history of diverticulosis. The patient presented to the emergency department with fever, restlessness, confusion and disorientation, with noted low blood pressure at his long-term care residence at this [facility] custodial, and was noted to have cough, congestion, fever and chills for most of the day. His maximum temperature today was noted to be 101 F. The patient does have intellectual disability with cognitive impairment, and due to persistence of his symptoms, was brought to the ED for assessment this evening Admission and Anticipated Discharge Date Admission Date: June 07, 2024 Subjective Pt resting in bed, still on levopehed. Denies any complaints. Review of Systems Review of Systems: CONST: Negative for fever, body aches and chills. HENT: Negative for neck pain/stiffness, headache, congestion, sore throat, swelling. EYES: Negative for discharge/pain or vision changes. RESP: Negative for cough/hemoptysis and shortness of breath. CV: Negative chest pain, difficulty breathing, palpitations. ABD: Negative pain, nausea, vomiting. : Negative increase frequency, dysuria, blood in urine or stool. MUSC: Negative for muscle aches, edema. SKIN: Negative rash, lesions/sores. NEURO: Negative headache, dizziness, weakness. Physical Exam Physical Exam: GENERAL APPEARANCE NAD, activity normal for age, well developed/ well nourished, no cyanosis, pallor, or diaphoresis. EYES lids/conjunctiva normal. EARS/NOSE/THROAT Mucous membranes moist, nares normal, lips/teeth normal uvula midline without oral pharyngeal erythema, exudate or swelling TMs normal bilaterally. No lymphangitis/lymphedema. HEAD/NECK normocephalic atraumatic, no facial trauma, neck is supple. RESPIRATORY respiratory effort normal, speaks in full sentences, no tripod position, no accessory muscle use. Lungs clear to auscultation without rhonchi, wheezes, rales CARDIAC Regular rate and rhythm, no edema. ABDOMINAL Soft, ND/NT. No evidence of fluid wave. No pulsatile masses on exam, rebound tenderness, Wilkerson sign or pain over Mcburney's point. MUSCLES/EXTREMITIES No abnormal range of motion, no swelling. SKIN Warm, pink and dry. No rashes, dermatoses, petechiae or lesions. NEUROLOGICAL Speech is clear and appropriate. Normal level of consciousness. Gait and coordination are normal. 5/5 strength in all extremities. PSYCH Normal mood and affect. Judgement/competence is appropriate Results & Data Results & Data Vital Signs (Past 12 Hours) Vital Signs Temp Pulse Resp BP Pulse Ox Pulse Ox O2 Del Method 06/08/24 05:06 78 26 H 90 06/08/24 05:00 104/64 06/08/24 04:42 76 35 H 91 06/08/24 04:40 93/55 L 06/08/24 04:40 93/55 L 06/08/24 04:36 90 06/08/24 04:06 82 91 06/08/24 03:54 36.7 C 06/08/24 03:54 94 Oxymask 06/08/24 03:15 79 23 93 06/08/24 03:00 97/55 L 06/08/24 03:00 97/55 L 06/08/24 03:00 97/55 L 06/08/24 02:57 78 19 93 06/08/24 02:21 82 17 92 06/08/24 02:00 95/53 L 06/08/24 01:57 77 91 06/08/24 01:03 72 18 94 06/08/24 01:00 103/64 06/08/24 01:00 103/64 06/08/24 00:42 79 20 91 06/08/24 00:09 78 97 06/08/24 00:00 116/69 06/08/24 00:00 116/69 06/08/24 00:00 92 Oxymask 06/07/24 23:54 36.6 C 06/07/24 23:21 77 92 06/07/24 23:21 76 06/07/24 23:00 102/66 06/07/24 22:57 76 91 06/07/24 22:18 75 92 06/07/24 22:00 108/64 06/07/24 22:00 108/64 06/07/24 21:57 77 94 O2 Flow Rate 06/08/24 05:06 06/08/24 05:00 06/08/24 04:42 06/08/24 04:40 06/08/24 04:40 06/08/24 04:36 06/08/24 04:06 06/08/24 03:54 06/08/24 03:54 6 06/08/24 03:15 06/08/24 03:00 06/08/24 03:00 06/08/24 03:00 06/08/24 02:57 06/08/24 02:21 06/08/24 02:00 06/08/24 01:57 06/08/24 01:03 06/08/24 01:00 06/08/24 01:00 06/08/24 00:42 06/08/24 00:09 06/08/24 00:00 06/08/24 00:00 06/08/24 00:00 6 06/07/24 23:54 06/07/24 23:21 06/07/24 23:21 06/07/24 23:00 06/07/24 22:57 06/07/24 22:18 06/07/24 22:00 06/07/24 22:00 06/07/24 21:57 PG Care Time/CCT Total # of Minutes Spent Total Time Spent with Patient: Total time spent is greater than 50% in coordination of care (as documented) at patient's floor/unit and/or counseling patient: Coding Level of Care Code 12393 SUB INP/OBS CARE 2/35MIN Diagnoses Septic shock A41.9; R65.21 ARF (acute renal failure) N17.9 Sepsis due to urinary tract infection A41.9; N39.0 Metabolic acidosis E87.20 Admitted to intensive care unit Z78.9
--- NOTE | 2024-06-08 09:44 | Critical Care Progress Note ---
Date of Service June 08, 2024 Assessment & Plan (1) Severe sepsis: (2) Acute UTI (urinary tract infection): (3) Elevated procalcitonin: (4) ARF (acute renal failure): (5) Metabolic acidosis: (6) GERD (gastroesophageal reflux disease): (7) Atypical Parkinsonism: (8) Bipolar disorder: (9) Prediabetes: (10) E coli bacteremia: Plan Reason Critically Ill: 69 YOM admitted from detention, found to be in septic shock with organ dysfunction and requiring vasopressors. Source at this time appears as urinary/pyelonephritis. Neuro - No acute needs, hx of intellectual disorder, and atypical parkionson's, and bipolar disorder CAM ICU: BEBETO - Continue supportive care - Continue antipsychotics as able to tolerate PO - Continue carbidopa/levodopa as able to tolerate PO -Restart home antidepressants. Cardiac - Severe septic shock, elevated HsCTNI -Septic shock resolving and patient off pressors at this time. Respiratory - possible small component of aspiration pneumonitis/pneumonia -Hypoxemia multifactorial in the setting of atelectasis and volume overload. Will continue to monitor wean oxygen as able. Would hold on diuresis at this time given his resolving sepsis. Encourage out of bed to chair and incentive spirometry. GI - GERD - Continue PPI -Advance diet as tolerated. RENAL/LYTES - complicated UTI/Pyelonephritis, Metabolic Acidosis, non-oliguric renal failure, electrolyte disturbances. -Acidosis resolved. Discontinue bicarb drip. Hypoglycemia resolved as well as patient is now tolerating p.o. - BPH with LUTS, possible extraluminal bladder gas - Appreciate urology assistance- imaging reviewed by Dr. Turcios per ER provider- consider CT cystogram to further eval however at this time does not feel perforation was likely - Previously followed for elevated PSA- negative biopsy 2014- newest recs to follow up with possible prostate biopsy- not scheduled. ENDO - DMII - Hold Metformin - ICU hyperglycemic protocol HEME - No acute needs ID - Severe septic shock, UTI/Pyelonephritis -Patient with pansensitive E. coli growing in blood and urine. Antibiotics de- escalated to Rocephin. Patient seems to be clinically improving with decreased white count. LINES/IV ACCESS - PIV x3, Peng to gravity Continue use of these lines DVT PROPHYLAXIS - SCDS, Lovenox. DISPO: Okay to downgrade to PCU Admission and Anticipated Discharge Date Admission Date: June 07, 2024 Subjective Patient seen and examined. He is comfortable laying in bed. No acute issues overnight. Off pressors since 2 PM 06/07/2024. Eating his breakfast this morning. Denies shortness of breath, nausea, vomiting, chest pain or dyspnea. Review of Systems Review of Systems: All systems reviewed & are unremarkable except as noted in HPI & below Physical Exam Physical Exam: PHYSICAL EXAM: General: awake, alert, Head: Normocephalic, atraumatic ENT: PERRLA, EOMI, mucous membranes dry Neuro: AAO x 3, speech clear mostly appropriate, strength intact bilaterally 5/5, sensation intact and equal all extremities Chest: equal rise and fall of the chest, no accessory muscle use, no heaves or thrills, decreased in bases with fine inspiratory crackles. Cardiac: Regular rate and rhythm, telemetry reviewed- NSR no ectopy, skin warm dry, cap refill <3 seconds, peripheral pulses +2 no JVD, no murmur, GI: NABS x 4 quadrants, softly distended, nontender to palpation, no rebound, guarding or tenderness : Peng to gravity draining light yellow urine Psych: calm and cooperative Skin: no rash or erythema Results & Data Results & Data Vital Signs (Past 12 Hours) Vital Signs Temp Pulse Resp BP Pulse Ox Pulse Ox O2 Del Method 06/08/24 05:06 78 26 H 90 06/08/24 05:00 104/64 06/08/24 04:42 76 35 H 91 06/08/24 04:40 93/55 L 06/08/24 04:40 93/55 L 06/08/24 04:36 90 06/08/24 04:06 82 91 06/08/24 03:54 36.7 C 06/08/24 03:54 94 Oxymask 06/08/24 03:15 79 23 93 06/08/24 03:00 97/55 L 06/08/24 03:00 97/55 L 06/08/24 03:00 97/55 L 06/08/24 02:57 78 19 93 06/08/24 02:21 82 17 92 06/08/24 02:00 95/53 L 06/08/24 01:57 77 91 06/08/24 01:03 72 18 94 06/08/24 01:00 103/64 06/08/24 01:00 103/64 06/08/24 00:42 79 20 91 06/08/24 00:09 78 97 06/08/24 00:00 116/69 06/08/24 00:00 116/69 06/08/24 00:00 92 Oxymask 06/07/24 23:54 36.6 C 06/07/24 23:21 77 92 06/07/24 23:21 76 06/07/24 23:00 102/66 06/07/24 22:57 76 91 06/07/24 22:18 75 92 06/07/24 22:00 108/64 06/07/24 22:00 108/64 06/07/24 21:57 77 94 O2 Flow Rate 06/08/24 05:06 06/08/24 05:00 06/08/24 04:42 06/08/24 04:40 06/08/24 04:40 06/08/24 04:36 06/08/24 04:06 06/08/24 03:54 06/08/24 03:54 6 06/08/24 03:15 06/08/24 03:00 06/08/24 03:00 06/08/24 03:00 06/08/24 02:57 06/08/24 02:21 06/08/24 02:00 06/08/24 01:57 06/08/24 01:03 06/08/24 01:00 06/08/24 01:00 06/08/24 00:42 06/08/24 00:09 06/08/24 00:00 06/08/24 00:00 06/08/24 00:00 6 06/07/24 23:54 06/07/24 23:21 06/07/24 23:21 06/07/24 23:00 06/07/24 22:57 06/07/24 22:18 06/07/24 22:00 06/07/24 22:00 06/07/24 21:57 Coding Level of Care Code 82385 SUB INP/OBS CARE 2/35MIN Diagnoses Severe sepsis A41.9; R65.20 Acute UTI (urinary tract infection) N39.0 Elevated procalcitonin R79.89 ARF (acute renal failure) N17.9 Metabolic acidosis E87.20 GERD (gastroesophageal reflux disease) K21.9 Atypical Parkinsonism G20 Bipolar disorder F31.9 Prediabetes R73.03 E coli bacteremia R78.81; B96.20
[2024-06-08] MEDS: ENOXAPARIN INJ 40 MG/0.4 ML SYR SQ SCH (10:27)
[2024-06-08] MEDS: PARoxetine HCL 20 MG TAB PO SCH (10:27)
--- NOTE | 2024-06-08 11:21 | Urology Progress Note ---
Date of Service June 08, 2024 Assessment & Plan (1) Sepsis due to urinary tract infection: (2) Acute UTI (urinary tract infection): (3) Benign prostatic hyperplasia with urinary obstruction: Plan Overall seems to be recovering appropriately. Initial CT read raised concern for air outside of the bladder lumen, however I suspect this was more likely a redundant fold of his bladder being decompressed by the Peng catheter I have low suspicion for perforation since his creatinine continues to improve and catheter is draining well, however if he clinically worsens, could consider CT cystogram. Once he is stable and out of the ICU, would be reasonable to perform a voiding trial. No plan for acute urologic intervention, urology will sign off for now. We will arrange outpatient follow-up. Please call with any questions or concerns. Admission and Anticipated Discharge Date Admission Date: June 07, 2024 Subjective Feeling better this morning Feels like his bladder is draining well, Peng catheter has been in place without any issues Labs improving (WBC has decreased from 38-24), creatinine 1.16 down from 2.20. Physical Exam Physical Exam: Laying in bed, NAD Abdomen soft, nontender, no significant pressure over the bladder Peng catheter in place draining clear yellow urine Results & Data Vital Signs (Past 12 Hours) Vital Signs Temp Pulse Resp BP Pulse Ox Pulse Ox O2 Del Method 06/08/24 10:06 93 H 19 06/08/24 10:01 108/50 L 06/08/24 09:48 84 26 H 93 Nasal Cannula 06/08/24 09:03 80 20 90 Nasal Cannula 06/08/24 09:00 113/60 06/08/24 09:00 113/60 06/08/24 08:48 83 26 H 91 Nasal Cannula 06/08/24 08:09 85 23 92 Nasal Cannula 06/08/24 08:00 64 06/08/24 08:00 86/64 L 06/08/24 08:00 86/64 L 06/08/24 08:00 Nasal Cannula 06/08/24 07:45 76 90 Nasal Cannula 06/08/24 07:40 101/61 06/08/24 07:40 101/61 06/08/24 07:39 77 93 06/08/24 07:12 85 90 Nasal Cannula 06/08/24 05:06 78 26 H 90 06/08/24 05:00 104/64 06/08/24 04:42 76 35 H 91 06/08/24 04:40 93/55 L 06/08/24 04:40 93/55 L 06/08/24 04:36 90 06/08/24 04:06 82 91 06/08/24 03:54 36.7 C 06/08/24 03:54 94 06/08/24 03:15 79 23 93 06/08/24 03:00 97/55 L 06/08/24 03:00 97/55 L 06/08/24 03:00 97/55 L 06/08/24 02:57 78 19 93 06/08/24 02:21 82 17 92 06/08/24 02:00 95/53 L 06/08/24 01:57 77 91 06/08/24 01:03 72 18 94 06/08/24 01:00 103/64 06/08/24 01:00 103/64 06/08/24 00:42 79 20 91 06/08/24 00:09 78 97 06/08/24 00:00 116/69 06/08/24 00:00 116/69 06/08/24 00:00 92 06/07/24 23:54 36.6 C 06/07/24 23:21 77 92 06/07/24 23:21 76 O2 Del Method O2 Flow Rate O2 Flow Rate 06/08/24 10:06 06/08/24 10:01 06/08/24 09:48 6 06/08/24 09:03 6 06/08/24 09:00 06/08/24 09:00 06/08/24 08:48 6 06/08/24 08:09 6 06/08/24 08:00 06/08/24 08:00 06/08/24 08:00 06/08/24 08:00 6 06/08/24 07:45 6 06/08/24 07:40 06/08/24 07:40 06/08/24 07:39 06/08/24 07:12 6 06/08/24 05:06 06/08/24 05:00 06/08/24 04:42 06/08/24 04:40 06/08/24 04:40 06/08/24 04:36 06/08/24 04:06 06/08/24 03:54 06/08/24 03:54 Oxymask 6 06/08/24 03:15 06/08/24 03:00 06/08/24 03:00 06/08/24 03:00 06/08/24 02:57 06/08/24 02:21 06/08/24 02:00 06/08/24 01:57 06/08/24 01:03 06/08/24 01:00 06/08/24 01:00 06/08/24 00:42 06/08/24 00:09 06/08/24 00:00 06/08/24 00:00 06/08/24 00:00 Oxymask 6 06/07/24 23:54 06/07/24 23:21 06/07/24 23:21 PG Care Time/CCT Total # of Minutes Spent Total Time Spent with Patient: Total time spent is greater than 50% in coordination of care (as documented) at patient's floor/unit and/or counseling patient: Coding Level of Care Code 16896 SUB INP/OBS CARE 06/15MIN Diagnoses Sepsis due to urinary tract infection A41.9; N39.0 Acute UTI (urinary tract infection) N39.0 Benign prostatic hyperplasia with urinary obstruction N40.1; N13.8
[2024-06-08] MEDS: INSULIN ASPART PER UNIT CHARGE SC SCH (17:41)
[2024-06-09 07:53] LABS: Basophils # (auto) 0.03 K/uL (0.00-0.20); Basophils % (auto) 0.3 %; Eosinophils # (auto) 0.28 K/uL (0.00-0.50); Eosinophils % (auto) 2.5 %; Hematocrit (blood only) 38.9 % (42.0-52.0); Hemoglobin 12.9 g/dl (14.0-18.0); Immature Granulocytes # (auto) 0.08 K/uL (0.01-0.20); Immature Granulocytes % (auto) 0.7 %; Lymphocytes # (auto) 0.82 K/uL (1.20-3.40); Lymphocytes % (auto) 7.4 %; Mean Corpuscular Hemoglobin 31.2 pg (25.0-34.0); Mean Corpuscular Hgb Conc 33.2 g/dL (32.0-36.0); Mean Platelet Volume 10.5 fL (9.4-12.4); Monocytes # (auto) 0.54 K/uL (0.11-0.59); Monocytes % (auto) 4.9 %; Neutrophils # (auto) 9.38 K/uL (1.40-6.50); Neutrophils % (auto) 84.2 %; Platelet Count 141 K/uL (130-400); RDW Coefficient of Variation 13.5 % (11.5-14.5); RDW Standard Deviation 46.4 fL (36.4-46.3); Red Blood Count 4.14 M/uL (4.70-6.10); White Blood Count 11.13 K/ul (4.8-10.8)
[2024-06-09 08:13] LABS: Creatinine Clr Calc Pharmacy 86.2 ml/min; Magnesium 1.7 mg/dl (1.7-2.4)
--- NOTE | 2024-06-09 11:10 | Hospitalist Progress Note ---
Date of Service June 09, 2024 Assessment & Plan (1) Septic shock: Plan: -2nd to UTI -pansensitive E.Coli in urine culture -abx changed to rocephin -off pressors -BP stable (2) ARF (acute renal failure): Plan: -Cr. 0.82 today -IVF stopped -nephrology consult appreciated (3) Sepsis due to urinary tract infection: Plan: -Peng placed -f/u Urine C&S -con't IV abx -Urology consult appreciated, no evidence of bladder rupture (4) Metabolic acidosis: Plan: -resolved (5) Diabetes: Plan: -RISS (6) Atypical Parkinsonism: Plan: -con't carbidopa/levodpa (7) Bipolar disorder: Plan: -paxil -buproprion (8) Intellectual disability: Plan: -con't supportive are Plan The patient is a 69-year-old male with past medical history including small vessel cerebrovascular disease, neurologic gait disorder, B12 deficiency, BPH with LUTS, intellectual disability, GERD, bipolar disorder, conductive hearing loss bilaterally, hypercholesterolemia, bowel incontinence, GERD, depression, and history of diverticulosis. The patient presented to the emergency department with fever, restlessness, confusion and disorientation, with noted low blood pressure at his long-term care residence at this [facility], and was noted to have cough, congestion, fever and chills for most of the day. His maximum temperature today was noted to be 101 F. The patient does have intellectual disability with cognitive impairment, and due to persistence of his symptoms, was brought to the ED and found to have UTI with septic shock Pt's condition has improved and he is now off pressors, IVF, and abx narrowed to rocephin. He is awaiting PT evaluation and will be able to return to [facility] early this week. Admission and Anticipated Discharge Date Admission Date: June 07, 2024 Subjective Pt feeling well this am. He tolerated his breakfast and is laying comfortably in bed. Review of Systems Review of Systems: CONST: Negative for fever, body aches and chills. HENT: Negative for neck pain/stiffness, headache, congestion, sore throat, swelling. EYES: Negative for discharge/pain or vision changes. RESP: Negative for cough/hemoptysis and shortness of breath. CV: Negative chest pain, difficulty breathing, palpitations. ABD: Negative pain, nausea, vomiting. : Negative increase frequency, dysuria, blood in urine or stool. MUSC: Negative for muscle aches, edema. SKIN: Negative rash, lesions/sores. NEURO: Negative headache, dizziness, weakness. Physical Exam Physical Exam: GENERAL APPEARANCE NAD, activity normal for age, well developed/ well nourished, no cyanosis, pallor, or diaphoresis. EYES lids/conjunctiva normal. EARS/NOSE/THROAT Mucous membranes moist, nares normal, lips/teeth normal uvula midline without oral pharyngeal erythema, exudate or swelling TMs normal bilaterally. No lymphangitis/lymphedema. HEAD/NECK normocephalic atraumatic, no facial trauma, neck is supple. RESPIRATORY respiratory effort normal, speaks in full sentences, no tripod position, no accessory muscle use. Lungs clear to auscultation without rhonchi, wheezes, rales CARDIAC Regular rate and rhythm, no edema. ABDOMINAL Soft, ND/NT. No evidence of fluid wave. No pulsatile masses on exam, rebound tenderness, Wilkerson sign or pain over Mcburney's point. MUSCLES/EXTREMITIES No abnormal range of motion, no swelling. SKIN Warm, pink and dry. No rashes, dermatoses, petechiae or lesions. NEUROLOGICAL Speech is clear and appropriate. Normal level of consciousness. Gait and coordination are normal. 5/5 strength in all extremities. PSYCH Normal mood and affect. Judgement/competence is appropriate Results & Data Results & Data Vital Signs (Past 12 Hours) Vital Signs Temp Pulse Pulse Resp BP Pulse Ox O2 Del Method 06/09/24 08:00 Nasal Cannula 06/09/24 07:23 37.4 C 72 18 122/76 91 Nasal Cannula 06/09/24 07:21 70 06/09/24 02:17 37.4 C 69 18 126/66 96 Nasal Cannula O2 Flow Rate 06/09/24 08:00 6 06/09/24 07:23 6 06/09/24 07:21 06/09/24 02:17 6 PG Care Time/CCT Total # of Minutes Spent Total Time Spent with Patient: Total time spent is greater than 50% in coordination of care (as documented) at patient's floor/unit and/or counseling patient: Coding Level of Care Code 78309 SUB INP/OBS CARE 2/35MIN Diagnoses Septic shock A41.9; R65.21 ARF (acute renal failure) N17.9 Sepsis due to urinary tract infection A41.9; N39.0 Metabolic acidosis E87.20 Diabetes E11.9 Atypical Parkinsonism G20 Bipolar disorder F31.9 Intellectual disability F79
[2024-06-09] MEDS ORDERED: LORazepam 0.5 MG TAB PO PRN (11:12)
[2024-06-09] MEDS ORDERED: PANTOprazole 40 MG TAB PO SCH (11:15)
[2024-06-09] MEDS ORDERED: MoRPHine SULFATE 10 MG/0.5 ML UDP PO PRN (11:23)
[2024-06-09] MEDS ORDERED: PARoxetine HCL 20 MG TAB PO SCH (11:30)
[2024-06-09] MEDS: OXYBUTYNIN CHLORIDE XL 5 MG TABCR PO SCH (12:20)
[2024-06-09] MEDS: MELOXICAM 7.5 MG TAB PO SCH (12:21)
[2024-06-09] MEDS: LANTUS PER UNIT CHARGE SC SCH (20:33)
[2024-06-09] MEDS: MELATONIN 3 MG TAB PO SCH (20:36)
[2024-06-09] MEDS ORDERED: busPIRone 7.5 MG TAB PO SCH (21:00)
[2024-06-10 07:21] LABS: Hematocrit (blood only) 40.1 % (42.0-52.0); Hemoglobin 13.2 g/dl (14.0-18.0); Mean Corpuscular Hemoglobin 30.9 pg (25.0-34.0); Mean Corpuscular Hgb Conc 32.9 g/dL (32.0-36.0); Mean Corpuscular Volume 93.9 fL (80.0-100.0); Mean Platelet Volume 10.1 fL (9.4-12.4); Platelet Count 158 K/uL (130-400); RDW Coefficient of Variation 13.2 % (11.5-14.5); RDW Standard Deviation 45.6 fL (36.4-46.3); Red Blood Count 4.27 M/uL (4.70-6.10); White Blood Count 8.97 K/ul (4.8-10.8)
[2024-06-10] MEDS: ARTIFICIAL TEARS OPB SCH (07:31)
[2024-06-10 07:49] LABS: BUN Creatinine Ratio 27.8 (10-20); Calcium 8.6 mg/dl (8.6-10.3); Creatinine Clr Calc Pharmacy 72.9 ml/min; Magnesium 1.5 mg/dl (1.7-2.4); Potassium 3.7 mmol/L (3.5-5.1)
--- NOTE | 2024-06-10 09:34 | Pharmacy Report ---
Pharmacy Glycemic Short Note 2 - Date of Service June 10, 2024 - Glycemic Short BSG Results (Last 24 hours): 06/09/24 06/09/24 06/09/24 12:02 17:09 20:22 Glucose POC Glucose 147 H 148 H 242 H 06/10/24 06/10/24 06/10/24 01:12 06:29 07:49 Glucose 115 H POC Glucose 102 H 108 H OUTPATIENT ANTIDIABETIC REGIMEN: * Lantus 20 units * Metformin 1gm PO BID HbA1c: 8% 06/07/24 ASSESSMENT: 06/10/24: * Blood sugars reasonably controlled over past 48 hours w/ hyperglycemia noted at HS (181 and 242 mg/dL last two days) * Received low-dose basal insulin last evening, fasting blood sugar of 108 mg/dL this morning * If trend continues again today, will tighten carb coverage with dinner tomorrow 06/07/24: * Type 2 diabetic admitted for septic shock, complicated UTI, possible PNA, RUBIA, and severe metabolic acidosis. * BSGs have trended favorably with SQ rapid acting. Patient is currently NPO and remains on vasopressor support (although norepi is being weaned). * Will refrain from ordering basal insulin at this time given NPO status, fewer IVs containing dextrose, and downward trending BSG, Rather will use Q 4 hr Novolog SQ correction based upon "moderate" to "severe" stress and weight. PLAN FOR INPATIENT GLYCEMIC CONTROL: * Hold outpatient oral diabetes medications * Basal insulin * Lantus scale HS (0-7 units) - see EHR for details * Bolus insulin * NovoLog per scale ACHS * Goal Range: Low 110 mg/dL - High 140 mg/dL * Correction Factor: 30 mg/dL/unit * Nutritional / Prandial insulin per carb ratio of 1 unit per 12 grams CHO consumed
--- NOTE | 2024-06-10 13:25 | XRay Report ---
XR chest 2V PA/lateral CLINICAL HISTORY: hypoxia TECHNIQUE: 2 views of the chest were obtained. Comparison: Comparison is made to chest radiograph 06/06/2024 FINDINGS: No lines and tubes are seen. The cardiomediastinal silhouette is normal. The lungs are clear. Trace b ilateral pleural effusions are seen. IMPRESSION: Trace bilateral pleural effusions. ACT 112: Negative or not required by law. Electronically signed by: Denys Marte M.D. 06/10/2024 1:24 PM
[2024-06-10] MEDS: POTASSIUM CHLORIDE CRTAB 20 MEQ TABCR PO STA (14:55)
[2024-06-10] MEDS: FUROSEMIDE INJ 20 MG/2 ML VIAL IV ONE (14:55)
--- NOTE | 2024-06-10 21:05 | Hospitalist Progress Note ---
Date of Service June 10, 2024 Assessment & Plan (1) Septic shock: Plan: -2nd to UTI -pansensitive E.Coli in urine culture -abx changed to rocephin -off pressors -BP stable -remove urinary ca cath due to hypoxia: ordered lasix. (2) ARF (acute renal failure): Plan: -Cr. 0.82 today -IVF stopped -nephrology consult appreciated (3) Sepsis due to urinary tract infection: Plan: -f/u Urine C&S -con't IV abx -Urology consult appreciated, no evidence of bladder rupture (4) Metabolic acidosis: Plan: -resolved (5) Diabetes: Plan: -RISS (6) Atypical Parkinsonism: Plan: -con't carbidopa/levodpa (7) Bipolar disorder: Plan: -paxil -buproprion (8) Intellectual disability: Plan: -con't supportive are Plan The patient is a 69-year-old male with past medical history including small vessel cerebrovascular disease, neurologic gait disorder, B12 deficiency, BPH with LUTS, intellectual disability, GERD, bipolar disorder, conductive hearing loss bilaterally, hypercholesterolemia, bowel incontinence, GERD, depression, and history of diverticulosis. The patient presented to the emergency department with fever, restlessness, confusion and disorientation, with noted low blood pressure at his long-term care residence at this [facility], and was noted to have cough, congestion, fever and chills for most of the day. His maximum temperature today was noted to be 101 F. The patient does have intellectual disability with cognitive impairment, and due to persistence of his symptoms, was brought to the ED and found to have UTI with septic shock Pt's condition has improved and he is now off pressors, IVF, and abx narrowed to rocephin. He is awaiting PT evaluation and will be able to return to [facility] early this week. Admission and Anticipated Discharge Date Admission Date: June 07, 2024 Subjective Patient is a poor historian. Physical Exam Physical Exam: GENERAL APPEARANCE NAD\ EYES lids/conjunctiva normal. HEAD/NECK normocephalic atraumatic RESPIRATORY respiratory effort normal, speaks in full sentences, no tripod position, no accessory muscle use. Lungs clear to auscultation CARDIAC Regular rate and rhythm, no edema. ABDOMINAL Soft, ND/NT. No evidence of fluid wave. MUSCLES/EXTREMITIES No abnormal range of motion, no swelling. \ Results & Data Results & Data Vital Signs (Past 12 Hours) Vital Signs Temp Pulse Pulse Resp BP Pulse Ox O2 Del Method 06/10/24 20:15 37.1 C 70 18 117/69 94 Nasal Cannula 06/10/24 16:00 36.7 C 67 18 122/65 92 Nasal Cannula 06/10/24 15:06 93 H 06/10/24 11:15 36.8 C 75 18 120/73 94 Nasal Cannula O2 Flow Rate 06/10/24 20:15 4 06/10/24 16:00 4 06/10/24 15:06 06/10/24 11:15 4 PG Care Time/CCT Total # of Minutes Spent Total Time Spent with Patient: Total time spent is greater than 50% in coordination of care (as documented) at patient's floor/unit and/or counseling patient: Coding Level of Care Code 80478 SUB INP/OBS CARE 3/50MIN Diagnoses Septic shock A41.9; R65.21 ARF (acute renal failure) N17.9 Sepsis due to urinary tract infection A41.9; N39.0 Metabolic acidosis E87.20 Diabetes E11.9 Atypical Parkinsonism G20 Bipolar disorder F31.9 Intellectual disability F79
[2024-06-11 07:20] LABS: Hematocrit (blood only) 39.3 % (42.0-52.0); Hemoglobin 13.3 g/dl (14.0-18.0); Mean Corpuscular Hemoglobin 31.5 pg (25.0-34.0); Mean Corpuscular Hgb Conc 33.8 g/dL (32.0-36.0); Mean Corpuscular Volume 93.1 fL (80.0-100.0); Mean Platelet Volume 10.6 fL (9.4-12.4); Platelet Count 182 K/uL (130-400); RDW Coefficient of Variation 12.9 % (11.5-14.5); RDW Standard Deviation 43.9 fL (36.4-46.3); Red Blood Count 4.22 M/uL (4.70-6.10); White Blood Count 9.79 K/ul (4.8-10.8)
[2024-06-11 07:23] VITALS: RESP 18
[2024-06-11 08:10] LABS: C Reactive Protein 5.64 mg/dl (0-0.5); Calcium 8.7 mg/dl (8.6-10.3); Creatinine Clr Calc Pharmacy 88.4 ml/min; Potassium 3.9 mmol/L (3.5-5.1)
[2024-06-11 11:34] VITALS: BP 147/81; PULSE 102; TEMP 98.2; O2SAT 95
[2024-06-11] MEDS ORDERED: LANTUS PER UNIT CHARGE SC SCH (21:00)
--- NOTE | 2024-06-15 15:23 | Discharge Summary ---
Discharge Summary Date of Service June 11, 2024 Principal Dx & Hospital Course #1 = Principal Diagnosis (1) Septic shock: -2nd to UTI -pansensitive E.Coli in urine culture -initially treated with vancomycin/cefepime -abx changed to rocephin once consult arrived -patient clinically improved, off pressors -BP stable -removed urinary ca cath -complete course of cefpodoxime of BID. Patient with hypoxia required nasal cannula. improved with incentive spirometry and one dose of IV lasix (due to minimal pleural effusions) (2) ARF (acute renal failure): -Cr. 0.82 today -IVF stopped -nephrology consult appreciated (3) Sepsis due to urinary tract infection: -f/u Urine C&S -con't IV abx -Urology consult appreciated, no evidence of bladder rupture (4) Metabolic acidosis: -resolved (5) Diabetes: -RISS (6) Atypical Parkinsonism: -con't carbidopa/levodpa (7) Bipolar disorder: -paxil -buproprion (8) Intellectual disability: -con't supportive are Plan The patient is a 69-year-old male with past medical history including small vessel cerebrovascular disease, neurologic gait disorder, B12 deficiency, BPH with LUTS, intellectual disability, GERD, bipolar disorder, conductive hearing loss bilaterally, hypercholesterolemia, bowel incontinence, GERD, depression, and history of diverticulosis. The patient presented to the emergency department with fever, restlessness, confusion and disorientation, with noted low blood pressure at his long-term care residence at this [facility], and was noted to have cough, congestion, fever and chills for most of the day. His maximum temperature today was noted to be 101 F. The patient does have intellectual disability with cognitive impairment, and due to persistence of his symptoms, was brought to the ED and found to have UTI with septic shock Pt's condition has improved and he is now off pressors, IVF, and abx narrowed to rocephin. He is awaiting PT evaluation and will be able to return to [facility] early this week. Admission HPI Per Admitting Provider The patient is a 69-year-old male with past medical history including small vessel cerebrovascular disease, neurologic gait disorder, B12 deficiency, BPH with LUTS, intellectual disability, GERD, bipolar disorder, conductive hearing loss bilaterally, hypercholesterolemia, bowel incontinence, GERD, depression, and history of diverticulosis. The patient presented to the emergency department with fever, restlessness, confusion and disorientation, with noted low blood pressure at his long-term care residence at this [facility], and was noted to have cough, congestion, fever and chills for most of the day. His maximum temperature today was noted to be 101 F. The patient does have intellectual disability with cognitive impairment, and due to persistence of his symptoms, was brought to the ED for assessment this evening Discharge Exam GENERAL APPEARANCE NAD\ EYES lids/conjunctiva normal. HEAD/NECK normocephalic atraumatic RESPIRATORY respiratory effort normal, speaks in full sentences, no tripod posit ion, no accessory muscle use. Lungs clear to auscultation CARDIAC Regular rate and rhythm, no edema. ABDOMINAL Soft, ND/NT. No evidence of fluid wave. MUSCLES/EXTREMITIES No abnormal range of motion, no swelling. Discharge Plan Discharge Items Patient Disposition: Transfer Detention Fac Reason For Visit: SEPTIC SHOCK, UROSEPSIS Discharge Diagnosis: urosepsis Condition on Discharge: Critical Activity: Resume your previous activity Non-emergency contact: Primary Care Provider Call non-emergency contact if: you have any medication questions Follow-up/Referrals: [facility] [Primary Care Provider] - Diet: Regular and Carb Consistent or DM2 Addtl Attending Provider Instructions: Recommend followup with PCP in 1-2 weeks. Continue antibiotics with first dose tonight. Pending Studies at Discharge: No Stand-Alone Forms: My [facility] Skilled Items Patient informed of condition?: Yes DNR: Yes Discharge Level of Care: Skilled Communicable Disease: Yes (UTI) Discharge Prognosis: Stable Lines: None Urinary Catheter: No Medications and DC Order Prescriptions: New cefpodoxime 200 mg tablet 200 mg PO BID Qty: 20 0RF Rx Instructions: must administer with a meal/food Continued cholecalciferol (vitamin D3) 2,000 unit capsule 2,000 units PO DAILY Qty: 30 5RF melatonin 5 mg tablet 5 mg PO HS Qty: 90 3RF cyanocobalamin (vitamin B-12) 2,500 mcg tablet 2,500 mcg PO DAILY Qty: 30 8RF meloxicam 15 mg tablet 15 mg PO DAILY cholestyramine (with sugar) 4 gram powder 1 ea PO BID oxybutynin chloride 10 mg tablet extended release 24hr 10 mg PO DAILY carbidopa-levodopa [Sinemet] 25-100 mg tablet 1 tab PO QID levothyroxine 50 mcg tablet 50 mcg PO DAILY metformin 500 mg tablet 1,000 mg PO AMHS loperamide [Anti-Diarrheal (loperamide)] 2 mg Capsule 2 mg PO Q6 PRN (Reason: Diarrhea) atorvastatin 10 mg Tablet 10 mg PO DAILY acetaminophen 325 mg tablet 650 mg PO Q6H MDD 3g PRN (Reason: pain/fever) paroxetine HCl 40 mg Tablet 40 mg PO QAM carboxymethylcellulose sodium [Refresh Liquigel] 1 % Drops, Liquid Gel 1 drp OPB DAILY Rx Instructions: instill 1 drop in the afternoon to both eyes buspirone 7.5 mg tablet 7.5 mg PO Q12 lorazepam 0.5 mg tablet 0.5 mg PO Q6 PRN (Reason: anxiety/restlessness) morphine concentrate 20 mg/mL Syringe 10 mg PO Q4 PRN (Reason: Shortness Of Breath) Rx Instructions: pending order signature ketoconazole 1 % Shampoo 1 applic TOPICAL [id number] Rx Instructions: monday and monday Changed insulin glargine 100 unit/mL solution 7 unit subcut HS Qty: 0 0RF Held pantoprazole 40 mg tablet,delayed release (DR/EC) 40 mg PO QAM Hold Instructions: Resume on 06/22/24. Discontinued ciprofloxacin HCl 500 mg tablet 500 mg PO BID 3 Days Qty: 6 0RF Rx Instructions: Start one day prior to procedure. azithromycin 250 mg tablet 250 mg PO UD Rx Instructions: take 250mg in evening for 4 days start 06/08/24 azithromycin 250 mg tablet 500 mg PO ONCE Rx Instructions: take 2 tablets one time a day for 1 day (06/07/24) Discharge Orders: Discharge Order (Routine); Ordered 06/11/24 Ordered By: José Miguel Ornelas Admission Data Admit Date/Time: 06/07/24 01:13 Attending Provider: José Miguel Ornelas Admit Provider: Iron Meyer Primary Care Provider: Zakia Carbajal Other Providers: Zakia Carbajal; Christian Lewis; James Turcios Other Interventions: Discharge Summary Assessment (RN) Last Done: 06/11/24 13:45 Hospital Stay Data Consultations 06/07/24 00:52 ED Decision to Admit Stat 06/07/24 01:58 Consult Mail Room Routine 06/07/24 05:25 Consult Urology Routine Diagnostic Imagining Performed 06/06/24 23:32 CT abd pelvis wo con Stat CT chest diagnostic wo con Stat CT head/brain wo con Stat Pending Results Patient Have Any Pending Studies at Discharge: No Discharge Instructions Given to Patient (Per Discharging Provider) Recommend followup with PCP in 1-2 weeks. Continue antibiotics with first dose tonight. Total Time Total Time Spent Total Time Spent (In Minutes): 32 Coding Level of Care Code 43843 INP/OBS DISCH >30 MIN Diagnoses Septic shock A41.9; R65.21 ARF (acute renal failure) N17.9 Sepsis due to urinary tract infection A41.9; N39.0 Metabolic acidosis E87.20 Diabetes E11.9 Atypical Parkinsonism G20 Bipolar disorder F31.9 Intellectual disability F79
== END 2024-06-11 14:30 | DRG 871 ==
LOC: ED 22:26 → SUATTDRO 06-07 01:13 → 1E 06-07 01:13 → 2W 06-08 13:42

== ENCOUNTER 2024-06-17 12:31 | Inpatient (IN) ==
--- NOTE | 2024-06-17 12:51 | Emergency Department Note ---
Impression & Plan Sepsis, Abscess of prostate, Leukocytosis, Acute hypernatremia ED Provider Note NAME: ENRIQUE GARZA AGE: 69 SEX: M : 1955 ARRIVES VIA: Ambulance INFORMANT: Patient ED PROVIDER(S): Raymon Daly DO CHIEF COMPLAINT: Weakness HPI: Patient is a 69-year-old male with a past medical history of sepsis, hydronephrosis, RUBIA, CVA, intellectual disability who presents to the ER referred in from center care for hypernatremia. Patient upon arrival was found to be febrile. He denies all other complaints including headache or change in vision. No chest pain or shortness of breath. No belly pain. No nausea, vomiting, or diarrhea. Denies any dysuria, urgency, or frequency. No other exacerbating or remitting factors. ADDITIONAL HISTORY OBTAINED: Per HPI Chronic Medical/Social Conditions Affecting Care: Per HPI PAST MEDICAL HISTORY:See Below PAST SURGICAL HISTORY:See Below FAMILY HISTORY:See Below SOCIAL HISTORY:See Below HOME MEDICATIONS:See Below ALLERGIES:See Below VITALS:See Below PHYSICAL EXAMINATION: GENERAL: Sitting up in bed, alert, ill-appearing, disheveled EYE EXAM: normal conjunctiva. OROPHARYNX: mucous membranes are dry NECK: supple, no nuchal rigidity, no adenopathy, non-tender LUNGS: Clear to auscultation. Normal chest wall mechanics HEART: Tachycardic, S1 normal and S2 normal ABDOMEN: abdomen soft, non-tender, normo-active bowel sounds, no masses, no rebound or guarding. SKIN: Erythema on the legs which is warm and tender. This present on bilateral legs. UPPER EXTREMITIES: upper extremities are grossly normal. LOWER EXTREMITIES: No pitting edema. NEURO EXAM: Awake alert following commands moving all extremities MEDICAL DECISION MAKING: Patient is a 69-year-old male who presents ER for above-stated complaint. IV was established and blood work was obtained. Upon arrival patient was sent over for hypernatremia. He was found to be febrile and tachycardic. He was given oral Tylenol. He was ordered 2 L normal saline. Labs show leukocytosis of 13.8 thousand. No significant anemia. BMP with a sodium of 157 likely secondary to dehydration. LFTs and bilirubin were unremarkable. Lipase was normal. Pro-Al 0.8. Viral panel was negative. Chest x-ray was clean. CT abdomen pelvis suggest a prostate abscess. This was discussed with urology who recommended holding on placing a Peng as they will take the patient to the OR. Patient was given IV cefepime and IV vancomycin. He was given 2 L of IV fluids. Case was discussed with Dr. Jules and urology. Please see their notes for further evaluation and management and treatment. Consults/Care Managements Discussions: Per [facility] Triage Nursing notes reviewed. Limited review of prior medical records performed Vital Signs: reviewed and remarkable for febrile and tachycardic Differential diagnosis: Differential diagnosis includes etiologies such as sepsis, UTI, pneumonia, metabolic, electrolyte abnormalities, cardiac sources, intracerebral event, toxicologic, neurological, as well as others were entertained. ER treatment provided: See below Diagnostics interpreted by me include EKG and cardiac monitoring as listed below: -Cardiac Monitoring: An order was placed for continuous cardiac monitoring. The monitor shows a rate of 101 with sinus rhythm. -ECG: Sinus tachycardia rate of 101 Left axis No PVCs QTc 479 -Laboratory studies:Interpreted by me as stated above in MDM and shown below. Imaging studies: Xrays: As interpreted by me: Portable AP upright 1 view of the chest shows no focal infiltrate CTs show: CT abdomen pelvis shows distended bladder and ureters with likely prostate abscess Procedures:none Critical Care: I have personally spent 44 minutes of critical care time in the direct management of this patient. This includes bedside care, interpretation of diagnostic studies, and testing, discussion with consultants, patient, and family members, and other required patient management activities. This 44 minutes is in excess of all separately billable procedures. Past Med/Surg History Problem List (Updated 06/17/24 @ 14:12 by Mike Jules MD) Prostate abscess Sepsis Diabetes E coli bacteremia Sepsis due to urinary tract infection Metabolic acidosis ARF (acute renal failure) Severe sepsis Hydronephrosis, left (Acute) Acute UTI (urinary tract infection) (Acute) Non-ST elevation VA (NSTEMI) (Acute) Elevated procalcitonin (Acute) RUBIA (acute kidney injury) (Acute) Elevated lactic acid level (Acute) Leukocytosis (Acute) Septic shock (Acute) Small vessel disease, cerebrovascular Neurologic gait disorder B12 deficiency Elevated PSA Ataxic gait Cognitive change Urinary symptom or sign Intellectual disability GERD (gastroesophageal reflux disease) UTI (urinary tract infection) (Acute) Atypical Parkinsonism (Chronic) Prediabetes (Chronic) Bipolar disorder (Chronic) Benign prostatic hyperplasia with urinary obstruction (Chronic) Conductive hearing loss of both ears (Chronic) Dysphagia (Chronic) Hypercholesterolemia (Chronic) Incontinence of bowel (Chronic) Leukopenia (Chronic) Depression (Chronic) GERD (gastroesophageal reflux disease) (Chronic) Diverticulosis (Chronic) Medical History (Updated 06/17/24 @ 14:12 by Mike Jules MD) Hypoxia Bilateral pneumonia Alteration consciousness Closed left hip fracture Diarrhea Generalized weakness Major depressive disorder Diverticular disease Tinnitus of both ears BPH (benign prostatic hyperplasia) Generalized muscle weakness Gait apraxia Chronic shoulder pain Cognitive disorder Unsteady gait Aspiration precautions Incontinence Hyperlipemia Bipolar disorder Surgical History Hx of tonsillectomy H/O wisdom tooth extraction S/P hip replacement H/O inguinal hernia repair Status post left hip replacement History of left hip replacement Family History Unknown Obesity Hypercholesterolemia Father Diabetes Ischemic heart disease Sister Cancer Other Family history unknown Social History Smoking Status: Never smoker Second Hand Exposure: No; Do You Dip or Chew Tobacco: No; Hx Alcohol Use: No Hx Substance Use: No Preferred Language: Kyrgyz Communication Ability: Impaired Communication Ability Comment: able to make needs known with short answer questions Sales Representative [employer] Required: No Beliefs That Will Affect Care: None Current Living Situation: [facility] Current Living Situation Comment: [facility] Feels Safe at Home: Yes Assistive Devices: Walker Allergies Allergies Allergy/AdvReac Type Severity Reaction Status Date / Time Penicillins AdvReac Intermediate RASH Verified 05/10/24 08:33 Home Meds Home Medications Medication Instructions Recorded Confirmed atorvastatin 10 mg tablet 10 mg PO DAILY 10/11/18 06/07/24 loperamide 2 mg capsule 2 mg PO Q6 PRN Diarrhea 10/11/18 06/07/24 (Anti-Diarrheal (loperamide)) pantoprazole 40 mg tablet,delayed 40 mg PO QAM 11/01/18 06/07/24 release acetaminophen 325 mg tablet 650 mg PO Q6H PRN pain/fever 02/27/19 06/07/24 meloxicam 15 mg tablet 15 mg PO DAILY 06/09/20 06/07/24 cholestyramine (with sugar) 4 gram 1 ea PO BID 12/15/20 06/07/24 oral powder oxybutynin chloride 10 mg 10 mg PO DAILY 12/15/20 06/07/24 tablet,extended release 24 hr carbidopa 25 mg-levodopa 100 mg 1 tab PO QID 11/26/21 06/07/24 tablet (Sinemet) levothyroxine 50 mcg tablet 50 mcg PO DAILY 11/26/21 06/07/24 metformin 500 mg tablet 1,000 mg PO AMHS 05/10/24 06/07/24 buspirone 7.5 mg tablet 7.5 mg PO Q12 06/07/24 06/07/24 carboxymethylcellulose sodium 1 % 1 drp OPB DAILY 06/07/24 06/07/24 eye liquid gel drops (Refresh Liquigel) ketoconazole 1 % shampoo 1 applic topical 2XWK 06/07/24 06/07/24 lorazepam 0.5 mg tablet 0.5 mg PO Q6 PRN 06/07/24 06/07/24 anxiety/restlessness morphine concentrate 20 mg/mL oral 10 mg PO Q4 PRN Shortness Of Breath 06/07/24 06/07/24 syringe (FOR ORAL USE ONLY) paroxetine HCl 40 mg tablet 40 mg PO QAM 06/07/24 06/07/24 Previous Rx's Medication Instructions Recorded cholecalciferol (vitamin D3) 50 2,000 units PO DAILY #30 caps 03/08/19 mcg (2,000 unit) capsule melatonin 5 mg tablet 5 mg PO HS sleep #90 tabs 09/18/19 cyanocobalamin (vitamin B-12) 2,500 mcg PO DAILY #30 tabs 07/13/21 2,500 mcg tablet cefpodoxime 200 mg tablet 200 mg PO BID #20 tabs 06/11/24 insulin glargine 100 unit/mL 7 unit (0.07 mL) subcut HS #0 mL 06/11/24 subcutaneous solution Results & Data (ED) Vital Signs Vital Signs - 24 hr 06/17/24 12:40 06/17/24 12:40 06/17/24 12:40 Temperature 38.2 C H Temperature Source Oral Pulse Rate 104 H 100 H Pulse Rate [Apical] 101 H Respiratory Rate 18 21 21 Respiratory Effort / Characteristics Non-Labored Spontaneous Non-Labored Spontaneous Blood Pressure 139/91 Blood Pressure [Right Arm] 139/91 Blood Pressure Mean 107 Blood Pressure Mean [Right Arm] 107 Blood Pressure Position Lying Blood Pressure Position [Right Arm] Lying Pulse Oximetry 92 91 91 Oxygen Delivery Method Room Air Room Air Room Air Sepsis Recent Fever Within 48 Hours No Sepsis New/Unexplained Change in Mental Status No Sepsis Action Taken by Nursing Physician Notified 06/17/24 13:01 Temperature Temperature Source Pulse Rate 97 H Pulse Rate [Apical] Respiratory Rate Respiratory Effort / Characteristics Blood Pressure Blood Pressure [Right Arm] Blood Pressure Mean Blood Pressure Mean [Right Arm] Blood Pressure Position Blood Pressure Position [Right Arm] Pulse Oximetry Oxygen Delivery Method Sepsis Recent Fever Within 48 Hours Sepsis New/Unexplained Change in Mental Status Sepsis Action Taken by Nursing Laboratory Data 06/17/24 12:48 06/17/24 12:48 Lab Results 06/17/24 Range/Units 12:48 WBC 13.89 H (4.8-10.8) K/ul RBC 4.33 L (4.70-6.10) M/uL Hgb 13.4 L (14.0-18.0) g/dl Hct 41.3 L (42.0-52.0) % MCV 95.4 (80.0-100.0) fL MCH 30.9 (25.0-34.0) pg MCHC 32.4 (32.0-36.0) g/dL RDW Std Deviation 47.9 H (36.4-46.3) fL RDW Coeff of Osbaldo 13.8 (11.5-14.5) % Plt Count 371 (130-400) K/uL MPV 9.8 (9.4-12.4) fL Immature Gran % (Auto) 0.4 % Neut % (Auto) 79.2 % Lymph % (Auto) 12.6 % [place] % (Auto) 6.6 % Eos % (Auto) 0.8 % Baso % (Auto) 0.4 % Neut # (Auto) 10.99 H (1.40-6.50) K/uL Lymph # (Auto) 1.75 (1.20-3.40) K/uL [place] # (Auto) 0.92 H (0.11-0.59) K/uL Eos # (Auto) 0.11 (0.00-0.50) K/uL Baso # (Auto) 0.06 (0.00-0.20) K/uL Immature Gran # (Auto) 0.06 (0.01-0.20) K/uL Sodium 156 H* (136-145) mmol/L Potassium 3.7 (3.5-5.1) mmol/L Chloride 121 H (98-107) mmol/L Carbon Dioxide 25 (21-32) mmol/L Anion Gap 10 (3-11) BUN 36 H (6-23) mg/dl Creatinine 1.59 H (0.6-1.4) mg/dl Est Cr Clr Drug Dosing 44.5 ml/min eGFR 46.99 BUN/Creatinine Ratio 22.6 H (10-20) Glucose 111 H (70-99(Fasting)) mg/dl Lactate 1.5 (0.4-2.0) mmol/L Calcium 9.0 (8.6-10.3) mg/dl Total Bilirubin 0.6 (0.2-1.0) mg/dl AST 17 (13-39) U/L ALT 7 (7-52) U/L Alkaline Phosphatase 281 H (34-104) U/L Total Protein 6.6 (6.0-8.3) gm/dl Albumin 3.4 (3.4-5.0) gm/dl Globulin 3.2 (2.5-4.0) gm/dl Albumin/Globulin Ratio 1.1 (0.9-2) Lipase 10 L (11-82) U/L Procalcitonin 0.80 H (0-0.5) ng/ml Adenovirus (PCR) Not Detected (NotDetected) B. pertussis DNA (PCR) Not Detected (NotDetected) B.parapertussis DNA PCR Not Detected (NotDetected) C. pneumoniae DNA (PCR) Not Detected (NotDetected) Coronavirus OC43 (PCR) Not Detected (NotDetected) Coronavirus HKU1 (PCR) Not Detected (NotDetected) Coronavirus 229E (PCR) Not Detected (NotDetected) SARS-CoV-2 (PCR) Not Detected (NotDetected) Coronavirus NL63 (PCR) Not Detected (NotDetected) Human Metapneumovir PCR Not Detected (NotDetected) Influenza Type A (PCR) Not Detected (NotDetected) Influenza Type B (PCR) Not Detected (NotDetected) M. pneumoniae (PCR) Not Detected (NotDetected) Parainfluenza 1 (PCR) Not Detected (NotDetected) Parainfluenza 2 (PCR) Not Detected (NotDetected) Parainfluenza 3 (PCR) Not Detected (NotDetected) Parainfluenza 4 (PCR) Not Detected (NotDetected) RSV (PCR) Not Detected (NotDetected) Entero/Rhino (PCR) Not Detected (NotDetected) Administered Medications Vancomycin HCl 1,500 mg/ (Sodium Chloride) 530 mls @ 200 mls/hr IV NOW ONE Stop: 06/17/24 15:41 Last Admin: 06/17/24 13:50 Dose: 200 mls/hr Documented By: ANTONIETA Sodium Chloride (Nss) 1,000 mls @ 999 mls/hr IV .Q1H1M ONE Stop: 06/17/24 15:05 Last Admin: 06/17/24 14:06 Dose: 999 mls/hr Documented By: ANTONIETA Discontinued Medications Acetaminophen (Acetaminophen 325 Mg Tab) 650 mg PO NOW STA Stop: 06/17/24 12:46 Last Admin: 06/17/24 12:55 Dose: 650 mg Documented By: ANTONIETA Sodium Chloride (Nss) 1,000 mls @ 999 mls/hr IV .Q1H1M LLOYD Stop: 06/17/24 13:45 Last Admin: 06/17/24 12:58 Dose: 999 mls/hr Documented By: ANTONIETA Cefepime HCl (Maxipime 2000mg) 2,000 mg in 20 mls @ 5 mls/min IV NOW STA; Protocol Stop: 06/17/24 12:48 Last Admin: 06/17/24 12:58 Dose: 5 mls/min Documented By: ANTONIETA Ioversol (Optiray 320 100ml) 94 ml IV ONCE ONE Stop: 06/17/24 13:07 Last Admin: 06/17/24 13:07 Dose: 94 ml Documented By: SPENCER Imaging Data Radiologist's Impression: Abdomen/Pelvis CT 06/17/24 12:45 CT OF THE ABDOMEN AND PELVIS WITH CONTRAST CLINICAL HISTORY: Sepsis. COMPARISON STUDY: CT of the abdomen and pelvis June 06, 2024. Prostate MRI November 24, 2020. TECHNIQUE: Following IV administration of 94 mL of Optiray, axial images of the abdomen and pelvis were obtained from the lung bases to the proximal femurs. Images were reviewed in the axial, sagittal, and coronal planes. IV contrast was administered without complication. Automated exposure control was utilized for the study. A dose lowering technique was utilized adhering to the principles of ALARA. CT DOSE: 1360.94 mGy.cm FINDINGS: Distal distal esophageal wall thickening is noted. The distal esophagus is mildly dilated. There is a small amount of associated mediastinal fluid. No pneumomediastinum is identified within visualized portions of the chest. There is no pneumatosis, free air or portal venous gas. Liver, spleen, adrenal glands and pancreas are unremarkable. There is no biliary or pancreatic ductal dilatation. Moderate bilateral hydronephrosis is more severe on the left. Both ureters are dilated to the level of the bladder. The bladder is markedly distended. The prostate is enlarged, measuring 8 cm in transverse dimension. The median lobe of the prostate indents the bladder. A 6.4 x 3.9 cm peripherally enhancing hypodense focus within the left aspect of the prostate extending from the level of the mid gland to base is present. There is mild stranding adjacent to the bladder, prostate and seminal vesicles. No additional fluid collections are present. There are no urinary calculi. There is no evidence for a bowel obstruction. Large amount of stool within the rectum is again noted. Major vasculature is patent. IMPRESSION: 1. Findings consistent with bladder outlet obstruction due to an enlarged prostate. Moderate bilateral hydroureteronephrosis with distended bladder. 2. Markedly enlarged prostate. 6.4 x 3.9 cm hypodense peripherally enhancing focus within the left aspect of the prostate is suspicious for a prostatic abscess given the clinical history. Mild stranding adjacent to the bladder, prostate and seminal vesicles. 3. Distal esophageal wall thickening with adjacent stranding. This favors esophagitis. 4. Large amount of stool within the rectum. 5. No evidence for a bowel obstruction. ACT 112: Negative or not required by law. Electronically signed by: Garret Lees M.D. 06/17/2024 1:41 PM Chest X-Ray 06/17/24 12:55 XR chest 1V portable CLINICAL HISTORY: sepsis COMPARISON STUDY: 06/10/2024 FINDINGS: Single view portable chest demonstrates no acute cardiopulmonary process. The pleural effusions have resolved. Allowing for low lung volumes, there is no acute pulmonary process identified. The heart and pulmonary vascularity are unremarkable. IMPRESSION: No acute process. ACT 112: Negative or not required by law. Electronically signed by: Delmis Nolasco M.D. 06/17/2024 1:46 PM Discharge Plan Visit Data Chief Complaint: Abnormal Labs/Diagnostic Testing Stated Complaint: AB NORMAL LABS ED Provider: Raymon Daly Discharge Problem: Sepsis, Abscess of prostate, Leukocytosis, Acute hypernatremia Forms Stand Alone Forms: My [facility] [place] Prescriptions Prescriptions: No Action cholecalciferol (vitamin D3) 2,000 unit capsule 2,000 units PO DAILY Qty: 30 5RF melatonin 5 mg tablet 5 mg PO HS Qty: 90 3RF cyanocobalamin (vitamin B-12) 2,500 mcg tablet 2,500 mcg PO DAILY Qty: 30 8RF meloxicam 15 mg tablet 15 mg PO DAILY cholestyramine (with sugar) 4 gram powder 1 ea PO BID oxybutynin chloride 10 mg tablet extended release 24hr 10 mg PO DAILY carbidopa-levodopa [Sinemet] 25-100 mg tablet 1 tab PO QID levothyroxine 50 mcg tablet 50 mcg PO DAILY metformin 500 mg tablet 1,000 mg PO AMHS loperamide [Anti-Diarrheal (loperamide)] 2 mg Capsule 2 mg PO Q6 PRN (Reason: Diarrhea) atorvastatin 10 mg Tablet 10 mg PO DAILY pantoprazole 40 mg tablet,delayed release (DR/EC) 40 mg PO QAM Hold Instructions: Resume on 06/22/24. acetaminophen 325 mg tablet 650 mg PO Q6H MDD 3g PRN (Reason: pain/fever) paroxetine HCl 40 mg Tablet 40 mg PO QAM carboxymethylcellulose sodium [Refresh Liquigel] 1 % Drops, Liquid Gel 1 drp OPB DAILY Rx Instructions: instill 1 drop in the afternoon to both eyes buspirone 7.5 mg tablet 7.5 mg PO Q12 lorazepam 0.5 mg tablet 0.5 mg PO Q6 PRN (Reason: anxiety/restlessness) morphine concentrate 20 mg/mL Syringe 10 mg PO Q4 PRN (Reason: Shortness Of Breath) Rx Instructions: pending order signature ketoconazole 1 % Shampoo 1 applic TOPICAL 2XWK Rx Instructions: monday and monday cefpodoxime 200 mg tablet 200 mg PO BID Qty: 20 0RF Rx Instructions: must administer with a meal/food insulin glargine 100 unit/mL solution 7 unit subcut HS Qty: 0 0RF Referrals Referrals: [facility] [Primary Care Provider] - Discharge Problem: Sepsis Qualifiers: Sepsis type: sepsis due to unspecified organism Sepsis acute organ dysfunction status: unspecified Qualified Code(s): A41.9 - Sepsis, unspecified organism Leukocytosis Qualifiers: Leukocytosis type: unspecified Qualified Code(s): D72.829 - Elevated white blood cell count, unspecified
[2024-06-17] MEDS: ACETAMINOPHEN 325 MG TAB PO STA (12:55)
[2024-06-17] MEDS: SODIUM CHLORIDE 0.9% 1,000 ML IV SCH (12:58)
[2024-06-17] MEDS: CEFEPIME 2000MG 2,000 MG/20 ML SYR IV STA (12:58)
[2024-06-17] MEDS ORDERED: VANCOMYCIN CONSULT ACTIVE PRN (13:03)
[2024-06-17] MEDS: OPTIRAY 320 100ml IV ONE (13:07)
[2024-06-17 13:24] LABS: Basophils # (auto) 0.06 K/uL (0.00-0.20); Basophils % (auto) 0.4 %; Eosinophils # (auto) 0.11 K/uL (0.00-0.50); Eosinophils % (auto) 0.8 %; Hematocrit (blood only) 41.3 % (42.0-52.0); Hemoglobin 13.4 g/dl (14.0-18.0); Immature Granulocytes # (auto) 0.06 K/uL (0.01-0.20); Immature Granulocytes % (auto) 0.4 %; Lymphocytes # (auto) 1.75 K/uL (1.20-3.40); Lymphocytes % (auto) 12.6 %; Mean Corpuscular Hemoglobin 30.9 pg (25.0-34.0); Mean Corpuscular Hgb Conc 32.4 g/dL (32.0-36.0); Mean Corpuscular Volume 95.4 fL (80.0-100.0); Mean Platelet Volume 9.8 fL (9.4-12.4); Monocytes # (auto) 0.92 K/uL (0.11-0.59); Monocytes % (auto) 6.6 %; Neutrophils # (auto) 10.99 K/uL (1.40-6.50); Neutrophils % (auto) 79.2 %; Platelet Count 371 K/uL (130-400); RDW Coefficient of Variation 13.8 % (11.5-14.5); RDW Standard Deviation 47.9 fL (36.4-46.3); Red Blood Count 4.33 M/uL (4.70-6.10); White Blood Count 13.89 K/ul (4.8-10.8)
[2024-06-17 13:32] LABS: Albumin Globulin Ratio 1.1 (0.9-2); Albumin Level 3.4 gm/dl (3.4-5.0); BUN Creatinine Ratio 22.6 (10-20); Bilirubin,Total 0.6 mg/dl (0.2-1.0); Creatinine Clr Calc Pharmacy 44.5 ml/min; Globulin 3.2 gm/dl (2.5-4.0); Potassium 3.7 mmol/L (3.5-5.1); Total Protein 6.6 gm/dl (6.0-8.3)
--- NOTE | 2024-06-17 13:42 | CT Scan Report ---
CT OF THE ABDOMEN AND PELVIS WITH CONTRAST CLINICAL HISTORY: Sepsis. COMPARISON STUDY: CT of the abdomen and pelvis June 06, 2024. Prostate MRI November 24, 2020. TECHNIQUE: Following IV administration of 94 mL of Optiray, axial images of the abdomen and pelvis we re obtained from the lung bases to the proximal femurs. Images were reviewed in the axial, sagittal, and coronal planes. IV contrast was administered without complication. Automated exposure control wa s utilized for the study. A dose lowering technique was utilized adhering to the principles of ALARA . CT DOSE: 1360.94 mGy.cm FINDINGS: Distal distal esophageal wall thickening is noted. The distal esophagus is mildly dilated. There is a small amount of associated mediastinal fluid. No pneumomediastinum is identified within vi sualized portions of the chest. There is no pneumatosis, free air or portal venous gas. Liver, spleen , adrenal glands and pancreas are unremarkable. There is no biliary or pancreatic ductal dilatation. Moderate bilateral hydronephrosis is more severe on the left. Both ureters are dilated to the level o f the bladder. The bladder is markedly distended. The prostate is enlarged, measuring 8 cm in transve rse dimension. The median lobe of the prostate indents the bladder. A 6.4 x 3.9 cm peripherally enhan cing hypodense focus within the left aspect of the prostate extending from the level of the mid gland to base is present. There is mild stranding adjacent to the bladder, prostate and seminal vesicles. No additional fluid collections are present. There are no urinary calculi. There is no evidence for a bowel obstruction. Large amount of stool within the rectum is again noted. Major vasculature is michel nt. IMPRESSION: 1. Findings consistent with bladder outlet obstruction due to an enlarged prostate. Moderate bilatera l hydroureteronephrosis with distended bladder. 2. Markedly enlarged prostate. 6.4 x 3.9 cm hypodense peripherally enhancing focus within the left as pect of the prostate is suspicious for a prostatic abscess given the clinical history. Mild stranding adjacent to the bladder, prostate and seminal vesicles. 3. Distal esophageal wall thickening with adjacent stranding. This favors esophagitis. 4. Large amount of stool within the rectum. 5. No evidence for a bowel obstruction. ACT 112: Negative or not required by law. Electronically signed by: Garret Lees M.D. 06/17/2024 1:41 PM
--- NOTE | 2024-06-17 13:48 | XRay Report ---
XR chest 1V portable CLINICAL HISTORY: sepsis COMPARISON STUDY: 06/10/2024 FINDINGS: Single view portable chest demonstrates no acute cardiopulmonary process. The pleural effus ions have resolved. Allowing for low lung volumes, there is no acute pulmonary process identified. Th e heart and pulmonary vascularity are unremarkable. IMPRESSION: No acute process. ACT 112: Negative or not required by law. Electronically signed by: Delmis Nolasco M.D. 06/17/2024 1:46 PM
[2024-06-17] MEDS ORDERED: PHARMACY GLYCEMIC MGMT CONSULT PRN (13:49)
[2024-06-17] MEDS: VANCOMYCIN HCL 1,500 MG in SODIUM CHLORIDE 0.9% 500 ML IV ONE (13:50)
[2024-06-17 13:52] LABS: Adenovirus PCR Not Detected (NotDetected); Bordetella parapertussis PCR Not Detected (NotDetected); Bordetella pertussis PCR Not Detected (NotDetected); Chlamydia pneumoniae PCR Not Detected (NotDetected); Coronavirus 229E PCR Not Detected (NotDetected); Coronavirus CoV-2 (COVID19)PCR Not Detected (NotDetected); Coronavirus HKU1 PCR Not Detected (NotDetected); Coronavirus NL63 PCR Not Detected (NotDetected); Coronavirus OC43PCR Not Detected (NotDetected); Human Metapneumovirus PCR Not Detected (NotDetected); Influenza A PCR Not Detected (NotDetected); Influenza B PCR Not Detected (NotDetected); Mycoplasma pneumoniae PCR Not Detected (NotDetected); Parainfluenza Virus 1 PCR Not Detected (NotDetected); Parainfluenza Virus 2 PCR Not Detected (NotDetected); Parainfluenza Virus 3 PCR Not Detected (NotDetected); Parainfluenza Virus 4 PCR Not Detected (NotDetected); Respiratory Syncytial VirusPCR Not Detected (NotDetected); Rhinovirus/Enterovirus PCR Not Detected (NotDetected)
--- NOTE | 2024-06-17 13:56 | History & Physical Report ---
Date of Service June 17, 2024 Assessment & Plan (1) Sepsis: Plan: Suspected source prostate abscess - will need 4- 6 weeks of antibiotics after source control Lactate 1.5 and not hypotensive therefore does not meet criteria for fluid sepsis bolus - having said that he is clearly very dry on exam and will give 1L NSS bolus followed by D5W to help reduce his hypernatremia Likely still pansensitive E. coli like his recent admission but will treat empirically with vancomycin and cefepime pending repeat urine and blood cultures Need for source control, discussed with urology DOCUMENTATION SPECIALIST at bedside and planning to take to OR later today He is medically optimized for emergent surgery at this time, his hypernatremia should not delay source control (2) Prostate abscess: Plan: Consult urology (3) Benign prostatic hyperplasia with urinary obstruction: Plan: Peng catheter to be placed by urology Will defer tamsulosin pending serial blood pressure measurements overnight (4) RUBIA (acute kidney injury): Plan: Obstructive uropathy, should resolve with intravenous fluids and Peng catheter placement in the OR Hold meloxicam Continue to monitor BMP (5) Acute hypernatremia: Plan: Patient clinically dry on exam, will start on D5W @ 150ml/hr and continue to trend Na till normalizes Calculated 5.2L free water deficit (6) Diabetes: Plan: Hemoglobin A1c 8.0 in May, no need to repeat Hold metformin Consult pharmacy for glycemic control (7) E coli bacteremia: Plan: Noted on recent admission Plan GERD - continue pantoprazole Hypothyroidism - normal TSH in August, continue levothyroxine VTE Prophylaxis - deferred pending surgical treatment Diet - NPO pending surgical treatment Disposition - admit to PCU Admission and Anticipated Discharge Date Admission Date: June 17, 2024 History of Present Illness Chief Complaint: Abnormal labs Primary Care Provider: [facility] Romel Ewing is a 69 year old male with Parkison's disease resident of [facility] who presents to the ER with increased confusion, restlessness, generalized weakness and mainly abnormal labs with hypernatremia. Unable to get any significant history from the patient at time of admission but he is aware he is in hospital. Cannot tell me when he last ate or drank. On discussion with RUBEN Frost at [facility]. She reports he ate 25% of his breakfast this morning at 9 AM which was the last time he ate or drank. She notes since discharge from the hospital he has become progressively worse with increased confusion, restlessness and now unable to use a walker so downgraded to a wheelchair. He has been incontinent of bowel and bladder since discharge which is new for him. The lab work collected was just routine posthospitalization lab work showing a sodium of 157 therefore was sent back to the emergency room. His baseline he is able to hold a conversation, typically knows where he is, the year and able to walk with a walker. He resides at [facility] since 2017 as he is no longer able to care for himself due to his Parkinson's disease. He was recently admitted and [facility] for E. coli sepsis with suspected source of UTI/pyelonephritis requiring vasopressor support in the ICU from June 07 - 2023. He was discharged on cefpodoxime which he has been receiving and [facility]. Allergies Allergy/AdvReac Type Severity Reaction Status Date / Time Penicillins AdvReac Intermediate RASH Verified 05/10/24 08:33 Home Medications Medication Instructions Recorded Confirmed Type atorvastatin 10 mg tablet 10 mg PO DAILY 10/11/18 06/17/24 History loperamide 2 mg capsule 2 mg PO Q6 PRN Diarrhea 10/11/18 06/07/24 History (Anti-Diarrheal (loperamide)) pantoprazole 40 mg tablet,delayed 40 mg PO QAM 11/01/18 06/17/24 History release acetaminophen 325 mg tablet 650 mg PO Q6H PRN pain/fever 02/27/19 06/07/24 History cholecalciferol (vitamin D3) 50 2,000 units PO DAILY #30 caps 03/08/19 06/17/24 Rx mcg (2,000 unit) capsule melatonin 5 mg tablet 5 mg PO HS sleep #90 tabs 09/18/19 06/17/24 Rx meloxicam 15 mg tablet 15 mg PO DAILY 06/09/20 06/17/24 History cholestyramine (with sugar) 4 gram 1 ea PO BID 12/15/20 06/17/24 History oral powder oxybutynin chloride 10 mg 10 mg PO DAILY 12/15/20 06/17/24 History tablet,extended release 24 hr cyanocobalamin (vitamin B-12) 2,500 mcg PO DAILY #30 tabs 07/13/21 06/17/24 Rx 2,500 mcg tablet carbidopa 25 mg-levodopa 100 mg 1 tab PO QID 11/26/21 06/17/24 History tablet (Sinemet) levothyroxine 50 mcg tablet 50 mcg PO DAILY 11/26/21 06/17/24 History metformin 500 mg tablet 1,000 mg PO AMHS 05/10/24 06/17/24 History buspirone 7.5 mg tablet 7.5 mg PO Q12 06/07/24 06/17/24 History carboxymethylcellulose sodium 1 % 1 drp OPB DAILY 06/07/24 06/07/24 History eye liquid gel drops (Refresh Liquigel) ketoconazole 1 % shampoo 1 applic topical 2XWK 06/07/24 06/07/24 History lorazepam 0.5 mg tablet 0.5 mg PO Q6 PRN 06/07/24 06/17/24 History anxiety/restlessness morphine concentrate 20 mg/mL oral 10 mg PO Q4 PRN Shortness Of Breath 06/07/24 06/17/24 History syringe (FOR ORAL USE ONLY) paroxetine HCl 40 mg tablet 40 mg PO QAM 06/07/24 06/17/24 History cefpodoxime 200 mg tablet 200 mg PO BID #20 tabs 06/11/24 06/17/24 Rx insulin glargine 100 unit/mL 7 unit (0.07 mL) subcut HS #0 mL 06/11/24 06/17/24 Rx subcutaneous solution Past Med/Surg History Problem List (Updated 06/18/24 @ 00:46 by Mike Jules MD) Acute hypernatremia Sepsis E coli bacteremia RUBIA (acute kidney injury) (Acute) Elevated lactic acid level (Acute) Leukocytosis (Acute) Small vessel disease, cerebrovascular Neurologic gait disorder B12 deficiency Elevated PSA Ataxic gait Cognitive change Urinary symptom or sign GERD (gastroesophageal reflux disease) UTI (urinary tract infection) (Acute) Prediabetes (Chronic) Bipolar disorder (Chronic) Benign prostatic hyperplasia with urinary obstruction (Chronic) Conductive hearing loss of both ears (Chronic) Dysphagia (Chronic) Hypercholesterolemia (Chronic) Incontinence of bowel (Chronic) Leukopenia (Chronic) Depression (Chronic) GERD (gastroesophageal reflux disease) (Chronic) Diverticulosis (Chronic) Medical History (Updated 06/18/24 @ 00:46 by Mike Jules MD) Encounter for pre-operative examination Prostate abscess Diabetes ARF (acute renal failure) Non-ST elevation RI (NSTEMI) Intellectual disability Atypical Parkinsonism Hypoxia Bilateral pneumonia Alteration consciousness Closed left hip fracture Diarrhea Generalized weakness Major depressive disorder Diverticular disease Tinnitus of both ears BPH (benign prostatic hyperplasia) Generalized muscle weakness Gait apraxia Chronic shoulder pain Cognitive disorder Unsteady gait Aspiration precautions Incontinence Hyperlipemia Bipolar disorder Surgical History Hx of tonsillectomy H/O wisdom tooth extraction S/P hip replacement H/O inguinal hernia repair Status post left hip replacement History of left hip replacement Family History Unknown Obesity Hypercholesterolemia Father Diabetes Ischemic heart disease Sister Cancer Other Family history unknown Social History Smoking Status: Unknown if ever smoked Second Hand Exposure: No; Do You Dip or Chew Tobacco: No; Hx Alcohol Use: No Hx Substance Use: No Preferred Language: Telugu Communication Ability: Effective Communication Ability Comment: able to make needs known with short answer questions Soils Technician Required: No Beliefs That Will Affect Care: None Current Living Situation: Assisted Current Living Situation Comment: [facility] Feels Safe at Home: Yes Safety Concerns: Feels Safe At This Time Assistive Devices: Walker Review of Systems Review of Systems: All systems reviewed & are unremarkable except as noted in HPI & below Physical Exam Constitutional: well developed; + not well nourished and no acute distress ENMT: Mouth: + dry oral mucous membranes Respiratory: normal respiratory effort, lungs clear to auscultation Cardiovascular: Rate/Rhythm: regular rhythm and + tachycardic Heart Sounds: no murmur Extremities: normal capillary refill; no calf tenderness and no pedal edema Gastrointestinal (Abdomen): Inspection/Auscultation: + abdomen distended Percussion/Palpation: + abdomen tender and + abdomen rigid Skin: no rashes, warm and dry Neurologic: moves all extremities and awake; not confused Psychiatric: Orientation: alert, oriented to person and oriented to place; + not oriented to time Results & Data Results & Data Vital Signs (Past 12 Hours) Vital Signs Temp Pulse Pulse Resp BP BP Pulse Ox 06/17/24 13:01 97 H 06/17/24 12:40 100 H 21 91 06/17/24 12:40 101 H 21 139/91 91 06/17/24 12:40 38.2 C H 104 H 18 139/91 92 O2 Del Method 06/17/24 13:01 06/17/24 12:40 Room Air 06/17/24 12:40 Room Air 06/17/24 12:40 Room Air Laboratory Results Abnormal lab results 06/17/24 06/17/24 06/17/24 Range/Units 12:48 15:19 17:44 WBC 13.89 H (4.8-10.8) K/ul RBC 4.33 L (4.70-6.10) M/uL Hgb 13.4 L (14.0-18.0) g/dl Hct 41.3 L (42.0-52.0) % RDW Std Deviation 47.9 H (36.4-46.3) fL Neut # (Auto) 10.99 H (1.40-6.50) K/uL [place] # (Auto) 0.92 H (0.11-0.59) K/uL Sodium 156 H* (136-145) mmol/L Chloride 121 H (98-107) mmol/L BUN 36 H (6-23) mg/dl Creatinine 1.59 H (0.6-1.4) mg/dl BUN/Creatinine Ratio 22.6 H (10-20) Glucose 111 H (70-99(Fasting)) mg/dl POC Glucose 103 H 115 H (70-99) mg/dl Calcium (8.6-10.3) mg/dl Alkaline Phosphatase 281 H (34-104) U/L Lipase 10 L (11-82) U/L Procalcitonin 0.80 H (0-0.5) ng/ml Nasal Screen MRSA (PCR) (Negative) 06/17/24 06/17/24 06/17/24 Range/Units 19:24 20:10 20:44 WBC (4.8-10.8) K/ul RBC (4.70-6.10) M/uL Hgb (14.0-18.0) g/dl Hct (42.0-52.0) % RDW Std Deviation (36.4-46.3) fL Neut # (Auto) (1.40-6.50) K/uL [place] # (Auto) (0.11-0.59) K/uL Sodium 156 H* (136-145) mmol/L Chloride 122 H (98-107) mmol/L BUN 33 H (6-23) mg/dl Creatinine 1.56 H (0.6-1.4) mg/dl BUN/Creatinine Ratio 21.2 H (10-20) Glucose 173 H (70-99(Fasting)) mg/dl POC Glucose 129 H (70-99) mg/dl Calcium 7.7 L (8.6-10.3) mg/dl Alkaline Phosphatase (34-104) U/L Lipase (11-82) U/L Procalcitonin (0-0.5) ng/ml Nasal Screen MRSA (PCR) Positive A (Negative) Diagnostic Findings XR chest 1V portable CLINICAL HISTORY: sepsis COMPARISON STUDY: 06/10/2024 FINDINGS: Single view portable chest demonstrates no acute cardiopulmonary process. The pleural effusions have resolved. Allowing for low lung volumes, there is no acute pulmonary process identified. The heart and pulmonary vascularity are unremarkable. IMPRESSION: No acute process. CT OF THE ABDOMEN AND PELVIS WITH CONTRAST CLINICAL HISTORY: Sepsis. COMPARISON STUDY: CT of the abdomen and pelvis June 06, 2024. Prostate MRI November 24, 2020. TECHNIQUE: Following IV administration of 94 mL of Optiray, axial images of the abdomen and pelvis were obtained from the lung bases to the proximal femurs. Images were reviewed in the axial, sagittal, and coronal planes. IV contrast was administered without complication. Automated exposure control was utilized for the study. A dose lowering technique was utilized adhering to the principles of ALARA. CT DOSE: 1360.94 mGy.cm FINDINGS: Distal distal esophageal wall thickening is noted. The distal esophagus is mildly dilated. There is a small amount of associated mediastinal fluid. No pneumomediastinum is identified within visualized portions of the chest. There is no pneumatosis, free air or portal venous gas. Liver, spleen, adrenal glands and pancreas are unremarkable. There is no biliary or pancreatic ductal dilatation. Moderate bilateral hydronephrosis is more severe on the left. Both ureters are dilated to the level of the bladder. The bladder is markedly distended. The prostate is enlarged, measuring 8 cm in transverse dimension. The median lobe of the prostate indents the bladder. A 6.4 x 3.9 cm peripherally enhancing hypodense focus within the left aspect of the prostate extending from the level of the mid gland to base is present. There is mild stranding adjacent to the bladder, prostate and seminal vesicles. No additional fluid collections are present. There are no urinary calculi. There is no evidence for a bowel obstruction. Large amount of stool within the rectum is again noted. Major vasculature is patent. IMPRESSION: 1. Findings consistent with bladder outlet obstruction due to an enlarged prostate. Moderate bilateral hydroureteronephrosis with distended bladder. 2. Markedly enlarged prostate. 6.4 x 3.9 cm hypodense peripherally enhancing focus within the left aspect of the prostate is suspicious for a prostatic abscess given the clinical history. Mild stranding adjacent to the bladder, prostate and seminal vesicles. 3. Distal esophageal wall thickening with adjacent stranding. This favors esophagitis. 4. Large amount of stool within the rectum. 5. No evidence for a bowel obstruction. Medications Administered ER medications given: Normal saline 1 L bolus Cefepime 2 g IV Acetaminophen 650 mg. Vancomycin 1500 mg IV Normal saline 1 L bolus ECG Rate (beats per minute): 112 Rhythm: sinus tachycardia Findings: no acute ischemic change Comparison ECG Date: from (August 16, 2020) Change: the following changes noted (Nonspecific T wave abnormality improved in anterior lateral leads) Code Status & VTE Plan Code Status DNR/DNI per signed paperwork from [facility] VTE Prophylaxis Plan VTE Prophylaxis will be ordered: Yes PG Care Time/CCT Total # of Minutes Spent Total Time Spent with Patient: Total time spent is greater than 50% in coordination of care (as documented) at patient's floor/unit and/or counseling patient: Coding Level of Care Code 15163 INT INP/OBS CARE 3/75MIN Diagnoses Sepsis with acute renal failure without septic shock, due to unspecified organism, unspecified acute renal failure type A41.9; R65.20; N17.9 Sepsis type: sepsis due to unspecified organism Sepsis acute organ dysfunction status: with acute organ dysfunction Severe sepsis acute organ dysfunction type: acute renal failure Acute renal failure type: unspecified Severe sepsis shock status: without septic shock Prostate abscess N41.2 Benign prostatic hyperplasia with urinary obstruction N40.1; N13.8 RUBIA (acute kidney injury) N17.9 Acute hypernatremia E87.0 Diabetes E11.9 E coli bacteremia R78.81; B96.20 (1) Sepsis Sepsis type: sepsis due to unspecified organism Sepsis acute organ dysfunction status: with acute organ dysfunction Severe sepsis acute organ dysfunction type: acute renal failure Acute renal failure type: unspecified Severe sepsis shock status: without septic shock Qualified Code(s): A41.9 - Sepsis, unspecified organism; R65.20 - Severe sepsis without septic shock; N17.9 - Acute kidney failure, unspecified
[2024-06-17] MEDS: SODIUM CHLORIDE 0.9% 1,000 ML IV ONE ×2 (14:06→19:22)
[2024-06-17] MEDS ORDERED: GLUCOSE 40% GEL 15 GM TUBE PO PRN (14:30)
[2024-06-17] MEDS ORDERED: GLUCOSE 10 TAB/TUBE PO PRN (14:30)
[2024-06-17] MEDS ORDERED: GLUCAGON FOR INJ 1 MG VIAL SQ PRN (14:30)
[2024-06-17] MEDS ORDERED: DEXTROSE 50% 50 ML SYRINGE IV PRN (14:30)
[2024-06-17] MEDS ORDERED: CARBOHYDRATES FOR HYPOGLYCEMIA PO PRN (14:30)
--- NOTE | 2024-06-17 14:31 | Urology Consultation ---
Date of Consultation June 17, 2024 Assessment & Plan (1) Prostate abscess: (2) Sepsis: 69 yo/M with recent hospital admission 06/06-06/10/24 for septic shock secondary to E. coli UTI/bacteremia who was referred to the emergency department from [facility] due to hypernatremia. He was febrile on arrival and had CT imaging which revealed prostate abscess. Patient febrile on arrival. Labs reviewedcreatinine 1.59, WBC 13.89, hemoglobin 13.4, Na 156. No UA or urine culture yet. CT A/P with contrast showed significantly enlarged prostate, moderate bilateral hydroureteronephrosis with distended bladder; markedly enlarged prostate with a 6.4 x 3.9 cm hypodense peripherally enhancing focus within the left aspect of the prostate is suspicious for prostatic abscess. Patient has been initiated on vancomycin and cefepime. Recommend proceed to OR for emergent transurethral resection of prostate/unro ofing of prostate abscess. Discussed surgical intervention with his primary contact, Mi, who is agreeable to proceed with surgical intervention. Patient last ate/drank at 9 am per [facility]. Keep NPO for procedure. Recommend admit to medicine service for medical management. Continue broad-spectrum antibiotics, trend labs. Plan to maintain Peng catheter after surgery. will follow. Attending note: Patient independently assessed, examined, interviewed, and evaluated. Patient with emergent need due to severe illness sepsis and possible prostatic abscess with severe outlet obstruction. Critical and life threatening illness with complex management and plan for urgent/emergent surgical procedure Agree with note as above. Patient's vitals and labs were all reviewed. Pertinent values in the HPI and plan section. Imaging was reviewed interpreted by myself. Agree with read. Vitals were reviewed. Discussed findings extensively with patient and family. Reviewed with nurse practitioner as well as consulting physicians/team. Coordinated with plans to move forward with urgent procedure. Patient being admitted to the hospitalist team may end up needing intensive care unit for critical care. Spoke extensively with patient's family/MPOA frida Stark at [phone]. Explained critical illness and significant infection with severe obstruction and hydronephrosis and possible development of abscess in the prostate. Discussed potential serious and major infection and sepsis and even more major life threatening disease. Plan for urgent/emergent intervention. Patient and POA was agreeable. Also spoke with patient extensively about plans moving forward Patient's complicated medical and surgical history was reviewed and summarized above. Patient's surgical, medical, social, and family history were all reviewed with pertinent values as above. Discussed patient's current diagnosis as well as concerns and issues. Reviewed different options moving forward. Discussed potential risks and benefits as well as possible options and concerns. Reviewed potential surgical options and interventions. Discussed potential issues and concerns related to intervention. Risk and benefits were discussed extensively with patient and any available family. Discussed potential risks related to anesthesia. Discussed risks of bleeding infection and injury. Risks and benefits discussed at length for procedure. These include bleeding, infection, injury to surrounding tissues or organs, and risks associated with anesthesia. Patient states understanding and agrees to proceed. Will sign consent and proceed. Plan for emergent procedure. Plan for transurethral resection of prostate/unroofing of prostatic abscess transurethral resection of prostate/unroofing of prostatic abscess. Will likely need catheter in place and continued broad-spectrum antibiotic coverage and close monitoring after procedure History of Present Illness Reason for Consultation: Sepsis, prostate abscess Requesting Physician: Dr. Daly Attending Physician: Dr. Jules History of Present Illness This is a 69-year-old male with a PMHx including learning disability, bipolar disorder, atypical Parkinson's disease, enlarged prostate with LUTS, elevated PSA, and recent hospital admission 06/06-06/10/24 for septic shock secondary to E. coli UTI/bacteremia who was referred to the emergency department from [facility] for evaluation of hypernatremia. On arrival to ED, he was febrile (38.2), tachycardic. Lab work notable for sodium 156, creatinine 1.59, WBC 13.89, hemoglobin 13.4. Blood cultures obtained and pending. No UA or urine culture at this time. CT abdomen and pelvis with contrast showed findings consistent with bladder outlet obstruction due to a significantly enlarged prostate, moderate bilateral hydroureteronephrosis with distended bladder. A markedly enlarged prostate with a 6.4 x 3.9 cm hypodense peripherally enhancing focus within the left aspect of the prostate is suspicious for prostatic abscess. Mild stranding adjacent to the bladder, prostate and seminal vesicles. ED course: IV fluids, vancomycin, cefepime and acetaminophen. Urology is consulted for prostate abscess. Patient seen and examined in the emergency department. He is awake and alert. He is not able to provide meaningful history. ROS unobtainable due to cognitive status. Allergies Allergy/AdvReac Type Severity Reaction Status Date / Time Penicillins AdvReac Intermediate RASH Verified 05/10/24 08:33 Home Medications Medication Instructions Recorded Confirmed Type atorvastatin 10 mg tablet 10 mg PO DAILY 10/11/18 06/07/24 History loperamide 2 mg capsule 2 mg PO Q6 PRN Diarrhea 10/11/18 06/07/24 History (Anti-Diarrheal (loperamide)) pantoprazole 40 mg tablet,delayed 40 mg PO QAM 11/01/18 06/07/24 History release acetaminophen 325 mg tablet 650 mg PO Q6H PRN pain/fever 02/27/19 06/07/24 History cholecalciferol (vitamin D3) 50 2,000 units PO DAILY #30 caps 03/08/19 06/07/24 Rx mcg (2,000 unit) capsule melatonin 5 mg tablet 5 mg PO HS sleep #90 tabs 09/18/19 06/07/24 Rx meloxicam 15 mg tablet 15 mg PO DAILY 06/09/20 06/07/24 History cholestyramine (with sugar) 4 gram 1 ea PO BID 12/15/20 06/07/24 History oral powder oxybutynin chloride 10 mg 10 mg PO DAILY 12/15/20 06/07/24 History tablet,extended release 24 hr cyanocobalamin (vitamin B-12) 2,500 mcg PO DAILY #30 tabs 07/13/21 06/07/24 Rx 2,500 mcg tablet carbidopa 25 mg-levodopa 100 mg 1 tab PO QID 11/26/21 06/07/24 History tablet (Sinemet) levothyroxine 50 mcg tablet 50 mcg PO DAILY 11/26/21 06/07/24 History metformin 500 mg tablet 1,000 mg PO AMHS 05/10/24 06/07/24 History buspirone 7.5 mg tablet 7.5 mg PO Q12 06/07/24 06/07/24 History carboxymethylcellulose sodium 1 % 1 drp OPB DAILY 06/07/24 06/07/24 History eye liquid gel drops (Refresh Liquigel) ketoconazole 1 % shampoo 1 applic topical 2XWK 06/07/24 06/07/24 History lorazepam 0.5 mg tablet 0.5 mg PO Q6 PRN 06/07/24 06/07/24 History anxiety/restlessness morphine concentrate 20 mg/mL oral 10 mg PO Q4 PRN Shortness Of Breath 06/07/24 06/07/24 History syringe (FOR ORAL USE ONLY) paroxetine HCl 40 mg tablet 40 mg PO QAM 06/07/24 06/07/24 History cefpodoxime 200 mg tablet 200 mg PO BID #20 tabs 06/11/24 Rx insulin glargine 100 unit/mL 7 unit (0.07 mL) subcut HS #0 mL 06/11/24 06/07/24 Rx subcutaneous solution Patient History Medical History (Updated 06/17/24 @ 15:50 by Dread Sapp MD) Encounter for pre-operative examination Prostate abscess Diabetes ARF (acute renal failure) Non-ST elevation [place] (NSTEMI) Intellectual disability Atypical Parkinsonism Hypoxia Bilateral pneumonia Alteration consciousness Closed left hip fracture Diarrhea Generalized weakness Major depressive disorder Diverticular disease Tinnitus of both ears BPH (benign prostatic hyperplasia) Generalized muscle weakness Gait apraxia Chronic shoulder pain Cognitive disorder Unsteady gait Aspiration precautions Incontinence Hyperlipemia Bipolar disorder Surgical History Hx of tonsillectomy H/O wisdom tooth extraction S/P hip replacement H/O inguinal hernia repair Status post left hip replacement History of left hip replacement Family History Unknown Obesity Hypercholesterolemia Father Diabetes Ischemic heart disease Sister Cancer Other Family history unknown Social History Smoking Status: Never smoker Second Hand Exposure: No; Do You Dip or Chew Tobacco: No; Hx Alcohol Use: No Hx Substance Use: No Preferred Language: Lithuanian Communication Ability: Impaired Communication Ability Comment: able to make needs known with short answer questions Prenatal Nurse Required: No Beliefs That Will Affect Care: None Current Living Situation: [facility] Current Living Situation Comment: [facility] Feels Safe at Home: Yes Assistive Devices: Walker Review of Systems Review of Systems: Unobtainable due to cognitive status Physical Exam Constitutional: no acute distress Respiratory: normal respiratory effort; no respiratory distress and no labored breathing Gastrointestinal (Abdomen): Inspection/Auscultation: + abdomen distended Percussion/Palpation: abdomen nontender Musculoskeletal: Head/Neck/Chest: normocephalic Neurologic: moves all extremities and awake Psychiatric: Orientation: alert and oriented x 3 Genitourinary: bladder distended Results & Data Vital Signs (Past 12 Hours) Vital Signs Temp Pulse Pulse Resp BP BP Pulse Ox 06/17/24 13:01 97 H 06/17/24 12:40 100 H 21 91 06/17/24 12:40 101 H 21 139/91 91 06/17/24 12:40 38.2 C H 104 H 18 139/91 92 O2 Del Method 06/17/24 13:01 06/17/24 12:40 Room Air 06/17/24 12:40 Room Air 06/17/24 12:40 Room Air PG Care Time/CCT Total # of Minutes Spent Total Time Spent with Patient: Total time spent is greater than 50% in coordination of care (as documented) at patient's floor/unit and/or counseling patient: Coding Level of Care Code 57014 INT INP/OBS CARE 3/75MIN Diagnoses Prostate abscess N41.2 Sepsis A41.9
--- NOTE | 2024-06-17 14:57 | Pharmacy Report ---
Pharmacy PK ABX Note - Date of Service June 17, 2024 - Assessment and Plan Assessment 69 year old M receiving empiric vancomycin and cefepime for treatment of prostatic abscess. * Day #1 of antimicrobial therapy. * Tmax of 38.2oC. Leukocytosis of 14k. SCr 1.59 mg/dL, CrCl 45 mL/min (baseline SCr near 0.9-1). * Cultures pending. Likely don't need gram positive coverage unless gram positives grow in gram stain of urine culture given prostatic abscesses most often involve gram negatives. Plan Vancomycin * Loading dose: 1500 mg IV x 1 * Maintenance dose: 1000 mg IV every 24 hours * Regimen is predicted to achieve target AUC/LENA of 400-600 mg/L.hr * Random level ordered for: 06/19/24 Pharmacy will continue to follow and will adjust dose/frequency as necessary. Thank you. Pharmacy has transitioned to AUC monitoring for vancomycin. AUC/LENA is the preferred PK/PD target and is associated with decreased risk of nephrotoxicity compared to traditional trough targets.
[2024-06-17] MEDS: LACTATED RINGER'S 1,000 ML IV SCH (15:36)
[2024-06-17] MEDS ORDERED: ONDANSETRON INJ 2 MG/ML 2 ML VIAL IV PRN ×2 (15:39→18:49)
[2024-06-17] MEDS ORDERED: ePHEDrine sulfate 50 MG/ML AMP IV PRN (15:39)
[2024-06-17] MEDS ORDERED: fentaNYL citrate PF 100 MCG/2 ML VIAL IV PRN (15:39)
[2024-06-17] MEDS ORDERED: ATROPINE SULFATE 0.1 MG/ML 10ML SYR IV PRN (15:39)
--- NOTE | 2024-06-17 15:51 | Anesthesiology Consultation ---
Date of Service June 17, 2024 Assessment & Plan (1) Encounter for pre-operative examination: Chart Review Chart Review: Acceptable Risk for Surgery and Patient NOT seen in Pre Admission Testing Emergent procedure. Will obtain consent from patient's POA. Will try and start with light sedation and proceed to GA if necessary. Trying to avoid major hypotension given that bacterial blood stream burden likely to increase after abscess access/drained by surgeon. Consults Requested none History Surgery Operation Date: 06/17/24 10:10 Proposed Procedures p Transurethral Resection Prostate of Abscess - Jovi Estevez DO Height/Weight Height: 5 ft 9 in Weight: 76.2 kg Allergies Allergy/AdvReac Type Severity Reaction Status Date / Time Penicillins AdvReac Intermediate RASH Verified 05/10/24 08:33 Medications Home Medications Medication Instructions Recorded Confirmed Last Taken atorvastatin 10 mg tablet 10 mg PO DAILY 10/11/18 06/07/24 06/06/24 loperamide 2 mg capsule 2 mg PO Q6 PRN Diarrhea 10/11/18 06/07/24 Unknown (Anti-Diarrheal (loperamide)) pantoprazole 40 mg tablet,delayed 40 mg PO QAM 11/01/18 06/07/24 06/06/24 release acetaminophen 325 mg tablet 650 mg PO Q6H PRN pain/fever 02/27/19 06/07/24 06/06/24 cholecalciferol (vitamin D3) 50 2,000 units PO DAILY #30 caps 03/08/19 06/07/24 06/06/24 mcg (2,000 unit) capsule melatonin 5 mg tablet 5 mg PO HS sleep #90 tabs 09/18/19 06/07/24 06/06/24 meloxicam 15 mg tablet 15 mg PO DAILY 06/09/20 06/07/24 06/06/24 cholestyramine (with sugar) 4 gram 1 ea PO BID 12/15/20 06/07/24 06/06/24 oral powder oxybutynin chloride 10 mg 10 mg PO DAILY 12/15/20 06/07/24 06/06/24 tablet,extended release 24 hr cyanocobalamin (vitamin B-12) 2,500 mcg PO DAILY #30 tabs 07/13/21 06/07/24 06/06/24 2,500 mcg tablet carbidopa 25 mg-levodopa 100 mg 1 tab PO QID 11/26/21 06/07/24 06/06/24 tablet (Sinemet) levothyroxine 50 mcg tablet 50 mcg PO DAILY 11/26/21 06/07/24 06/06/24 metformin 500 mg tablet 1,000 mg PO AMHS 05/10/24 06/07/24 06/06/24 buspirone 7.5 mg tablet 7.5 mg PO Q12 06/07/24 06/07/24 06/06/24 carboxymethylcellulose sodium 1 % 1 drp OPB DAILY 06/07/24 06/07/24 06/06/24 eye liquid gel drops (Refresh Liquigel) ketoconazole 1 % shampoo 1 applic topical 2XWK 06/07/24 06/07/24 06/05/24 lorazepam 0.5 mg tablet 0.5 mg PO Q6 PRN 06/07/24 06/07/24 06/06/24 anxiety/restlessness morphine concentrate 20 mg/mL oral 10 mg PO Q4 PRN Shortness Of Breath 06/07/24 06/07/24 Unknown syringe (FOR ORAL USE ONLY) paroxetine HCl 40 mg tablet 40 mg PO QAM 06/07/24 06/07/24 06/06/24 cefpodoxime 200 mg tablet 200 mg PO BID #20 tabs 06/11/24 Unknown insulin glargine 100 unit/mL 7 unit (0.07 mL) subcut HS #0 mL 06/11/24 06/07/24 06/06/24 subcutaneous solution Active Medications Generic Name Dose Route Start Last Admin Trade Name Freq PRN Reason Stop Dose Admin Lactated Ringer's 1,000 mls @ 15 mls/hr 06/17/24 15:45 06/17/24 15:36 Lr IV 06/18/24 15:44 15 mls/hr .Q24H LLOYD Administration NPO Date Last Intake of Fluids: 06/17/24 Time Last Intake of Fluids: 09:00 Date Last Intake of Solids: 06/17/24 Time Last Intake of Solids: 09:00 Past Medical History Medical History (Updated 06/17/24 @ 15:50 by Dread Sapp MD) Encounter for pre-operative examination Prostate abscess Diabetes ARF (acute renal failure) Non-ST elevation [place] (NSTEMI) Intellectual disability Atypical Parkinsonism Hypoxia Bilateral pneumonia Alteration consciousness Closed left hip fracture Diarrhea Generalized weakness Major depressive disorder Diverticular disease Tinnitus of both ears BPH (benign prostatic hyperplasia) Generalized muscle weakness Gait apraxia Chronic shoulder pain Cognitive disorder Unsteady gait Aspiration precautions Incontinence Hyperlipemia Bipolar disorder Exercise / Class Metabolic Activity IV < 2 Limit ADL/Bedbound Past Family History Family History Unknown Obesity Hypercholesterolemia Father Diabetes Ischemic heart disease Sister Cancer Other Family history unknown Past Surgical History Surgical History Hx of tonsillectomy H/O wisdom tooth extraction S/P hip replacement H/O inguinal hernia repair Status post left hip replacement History of left hip replacement Past Anesthesia History No Hx of Anesthesia Complications and No Family Hx of Anesthesia Complications Social History Smoking Status: Never smoker Do You Dip or Chew Tobacco: No Hx Alcohol Use: No Hx Substance Use: No substance use type: does not use Physical Exam Vital Signs Last Vital Signs Temp 37.3 C 06/17/24 15:24 Pulse 89 06/17/24 15:24 Resp 20 06/17/24 15:24 BP 151/78 H 06/17/24 15:24 Pulse Ox 94 06/17/24 15:24 O2 Del Method Nasal Cannula 06/17/24 15:24 O2 Flow Rate 3 06/17/24 15:24 Testing Laboratory Results 06/17/24 12:48 06/17/24 12:48 06/17/24 15:19 POC Glucose 103 H Electrocardiogram Date: 06/07/24 DICTATED BY: Nabeel Linton MD Test Reason : Blood Pressure : */* mmHG Vent. Rate : 112 BPM Atrial Rate : 112 BPM P-R Int : 158 ms QRS Dur : 86 ms QT Int : 334 ms P-R-T Axes : 34 -5 69 degrees QTcB Int : 455 ms Sinus tachycardia Otherwise normal ECG When compared with ECG of 16-Aug-2020 05:09, Vent. rate has increased by 55 bpm Nonspecific T wave abnormality, improved in Anterolateral leads Confirmed by Nabeel Linton ([id number]) on 06/07/2024 10:50:41 PM Chest X-Ray Date: 06/17/24 XR chest 1V portable CLINICAL HISTORY: sepsis COMPARISON STUDY: 06/10/2024 FINDINGS: Single view portable chest demonstrates no acute cardiopulmonary process. The pleural effusions have resolved. Allowing for low lung volumes, there is no acute pulmonary process identified. The heart and pulmonary vascularity are unremarkable. IMPRESSION: No acute process. Echocardiogram Date: 06/07/24 Normal LV size with mildly reduced systolic function. EF 40-45%. Mild global hypokinesis with severe hypokinesis of the inferolateral wall. Moderate LVH. Borderline dilated RV with normal systolic function. No sig valvular abnormalities. Mild pulmonary HTN. Estimated RVSP 48mmHg.
[2024-06-17 15:59] LABS: INR 1.1 (0.9-1.1); Partial Thromboplastin Ratio 0.9; Partial Thromboplastin Time 25 Seconds (21-31); Prothrombin Time 11.6 Seconds (9.0-12.0)
[2024-06-17] MEDS ORDERED: ALBUMIN HUMAN 5% 12.5 GM/250 ML VIAL IV ONE (16:02)
[2024-06-17] MEDS ORDERED: PROPOFOL IV EMULSION 10 MG/ML 20 ML VIAL IV ONE ×2 (16:10→17:20)
[2024-06-17] MEDS ORDERED: VASOPRESSIN 20 UNIT/ML VIAL ONE (16:10)
[2024-06-17] MEDS ORDERED: MIDAZOLAM HCL 1 MG/ML 2ML VIAL ONE (16:11)
[2024-06-17] MEDS ORDERED: KETAMINE HCL 10MG/ML SYR ONE (16:15)
[2024-06-17] MEDS ORDERED: fentaNYL citrate PF 100 MCG/2 ML VIAL ONE (16:40)
[2024-06-17] MEDS ORDERED: SODIUM CHLORIDE 0.9% PF INJ 10 ML VIAL ONE (16:56)
--- NOTE | 2024-06-17 17:37 | Operative Report ---
PG Post Operative Report Pre & Post Diagnosis Operation Date: 06/17/24 10:10 Pre-Op Diagnosis: Sepsis, Diabetes, E coli bacteremia, Prostate abscess Post Op: Same I identified the patient and participated in the time-out.: Yes Procedure Operation Date: 06/17/24 10:10 Actual Procedures Transurethral Resection of Prostate. Unroofing of prostatic abscesses Clot Evacuation - Jovi Estevez DO Surgeon Jovi Estevez, II, DO Parking Assistant None Estimated Blood Loss 10 Findings Consistent with Post-Op Diagnosis Massive median lobe with large Prostate with obstruction. With severe abdominal changes concerning for likely prostatitis. Debris within the base of the bladder. Clot material in the base of the bladder. Clot and debris was able to be irrigated clear. Massive abscess of the left lateral prostatic lobe. Additional multiple smaller abscesses of the median lobe. Specimens Prostate adenoma. Drains 24Fr three-way catheter Anesthesia Type General Complications none Disposition Disposition: Recovery Room Indications Patient with obstruction due to prostate enlargement and suspicion for possible prostatic abscess with sepsis. Risks and benefits discussed at length. Description of Procedure Patient was consented and brought back to the operating room. Patient was placed under anesthesia in the supine position and moved to the dorsal lithotomy position. Patient was deemed an emergency secondary to sepsis and suspicion of abscess. Considerable concern for life or limb with severe sepsis and episode of worsening infection. Patient was prepped and draped in the regular sterile fashion. A time out was completed. A 30degree Cystoscope was placed into the bladder and the entire bladder was examined. The UO's were identified as well as the bladder neck, trigone, dome, and the other important landmarks. A large amount of debris was able to be evacuated from the base of the bladder. The prostate was found to be extremely large with a very large median lobe. The lateral lobes were also severely enlarged there was a large amount of prostate projecting into the bladder. The prostatic urethra and large lobes/adenoma was assessed and the veru and bladder neck identified and area/size was assessed. The entire prostatic urethra was found to be severely inflamed. There appeared to be debris within the prostatic urethra as well as significant likely fluctuance coming from the prostatic lobes. The resection scope was placed and the fine bipolar loop was selected. Starting at the 5 and 7 o'clock positions, a channel was created from bladder neck to the veru. On resection of the 5 o'clock position moving laterally a large pocket of abscess material was encountered. This was further resected in order to completely unroofed and opened up the large prostatic abscess. A significant amount of purulent material was seen draining from the abscess cavity. There was some bloody discharge as well. Visualization was significantly limited during the drainage. Once completely drained off the entire abscess cavity was then assessed. The left lateral lobe of the prostate had to be further resected in order to smooth the channel as well as to fully open the remainder of the large abscess cavity. The channel significantly opened with a drainage of the large purulent amount of fluid. The left lateral lobe was able to be resected. The entire median lobe was resected in order to smooth the channel. Additionally there were multiple small abscesses discovered within the median lobe. These were unroofed and resected. The tissue was resected down to capsule fibers. A large amount of prostatic tissue was also found to be projecting into the bladder from the right lateral lobe. This tissue was causing an obstructive issue at the bladder neck and was able to be resected largely from the 7 o'clock position. The channel was drastically improved. There were numerous areas of bleeding with bleeding varicosities that were fulgurated. Extensive irrigation was needed in order to clear all the debris as well as the prostatic tissue from the bladder The Specimen was removed and sent for analysis. The resection bed and any bleeding areas were fulgurated/cauterized and the entire area inspected. All bleeding was controlled. The bladder was inspected a final time. The bladder was emptied and irrigated. All specimen and debris was removed. The scope was removed with the bladder partially full. A catheter was placed and balloon elevated. This was easily irrigated. The patient was cleaned, aroused from anesthesia, and transferred to the pacu in stable condition having tolerated the procedure well with no complications. I was present and participated in all aspects of the procedure. The patient will be monitored in the PACU until transferred. Patient will be transferred to the floor to be monitored on broad-spectrum IV antibiotics. Will plan to maintain catheter likely for 2 to 3 weeks for adequate healing and drainage. Will likely need prolonged course of antibiotics due to severity of abscess. Had additional prostatic tissue that may need to be further resected. Will plan to monitor patient during recovery and monitor for any signs of worsening sepsis I attest to the content of the Intraoperative Record and any orders documented therein. Any exceptions are noted below.
--- NOTE | 2024-06-17 17:58 | Anesthesiology Progress Note ---
Date of Service June 17, 2024 Anesthesia Post Procedure Vital Signs Vital Signs: Temp Pulse Pulse Resp BP BP Pulse Ox 06/17/24 15:24 37.3 C 89 20 151/78 H 94 06/17/24 15:11 96 H 20 153/76 H 93 06/17/24 14:30 37.1 C 96 H 20 153/76 H 92 06/17/24 13:01 97 H 06/17/24 12:40 100 H 21 91 06/17/24 12:40 101 H 21 139/91 91 06/17/24 12:40 38.2 C H 104 H 18 139/91 92 O2 Del Method O2 Flow Rate 06/17/24 15:24 Nasal Cannula 3 06/17/24 15:11 Nasal Cannula 3 06/17/24 14:30 Nasal Cannula 3 06/17/24 13:01 06/17/24 12:40 Room Air 06/17/24 12:40 Room Air 06/17/24 12:40 Room Air Transfer of Care Handoff Completed per policy Notes Mental Status: alert / awake / arousable and participated in evaluation Patient Amnestic to Procedure: Yes Nausea / Vomiting: adequately controlled Pain: adequately controlled Airway Patency, RR, SpO2: stable & adequate BP & HR: stable & adequate Hydration State: stable & adequate Anesthetic Complications: no major complications apparent and Pt Satisfied with anesthetic care
[2024-06-17] MEDS: PANTOprazole 40 MG/10 ML SYR IV STA (19:21)
[2024-06-17] MEDS: INSULIN ASPART PER UNIT CHARGE SC SCH ×3 (19:22→23:38)
[2024-06-17] MEDS: DEXTROSE 5% 1,000 ML IV SCH (19:38)
[2024-06-17] MEDS: busPIRone 7.5 MG TAB PO SCH (20:07)
[2024-06-17] MEDS: CARBIDOPA/LEVODOPA 25/100MG TAB PO SCH (20:07)
[2024-06-17] MEDS: MELATONIN 3 MG TAB PO PRN (20:20)
[2024-06-17] MEDS ORDERED: Nursing to Pharmacy Communication SCH (20:30)
[2024-06-17 21:36] LABS: BUN Creatinine Ratio 21.2 (10-20); Calcium 7.7 mg/dl (8.6-10.3); Creatinine Clr Calc Pharmacy 45.3 ml/min; Potassium 3.6 mmol/L (3.5-5.1)
[2024-06-17] MEDS: CHOLESTYRAMINE LIGHT 4 GM PKT PO SCH (22:06)
[2024-06-18] MEDS: CEFEPIME 2000MG 2,000 MG/20 ML SYR IV SCH (00:08)
[2024-06-18] MEDS: LEVOTHYROXINE SODIUM 50 MCG TABLET PO SCH (06:06)
[2024-06-18 06:24] LABS: Basophils # (auto) 0.05 K/uL (0.00-0.20); Basophils % (auto) 0.4 %; Eosinophils # (auto) 0.35 K/uL (0.00-0.50); Eosinophils % (auto) 2.8 %; Hematocrit (blood only) 34.8 % (42.0-52.0); Immature Granulocytes # (auto) 0.06 K/uL (0.01-0.20); Immature Granulocytes % (auto) 0.5 %; Lymphocytes # (auto) 1.31 K/uL (1.20-3.40); Lymphocytes % (auto) 10.4 %; Mean Corpuscular Hemoglobin 31.2 pg (25.0-34.0); Mean Corpuscular Hgb Conc 31.6 g/dL (32.0-36.0); Mean Corpuscular Volume 98.6 fL (80.0-100.0); Mean Platelet Volume 10.2 fL (9.4-12.4); Monocytes # (auto) 0.83 K/uL (0.11-0.59); Monocytes % (auto) 6.6 %; Neutrophils # (auto) 9.97 K/uL (1.40-6.50); Neutrophils % (auto) 79.3 %; Platelet Count 307 K/uL (130-400); RDW Coefficient of Variation 13.7 % (11.5-14.5); RDW Standard Deviation 48.8 fL (36.4-46.3); Red Blood Count 3.53 M/uL (4.70-6.10); White Blood Count 12.57 K/ul (4.8-10.8)
[2024-06-18 06:42] LABS: Albumin Globulin Ratio 1.1 (0.9-2); BUN Creatinine Ratio 21.3 (10-20); Bilirubin,Total 0.7 mg/dl (0.2-1.0); Calcium 8.1 mg/dl (8.6-10.3); Globulin 2.8 gm/dl (2.5-4.0); Magnesium 1.8 mg/dl (1.7-2.4); Phosphorus 3.9 mg/dl (2.5-4.9); Potassium 3.2 mmol/L (3.5-5.1); Total Protein 5.8 gm/dl (6.0-8.3)
[2024-06-18] MEDS: PANTOprazole 40 MG TAB PO SCH (07:57)
[2024-06-18] MEDS: PARoxetine HCL 20 MG TAB PO SCH (07:57)
[2024-06-18] MEDS: VANCOMYCIN HCL 1,250 MG in SODIUM CHLORIDE 0.9% 250 ML IV SCH (08:31)
[2024-06-18] MEDS: POLYETHYLENE (MIRALAX) 17 GM PACK PO SCH (08:31)
--- NOTE | 2024-06-18 08:33 | Urology Progress Note ---
Date of Service June 18, 2024 Assessment & Plan (1) Prostate abscess: Plan: 69 yo/M admitted for hypernatremia and prostate abscess. POD #1 status post transurethral resection of prostate and unroofing of prostate abscesses Afebrile, hemodynamically stable Labs reviewedcreatinine 1.22, WBC downtrending (12.57), Na 150 Blood cultures are pending Continue with broad-spectrum antibiotics and narrow per sensitivity data when available Peng patent and draining clear urine with CBI on slow, CBI clamped during exam We will plan to discontinue CBI later today presuming urine remains relatively clear Plan to maintain Peng catheter for approximately 2 to 3 weeks for adequate healing per Dr. Estevez Continue with antibiotics Continue medical management per hospital medicine service Will arrange outpatient follow-up with our service will follow peripherally, please contact our service with any additional questions, concerns or change in clinical status Admission and Anticipated Discharge Date Admission Date: June 17, 2024 Subjective Patient seen and examined at bedside this morning. He is awake, alert and sitting up in bed. Tolerating diet. No acute issues overnight. Peng draining clear urine with CBI on slow. CBI clamped during exam, RN aware. No fever or chills. Review of Systems Constitutional: as per Subjective / HPI Genitourinary: + as per Subjective / HPI Physical Exam Constitutional: no acute distress Respiratory: normal respiratory effort; no respiratory distress and no labored breathing Gastrointestinal (Abdomen): Percussion/Palpation: abdomen soft; abdomen nontender Musculoskeletal: Head/Neck/Chest: normocephalic Neurologic: moves all extremities and awake Psychiatric: Orientation: alert and oriented to person Genitourinary: Peng draining clear yellow with CBI on slow, CBI clamped during exam, RN aware Results & Data Vital Signs (Past 12 Hours) Vital Signs Temp Pulse Pulse Resp BP Pulse Ox O2 Del Method 06/18/24 07:35 69 06/18/24 07:23 37.1 C 72 19 131/69 93 Nasal Cannula 06/18/24 03:35 36.4 C L 74 18 135/75 95 Nasal Cannula 06/17/24 23:27 36.8 C 71 18 118/57 L 92 Nasal Cannula 06/17/24 22:20 Nasal Cannula 06/17/24 22:09 76 O2 Flow Rate 06/18/24 07:35 06/18/24 07:23 2 06/18/24 03:35 06/17/24 23:27 06/17/24 22:20 2 06/17/24 22:09 PG Care Time/CCT Total # of Minutes Spent Total Time Spent with Patient: Total time spent is greater than 50% in coordination of care (as documented) at patient's floor/unit and/or counseling patient: Coding Level of Care Code 06578 SUB INP/OBS CARE 06/15MIN Diagnoses Prostate abscess N41.2
--- NOTE | 2024-06-18 08:50 | Pharmacy Report ---
Pharmacy Glycemic Short Note 2 - Date of Service June 18, 2024 - Glycemic Short BSG Results (Last 24 hours): 06/17/24 06/17/24 06/17/24 12:48 15:19 17:44 Glucose 111 H POC Glucose 103 H 115 H 06/17/24 06/17/24 06/17/24 19:24 20:44 23:25 Glucose 173 H POC Glucose 129 H 205 H 06/18/24 06/18/24 06/18/24 03:33 05:21 07:21 Glucose 153 H POC Glucose 157 H 168 H OUTPATIENT ANTIDIABETIC REGIMEN: * Insulin glargine 7 units SC HS * Metformin 1000 mg PO BIDM HbA1c: 8% (06/07/24) ASSESSMENT: * GM is a 69 year old male with prostatic abscess now POD #1 s/p TURP of abscess w/ looping of prostatic abscess * Receiving broad spectrum antibiotic regimen (vancomycin/cefepime) * Patient also hypernatremic and ordered D5W @150 mL/hr at this time * Bolus insulin only initiated yesterday in light of NPO for surgery * Will plan to add basal this evening to correlate with outpatient administration of basal PLAN FOR INPATIENT GLYCEMIC CONTROL: * Hold outpatient oral diabetes medications * Basal insulin * Lantus 7 units SC HS * Bolus insulin * NovoLog per scale ACHS or Q6hrs while NPO * Goal Range: Low 110 mg/dL - High 140 mg/dL * Correction Factor: 35 mg/dL/unit * Nutritional / Prandial insulin per carb ratio of 1 unit per 12 grams CHO consumed
[2024-06-18] MEDS ORDERED: VANCOMYCIN HCL 1,000 MG/270 ML BAG IV SCH (12:00)
--- NOTE | 2024-06-18 12:13 | Hospitalist Progress Note ---
Date of Service June 18, 2024 Assessment & Plan (1) Sepsis: Plan: Suspected source prostate abscess Improving following transurethral resection of prostate and unroofing of prostate abscesses in the OR by Urology will continue broad spectrum antibiotics for now until cultures result (2) Prostate abscess: Plan: he is stable s/p transurethral resection of prostate and unroofing of prostate abscesses Intraoperative cultures were sent, result pending continue empiric broad spectrum antibiotics will maintain ca catheter till outpatient follow up with Urology continue CBI for now, per urology, may discontinue today if urine clears up (3) Benign prostatic hyperplasia with urinary obstruction: Plan: Ca catheter to be placed by urology Will defer tamsulosin pending serial blood pressure measurements overnight (4) RUBIA (acute kidney injury): Plan: Obstructive uropathy, should resolve with intravenous fluids and Ca catheter placement in the OR Hold meloxicam Continue to monitor BMP (5) Acute hypernatremia: Plan: Patient clinically dry on exam, will start on D5W @ 150ml/hr and continue to trend Na till normalizes Calculated 5.2L free water deficit (6) Diabetes: Plan: Hemoglobin A1c 8.0 in May, no need to repeat Hold metformin Consult pharmacy for glycemic control (7) E coli bacteremia: Plan: Noted on recent admission Plan GERD - continue pantoprazole Hypothyroidism - normal TSH in August, continue levothyroxine VTE Prophylaxis -scd Diet - regular diet Disposition - admit to PCU Admission and Anticipated Discharge Date Admission Date: June 17, 2024 Subjective patient seen and examined, stable post surgery, denies any new complaints Review of Systems Review of Systems: All systems reviewed are negative, apart from the ones contained in the history. Physical Exam Physical Exam: The patient is awake, alert and oriented 3, well developed and well nourished, normocephalic and atraumatic, lying in bed and in no acute distress. HEENT--PERRL, EOMI, mucous membranes and oropharynx mildly dry Neck--supple. No JVD. No bruits. Thyroid normal, trachea midline, no adenopathy. Heart--normal S1 and S2. No murmurs, rubs or gallops. Lungs--clear bilaterally, no respiratory distress, no accessory muscle use. Abdomen--normal bowel sounds and soft. Extremities--no cyanosis or clubbing. No edema. Dermatologic--normal skin turgor, normal color, no abnormal lymph nodes, no rash. Neurologic--cranial nerves II through XII grossly intact. Rheumatologic--normal range of motion. Psychiatric--normal affect. Results & Data Results & Data Vital Signs (Past 12 Hours) Vital Signs Temp Pulse Pulse Resp BP Pulse Ox O2 Del Method 06/18/24 11:28 98.2 F 69 19 114/71 95 Nasal Cannula 06/18/24 09:00 Nasal Cannula 06/18/24 07:35 69 06/18/24 07:23 98.8 F 72 19 131/69 93 Nasal Cannula 06/18/24 03:35 97.5 F L 74 18 135/75 95 Nasal Cannula O2 Flow Rate 06/18/24 11:28 2 06/18/24 09:00 2 06/18/24 07:35 06/18/24 07:23 2 06/18/24 03:35 PG Care Time/CCT Total # of Minutes Spent Total Time Spent with Patient: Total time spent is greater than 50% in coordination of care (as documented) at patient's floor/unit and/or counseling patient: Coding Level of Care Code 79271 SUB INP/OBS CARE 2/35MIN Diagnoses Sepsis with acute renal failure without septic shock, due to unspecified organism, unspecified acute renal failure type A41.9; R65.20; N17.9 Sepsis type: sepsis due to unspecified organism Sepsis acute organ dysfunction status: with acute organ dysfunction Severe sepsis acute organ dysfunction type: acute renal failure Acute renal failure type: unspecified Severe sepsis shock status: without septic shock Prostate abscess N41.2 Benign prostatic hyperplasia with urinary obstruction N40.1; N13.8 RUBIA (acute kidney injury) N17.9 Acute hypernatremia E87.0 Diabetes E11.9 E coli bacteremia R78.81; B96.20 Time Spent (min) 35 (1) Sepsis Sepsis type: sepsis due to unspecified organism Sepsis acute organ dysfunction status: with acute organ dysfunction Severe sepsis acute organ dysfunction type: acute renal failure Acute renal failure type: unspecified Severe sepsis shock status: without septic shock Qualified Code(s): A41.9 - Sepsis, unspecified organism; R65.20 - Severe sepsis without septic shock; N17.9 - Acute kidney failure, unspecified
--- NOTE | 2024-06-18 12:25 | Electrocardiogram Report ---
Test Reason : Blood Pressure : */* mmHG Vent. Rate : 101 BPM Atrial Rate : 101 BPM P-R Int : 140 ms QRS Dur : 86 ms QT Int : 370 ms P-R-T Axes : 31 -56 80 degrees QTcB Int : 479 ms Sinus tachycardia Left anterior fascicular block Moderate voltage criteria for LVH, may be normal variant ( R in aVL ) Cannot rule out Anterior infarct , age undetermined Abnormal ECG When compared with ECG of 06-Jun-2024 22:36, Left anterior fascicular block is now Present Minimal criteria for Anterior infarct are now Present Confirmed by Mark Carbone ([id number]) on 06/18/2024 12:25:16 PM Referred By: [facility] Confirmed By: Mark Carbone
[2024-06-18 15:49] LABS: Appearance Urine Cloudy (Clear); Bacteria Urine Automated 1+ (None Seen); Bilirubin Urine Negative (Negative); Blood Urine 3+ (Negative); Color Urine Orange; Epithelial Cell Urine Auto 0-2 /hpf (0-2); Glucose Urine UA Negative (Negative); Ketones Urine Negative (Negative); Leukocyte Esterase Urine 3+ (Negative); Nitrite Urine Negative (Negative); Protein Urine 2+ (Negative); RBC Urine Automated >20 /hpf (0-2); Specific Gravity Urine 1.013 (1.000-1.030); Urobilinogen Urine Negative (Negative); WBC Urine Automated >50 /hpf (0-5); pH Urine 5.5 (4.5-7.5)
[2024-06-18] MEDS: LANTUS PER UNIT CHARGE SC SCH (20:32)
[2024-06-18] MEDS: ACETAMINOPHEN 325 MG TAB PO PRN (20:32)
[2024-06-19 03:38] VITALS: RESP 18
[2024-06-19 06:25] LABS: Creatinine Clr Calc Pharmacy 60.9 ml/min
--- NOTE | 2024-06-19 11:23 | Hospitalist Progress Note ---
Date of Service June 19, 2024 Assessment & Plan (1) Sepsis: Plan: Suspected source prostate abscess Improving following transurethral resection of prostate and unroofing of prostate abscesses in the OR by Urology will continue broad spectrum antibiotics for now until cultures result (2) Prostate abscess: Plan: he is stable s/p transurethral resection of prostate and unroofing of prostate abscesses Intraoperative cultures were sent, result pending. Previous urine cultures had grown E coli jimenes sensisitve continue empiric broad spectrum antibiotics will maintain ca catheter till outpatient follow up with Urology continue CBI for now, per urology, may discontinue today if urine clears up (3) Benign prostatic hyperplasia with urinary obstruction: Plan: Ca catheter to be placed by urology Will defer tamsulosin pending serial blood pressure measurements overnight (4) RUBIA (acute kidney injury): Plan: Obstructive uropathy, should resolve with intravenous fluids and Ca catheter placement in the OR Hold meloxicam Continue to monitor BMP (5) Acute hypernatremia: Plan: Resolved (6) Diabetes: Plan: Hemoglobin A1c 8.0 in May, no need to repeat Hold metformin Consult pharmacy for glycemic control (7) E coli bacteremia: Plan: Noted on recent admission was on Cefpodoxime Plan GERD - continue pantoprazole Hypothyroidism - normal TSH in August, continue levothyroxine VTE Prophylaxis -scd Diet - regular diet Disposition - Hopefully d/c to his assisted living residence in 24-48 hrs Admission and Anticipated Discharge Date Admission Date: June 17, 2024 Subjective patient seen and examined, stable post surgery, denies any new complaints Review of Systems Review of Systems: All systems reviewed are negative, apart from the ones contained in the history. Physical Exam Physical Exam: The patient is awake, alert and oriented 3, well developed and well nourished, normocephalic and atraumatic, lying in bed and in no acute distress. HEENT--PERRL, EOMI, mucous membranes and oropharynx mildly dry Neck--supple. No JVD. No bruits. Thyroid normal, trachea midline, no adenopathy. Heart--normal S1 and S2. No murmurs, rubs or gallops. Lungs--clear bilaterally, no respiratory distress, no accessory muscle use. Abdomen--normal bowel sounds and soft. Extremities--no cyanosis or clubbing. No edema. Dermatologic--normal skin turgor, normal color, no abnormal lymph nodes, no rash. Neurologic--cranial nerves II through XII grossly intact. Rheumatologic--normal range of motion. Psychiatric--normal affect. Results & Data Results & Data Vital Signs (Past 12 Hours) Vital Signs Temp Pulse Pulse Resp BP Pulse Ox O2 Del Method 06/19/24 11:15 97.7 F 68 18 116/68 92 Room Air 06/19/24 09:17 Room Air 06/19/24 07:41 70 06/19/24 07:33 98.4 F 18 115/71 93 Room Air 06/19/24 03:37 97.5 F L 61 18 109/67 94 Room Air 06/18/24 23:26 97.5 F L 64 20 144/62 H 93 Room Air PG Care Time/CCT Total # of Minutes Spent Total Time Spent with Patient: Total time spent is greater than 50% in coordination of care (as documented) at patient's floor/unit and/or counseling patient: Coding Level of Care Code 25989 SUB INP/OBS CARE 2/35MIN Diagnoses Sepsis with acute renal failure without septic shock, due to unspecified organism, unspecified acute renal failure type A41.9; R65.20; N17.9 Sepsis type: sepsis due to unspecified organism Sepsis acute organ dysfunction status: with acute organ dysfunction Severe sepsis acute organ dysfunction type: acute renal failure Acute renal failure type: unspecified Severe sepsis shock status: without septic shock Prostate abscess N41.2 Benign prostatic hyperplasia with urinary obstruction N40.1; N13.8 RUBIA (acute kidney injury) N17.9 Acute hypernatremia E87.0 Diabetes E11.9 E coli bacteremia R78.81; B96.20 Time Spent (min) 35 (1) Sepsis Sepsis type: sepsis due to unspecified organism Sepsis acute organ dysfunction status: with acute organ dysfunction Severe sepsis acute organ dysfunction type: acute renal failure Acute renal failure type: unspecified Severe sepsis shock status: without septic shock Qualified Code(s): A41.9 - Sepsis, unspecified organism; R65.20 - Severe sepsis without septic shock; N17.9 - Acute kidney failure, unspecified
--- NOTE | 2024-06-19 12:04 | Pharmacy Report ---
Pharmacy Glycemic Short Note 2 - Date of Service June 19, 2024 - Glycemic Short BSG Results (Last 24 hours): 06/18/24 06/18/24 06/19/24 16:19 20:12 07:29 POC Glucose 103 H 140 H 91 06/19/24 11:14 POC Glucose 124 H OUTPATIENT ANTIDIABETIC REGIMEN: * Insulin glargine 7 units SC HS * Metformin 1000 mg PO BIDM HbA1c: 8% (06/07/24) ASSESSMENT: 06/19 * Stressors stable * AM fasting BSG below goal. Will reduce Lantus. * Post-prandial BSG's at/near goal. No change to Novolog 06/18 * GM is a 69 year old male with prostatic abscess now POD #1 s/p TURP of abscess w/ looping of prostatic abscess * Receiving broad spectrum antibiotic regimen (vancomycin/cefepime) * Patient also hypernatremic and ordered D5W @150 mL/hr at this time * Bolus insulin only initiated yesterday in light of NPO for surgery * Will plan to add basal this evening to correlate with outpatient administration of basal PLAN FOR INPATIENT GLYCEMIC CONTROL: * Hold outpatient oral diabetes medications * Basal insulin * Lantus 4 units SC HS * Bolus insulin * NovoLog per scale ACHS or Q6hrs while NPO * Goal Range: Low 110 mg/dL - High 140 mg/dL * Correction Factor: 35 mg/dL/unit * Nutritional / Prandial insulin per carb ratio of 1 unit per 12 grams CHO consumed
--- NOTE | 2024-06-19 12:51 | Pharmacy Report ---
Pharmacy PK ABX Note - Date of Service June 19, 2024 - Assessment and Plan Assessment 06/19: Day #3 vanc/cefepime for treatment of prostatic abscess s/p resection of abscess on 06/17. Urine culture with no growth. Previous urine with E. coli. Vancomycin level 06/19 AM 12.5 mcg/mL suggests low end therapeutic goal- SCr with downward trend toward baseline, suspect further improvement will adjust dose to ensure levels remain therapeutic Intraoperative cultures reportedly sent pending results 06/17 69 year old M receiving empiric vancomycin and cefepime for treatment of prostatic abscess. * Day #1 of antimicrobial therapy. * Tmax of 38.2oC. Leukocytosis of 14k. SCr 1.59 mg/dL, CrCl 45 mL/min (baseline SCr near 0.9-1). * Cultures pending. Likely don't need gram positive coverage unless gram positives grow in gram stain of urine culture given prostatic abscesses most often involve gram negatives. Plan Vancomycin * Loading dose: 1500 mg IV x 1 * Maintenance dose: 1000 mg IV every 12 hours * Regimen is predicted to achieve target AUC/LENA of 400-600 mg/L.hr * Random level ordered for: 06/21 @1200 if continued Pharmacy will continue to follow and will adjust dose/frequency as necessary. Thank you. Pharmacy has transitioned to AUC monitoring for vancomycin. AUC/LENA is the preferred PK/PD target and is associated with decreased risk of nephrotoxicity compared to traditional trough targets.
[2024-06-19] MEDS: VANCOMYCIN HCL 1,000 MG/270 ML BAG IV SCH (13:20)
[2024-06-19] MEDS: LANTUS PER UNIT CHARGE SC SCH (20:43)
[2024-06-20 11:23] VITALS: PULSE 61; TEMP 97.7; O2SAT 96
--- NOTE | 2024-06-20 12:14 | Discharge Summary ---
Date of Service June 20, 2024 Admission HPI Per Admitting Provider Romel Ewing is a 69 year old male with Parkison's disease resident of [facility] who presents to the ER with increased confusion, restlessness, generalized weakness and mainly abnormal labs with hypernatremia. Unable to get any significant history from the patient at time of admission but he is aware he is in hospital. Cannot tell me when he last ate or drank. On discussion with RUBEN Frost at [facility]. She reports he ate 25% of his breakfast this morning at 9 AM which was the last time he ate or drank. She notes since discharge from the hospital he has become progressively worse with increased confusion, restlessness and now unable to use a walker so downgraded to a wheelchair. He has been incontinent of bowel and bladder since discharge which is new for him. The lab work collected was just routine posthospitalization lab work showing a sodium of 157 therefore was sent back to the emergency room. His baseline he is able to hold a conversation, typically knows where he is, the year and able to walk with a walker. He resides at [facility] since 2018 as he is no longer able to care for himself due to his Parkinson's disease. He was recently admitted and [facility] for E. coli sepsis with suspected source of UTI/pyelonephritis requiring vasopressor support in the ICU from June 07 - 2023. He was discharged on cefpodoxime which he has been receiving and [facility]. Admission Exam (Per Admitting) Constitutional The patient is awake, alert and oriented 3, well developed and well nourished, normocephalic and atraumatic, lying in bed and in no acute distress. HEENT--PERRL, EOMI, mucous membranes and oropharynx mildly dry Neck--supple. No JVD. No bruits. Thyroid normal, trachea midline, no adenopathy. Heart--normal S1 and S2. No murmurs, rubs or gallops. Lungs--clear bilaterally, no respiratory distress, no accessory muscle use. Abdomen--normal bowel sounds and soft. Extremities--no cyanosis or clubbing. No edema. Dermatologic--normal skin turgor, normal color, no abnormal lymph nodes, no rash. Neurologic--cranial nerves II through XII grossly intact. Rheumatologic--normal range of motion. Psychiatric--normal affect. Discharge Data Consultations 06/17/24 12:55 ED Decision to Admit Stat 06/17/24 13:59 Consult Urology Stat Procedures Performed Operation Date: 06/17/24 10:10 Actual Procedures p Transurethral Resection Prostate of Abscess with looping of prostetic abscess(Not Applicable) - Jovi Estevez, DO Hospital Course (1) Sepsis: Suspected source prostate abscess Resolved following transurethral resection of prostate and unroofing of prostate abscesses in the OR by Urology d/c on PO ciprofloxacin for 5 more days (2) Prostate abscess: he is stable s/p transurethral resection of prostate and unroofing of prostate abscesses Intraoperative cultures were sent, result pending. Previous urine cultures had grown E coli jimenes sensisitve continue empiric broad spectrum antibiotics will maintain ca catheter till outpatient follow up with Urology continue CBI for now, per urology, may discontinue today if urine clears up (3) Benign prostatic hyperplasia with urinary obstruction: Ca catheter to be placed by urology Will defer tamsulosin pending serial blood pressure measurements overnight (4) RUBIA (acute kidney injury): Obstructive uropathy, should resolve with intravenous fluids and Ca catheter placement in the OR Hold meloxicam Continue to monitor BMP (5) Acute hypernatremia: Resolved (6) Diabetes: Hemoglobin A1c 8.0 in May, no need to repeat Hold metformin Consult pharmacy for glycemic control (7) E coli bacteremia: Noted on recent admission was on Cefpodoxime Plan GERD - continue pantoprazole Hypothyroidism - normal TSH in August, continue levothyroxine VTE Prophylaxis -scd Diet - regular diet Disposition - Hopefully d/c to his assisted living residence Coding Level of Care Code 38453 INP/OBS DISCH >30 MIN Diagnoses Sepsis with acute renal failure without septic shock, due to unspecified organism, unspecified acute renal failure type A41.9; R65.20; N17.9 Sepsis type: sepsis due to unspecified organism Sepsis acute organ dysfunction status: with acute organ dysfunction Severe sepsis acute organ dysfunction type: acute renal failure Acute renal failure type: unspecified Severe sepsis shock status: without septic shock Prostate abscess N41.2 Benign prostatic hyperplasia with urinary obstruction N40.1; N13.8 RUBIA (acute kidney injury) N17.9 Acute hypernatremia E87.0 Diabetes E11.9 E coli bacteremia R78.81; B96.20 Time Spent (min) 35
[2024-06-20 13:34] VITALS: BP 124/73
[2024-06-20] MEDS ORDERED: LANTUS PER UNIT CHARGE SC SCH (21:00)
== END 2024-06-20 14:08 | DRG 854 ==
LOC: ED 12:31 → OR 15:13 → SUATTDRO 15:14 → 2S 15:14